=== PATIENT | female | born 1935 | race Caucasian/White ===

== ENCOUNTER → 2017-09-02 09:24 | Outpatient (CLI) | payer MEDICARE, SELFPAY ==
[2017-09-02 10:57] LABS: AST(SGOT) 20 U/L (15-37); Alanine Aminotransfer ALT/SGPT 22 U/L (13-56); Albumin, Serum 3.3 g/dL (3.2-5.0); Alkaline Phosphatase 70 U/L (45-117); Bilirubin, Direct 0.17 mg/dL (0.00-0.30); Cholesterol 138 mg/dL (200); Globulin 4.4 g/dL (2.2-4.2); High Density Lipoprotein 30 mg/dL; Protein, Total 7.7 g/dL (6.4-8.2); Triglycerides 146 mg/dL; Very Low Density Lipoprotein 29 mg/dL (5-40)
== END ==
PROVIDERS: Family Provider Family Medicine; PCP Family Medicine; Visit Provider Physician Assistant Medical
DX: E78.5 Hyperlipidemia, unspecified (principal); Z79.899 Other long term (current) drug therapy
CPT/HCPCS: 36415; 80061; 80076

== ENCOUNTER → 2018-03-13 09:05 | Outpatient (CLI) | payer MEDICARE, SELFPAY ==
[2018-03-13 10:54] LABS: AST(SGOT) 22 U/L (15-37); Alanine Aminotransfer ALT/SGPT 24 U/L (13-56); Albumin, Serum 3.4 g/dL (3.2-5.0); Alkaline Phosphatase 62 U/L (45-117); Bilirubin, Direct 0.11 mg/dL (0.00-0.30); Cholesterol 148 mg/dL (200); Globulin 4.2 g/dL (2.2-4.2); High Density Lipoprotein 33 mg/dL; Protein, Total 7.6 g/dL (6.4-8.2); Triglycerides 192 mg/dL; Very Low Density Lipoprotein 38 mg/dL (5-40)
== END ==
PROVIDERS: Family Provider Family Medicine; PCP Family Medicine; Visit Provider Internal Medicine Cardiovascular Disease
DX: I10 Essential (primary) hypertension (principal); E78.5 Hyperlipidemia, unspecified
CPT/HCPCS: 36415; 80061; 80076

== ENCOUNTER → 2018-05-05 11:44 | Outpatient (CLI) | payer MEDICARE, SELFPAY ==
[2018-05-05 12:36] LABS: Absolute Lymphocyte Count 1.92 X10^3/ul (0.83-4.51); Absolute Neutrophil Count 6.3 X10^3/uL (2.0-7.7); Basophil# 0.05 X10^3/uL; Basophil% 0.5 % (0-1); Eosinophil# 0.18 X10^3/uL; Hematocrit 37.9 % (37-47); Lymphocyte # 1.92 X10^3/ul (4.0); Mean Corp Hgb Conc 31.7 g/gl (32-36); Mean Corpuscular Hgb 29.1 pg (27.0-32.0); Mean Platelet Vol. 9.2 fl (6.2-12.0); Monocyte% 7.7 % (0-10); Neutrophil # 6.26 X10^3/uL (2.7-7.7); Neutrophil % 68.6 % (47-70); Platelet Count 254 K/mm3 (150-450); RBC Distribution Width CV 13.6 % (11.6-14.6); RBC Distribution Width SD 44.9 fl (35.1-43.9); Red Blood Count 4.12 M/mm3 (4.2-5.4); White Blood Count 9.1 K/mm3 (4.4-11.0)
[2018-05-05 12:37] LABS: POSITIVE COUNT NO; POSITIVE DIFFERENTIAL NO; POSITIVE MORPHOLOGY NO
== END ==
PROVIDERS: Family Provider Family Medicine; PCP Family Medicine; Referring Provider Ophthalmology; Visit Provider Ophthalmology
DX: H53.2 Diplopia (principal); D64.9 Anemia, unspecified
CPT/HCPCS: 36415; 85025

== ENCOUNTER → 2018-06-27 09:12 | Outpatient (CLI) | payer MEDICARE, SELFPAY ==
[2018-01-11 10:01] VITALS: BMI 28.8
[2018-06-27 10:49] LABS: Absolute Lymphocyte Count 2.29 X10^3/ul (0.83-4.51); Absolute Neutrophil Count 5.2 X10^3/uL (2.0-7.7); Basophil# 0.04 X10^3/uL; Basophil% 0.5 % (0-1); Eosinophil# 0.24 X10^3/uL; Eosinophils% 2.9 % (0-5); Hematocrit 36.1 % (37-47); Hemoglobin 11.3 g/dl (12.0-15.0); Lymphocyte # 2.29 X10^3/ul (4.0); Lymphocyte % 27.2 % (19-41); Mean Corp Hgb Conc 31.3 g/gl (32-36); Mean Corpuscular Hgb 28.2 pg (27.0-32.0); Mean Platelet Vol. 9.1 fl (6.2-12.0); Monocyte% 7.1 % (0-10); Neutrophil # 5.21 X10^3/uL (2.7-7.7); Neutrophil % 61.9 % (47-70); Platelet Count 230 K/mm3 (150-450); RBC Distribution Width CV 13.6 % (11.6-14.6); RBC Distribution Width SD 44.5 fl (35.1-43.9); Red Blood Count 4.01 M/mm3 (4.2-5.4); White Blood Count 8.4 K/mm3 (4.4-11.0)
[2018-06-27 10:50] LABS: POSITIVE COUNT NO; POSITIVE DIFFERENTIAL NO; POSITIVE MORPHOLOGY NO
[2018-06-27 11:25] LABS: ALB/GLOB Ratio 0.8 RATIO (0.9-2.4); AST(SGOT) 17 U/L (15-37); Alanine Aminotransfer ALT/SGPT 20 U/L (13-56); Albumin, Serum 3.3 g/dL (3.2-5.0); Alkaline Phosphatase 65 U/L (45-117); Anion Gap 5 (5-15); BUN 18 mg/dL (7-18); BUN/Creat Ratio 11.8 RATIO (10-20); Calcium,Total 8.4 mg/dL (8.5-10.1); Chloride 106 mmol/L (98-107); Cholesterol 134 mg/dL (200); Creatinine, Serum 1.53 mg/dL (0.55-1.02); EST Glomerular Filtration Rate 35 mL/min (>60); Est Glom Filt Rate - Afr Amer 42 mL/min (>60); Globulin 4.2 g/dL (2.2-4.2); Glucose 99 mg/dL (74-106); High Density Lipoprotein 28 mg/dL; Potassium 4.4 mmol/L (3.5-5.1); Protein, Total 7.5 g/dL (6.4-8.2); Sodium Level 142 mmol/L (136-145); Triglycerides 186 mg/dL; Very Low Density Lipoprotein 37 mg/dL (5-40)
[2018-06-27 11:30] LABS: Vitamin B12 1230 pg/mL (211-911)
--- OUTSIDE RECORDS SUMMARY | 2018-08-08 22:53 | XMS RPT_ITS ---
:1935 Author Organization OHIP Support Name Relationship Address Phone R Unavailable Unavailable Unavailable RINE, HAWA Unavailable [address] + [place] [address] R Unavailable Unavailable Unavailable RINE, HAWA Unavailable [address] + [place] [address] R Unavailable Unavailable Unavailable RINE, HAWA Unavailable [address] + [place] [address] R Unavailable Unavailable Unavailable RINE, HAWA Unavailable [address] + [place] [address] R Unavailable Unavailable Unavailable RINE, HAWA Unavailable [address] + [place] [address] R Unavailable Unavailable Unavailable RINE, HAWA Unavailable [address] + [place] [address] R Unavailable Unavailable Unavailable RINE, HAWA Unavailable [address] + [place] [address] R Unavailable Unavailable Unavailable RINE, HAWA Unavailable [address] + [place] [address] R Unavailable Unavailable Unavailable RINE, HAWA Unavailable [address] + [place] [address] R Unavailable Unavailable Unavailable RINE, HAWA Unavailable [address] + [place] [address] R Unavailable Unavailable Unavailable RINE, HAWA Unavailable [address] + [place] [address] R Unavailable Unavailable Unavailable RINE, HAWA Unavailable [address] + [place] [address] Care Team Providers Name Role Phone Claudy Vega Attending Unavailable John Rachel Referring Unavailable Martha Stallings Attending Unavailable Wilson, John Primary Care Unavailable Moodispaw, Claudy Attending Unavailable Wilson, John Referring Unavailable Moodispaw, Claudy Referring Unavailable Moodispaw, Claudy Referring Unavailable Moodispaw, Claudy Attending Unavailable Wilson, John Referring Unavailable Wilson, John Primary Care Unavailable Martha Mario Attending Unavailable Moodispaw, Claudy Attending Unavailable Moodispaw, Claudy Referring Unavailable Wilson, John Primary Care Unavailable Nurse, Standard Attending Unavailable Wilson, John Referring Unavailable Miedel, Treutlen Attending Unavailable Miedel, Treutlen Referring Unavailable Wilson, John Primary Care Unavailable Wilson, John Attending Unavailable Wilson, John Referring Unavailable Wilson, John Primary Care Unavailable PROBLEMS PROBLEMS DATE TYPE CONDITION / CODE ATTENDING STATUS SOURCE 06/27/2018 Unknown 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, Community unspecified / Hospital D50.9(ICD-10) Repository 06/27/2018 Unknown Z00.00 - Encounter John Rachel Active [facility] for general adult [facility] Hospital examination Repository without abnormal findings / Z00.00(ICD-10) 06/27/2018 Unknown E78.00 - Pure John Rachel Active [place] hypercholesterolem Community ia, unspecified / Hospital E78.00(ICD-10) Repository 06/27/2018 Unknown E53.8 - Deficiency John Rachel Active [facility] of other specified Community B group vitamins / Hospital E53.8(ICD-10) Repository 06/26/2018 Unknown H53.2 - Diplopia / Miedel, Treutlen Active [place] H53.2(ICD-10) [facility] Repository 03/13/2018 Unknown E78.5 - MoodispaClaudy morris Active [place] Hyperlipidemia, Community unspecified / Hospital E78.5(ICD-10) Repository 03/13/2018 Unknown I10 - Essential Moodispaw, Claudy Active [place] (primary) Community hypertension / Hospital I10(ICD-10) Repository PROCEDURES PROCEDURES No Procedure Records FoundRESULTS RESULTS CARDIOLOGY VISIT Observed: 07/12/2018 Status: F Source: [place] REPORT 12:34 PM [facility] REPOSITORY [facility] [place] [address] OFFICE VISIT Date of Service: 07/12/18 MR#: [id number] Acct: [id number] Name: RAJEEV ECHEVARRIA Rep #: [id number] : 1935 Provider: Claudy Vega MD Age/Sex: 82/F [place] [facility] [place] Status: Signed HPI HPI Details: RAJEEV ECHEVARRIA, is a 82 F who presents to the office today for outpatient cardiovascular follow-up. She denies any ongoing rapid heart rate sensations, near syncope, or syncope. She has had no issues with ongoing concerns of angina pectoris or CHF type symptoms. She does not take her blood pressure at home. She states her home blood pressure recording was never accurate. She notes she has had intermittent episodes of epistaxis. She is going to schedule appointment for ENT for further evaluation. Intake Vital Signs07/12/18 Height 4 ft 11 in 07/12/18 Weight: 148 lb 07/12/18 Body Mass Index (BMI) 29.9 07/12/18 Blood Pressure 162/68 H Intake Visit Reasons: 6 m fu Allergies amiodarone Adverse Reaction (Severe, Verified 07/12/18 11:30) Severs muscle weakness, hair loss flecainide Adverse Reaction (Severe, Verified 07/12/18 11:30) Near Syncope, Severe Nausea Medications aspirin 81 mg tablet,delayed release 81 mg PO QDAY 01/10/18 [History Confirmed 07/12/18] vitamin B complex tablet 1 tab PO QDAY 01/11/18 [History Confirmed 07/12/18] clopidogrel 75 mg tablet 75 mg PO QDAY #90 tab 05/29/18 [Rx Confirmed 07/12/18] digoxin 250 mcg tablet 250 mcg PO QDAY #90 tab 05/29/18 [Rx Confirmed 07/12/18] furosemide 40 mg tablet 40 mg PO QDAY #90 tab 05/29/18 [Rx Confirmed 07/12/18] metoprolol tartrate 100 mg tablet 100 mg PO BID #180 tab 05/29/18 [Rx Confirmed 07/12/18] potassium chloride ER 20 mEq tablet,extended release 20 meq PO .2xweek #30 tab 05/29/18 [Rx Confirmed 07/12/18] pravastatin 20 mg tablet 20 mg PO DAILY #90 tab 05/29/18 [Rx Confirmed 07/12/18] amlodipine 10 mg tablet 10 mg PO QDAY #90 tab 07/12/18 [Rx Confirmed 07/12/18] hydrocodone 5 mg-acetaminophen 325 mg tablet 1 tab PO Q6H PRN 07/12/18 [History Confirmed 07/12/18] PFSH Medical History Essential hypertension (Chronic) Premature ventricular contraction (Acute) Nonrheumatic mitral valve regurgitation (Acute) Chronic atrial fibrillation (Chronic) Hyperlipidemia (Chronic) Nonrheumatic tricuspid (valve) insufficiency (Acute) History of GI bleed (Acute) Other specified transient cerebral ischemias (Acute) TIA (transient ischemic attack) (Acute) Hypertension (Inactive) Surgical History History of cholecystectomy (Resolved) History of total hysterectomy (Resolved) Family History Father COPD (chronic obstructive pulmonary disease) CHF (congestive heart failure) Mother Hypertension CVA (cerebral vascular accident) Brother Hypertension Social History Smoking Status: Never smoker alcohol intake: never ROS Const Const: Negative for fatigue, weakness, weight gain, weight loss, frequent falls or excessive sweating Eyes Eyes: Negative for change in vision, blurry vision or transient loss of vision ENT ENT: Positive for Nosebleed/epistaxis (occasional, last 10 minutes); negative for dizziness or balance problems Cardio Chest Pain: No Palpitations: No Edema: None Muscle aches with walking: None Resp Respiratory: Negative for SOB with activity or SOB at rest GI GI: Negative vomiting or vomiting blood/hematemesis : Negative for hematuria Musc Musc: Positive for joint pain (HX Arthritis); negative for balance problems, muscle aches/ myalgia or muscle weakness Skin Skin: Negative non-healing lesions or rash Neuro Neuro: Negative for weakness, blurry vision, dizziness, lightheadedness, frequent falls or orthostatic symptoms Emeka Hematologic/Lymphatic: Negative for easy bleeding Endo Endo: Negative for fatigue or excessive sweating Psych Psych: Negative for anxiety or depression Allergy Allergy/Immunology: Negative for hives, Negative for rash Cardiology Exam Const Appearance: cooperative, healthy appearing, comfortable, no acute distress, well developed and well groomed Nutritional Appearance: average body habitus Orientation: alert, awake and oriented x3 Head Head: normal to inspection, normocephalic and atraumatic Ears: hearing grossly normal bilaterally Nose: external nose normal Face and Sinus: face symmetric Mouth: oral mucosae normal Eyes Eyelids: eyelids normal Conjunctivae: conjunctivae normal Pupils: PERRL EOM: EOM intact bilaterally Neck Neck: normal visual inspection and full ROM Carotids: normal carotid upstroke Chest Chest inspection: normal inspection of the chest, symmetric chest movement and normal respiratory effort Auscultation: Bilateral: Clear to Auscultation Cardio Palpation: normal PMI Rhythm: irregular rhythm Heart sounds: S1 normal and S2 normal Murmur: Grade 2/6, holosystolic, LLSB, LVOT and apex GI GI: normal to inspection, soft and bowel sounds present Neuro General: alert, awake, oriented x3, gait normal, moves all extremities, no focal sensory deficit and no focal motor deficits Skin Skin: no rashes or lesions noted Extremities Pulses: Normal: Right Radial Pulse, Left Radial Pulse Lower Extremity Edema: None: Bilateral Psych Psychological: normal affect Assessment AND Plan 1. Chronic atrial fibrillation I48.2 Plan She remains in atrial fibrillation. She will continue her current therapy. If going forward her heart rate remains controlled she was told she can try and go without her digitalis therapy as long as the beta-pradip therapy controlled her heart rate. She will be evaluated by ENT for her epistaxis. If need be she may need to interrupt either her aspirin therapy or her antiplatelet therapy with Plavix depending upon her findings, etc. 2. Nonrheumatic mitral valve insufficiency I34.0 Plan She does have a history of MR. She continues with outpatient follow-up by history, exam, and echocardiogram as deemed appropriate. 3. Hyperlipidemia, unspecified hyperlipidemia type E78.5 Plan Her lipids were recently checked in June of this year. Her total cholesterol and LDL cholesterol remain under good control 4. Essential hypertension I10 Plan With respect to her blood pressure she will attempt to increase her amlodipine back to 10 mg a day. Hopefully this will help her blood pressure. Hopefully we will not lead to any concerns of fluid retention of the lower extremities. She will be asked to have a future blood pressure follow-up visit as she does not want to check her blood pressures at home. Plan Detail Other Medications New: Changed: Additional Comments Thank you for allowing me to participate in the care of your patient. Please don't hesitate to call if any issues arise. This note was generated using a voice recognition system and there may be incorrect words, spelling or punctuation that were not noted when reviewing the office note prior to saving. Follow Up 6 Months (with PFM) 6 Weeks (Nurse BP) Coding Level of Care Code Off vis,est,level 3 Diagnoses Chronic atrial fibrillation I48.2 Nonrheumatic mitral valve insufficiency I34.0 Hyperlipidemia, unspecified hyperlipidemia type E78.5 Hyperlipidemia type: unspecified Essential hypertension I10 Coding Level of Care Code Off vis,est,level 3 Diagnoses Chronic atrial fibrillation I48.2 Nonrheumatic mitral valve insufficiency I34.0 Hyperlipidemia, unspecified hyperlipidemia type E78.5 Hyperlipidemia type: unspecified Essential hypertension I10 07/12/18 1234 <Electronically signed by Claudy Vega MD> Date Claudy Vega MD Cosigner Signature: Date (if applicable) CC: John Rachel MD CBC W/DIFF, AUTOMATED Collected: 06/27/2018 Status: F Source: [place] 9:19 AM [facility] REPOSITORY TYPE CODE TESTS RESULT OUT OF RANGE REFERENCE UNITS LAB L100.1000 4.4-11.0 K/mm3 Normal WBC 8.4 LAB L100.1200 4.2-5.4 M/mm3 Low RBC 4.01 LAB L100.1300 12.0-15.0 g/dl Low HGB 11.3 LAB L100.1400 37-47 % Low HCT 36.1 LAB L100.1500 81-99 fL Normal MCV 90.0 LAB L100.1600 27.0-32.0 pg Normal MCH 28.2 LAB L100.1700 32-36 g/gl Low MCHC 31.3 LAB L100.1810 11.6-14.6 % Normal RDW CV 13.6 LAB L100.1820 35.1-43.9 fl High RDW SD 44.5 LAB L100.1900 150-450 K/mm3 Normal PLT 230 LAB L100.2000 6.2-12.0 fl Normal MPV 9.1 LAB L100.2100 47-70 % Normal NEUT% 61.9 LAB L100.2200 19-41 % Normal LY% 27.2 LAB L100.2300 0-10 % Normal MONO% 7.1 LAB L100.2400 0-5 % Normal EO% 2.9 LAB L100.2500 0-1 % Normal BASO% 0.5 LAB L100.2550 0.0-0.9 % Normal IM GRAN % 0.400 Result Comment: IG% - Immature Granulocytes (promyelocytes, myelocytes and metamyelocytes) > 1% indicates that a LEFT SHIFT is Present. LAB L100.2620 2.0-7.7 X10 3/uL Normal Absolute Neut 5.2 LAB L100.2720 0.83-4.51 X10 3/ul Normal Absolute Lymph 2.29 Performed By: #### L100.0100 #### [facility] [address] [place], [address] COMPREHENSIVE METABOLIC Collected: 06/27/2018 Status: F Source: [facility] 9:19 AM [facility] REPOSITORY TYPE CODE TESTS RESULT OUT OF RANGE REFERENCE UNITS LAB L501.0100 74-106 mg/dL Normal GLU 99 Result Comment: Please note revised GLUCOSE reference range effective 2017. LAB L501.1000 7-18 mg/dL Normal BUN 18 LAB L501.1100 0.55-1.02 mg/dL High CREAT,SERUM 1.53 Result Comment: The validity of the calculated GFR AND GFRAA in patients over 70 years has not been determined. Clinical correlation is essential. LAB L501.1110 >60 mL/min Low EST GFR 35 Result Comment: Non- GFR Calc LAB L501.1115 >60 mL/min Low EST GFR - AA 42 Result Comment: GFR Calc LAB L501.1300 10-20 RATIO Normal BUN/CRE 11.8 LAB L501.1500 6.4-8.2 g/dL T Normal PROT 7.5 LAB L501.1800 3.2-5.0 g/dL Normal ALB 3.3 LAB L501.1950 2.2-4.2 g/dL Normal GLOB 4.2 LAB L501.2000 0.9-2.4 RATIO Low A/G 0.8 LAB L501.2200 8.5-10.1 mg/dL Low CA 8.4 LAB L501.4100 15-37 U/L Normal AST 17 LAB L501.4305 45-117 U/L Normal ALK P 65 LAB L501.4405 13-56 U/L Normal ALT 20 LAB L501.4600 0.20-1.00 mg/dL T Normal BILI 0.40 LAB L501.5300 136-145 mmol/L NA Normal 142 LAB L501.5600 3.5-5.1 mmol/L K Normal 4.4 LAB L501.5900 98-107 mmol/L CL Normal 106 LAB L501.6100 21.0-32.0 mmol/L Normal CO2 31.0 LAB L501.6200 5-15 Normal GAP 5 Performed By: #### L500.4050, L500.4100 #### [facility] [address] [place], [place], [id number] LIPID PROFILE Collected: 06/27/2018 Status: F Source: [place] 9:19 AM [facility] REPOSITORY TYPE CODE TESTS RESULT OUT OF RANGE REFERENCE UNITS LAB L501.4900 200 mg/dL Normal CHOL 134 Result Comment: <200 mg/dL Desirable 200-240 mg/dL Borderline >240 mg/dL High Risk LAB L501.5000 mg/dL Normal TRIG 186 Result Comment: The drugs N-Acetylcysteine and Metamizole may falsely depress this assay. Serum Triglycerides Reference Interval Normal <150 mg/dL Borderline high 150 - 199 mg/dL High 200 - 499 mg/dL Very High > or = 500 mg/dL LAB L501.6400 mg/dL Low HDL 28 Result Comment: The drugs N-Acetylcysteine and Metamizole may falsely depress this assay. Reference Range HDL <40 mg/dL Low HDL Cholesterol HDL >or= 60 mg/dL High HDL Cholesterol LAB L501.6500 0-130 mg/dL Normal LDL 69 LAB L501.6600 5-40 mg/dL Normal VLDL 37 Performed By: #### L500.4050, L500.4100 #### [facility] [address] [place], [place], [id number] VITAMIN B12 Collected: 06/27/2018 Status: F Source: [place] 9:19 AM [facility] REPOSITORY TYPE CODE TESTS RESULT OUT OF REFERENCE UNITS RANGE LAB L503.0105 211-911 pg/mL High Vitamin B12 1230 Performed By: #### L503.0105 #### [facility] [address] [place], [address] CBC W/DIFF, AUTOMATED Collected: 05/05/2018 Status: F Source: [place] 11:48 AM [facility] REPOSITORY TYPE CODE TESTS RESULT OUT OF RANGE REFERENCE UNITS LAB L100.1000 4.4-11.0 K/mm3 Normal WBC 9.1 LAB L100.1200 4.2-5.4 M/mm3 Low RBC 4.12 LAB L100.1300 12.0-15.0 g/dl Normal HGB 12.0 LAB L100.1400 37-47 % Normal HCT 37.9 LAB L100.1500 81-99 fL Normal MCV 92.0 LAB L100.1600 27.0-32.0 pg Normal MCH 29.1 LAB L100.1700 32-36 g/gl Low MCHC 31.7 LAB L100.1810 11.6-14.6 % Normal RDW CV 13.6 LAB L100.1820 35.1-43.9 fl High RDW SD 44.9 LAB L100.1900 150-450 K/mm3 Normal PLT 254 LAB L100.2000 6.2-12.0 fl Normal MPV 9.2 LAB L100.2100 47-70 % Normal NEUT% 68.6 LAB L100.2200 19-41 % Normal LY% 21.0 LAB L100.2300 0-10 % Normal MONO% 7.7 LAB L100.2400 0-5 % Normal EO% 2.0 LAB L100.2500 0-1 % Normal BASO% 0.5 LAB L100.2550 0.0-0.9 % Normal IM GRAN % 0.200 Result Comment: IG% - Immature Granulocytes (promyelocytes, myelocytes and metamyelocytes) > 1% indicates that a LEFT SHIFT is Present. LAB L100.2620 2.0-7.7 X10 3/uL Normal Absolute Neut 6.3 LAB L100.2720 0.83-4.51 X10 3/ul Normal Absolute Lymph 1.92 Performed By: #### L100.0100 #### [facility] [address] [place], [address] MISCELLANEOUS LAB Collected: 05/05/2018 Status: F Source: [place] PROCEDURE 11:48 AM [facility] REPOSITORY Order Comment: Test(s) Ordered: [id number] ACETYLCHOLINE AB PROFILE SER RF TYPE CODE TESTS RESULT OUT OF RANGE REFERENCE UNITS LAB L801.1541 Normal [facility] [place] Result Comment: TEST RESULT LIMITS Acetylcholine Receptor Ab, All AChR Binding Abs, Serum <0.03 nmol/L 0.00 - 0.24 Negative: 0.00 - 0.24 Borderline: 0.25 - 0.40 Positive: > 0.40 AChR Blocking Abs, Serum 6 % 0 - 25 Negative: 0 - 25 Borderline: 26 - 30 Positive: >30 Results for this test are for research purposes only by the assay's sales and marketing administrator. The performance characteristics of this product have not been established. Results should not be used as a diagnostic procedure without confirmation of the diagnosis by another medically established diagnostic product or procedure. AChR Modulating Ab <12 % 0 - 20 Negative: <21 Equivocal: 21 - 25 Positive: >25 The assay is linear between values of 12 and 64. Those <12 and >64 are reported as such. No single value for ACR-modulating antibody should be used as a sole basis for diagnosis or response to therapy. TESTING PERFORMED AT [facility]. ORIGINAL REPORT ON FILE IN LAB CONTAINS ADDITIONAL TEST SITE INFORMATION. Performed By: #### L801.1541 #### [facility] [address] [place], [address] OFFICE VISIT REPORT Observed: 04/17/2018 Status: F Source: [place] 11:53 AM [facility] [address] [place] [address] OFFICE VISIT Date of Service: 04/17/18 MR#: [id number] Acct: [id number] Patient: RAJEEV ECHEVARRIA Rep #: [id number] : 1935 Provider: Diana Christopher RN Age/Sex: 82/F [place] [facility] [place] Status: Signed Intake Vital Signs04/17/18 Blood Pressure 172/60 04/17/18 Blood Pressure Location Lt brachial Intake Visit Reasons: 3 m BP check Runway Model Required: No Accompanied by: None Is patient in pain?: No Allergies amiodarone Adverse Reaction (Severe, Verified 04/17/18 10:55) Severs muscle weakness, hair loss flecainide Adverse Reaction (Severe, Verified 04/17/18 10:55) Near Syncope, Severe Nausea Medications digoxin 250 mcg tablet 250 mcg PO QDAY 10/31/17 [History Confirmed 04/17/18] aspirin 81 mg tablet,delayed release 81 mg PO QDAY 01/10/18 [History Confirmed 04/17/18] clopidogrel 75 mg tablet 75 mg PO QDAY 01/10/18 [History Confirmed 04/17/18] furosemide 40 mg tablet 40 mg PO QDAY 01/10/18 [History Confirmed 04/17/18] potassium chloride ER 20 mEq tablet,extended release 20 meq PO .2xweek tab 01/10/18 [History Confirmed 04/17/18] amlodipine 5 mg tablet 5 mg PO QDAY 01/11/18 [History Confirmed 04/17/18] losartan 50 mg tablet 50 mg PO QDAY #90 tab 01/11/18 [Rx Confirmed 04/17/18] metoprolol tartrate 100 mg tablet 100 mg PO BID #180 tab 01/11/18 [Rx Confirmed 04/17/18] pravastatin 40 mg tablet 20 mg PO QDAY tab 01/11/18 [History Confirmed 04/17/18] vitamin B complex tablet 1 tab PO QDAY 01/11/18 [History Confirmed 04/17/18] Nursing Note Patient here for BP. At her last visit Dr. Vega wanted her to start on Losartan 50 mg QD for BP control. Patient misunderstood, thinking she did not need to start on Losartan until her Digoxin supply ran out. Discussed with Buzz Coronado LOAN DOCUMENTATION SPECIALIST. BP today was 172/60. Advised patient to continue taking Digoxin until her supply ran out and to start on Losartan 50 mg daily today. She will come back on May 01, 2018 @ 1pm for 2 week BP check. 04/17/18 1153 <Electronically signed by Buzz CORTES> Date Buzz CORTES Cosigner Signature: Date (if applicable) CC: [place] PROFILE Collected: 03/13/2018 Status: F Source: [place] 9:11 AM [facility] REPOSITORY TYPE CODE TESTS RESULT OUT OF RANGE REFERENCE UNITS LAB L501.1500 6.4-8.2 g/dL Normal T PROT 7.6 LAB L501.1800 3.2-5.0 g/dL Normal ALB 3.4 LAB L501.1950 2.2-4.2 g/dL Normal GLOB 4.2 LAB L501.4100 15-37 U/L Normal AST 22 LAB L501.4305 45-117 U/L Normal ALK P 62 LAB L501.4405 13-56 U/L Normal ALT 24 LAB L501.4600 0.20-1.00 mg/dL Normal T BILI 0.40 LAB L501.4700 0.00-0.30 mg/dL Normal D BILI 0.11 Performed By: #### L500.3400, L500.4100 #### [facility] [address] [place], [address] LIPID PROFILE Collected: 03/13/2018 Status: F Source: [place] 9:11 AM [facility] REPOSITORY TYPE CODE TESTS RESULT OUT OF RANGE REFERENCE UNITS LAB L501.4900 200 mg/dL Normal CHOL 148 Result Comment: <200 mg/dL Desirable 200-240 mg/dL Borderline >240 mg/dL High Risk LAB L501.5000 mg/dL Normal TRIG 192 Result Comment: The drugs N-Acetylcysteine and Metamizole may falsely depress this assay. Serum Triglycerides Reference Interval Normal <150 mg/dL Borderline high 150 - 199 mg/dL High 200 - 499 mg/dL Very High > or = 500 mg/dL LAB L501.6400 mg/dL Low HDL 33 Result Comment: The drugs N-Acetylcysteine and Metamizole may falsely depress this assay. Reference Range HDL <40 mg/dL Low HDL Cholesterol HDL >or= 60 mg/dL High HDL Cholesterol LAB L501.6500 0-130 mg/dL Normal LDL 77 LAB L501.6600 5-40 mg/dL Normal VLDL 38 Performed By: #### L500.3400, L500.4100 #### [facility] [address] [place], [address] CARDIOLOGY VISIT Observed: 01/11/2018 Status: F Source: [place] REPORT 10:47 AM [facility] REPOSITORY [facility] [address] [place] [address] OFFICE VISIT Date of Service: 01/11/18 MR#: [id number] Acct: [id number] Name: RAJEEV ECHEVARRIA Rep #: [id number] : 1935 Provider: Claudy Vega MD Age/Sex: 82/F Location: [facility] [place] Status: Signed HPI HPI Details: RAJEEV ECHEVARRIA, is a 82 F who presents to the office today for presents for outpatient cardiovascular follow-up. Since her last visit on 05/16/2017 she notes overall she has been doing reasonably well. She denies any ongoing sensations of rapid heart rates. There has been no issues of near syncope or syncope. At the same time she has had no obvious evidence of ongoing chest discomfort, shortness of breath/dyspnea at rest or with exertion, orthopnea, or PND. She does have waxing and waning trace bilateral ankle edema. She states that her third green party payer is no longer going to financially cover her digitalis therapy. Thus she may have to be without her digitalis therapy and on beta-pradip alone and/or if need be potentially beta-pradip and calcium channel antagonist. Her lipids were checked in September of this year. Her total cholesterol and LDL cholesterol appear to be under reasonably good control. Intake Vital Signs01/11/18 Height 4 ft 11 in 01/11/18 Weight: 143 lb 01/11/18 Body Mass Index (BMI) 28.8 01/11/18 Blood Pressure 170/68 Intake Visit Reasons: 9 m fu Allergies amiodarone Adverse Reaction (Severe, Verified 01/11/18 10:01) Severs muscle weakness, hair loss flecainide Adverse Reaction (Severe, Verified 01/11/18 10:01) Near Syncope, Severe Nausea Medications digoxin 250 mcg tablet 250 mcg PO QDAY 10/31/17 [History Confirmed 01/11/18] aspirin 81 mg tablet,delayed release 81 mg PO QDAY 01/10/18 [History Confirmed 01/11/18] clopidogrel 75 mg tablet 75 mg PO QDAY 01/10/18 [History Confirmed 01/11/18] furosemide 40 mg tablet 40 mg PO QDAY 01/10/18 [History Confirmed 01/11/18] potassium chloride ER 20 mEq tablet,extended release 20 meq PO .2xweek tab 01/10/18 [History Confirmed 01/11/18] amlodipine 5 mg tablet 5 mg PO QDAY 01/11/18 [History Confirmed 01/11/18] losartan 50 mg tablet 50 mg PO QDAY #90 tab 01/11/18 [Rx Confirmed 01/11/18] metoprolol tartrate 100 mg tablet 100 mg PO BID #180 tab 01/11/18 [Rx Confirmed 01/11/18] pravastatin 40 mg tablet 20 mg PO QDAY tab 01/11/18 [History Confirmed 01/11/18] vitamin B complex tablet 1 tab PO QDAY 01/11/18 [History Confirmed 01/11/18] [facility] Medical History Premature ventricular contraction (Acute) Nonrheumatic mitral valve regurgitation (Acute) Chronic atrial fibrillation (Chronic) Hypertension (Chronic) Hyperlipidemia (Chronic) Nonrheumatic tricuspid (valve) insufficiency (Acute) History of GI bleed (Acute) Other specified transient cerebral ischemias (Acute) TIA (transient ischemic attack) (Acute) Surgical History History of cholecystectomy (Resolved) History of total hysterectomy (Resolved) Family History Father COPD (chronic obstructive pulmonary disease) CHF (congestive heart failure) Mother Hypertension CVA (cerebral vascular accident) Brother Hypertension Social History Smoking Status: Never smoker alcohol intake: never ROS Const Const: Negative for fatigue, weakness, weight gain, weight loss, frequent falls or excessive sweating Eyes Eyes: Negative for change in vision, blurry vision or transient loss of vision ENT ENT: Negative for dizziness or balance problems Cardio Chest Pain: No Palpitations: No Edema: None Muscle aches with walking: None Resp Respiratory: Negative for SOB with activity or SOB at rest GI GI: Negative vomiting or vomiting blood/hematemesis : Negative for hematuria Musc Musc: Negative for balance problems, muscle aches/ myalgia, muscle weakness or joint pain Skin Skin: Negative non-healing lesions or rash Neuro Neuro: Negative for weakness, blurry vision, dizziness, lightheadedness, frequent falls or orthostatic symptoms Emeka Hematologic/Lymphatic: Negative for easy bleeding Endo Endo: Negative for fatigue or excessive sweating Psych Psych: Negative for anxiety or depression Allergy Allergy/Immunology: Negative for hives, Negative for rash Cardiology Exam Const Appearance: cooperative, healthy appearing, comfortable, no acute distress, well developed and well groomed Nutritional Appearance: average body habitus Orientation: alert, awake and oriented x3 Head Head: normal to inspection, normocephalic and atraumatic Ears: hearing grossly normal bilaterally Nose: external nose normal Face and Sinus: face symmetric Mouth: oral mucosae normal Eyes General: appearance normal, both eyes and all related structures Eyelids: eyelids normal Conjunctivae: conjunctivae normal Pupils: PERRL EOM: EOM intact bilaterally Neck Neck: normal visual inspection and full ROM Carotids: normal carotid upstroke Chest Chest inspection: normal inspection of the chest and symmetric chest movement Auscultation: Bilateral: Clear to Auscultation Cardio Palpation: normal PMI Rhythm: irregular rhythm Heart sounds: S1 normal and S2 normal GI GI: normal to inspection, soft, no hepatosplenomegaly and bowel sounds present Neuro General: alert, awake, oriented x3, gait normal, moves all extremities, no focal sensory deficit and no focal motor deficits Skin Skin: no rashes or lesions noted Extremities Pulses: Normal: Right Radial Pulse, Left Radial Pulse Lower Extremity Edema: Trace: Bilateral Psych Psychological: normal affect Assessment AND Plan 1. Chronic atrial fibrillation I48.2 Plan At the present time her rate appears to be recently well controlled. She is going to complete her current digitalis supply. Once her supply is exhausted she will be on beta-pradip alone. She will need a heart rate blood pressure follow-up to reassess her vital signs. If her heart rate increases then she may need an alternative agent such as a calcium channel antagonist change such as diltiazem to assist with heart rate control if she cannot be on digitalis therapy. If this does occur then she will most likely need her amlodipine therapy discontinued. 2. Premature ventricular beat I49.3 Plan She is not complaining of any obvious ectopy at this time. Again she will continue her current medical management and monitor her response. 3. 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 She will continue to be followed by history, exam, and echocardiogram as deemed appropriate. 4. Non-rheumatic tricuspid valve insufficiency I36.1 Plan Again as noted above she will continue follow-up by history, exam, and echocardiogram as deemed appropriate. 5. Hyperlipidemia, unspecified hyperlipidemia type E78.5 Plan Her lipid labs are as noted. She will continue to have them followed. Orders Orders: 6. Hypertension, unspecified type I10 Plan Her blood pressure appears to remain elevated. She states she does not check it at home any longer because it more difficult to do so with her underlying cardiac dysrhythmia. Her hypertension history was reviewed. Her medications will be adjusted. She does not want to increase her amlodipine therapy based on concerns of lower extremity edema. She will initiate medical management with losartan/Cozaar at 50 mg a day as long as it is covered by her third-green party pair. If not she may need an alternative ARB or other antihypertensive therapy. She will be asked to have a future blood pressure follow-up as well. Orders Orders: Plan Detail Other Medications New: Refilled: Additional Comments Otherwise she will be scheduled for future outpatient cardiovascular follow-up appointment. Thank you for allowing me to participate in the care of your patient. Please don't hesitate to call if any issues arise. This note was generated using a voice recognition system and there may be incorrect words, spelling or punctuation that were not noted when reviewing the office note prior to saving. 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 TYPE CODE TESTS RESULT OUT OF RANGE REFERENCE UNITS LAB L501.1500 6.4-8.2 g/dL Normal T PROT 7.7 LAB L501.1800 3.2-5.0 g/dL Normal ALB 3.3 LAB L501.1950 2.2-4.2 g/dL High GLOB 4.4 LAB L501.4100 15-37 U/L Normal AST 20 LAB L501.4305 45-117 U/L Normal ALK P 70 LAB L501.4405 13-56 U/L Normal ALT 22 Result Comment: Please note revised ALT reference range effective 2017. LAB L501.4600 0.20-1.00 mg/dL Normal T BILI 0.60 LAB L501.4700 0.00-0.30 mg/dL Normal D BILI 0.17 Performed By: #### L500.3400 #### [facility] [address] [place], [place], [address] LIPID PROFILE Collected: 09/02/2017 Status: F Source: [place] 9:28 AM [facility] REPOSITORY Order Comment: Order Date: 03/09/17 Order Info: [id number] - *Hepatic Function Panel Order Info: [id number] - *Lipid Profile CC PCP Comments: 12 hours fasting, may have water. TYPE CODE TESTS RESULT OUT OF RANGE REFERENCE UNITS LAB L501.4900 200 mg/dL Normal CHOL 138 Result Comment: <200 mg/dL Desirable 200-240 mg/dL Borderline >240 mg/dL High Risk LAB L501.5000 mg/dL Normal TRIG 146 Result Comment: The drugs N-Acetylcysteine and Metamizole may falsely depress this assay. Serum Triglycerides Reference Interval Normal <150 mg/dL Borderline high 150 - 199 mg/dL High 200 - 499 mg/dL Very High > or = 500 mg/dL LAB L501.6400 mg/dL Low HDL 30 Result Comment: The drugs N-Acetylcysteine and Metamizole may falsely depress this assay. Reference Range HDL <40 mg/dL Low HDL Cholesterol HDL >or= 60 mg/dL High HDL Cholesterol LAB L501.6500 0-130 mg/dL Normal LDL 79 LAB L501.6600 5-40 mg/dL Normal VLDL 29 Performed By: #### L500.4100 #### [facility] [address] [place], [place], [address] ALLERGIES ALLERGIES DATE TYPE / CODE NAME / CODE REACTION SEVERITY SOURCE 07/12/2018 Drug flecainide/F Near Syncope, SV [facility] Allergy/4160 [id number](RX Severe Nausea Hospital 96564(SNOMED NORM) Repository CT) 07/12/2018 Drug amiodarone/F Severs muscle SV [facility] Allergy/4160 [id number](RX weakness, hair Hospital 06713(SNOMED NORM) loss Repository CT) ENCOUNTERS ENCOUNTERS ADMIT/DISCHARGE ACCOUNT ADMITTING ENCOUNTER LOCATION SOURCE NUMBER CLASS 07/12/2018/ [id number] Ambulatory BMSBuilding:B [place] [facility] 1 [facility] Repository 06/27/2018 [id number] Ambulatory [place] 7 [facility] ing:LAB Repository 05/05/2018 [id number] Ambulatory [place] 4 [facility] ing:LAB Repository 04/17/2018/ [id number] Ambulatory BMSBuilding:B [place] 8 5 [facility] Repository 03/13/2018 [id number] Ambulatory [place] 5 [facility] ing:LAB Repository 02/13/2018 [id number] Ambulatory BMSBuilding:B [place] 4 [facility] Repository 01/27/2018 [id number] Ambulatory BMSBuilding:B [place] 1 [facility] Repository 01/11/2018/ [id number] Ambulatory BMSBuilding:B [place] 8 9 [facility] Repository 01/10/2018 [id number] Ambulatory BMSBuilding:B [place] 8 [facility] Repository 01/04/2018 [id number] Ambulatory BMSBuilding:B [place] 9 [facility] Repository 12/30/2017 [id number] Ambulatory BMSBuilding:B [place] 5 [facility] Repository 09/02/2017 [id number] [facility] ing:LAB Repository PAYERS PAYERS ENCOUNTER GUARANTOR PAYER SUBSCRIBER SOURCE 07/12/2018 RAJEEV B [id number] Primary RAJEEV B RINEDOB: [place] Insurance:HUMANA [id number] [place] [facility] [address]Xwh: [phone]) Number: Repository [phone] ) [id number] Date:[id number] [address]HN: 07/12/2018 Secondary NOT GIVENUNK [place] Insurance:SELF PAY [facility] Number: Effective Repository Date:2018-07-12 06/27/2018 RAJEEV B [id number] Primary RAJEEV B RINEDOB: [place] Insurance:HUMANA [id number] [place] [facility] [address]Tel: [phone]) Number: Repository [phone] () [id number] Date:[id number] [address] [address]FO: 06/27/2018 Secondary NOT GIVENUNK [place] Insurance:SELF PAY [facility] Number: Effective Repository Date:2018-06-27 05/05/2018 RAJEEV B [id number] Primary RAJEEV B RINEDOB: [place] Insurance:HUMANA [id number] [place] [facility] [address]Tel: [phone]) Number: Repository [phone] () [id number] Date:[id number] [address] [address]TW: 05/05/2018 Secondary NOT GIVENUNK [place] Insurance:SELF PAY [facility] Number: Effective Repository Date:2018-05-05 04/17/2018 RAJEEV B [id number] Primary RAJEEV B RINEDOB: [place] Insurance:HUMANA [id number] [place] [facility] [address]Tel: [phone]) Number: Repository [phone] () [id number] Date:[id number] [address] [address]XF: 04/17/2018 Secondary NOT GIVENUNK [place] Insurance:SELF PAY [facility] Number: Effective Repository Date:2018-04-17 03/13/2018 RAJEEV B [id number] Primary RAJEEV B RINEDOB: [place] Insurance:HUMANA [id number] [place] [facility] [address]Zwb: [phone]) Number: Repository [phone] () [id number] Date:[id number] [address] [address]IS: 03/13/2018 Secondary NOT GIVENUNK [place] Insurance:SELF PAY [facility] Number: Effective Repository Date:2018-03-13 02/13/2018 RAJEEV B [id number] Primary RAJEEV B RINEDOB: [place] Insurance:HUMANA [id number] [place] [facility] [address]Tel: [phone]) Number: Repository [phone] () [id number] Date:[id number]WP: 02/13/2018 Secondary NOT GIVENUNK [place] Insurance:SELF PAY [facility] Number: Effective Repository Date:2017-07-20 01/27/2018 RAJEEV B [id number] Primary RAJEEV B RINEDOB: [place] Insurance:HUMANA [id number] [place] [facility] [address]Tel: [phone]) Number: Repository [phone] () [id number] Date:[id number]46[address]WP: 01/27/2018 Secondary NOT GIVENUNK [place] Insurance:SELF PAY [facility] Number: Effective Repository Date:2017-11-07 01/11/2018 RAJEEV B [id number] Primary RAJEEV B RINEDOB: [place] Insurance:HUMANA [id number] [place] [facility] [address]Tel: [phone]) Number: Repository [phone] () [id number] Date:6028-35-08ST [address] [address]CR: 01/11/2018 Secondary NOT GIVENUNK [place] Insurance:SELF PAY [facility] Number: Effective Repository Date:2018-01-11 01/10/2018 RAJEEV B [id number] Primary RAJEEV B RINEDOB: [place] Insurance:HUMANA [id number] [place] [facility] [address]Tel: [phone]) Number: Repository [phone] () [id number] Date:[id number] [address] [address]XQ: 01/10/2018 Secondary NOT GIVENUNK [place] Insurance:SELF PAY [facility] Number: Effective Repository Date:2018-01-10 01/04/2018 RAJEEV B [id number] Primary RAJEEV B RINEDOB: [place] Insurance:HUMANA [id number] [place] [facility] [address]Tel: [phone]) Number: Repository [phone] () [id number] Date:[id number] [address]WP: 01/04/2018 Secondary NOT GIVENUNK [place] Insurance:SELF PAY [facility] Number: Effective Repository Date:2017-12-09 12/30/2017 RAJEEV B [id number] Primary RAJEEV B RINEDOB: [place] Insurance:HUMANA [id number] [place] [facility] [address]Tel: [phone]) Number: Repository [phone] () [id number] Date:[id number]46[address]WP: 12/30/2017 Secondary NOT GIVENUNK [place] Insurance:SELF PAY [facility] Number: Effective Repository Date:2017-11-11 09/02/2017 RAJEEV B [id number] Primary RAJEEV B RINEDOB: [place] Insurance:HUMANA [id number] [place] [facility] [address]Tel: [phone]) Number: Repository [phone] () [id number] Date:[id number] [address]GX: 09/02/2017 Secondary NOT GIVENUNK [place] Insurance:SELF PAY [facility] Number: Effective Repository Date:2017-09-02
== END ==
PROVIDERS: Family Provider Family Medicine; PCP Family Medicine; Referring Provider Family Medicine; Visit Provider Family Medicine
DX: Z00.00 Encounter for general adult medical examination without abnormal findings (principal); D50.9 Iron deficiency anemia, unspecified; E78.00 Pure hypercholesterolemia, unspecified; E53.8 Deficiency of other specified B group vitamins
CPT/HCPCS: 36415; 80053; 80061; 82607; 85025

== ENCOUNTER → 2018-09-12 09:07 | Outpatient (CLI) | payer MEDICARE, SELFPAY ==
[2018-08-28 10:42] VITALS: BMI 29.5
[2018-09-12 10:16] LABS: AST(SGOT) 23 U/L (15-37); Alanine Aminotransfer ALT/SGPT 26 U/L (13-56); Albumin, Serum 3.3 g/dL (3.2-5.0); Alkaline Phosphatase 65 U/L (45-117); Bilirubin, Direct 0.13 mg/dL (0.00-0.30); Cholesterol 147 mg/dL (200); Globulin 4.4 g/dL (2.2-4.2); High Density Lipoprotein 31 mg/dL; Protein, Total 7.7 g/dL (6.4-8.2); Triglycerides 155 mg/dL; Very Low Density Lipoprotein 31 mg/dL (5-40)
[2018-09-12 10:17] LABS: Anion Gap 5 (5-15); BUN 27 mg/dL (7-18); BUN/Creat Ratio 15.3 RATIO (10-20); Calcium,Total 8.7 mg/dL (8.5-10.1); Chloride 109 mmol/L (98-107); Creatinine, Serum 1.77 mg/dL (0.55-1.02); EST Glomerular Filtration Rate 29 mL/min (>60); Est Glom Filt Rate - Afr Amer 35 mL/min (>60); Glucose 105 mg/dL (74-106); Sodium Level 143 mmol/L (136-145)
== END ==
PROVIDERS: Nurse Practitioner Family; Family Provider Family Medicine; PCP Family Medicine; Referring Provider Internal Medicine Cardiovascular Disease; Visit Provider Internal Medicine Cardiovascular Disease
DX: E78.5 Hyperlipidemia, unspecified (principal); I10 Essential (primary) hypertension; I48.2 Chronic atrial fibrillation; I34.0 Nonrheumatic mitral (valve) insufficiency
CPT/HCPCS: 36415; 80048; 80061; 80076

== ENCOUNTER → 2018-10-17 09:58 | Outpatient (CLI) | payer MEDICARE, SELFPAY ==
[2018-08-28 10:42] VITALS: BMI 29.5
[2018-10-17 10:53] LABS: Anion Gap 7 (5-15); BUN 23 mg/dL (7-18); BUN/Creat Ratio 12.2 RATIO (10-20); Calcium,Total 8.5 mg/dL (8.5-10.1); Chloride 108 mmol/L (98-107); Creatinine, Serum 1.89 mg/dL (0.55-1.02); EST Glomerular Filtration Rate 27 mL/min (>60); Est Glom Filt Rate - Afr Amer 33 mL/min (>60); Glucose 126 mg/dL (74-106); Potassium 4.6 mmol/L (3.5-5.1); Sodium Level 144 mmol/L (136-145)
== END ==
PROVIDERS: Family Provider Family Medicine; PCP Family Medicine; Referring Provider Nurse Practitioner Family; Visit Provider Nurse Practitioner Family
DX: I11.0 Hypertensive heart disease with heart failure (principal); I50.9 Heart failure, unspecified; I48.2 Chronic atrial fibrillation; I49.3 Ventricular premature depolarization; I34.0 Nonrheumatic mitral (valve) insufficiency; I36.1 Nonrheumatic tricuspid (valve) insufficiency; E78.5 Hyperlipidemia, unspecified
CPT/HCPCS: 36415; 80048

== ENCOUNTER → 2018-12-19 07:49 | Outpatient (CLI) | payer MEDICARE, SELFPAY ==
[2018-08-28 10:42] VITALS: BMI 29.5
[2018-12-19 08:15] LABS: Absolute Lymphocyte Count 1.81 X10^3/ul (0.83-4.51); Absolute Neutrophil Count 5.5 X10^3/uL (2.0-7.7); Basophil# 0.03 X10^3/uL; Basophil% 0.4 % (0-1); Eosinophil# 0.14 X10^3/uL; Eosinophils% 1.7 % (0-5); Hematocrit 25.5 % (37-47); Hemoglobin 7.4 g/dl (12.0-15.0); Lymphocyte # 1.81 X10^3/ul (4.0); Lymphocyte % 21.7 % (19-41); Mean Corpuscular Hgb 22.6 pg (27.0-32.0); Mean Corpuscular Volume 77.7 fL (81-99); Mean Platelet Vol. 8.7 fl (6.2-12.0); Monocyte# 0.81 X10^3/uL; Monocyte% 9.7 % (0-10); Neutrophil # 5.51 X10^3/uL (2.7-7.7); Neutrophil % 66.1 % (47-70); Platelet Count 251 K/mm3 (150-450); RBC Distribution Width CV 15.6 % (11.6-14.6); RBC Distribution Width SD 44.7 fl (35.1-43.9); Red Blood Count 3.28 M/mm3 (4.2-5.4); White Blood Count 8.3 K/mm3 (4.4-11.0)
[2018-12-19 08:17] LABS: POSITIVE COUNT NO; POSITIVE DIFFERENTIAL NO; POSITIVE MORPHOLOGY NO
[2018-12-19 08:45] LABS: AST(SGOT) 12 U/L (15-37); Alanine Aminotransfer ALT/SGPT 15 U/L (13-56); Albumin, Serum 3.2 g/dL (3.2-5.0); Alkaline Phosphatase 67 U/L (45-117); Bilirubin, Direct 0.13 mg/dL (0.00-0.30); Cholesterol 91 mg/dL (200); Ferritin 6 ng/mL (8-252); Globulin 3.9 g/dL (2.2-4.2); High Density Lipoprotein 27 mg/dL; Iron 19 ug/dL (50-170); Protein, Total 7.1 g/dL (6.4-8.2); Triglycerides 85 mg/dL; Very Low Density Lipoprotein 17 mg/dL (5-40)
[2018-12-19 08:46] LABS: Vitamin B12 1273 pg/mL (211-911)
== END ==
PROVIDERS: Family Provider Family Medicine; PCP Family Medicine; Referring Provider Family Medicine
DX: D50.9 Iron deficiency anemia, unspecified (principal); M19.90 Unspecified osteoarthritis, unspecified site; E53.8 Deficiency of other specified B group vitamins; E78.00 Pure hypercholesterolemia, unspecified
CPT/HCPCS: 36415; 80061; 80076; 82607; 82728; 83540; 85025

== ENCOUNTER → 2019-01-22 09:37 | Outpatient (CLI) | payer MEDICARE, SELFPAY ==
[2019-01-15 15:47] VITALS: BMI 30.9
[2019-01-22 11:02] LABS: Anion Gap 8 (5-15); BUN 19 mg/dL (7-18); BUN/Creat Ratio 11.4 RATIO (10-20); Calcium,Total 8.2 mg/dL (8.5-10.1); Chloride 112 mmol/L (98-107); Creatinine, Serum 1.66 mg/dL (0.55-1.02); EST Glomerular Filtration Rate 31 mL/min (>60); Est Glom Filt Rate - Afr Amer 38 mL/min (>60); Glucose 89 mg/dL (74-106); Potassium 4.6 mmol/L (3.5-5.1); Sodium Level 146 mmol/L (136-145)
== END ==
PROVIDERS: Family Provider Family Medicine; PCP Family Medicine; Referring Provider Internal Medicine Cardiovascular Disease; Visit Provider Internal Medicine Cardiovascular Disease
DX: I50.9 Heart failure, unspecified (principal)
CPT/HCPCS: 36415; 80048

== ENCOUNTER → 2019-01-31 12:29 | Outpatient (CLI) | payer MEDICARE, SELFPAY ==
[2019-01-15 15:47] VITALS: BMI 30.9
--- NOTE | 2019-01-31 12:31 | ECHOD_ITS ---
Reason For Study: Afib/Flutter Procedure This was a 2D Doppler, Color Flow transthoracic echocardiogram. Contrast injection was performed. Exam performed in department. Left Ventricle Normal LV size. Left ventricular systolic function is normal. The estimated ejection fraction is 60 %. Unable to assess diastolic dysfunction. No regional wall motion abnormalities noted. Right Ventricle Normal RV size. Normal systolic function. Atria The left atrium is severely enlarged. The right atrium is severely enlarged. No doppler evidence for ASD. Mitral Valve There is mild mitral annular calcification. Mild diffuse mitral valve thickening. Moderate (2+) mitral valve insufficiency. Tricuspid Valve Normal tricuspid valve. Moderate (2+) tricuspid valve insufficiency. Right ventricular systolic pressure estimated to be 67 mmHg. Aortic Valve Trisinus/trileaflet aortic valve. Mild diffuse aortic valve thickening. Trivial eccentric aortic valve insufficiency. Pulmonic Valve The pulmonic valve is not well visualized. Mild (1+) pulmonic valve insufficiency. Great Vessels The aortic root is not well visualized. Pericardium/Pleural No pericardial effusion. MMode/2D Measurements & Calculations LVIDd: 4.5 cm IVSd: 1.1 cm LA dimension: 4.6 cm LVIDs: 2.8 cm LVPWd: 0.87 cm RVDd: 3.4 cm FS: 37.7 % LAV(MOD-bp): 89.2 ml LA A4 area: 27.2 cm2 RA A4 area: 28.4 cm2 LAV(MOD-bp) Indexed: 54.2 ml/m2 LAV(MOD-sp2): 78.7 ml LAV(MOD-sp4): 87.1 ml Doppler Measurements & Calculations MV E max jessica: 124.3 cm/sec Ao V2 max: 178.8 cm/sec LV V1 max: 98.8 cm/sec Ao max P.8 mmHg LV V1 max P.9 mmHg MR max jessica: 700.1 cm/sec PA V2 max: 106.8 cm/sec MR max P.0 mmHg PI dec slope: 160.2 cm/sec2 MR mean jessica: 525.5 cm/sec MR mean P.9 mmHg MR VTI: 237.3 cm TR max jessica: 399.3 cm/sec TR max P.8 mmHg Interpretation Summary Left ventricular systolic function is normal. The estimated ejection fraction is 60 %. The left atrium is severely enlarged. The right atrium is severely enlarged. There is mild mitral annular calcification. Mild diffuse mitral valve thickening. Moderate (2+) mitral valve insufficiency. Moderate (2+) tricuspid valve insufficiency. Mild diffuse aortic valve thickening. Trivial eccentric aortic valve insufficiency. Mild (1+) pulmonic valve insufficiency. Right ventricular systolic pressure estimated to be 67 mmHg. Unable to assess diastolic dysfunction. Ordering Physician: Claudy Vega Referring Physician: John Rachel Performed By: Los Parmar RCS
== END ==
PROVIDERS: Family Provider Family Medicine; PCP Family Medicine; Referring Provider Internal Medicine Cardiovascular Disease; Visit Provider Internal Medicine Cardiovascular Disease
DX: I49.3 Ventricular premature depolarization (principal); I48.2 Chronic atrial fibrillation; I34.0 Nonrheumatic mitral (valve) insufficiency; I36.1 Nonrheumatic tricuspid (valve) insufficiency; I50.9 Heart failure, unspecified
CPT/HCPCS: 93306

== ENCOUNTER → 2019-03-20 08:57 | Outpatient (CLI) | payer MEDICARE, SELFPAY ==
[2019-01-15 15:47] VITALS: BMI 30.9
[2019-03-20 11:00] LABS: AST(SGOT) 20 U/L (15-37); Alanine Aminotransfer ALT/SGPT 19 U/L (13-56); Albumin, Serum 3.3 g/dL (3.2-5.0); Alkaline Phosphatase 72 U/L (45-117); Cholesterol 133 mg/dL (200); Globulin 4.3 g/dL (2.2-4.2); High Density Lipoprotein 33 mg/dL; Protein, Total 7.6 g/dL (6.4-8.2); Triglycerides 194 mg/dL; Very Low Density Lipoprotein 39 mg/dL (5-40)
== END ==
PROVIDERS: Nurse Practitioner Family; Family Provider Family Medicine; PCP Family Medicine; Referring Provider Internal Medicine Cardiovascular Disease; Visit Provider Internal Medicine Cardiovascular Disease
DX: E78.5 Hyperlipidemia, unspecified (principal)
CPT/HCPCS: 36415; 80061; 80076

== ENCOUNTER → 2019-06-27 10:52 | Outpatient (CLI) | payer MEDICARE, SELFPAY ==
[2019-04-25 15:03] VITALS: BMI 27.0
[2019-06-27 12:03] LABS: Absolute Lymphocyte Count 1.79 X10^3/uL (0.83-4.51); Absolute Neutrophil Count 7.1 X10^3/uL (2.0-7.7); Basophil# 0.05 X10^3/uL; Basophil% 0.5 % (0-1); Eosinophil# 0.27 X10^3/uL; Eosinophils% 2.6 % (0-5); Hematocrit 39.9 % (37-47); Hemoglobin 13.1 g/dL (12.0-15.0); Lymphocyte # 1.79 X10^3/ul (4.0); Lymphocyte % 17.3 % (19-41); Mean Corp Hgb Conc 32.8 g/dL (32-36); Mean Corpuscular Hgb 31.3 pg (27.0-32.0); Mean Corpuscular Volume 95.2 fL (81-99); Mean Platelet Vol. 9.4 fl (6.2-12.0); Monocyte# 1.02 X10^3/uL; Monocyte% 9.9 % (0-10); NRBC Flagged by Analyzer 0 % (0-5); Neutrophil # 7.11 X10^3/uL (2.7-7.7); Neutrophil % 68.9 % (47-70); Platelet Count 203 K/mm3 (150-450); RBC Distribution Width CV 13.2 % (11.6-14.6); RBC Distribution Width SD 46.3 fl (35.1-43.9); Red Blood Count 4.19 M/mm3 (4.2-5.4); White Blood Count 10.3 K/mm3 (4.4-11.0)
[2019-06-27 12:35] LABS: ALB/GLOB Ratio 0.9 RATIO (0.9-2.4); AST(SGOT) 17 U/L (15-37); Alanine Aminotransfer ALT/SGPT 16 U/L (13-56); Albumin, Serum 3.9 g/dL (3.2-5.0); Alkaline Phosphatase 84 U/L (45-117); Anion Gap 9 (5-15); BUN 28 mg/dL (7-18); BUN/Creat Ratio 15.6 RATIO (10-20); Calcium,Total 8.9 mg/dL (8.5-10.1); Chloride 104 mmol/L (98-107); Cholesterol 148 mg/dL (200); EST Glomerular Filtration Rate 29 mL/min (>60); Est Glom Filt Rate - Afr Amer 35 mL/min (>60); Globulin 4.4 g/dL (2.2-4.2); Glucose 113 mg/dL (74-106); High Density Lipoprotein 33 mg/dL; Iron 38 ug/dL (50-170); Potassium 3.6 mmol/L (3.5-5.1); Protein, Total 8.3 g/dL (6.4-8.2); Sodium Level 142 mmol/L (136-145); Triglycerides 132 mg/dL; Very Low Density Lipoprotein 26 mg/dL (5-40)
[2019-06-27 12:45] LABS: Vitamin B12 1253 pg/mL (211-911)
[2019-06-27 12:53] LABS: Color, Urine Yellow (Yellow); Glucose, Dipstick Normal (Normal); Ketone-Dipstick Negative (Negative); Leukocyte Esterase-Dipstick 25 /ul (Negative); Nitrite-Dipstick Negative (Negative); Occult Blood-Urine Negative /ul (Negative); Protein-Dipstick 30 mg/dl (Negative); Urine Bilirubin Dipstick Negative (Negative); Urine Clarity Clear (Clear); Urine Urobilinogen Normal (Normal); Urine pH 6.5 (5.0 - 8.0)
== END ==
PROVIDERS: Family Provider Family Medicine; PCP Family Medicine; Referring Provider Family Medicine; Visit Provider Family Medicine
DX: Z00.00 Encounter for general adult medical examination without abnormal findings (principal); D50.9 Iron deficiency anemia, unspecified; E53.8 Deficiency of other specified B group vitamins; I10 Essential (primary) hypertension; E78.00 Pure hypercholesterolemia, unspecified
CPT/HCPCS: 36415; 80053; 80061; 81002; 82607; 83540; 85025

== ENCOUNTER → 2019-09-24 09:16 | Outpatient (CLI) | payer MEDICARE, SELFPAY ==
[2019-04-25 15:03] VITALS: BMI 27.0
[2019-09-24 09:48] LABS: AST(SGOT) 15 U/L (15-37); Alanine Aminotransfer ALT/SGPT 20 U/L (13-56); Albumin, Serum 3.4 g/dL (3.2-5.0); Alkaline Phosphatase 69 U/L (45-117); Bilirubin, Direct 0.16 mg/dL (0.00-0.30); Cholesterol 141 mg/dL (200); Globulin 4.1 g/dL (2.2-4.2); High Density Lipoprotein 35 mg/dL; Protein, Total 7.5 g/dL (6.4-8.2); Triglycerides 135 mg/dL; Very Low Density Lipoprotein 27 mg/dL (5-40)
== END ==
PROVIDERS: PCP Family Medicine; Referring Provider Nurse Practitioner Family; Visit Provider Nurse Practitioner Family
DX: E78.5 Hyperlipidemia, unspecified (principal)
CPT/HCPCS: 36415; 80061; 80076

== ENCOUNTER → 2020-03-20 08:53 | Outpatient (CLI) | payer MEDICARE, SELFPAY ==
[2020-03-12 11:00] VITALS: BMI 28.1
[2020-03-20 10:23] LABS: AST(SGOT) 14 U/L (15-37); Alanine Aminotransfer ALT/SGPT 16 U/L (13-56); Albumin, Serum 3.6 g/dL (3.2-5.0); Alkaline Phosphatase 76 U/L (45-117); Bilirubin, Direct 0.16 mg/dL (0.00-0.30); Cholesterol 136 mg/dL (200); High Density Lipoprotein 32 mg/dL; Protein, Total 7.6 g/dL (6.4-8.2); Triglycerides 184 mg/dL; Very Low Density Lipoprotein 37 mg/dL (5-40)
== END ==
PROVIDERS: PCP Family Medicine; Referring Provider Nurse Practitioner Family; Visit Provider Nurse Practitioner Family
DX: E78.5 Hyperlipidemia, unspecified (principal)
CPT/HCPCS: 36415; 80061; 80076

== ENCOUNTER → 2020-07-01 18:30 | Outpatient (CLI) | payer MEDICARE, SELFPAY ==
[2020-03-12 11:00] VITALS: BMI 28.1
== END ==
PROVIDERS: PCP Family Medicine; Referring Provider Family Medicine; Visit Provider Family Medicine
DX: U07.1 COVID-19 (principal)
CPT/HCPCS: 87635; C9803; U0003

== ENCOUNTER → 2020-09-23 09:20 | Outpatient (CLI) | payer MEDICARE, SELFPAY ==
[2020-03-12 11:00] VITALS: BMI 28.1
[2020-09-23 10:33] LABS: AST(SGOT) 12 U/L (15-37); Alanine Aminotransfer ALT/SGPT 15 U/L (13-56); Albumin, Serum 3.4 g/dL (3.2-5.0); Alkaline Phosphatase 76 U/L (45-117); Bilirubin, Direct 0.08 mg/dL (0.00-0.30); Cholesterol 126 mg/dL (200); High Density Lipoprotein 29 mg/dL; Protein, Total 7.4 g/dL (6.4-8.2); Triglycerides 203 mg/dL; Very Low Density Lipoprotein 41 mg/dL (5-40)
== END ==
PROVIDERS: PCP Family Medicine; Referring Provider Nurse Practitioner Family; Visit Provider Nurse Practitioner Family
DX: E78.5 Hyperlipidemia, unspecified (principal)
CPT/HCPCS: 36415; 80061; 80076

== ENCOUNTER → 2021-01-27 09:01 | Outpatient (CLI) | payer MEDICARE, SELFPAY ==
[2020-09-25 11:01] VITALS: BMI 28.3
[2021-01-27 09:23] LABS: Absolute Lymphocyte Count 1.64 X10^3/uL (0.83-4.51); Absolute Neutrophil Count 4.2 X10^3/uL (2.0-7.7); Basophil# 0.04 X10^3/uL; Basophil% 0.6 % (0-1); Eosinophil# 0.16 X10^3/uL; Eosinophils% 2.4 % (0-5); Hematocrit 33.8 % (37-47); Hemoglobin 10.5 g/dL (12.0-15.0); Lymphocyte # 1.64 X10^3/ul (0.83-4.51); Lymphocyte % 24.3 % (19-41); Mean Corp Hgb Conc 31.1 g/dL (32-36); Mean Corpuscular Hgb 28.5 pg (27.0-32.0); Mean Corpuscular Volume 91.8 fL (81-99); Mean Platelet Vol. 8.8 fl (6.2-12.0); Monocyte# 0.64 X10^3/uL; Monocyte% 9.5 % (0-10); NRBC Flagged by Analyzer 0 % (0-5); Neutrophil # 4.21 X10^3/uL (2.7-7.7); Neutrophil % 62.3 % (47-70); Platelet Count 190 K/mm3 (150-450); RBC Distribution Width CV 15.7 % (11.6-14.6); RBC Distribution Width SD 51.8 fl (35.1-43.9); Red Blood Count 3.68 M/mm3 (4.2-5.4); White Blood Count 6.8 K/mm3 (4.4-11.0)
[2021-01-27 10:00] LABS: Vitamin B12 1176 pg/mL (211-911)
[2021-01-27 10:08] LABS: ALB/GLOB Ratio 0.9 RATIO (0.9-2.4); AST(SGOT) 12 U/L (15-37); Alanine Aminotransfer ALT/SGPT 12 U/L (13-56); Albumin, Serum 3.6 g/dL (3.2-5.0); Alkaline Phosphatase 94 U/L (45-117); Anion Gap 7 (5-15); BUN 29 mg/dL (7-18); Calcium,Total 8.3 mg/dL (8.5-10.1); Chloride 108 mmol/L (98-107); Cholesterol 121 mg/dL (200); Creatinine, Serum 1.71 mg/dL (0.55-1.02); EST Glomerular Filtration Rate 30 mL/min (>60); Est Glom Filt Rate - Afr Amer 37 mL/min (>60); Globulin 3.8 g/dL (2.2-4.2); Glucose 99 mg/dL (74-106); High Density Lipoprotein 29 mg/dL; Iron 43 ug/dL (50-170); Potassium 4.1 mmol/L (3.5-5.1); Protein, Total 7.4 g/dL (6.4-8.2); Sodium Level 142 mmol/L (136-145); Triglycerides 149 mg/dL; Very Low Density Lipoprotein 30 mg/dL (5-40)
== END ==
PROVIDERS: PCP Family Medicine; Visit Provider Family Medicine
DX: Z00.00 Encounter for general adult medical examination without abnormal findings (principal); I10 Essential (primary) hypertension; E78.00 Pure hypercholesterolemia, unspecified; D50.9 Iron deficiency anemia, unspecified; E53.8 Deficiency of other specified B group vitamins
CPT/HCPCS: 36415; 80053; 80061; 82607; 83540; 85025

== ENCOUNTER → 2021-02-24 12:44 | Outpatient (CLI) | payer MEDICARE, SELFPAY ==
[2020-09-25 11:01] VITALS: BMI 28.3
--- NOTE | 2021-02-24 12:48 | ECHOD_ITS ---
Reason For Study: Murmur Procedure This was a 2D Doppler, Color Flow transthoracic echocardiogram. The exam was of adequate technical quality. Exam performed in department. Left Ventricle Normal LV size. Left ventricular systolic function is normal. The estimated ejection fraction is 60 %. Unable to assess diastolic dysfunction. No regional wall motion abnormalities noted. Right Ventricle Normal RV size. Normal systolic function. Atria The left atrium is severely enlarged. The right atrium is severely enlarged. No doppler evidence for ASD. Mitral Valve There is mild mitral annular calcification. Extension of the mitral annular calcification on the base of the posterior mitral valve leaflet. Moderate (2+) mitral valve insufficiency. Tricuspid Valve Normal tricuspid valve. Moderately severe (3+) tricuspid valve insufficiency. Right ventricular systolic pressure estimated to be 49 mmHg. Aortic Valve Trisinus/trileaflet aortic valve. Mild diffuse aortic valve thickening. Moderate focal aortic valve calcification. Pulmonic Valve The pulmonic valve is not well visualized. Great Vessels Normal sized aortic root. Pericardium/Pleural No pericardial effusion. MMode/2D Measurements & Calculations LVIDd: 4.3 cm IVSd: 1.3 cm Ao root diam: 3.2 cm LVIDs: 3.1 cm LVPWd: 1.1 cm LA dimension: 4.6 cm RVDd: 3.1 cm FS: 27.2 % LAV(MOD-bp): 95.4 ml LA A4 area: 27.8 cm2 RA A4 area: 28.4 cm2 LAV(MOD-bp) Indexed: 60.2 ml/m2 LAV(MOD-sp2): 80.5 ml LAV(MOD-sp4): 91.7 ml Doppler Measurements & Calculations MV E max jessica: 110.3 cm/sec Ao V2 max: 159.8 cm/sec LV V1 max: 134.2 cm/sec Ao max P.2 mmHg LV V1 max P.2 mmHg PA V2 max: 85.9 cm/sec TR max jessica: 318.5 cm/sec TR max P.6 mmHg ECHO/Echo Complete Interpretation Summary Left ventricular systolic function is normal. The estimated ejection fraction is 60 %. The left atrium is severely enlarged. The right atrium is severely enlarged. There is mild mitral annular calcification. Extension of the mitral annular calcification on the base of the posterior mitr al valve leaflet. Moderate (2+) mitral valve insufficiency. Moderately severe (3+) tricuspid valve insufficiency. Mild diffuse aortic valve thickening. Moderate focal aortic valve calcification. Right ventricular systolic pressure estimated to be 49 mmHg. Unable to assess diastolic dysfunction. Ordering Physician: Claudy Vega Referring Physician: John Rachel Performed By: Los Parmar RCS
== END ==
PROVIDERS: PCP Family Medicine; Referring Provider Internal Medicine Cardiovascular Disease; Visit Provider Internal Medicine Cardiovascular Disease
DX: I36.1 Nonrheumatic tricuspid (valve) insufficiency (principal); I34.0 Nonrheumatic mitral (valve) insufficiency; I48.11 Longstanding persistent atrial fibrillation; I11.0 Hypertensive heart disease with heart failure; I50.22 Chronic systolic (congestive) heart failure; E78.5 Hyperlipidemia, unspecified; R01.1 Cardiac murmur, unspecified
CPT/HCPCS: 93306

== ENCOUNTER → 2021-03-20 09:00 | Outpatient (CLI) | payer MEDICARE, SELFPAY ==
[2021-03-20 10:48] LABS: AST(SGOT) 14 U/L (15-37); Alanine Aminotransfer ALT/SGPT 17 U/L (13-56); Albumin, Serum 3.4 g/dL (3.2-5.0); Alkaline Phosphatase 80 U/L (45-117); Bilirubin, Direct 0.12 mg/dL (0.00-0.30); Cholesterol 149 mg/dL (200); Globulin 4.1 g/dL (2.2-4.2); High Density Lipoprotein 30 mg/dL; Protein, Total 7.5 g/dL (6.4-8.2); Triglycerides 199 mg/dL; Very Low Density Lipoprotein 40 mg/dL (5-40)
== END ==
PROVIDERS: PCP Family Medicine; Visit Provider Internal Medicine Cardiovascular Disease
DX: E78.00 Pure hypercholesterolemia, unspecified (principal)
CPT/HCPCS: 36415; 80061; 80076

== ENCOUNTER → 2021-07-22 08:56 | Outpatient (CLI) | payer MEDICARE, SELFPAY ==
[2021-07-22 09:14] LABS: Absolute Lymphocyte Count 2.07 X10^3/uL (0.83-4.51); Absolute Neutrophil Count 4.5 X10^3/uL (2.0-7.7); Basophil# 0.05 X10^3/uL; Basophil% 0.7 % (0-1); Eosinophil# 0.17 X10^3/uL; Eosinophils% 2.3 % (0-5); Lymphocyte # 2.07 X10^3/ul (0.83-4.51); Lymphocyte % 27.5 % (19-41); Mean Corp Hgb Conc 32.4 g/dL (32-36); Mean Corpuscular Hgb 31.3 pg (27.0-32.0); Mean Corpuscular Volume 96.6 fL (81-99); Mean Platelet Vol. 8.8 fl (6.2-12.0); Monocyte# 0.73 X10^3/uL; Monocyte% 9.7 % (0-10); NRBC Flagged by Analyzer 0 % (0-5); Neutrophil # 4.47 X10^3/uL (2.7-7.7); Neutrophil % 59.1 % (47-70); Platelet Count 187 K/mm3 (150-450); RBC Distribution Width SD 52.7 fl (35.1-43.9); Red Blood Count 3.83 M/mm3 (4.2-5.4); White Blood Count 7.5 K/mm3 (4.4-11.0)
[2021-07-22 09:46] LABS: ALB/GLOB Ratio 0.7 RATIO (0.9-2.4); AST(SGOT) 10 U/L (15-37); Alanine Aminotransfer ALT/SGPT 14 U/L (13-56); Albumin, Serum 3.3 g/dL (3.2-5.0); Alkaline Phosphatase 98 U/L (45-117); Anion Gap 5 (5-15); BUN 22 mg/dL (7-18); BUN/Creat Ratio 14.7 RATIO (10-20); Calcium,Total 8.9 mg/dL (8.5-10.1); Chloride 114 mmol/L (98-107); Cholesterol 125 mg/dL (200); EST Glomerular Filtration Rate 35 mL/min (>60); Est Glom Filt Rate - Afr Amer 42 mL/min (>60); Ferritin 40 ng/mL (8-252); Globulin 4.5 g/dL (2.2-4.2); Glucose 109 mg/dL (74-106); High Density Lipoprotein 32 mg/dL; Iron 50 ug/dL (50-170); Potassium 5.1 mmol/L (3.5-5.1); Protein, Total 7.8 g/dL (6.4-8.2); Sodium Level 146 mmol/L (136-145); Triglycerides 193 mg/dL; Very Low Density Lipoprotein 39 mg/dL (5-40)
== END ==
PROVIDERS: PCP Family Medicine; Referring Provider Family Medicine; Visit Provider Family Medicine
DX: E53.8 Deficiency of other specified B group vitamins (principal); D50.9 Iron deficiency anemia, unspecified; E78.00 Pure hypercholesterolemia, unspecified; I10 Essential (primary) hypertension
CPT/HCPCS: 36415; 80053; 80061; 82728; 83540; 85025

== ENCOUNTER 2021-09-24 09:14 | Outpatient (CLI) | payer MEDICARE, SELFPAY ==
[2021-09-24 11:21] LABS: AST(SGOT) 13 U/L (15-37); Alanine Aminotransfer ALT/SGPT 12 U/L (13-56); Albumin, Serum 3.3 g/dL (3.2-5.0); Alkaline Phosphatase 95 U/L (45-117); Bilirubin, Direct 0.16 mg/dL (0.00-0.30); Cholesterol 135 mg/dL (200); Globulin 4.1 g/dL (2.2-4.2); High Density Lipoprotein 28 mg/dL; Protein, Total 7.4 g/dL (6.4-8.2); Triglycerides 245 mg/dL; Very Low Density Lipoprotein 49 mg/dL (5-40)
== END 2021-09-24 23:59 | disposition home or self-care (01) ==
LOC: LAB 09:15
PROVIDERS: PCP Family Medicine; Visit Provider Internal Medicine Cardiovascular Disease
DX: E78.00 Pure hypercholesterolemia, unspecified (principal); E78.5 Hyperlipidemia, unspecified
CPT/HCPCS: 36415; 80061; 80076

== ENCOUNTER → 2022-03-26 | Outpatient (CLI) | payer MEDICARE, SELFPAY ==
[2022-03-26 10:20] LABS: AST(SGOT) 8 U/L (15-37); Alanine Aminotransfer ALT/SGPT 12 U/L (13-56); Albumin, Serum 3.4 g/dL (3.2-5.0); Alkaline Phosphatase 93 U/L (45-117); Bilirubin, Direct 0.15 mg/dL (0.00-0.30); Cholesterol 126 mg/dL (200); High Density Lipoprotein 30 mg/dL; Protein, Total 7.4 g/dL (6.4-8.2); Triglycerides 157 mg/dL; Very Low Density Lipoprotein 31 mg/dL (5-40)
== END | disposition home or self-care (01) ==
PROVIDERS: PCP Family Medicine; Referring Provider Internal Medicine Cardiovascular Disease; Visit Provider Internal Medicine Cardiovascular Disease
DX: E78.00 Pure hypercholesterolemia, unspecified (principal)
CPT/HCPCS: 36415; 80061; 80076

== ENCOUNTER → 2022-10-01 | Outpatient (CLI) | payer MEDICARE, SELFPAY ==
[2022-10-01 10:22] LABS: AST(SGOT) 13 U/L (15-37); Alanine Aminotransfer ALT/SGPT 15 U/L (13-56); Albumin, Serum 3.4 g/dL (3.2-5.0); Alkaline Phosphatase 75 U/L (45-117); Bilirubin, Direct 0.15 mg/dL (0.00-0.30); Cholesterol 129 mg/dL (200); Globulin 3.9 g/dL (2.2-4.2); High Density Lipoprotein 31 mg/dL; Protein, Total 7.3 g/dL (6.4-8.2); Triglycerides 162 mg/dL; Very Low Density Lipoprotein 32 mg/dL (5-40)
== END | disposition home or self-care (01) ==
LOC: LAB 09:34
PROVIDERS: PCP Family Medicine; Referring Provider Internal Medicine Cardiovascular Disease; Visit Provider Internal Medicine Cardiovascular Disease
DX: E78.00 Pure hypercholesterolemia, unspecified (principal)
CPT/HCPCS: 36415; 80061; 80076

== ENCOUNTER → 2023-04-11 | Outpatient (CLI) | payer MEDICARE, SELFPAY ==
--- NOTE | 2023-04-11 13:25 | ECHOD_ITS ---
Reason For Study: AFib Procedure This was a 2D Doppler, Color Flow transthoracic echocardiogram. Myocardial strain analysis was performed in this exam to aid in the assessment of cardiac function. Exam performed in department. Left Ventricle Normal LV size. Unable to assess diastolic dysfunction due to arrhythmia. The left ventricular ejection fraction is 45 %. Mild to moderate global left ventricular systolic dysfunction. Right Ventricle Normal RV size. Normal systolic function. Atria There is severe biatrial dilatation. Mitral Valve There is Mild focal posterior mitral annular calcification. Moderately severe (3+) mitral valve insufficiency. Tricuspid Valve Normal tricuspid valve. Severe (4+) tricuspid valve insufficiency. Right ventricular systolic pressure estimated to be 62 mmHg. Aortic Valve Trisinus/trileaflet aortic valve. Moderate focal aortic valve calcification. Aortic sclerosis, no stenosis. Pulmonic Valve Trivial pulmonic valve insufficiency. Great Vessels Normal sized aortic root. Mild atherosclerosis of the ascending aorta. Pericardium/Pleural No pericardial effusion. MMode/2D Measurements & Calculations LVIDd: 4.6 cm IVSd: 1.1 cm LVOT diam: 2.0 cm LVIDs: 3.8 cm LVPWd: 1.0 cm LVOT area: 3.1 cm2 RVDd: 3.1 cm FS: 17.7 % Ao root diam: 3.1 cm LAV(MOD-bp): 87.1 ml LVAd ap4: 20.7 cm2 LA dimension: 5.0 cm LAV(MOD-bp) Indexed: 56.1 ml/m2 LVLd ap4: 6.4 cm LAV(MOD-sp2): 66.5 ml EDV(MOD-sp4): 55.2 ml LAV(MOD-sp4): 91.8 ml EDV(sp4-el): 56.2 ml LVAs ap4: 14.9 cm2 LVLs ap4: 6.2 cm ESV(MOD-sp4): 32.0 ml ESV(sp4-el): 30.3 ml EF(MOD-sp4): 42.0 % EF(sp4-el): 46.0 % SV(MOD-sp4): 23.2 ml SV(sp4-el): 25.9 ml Aortic Valve Planimetry: 1.8 cm2 LA A4 area: 28.5 cm2 RA A4 area: 28.8 cm2 TAPSE: 0.83 cm Doppler Measurements & Calculations MV E max jessica: 110.3 cm/sec MV V2 max: 114.3 cm/sec Ao V2 max: 166.3 cm/sec MV max P.2 mmHg Ao max P.1 mmHg MV V2 mean: 66.7 cm/sec Ao V2 mean: 119.0 cm/sec MV mean P.2 mmHg Ao mean P.4 mmHg MV V2 VTI: 24.6 cm Ao V2 VTI: 31.8 cm AV (velocity ratio): 0.68 MVA(VTI): 2.7 cm2 TRA(I,D): 2.1 cm2 TRA(V,D): 2.2 cm2 LV V1 max: 121.2 cm/sec MR max jessica: 537.4 cm/sec SV(LVOT): 66.4 ml LV V1 max P.9 mmHg MR max P.5 mmHg LV V1 mean P.2 mmHg MR mean jessica: 424.5 cm/sec LV V1 mean: 83.5 cm/sec MR mean P.3 mmHg LV V1 VTI: 21.6 cm MR VTI: 165.1 cm PA V2 max: 71.7 cm/sec TR max jessica: 343.9 cm/sec TR max P.3 mmHg ECHO/Echo Complete Interpretation Summary The left ventricular ejection fraction is 45 % Unable to assess diastolic dysfunction due to arrhythmia. There is severe biatrial dilatation. Severe (4+) tricuspid valve insufficiency. Right ventricular systolic pressure estimated to be 62 mmHg. Moderately severe (3+) mitral valve insufficiency. Ordering Physician: Benjamín El Referring Physician: Benjamín El Performed By: Los Parmar RCS
== END | disposition home or self-care (01) ==
LOC: CVS 13:24
PROVIDERS: PCP Family Medicine; Referring Provider Internal Medicine Cardiovascular Disease; Visit Provider Internal Medicine Cardiovascular Disease
DX: I49.3 Ventricular premature depolarization (principal); I50.22 Chronic systolic (congestive) heart failure; I11.0 Hypertensive heart disease with heart failure; I48.11 Longstanding persistent atrial fibrillation; I34.0 Nonrheumatic mitral (valve) insufficiency; I36.1 Nonrheumatic tricuspid (valve) insufficiency
CPT/HCPCS: 93306

== ENCOUNTER → 2023-04-12 | Outpatient (CLI) | payer MEDICARE, SELFPAY ==
--- NOTE | 2023-04-12 14:06 | VDLE_ITS ---
Reason For Study: swelling RIGHT LEFT CFV is compressible, spontaneous, competent CFV is compressible, spontaneous, competent, and demonstrates pulsatile venous flow. and demonstrates pulsatile venous flow. FV is compressible, spontaneous, competent and demonstrates pulsatile venous flow. POP V is compressible, spontaneous, competent and demonstrates pulsatile venous flow. T/P Trunk is compressible. PTV is compressible. RT PerV is compressible. GSV is normal. Procedure This is a venous duplex using B-mode, color flow and spectral Doppler. Exam performed in department. The exam was diagnostic. A preliminary report was called and/or faxed to Martha Stallings. VL/Venous Duplex US, Unilateral Interpretation Summary Deep veins of the right lower extremity are patent and compressible segmentally . There is no evidence of right lower extremity deep vein thrombosis. The right great sapheno us vein appears patent and compressible segmentally. Ordering Physician: Martha Stallings Performed By: Ramone Díaz RVT
== END | disposition home or self-care (01) ==
LOC: CVS 14:05
PROVIDERS: PCP Family Medicine; Referring Provider Physician Assistant Medical; Visit Provider Physician Assistant Medical
DX: M79.89 Other specified soft tissue disorders (principal)
CPT/HCPCS: 93971

== ENCOUNTER → 2023-04-18 | Outpatient (CLI) | payer MEDICARE, SELFPAY ==
[2023-04-18 10:15] LABS: AST(SGOT) 12 U/L (15-37); Alanine Aminotransfer ALT/SGPT 16 U/L (13-56); Albumin, Serum 3.3 g/dL (3.2-5.0); Alkaline Phosphatase 64 U/L (45-117); Bilirubin, Direct 0.15 mg/dL (0.00-0.30); Cholesterol 72 mg/dL (200); Globulin 3.7 g/dL (2.2-4.2); High Density Lipoprotein 31 mg/dL; Triglycerides 89 mg/dL; Very Low Density Lipoprotein 18 mg/dL (5-40)
== END | disposition home or self-care (01) ==
LOC: LAB 09:07
PROVIDERS: Internal Medicine Cardiovascular Disease; PCP Family Medicine; Referring Provider Internal Medicine Cardiovascular Disease; Visit Provider Internal Medicine Cardiovascular Disease
DX: E78.00 Pure hypercholesterolemia, unspecified (principal)
CPT/HCPCS: 36415; 80061; 80076

== ENCOUNTER 2023-04-23 09:21 | Emergency (ER) | payer MEDICARE, SELFPAY ==
[2023-04-23 09:23] VITALS: BP 148/105; PULSE 106; RESP 16; TEMP 36.2; O2SAT 100
--- NOTE | 2023-04-23 10:22 | EX.ED.DYSGE1 ---
HPI History of Present Illness Chief Complaint: Lower Extremity Injury Narrative Narrative: Patient presents with right pain for about 2 weeks, she had a negative DVT study however her pain is in the IT band region. No recent trauma. She is denying any hip pain. She has no back pain or radicular symptoms. [facility] Medical History Chronic systolic (congestive) heart failure Essential hypertension History of GI bleed Hyperlipidemia Hypertension Longstanding persistent atrial fibrillation Nonrheumatic mitral valve regurgitation Nonrheumatic tricuspid (valve) insufficiency Other specified transient cerebral ischemias Premature ventricular contraction TIA (transient ischemic attack) Home Medications aspirin 81 mg tablet,delayed release 81 mg PO QDAY 01/10/18 [History Last Taken Unknown] vitamins A,C,P-hsng-ytskeo 4,296 mcg-226 mg-90 mg capsule (PreserVision AREDS) 1 cap PO BID 03/12/20 [History Last Taken Unknown] furosemide 40 mg tablet 40 mg PO QDAY #90 tabs 07/19/22 [Rx Last Taken Unknown] clopidogrel 75 mg tablet 75 mg PO DAILY 03/14/23 [History Last Taken Unknown] pravastatin 20 mg tablet 20 mg PO DAILY 03/14/23 [History Last Taken Unknown] mecobalamin (vitamin B12) 1,000 mcg chewable tablet 1,000 mcg PO DAILY 03/15/23 [History Last Taken Unknown] metoprolol tartrate 100 mg tablet 100 mg PO BID #180 tabs 03/15/23 [Rx Last Taken Unknown] lisinopril 20 mg tablet 20 mg PO BID #180 tabs 03/21/23 [Rx Last Taken Unknown] oxycodone-acetaminophen 5 mg-325 mg tablet (Percocet) 1 tab PO Q8H PRN pain 3 days #10 tabs 04/23/23 [Rx Last Taken Unknown] Allergy/AdvReac Type Severity Reaction Status Date / Time amiodarone AdvReac Severe Severs Verified 04/23/23 09:23 muscle weakness, hair loss amlodipine AdvReac Severe Swelling Verified 04/23/23 09:23 flecainide AdvReac Severe Near Verified 04/23/23 09:23 Syncope, Severe Nausea losartan AdvReac myalgia Verified 04/23/23 09:23 Family History Father COPD (chronic obstructive pulmonary disease) CHF (congestive heart failure) Mother Hypertension CVA (cerebral vascular accident) Brother Hypertension Surgical History History of cholecystectomy History of total hysterectomy Social History Smoking Status: Never smoker alcohol intake: never caffeine: Yes Type: coffee Number of servings: 1 ROS ROS ED ROS Narrative Past medical history: Reviewed Medications: Reviewed Social history: Noncontributory Review of systems: All systems negative except as indicated General: No fever Musculoskeletal: Denies myalgias no difficulty with ambulation Skin: No rash Neurological: No slurred paresthesias Hematologic: No easy bleeding or easy bruising EXAM Physical Exam Narrative Exam Narrative: Physical exam General: Well nourished, Well developed, No Acute Distress Head: Normocephalic, Atraumatic Eyes: Conjunctiva not pale ENT: Moist mucous membranes Neck: Supple, Nontender, No lymphadenopathy Cardiovascular: Regular rate, Regular rhythm Respiratory: No distress, CTA bilaterally Abdomen: Soft, Nontender, Nondistended Back: Nontender, Normal Inspection. Negative for: CVA tenderness Extremities: Tenderness over the IT band of her right leg. No obvious bony tenderness in the femur. There are some varicosities but the pain is not specific to the varicosity region. She has no pain with logrolling. She has no lumbar tenderness. She has a negative straight leg test. Skin: Normal color, No rash Neurological: Alert, Normal Strength, Normal Sensation Psychological: Normal affect Const Vital Signs: 04/23/23 09:23 Temperature 97.1 F L Temperature Source Oral Pulse Rate 106 H Respiratory Rate 16 Blood Pressure 148/105 H Blood Pressure Mean 119 Pulse Ox 100 Oxygen Delivery Method Room Air MDM MDM MDM Narrative Medical decision making narrative: X-ray read by me as normal. MDM: I talked to who also gave me history. Patient likely has an IT band strain. I do not believe she has a DVT its not in the right spot, I do not believe this is radicular in etiology or discogenic. She has no back pain and its not posterior its lateral. There is a possibility of a lateral femoral cutaneous nerve issue but I believe this is most likely IT band regardless I will treat the patient with analgesia. She can follow-up with her PCP I told her she may benefit from physical therapy. Discharge Plan Triage Chief Complaint: Lower Extremity Injury ED Provider: Claudy Landry Dx/Rx/DC Orders Clinical Impression: Acute leg pain, Dyslipidemia, Longstanding persistent atrial fibrillation Instructions: ED Muscle Strain, Extremity Prescriptions: New oxycodone-acetaminophen [Percocet] 5-325 mg tablet 1 tab PO Q8H PRN (Reason: pain) 3 Days Qty: 10 0RF No Action aspirin 81 mg tablet,delayed release (DR/EC) 81 mg PO QDAY PreserVision AREDS 14,320-226-200 [id number] capsule 1 cap PO BID pravastatin 20 mg tablet 20 mg PO DAILY clopidogrel 75 mg tablet 75 mg PO DAILY mecobalamin (vitamin B12) 1,000 mcg tablet,chewable 1,000 mcg PO DAILY metoprolol tartrate 100 mg tablet 100 mg PO BID Qty: 180 3RF furosemide 40 mg tablet 40 mg PO QDAY Qty: 90 3RF lisinopril 20 mg tablet 20 mg PO BID Qty: 180 3RF Primary Care Provider: John Rachel Referrals: John Rachel MD [Primary Care Provider] - 3-5 Days
--- NOTE | 2023-04-23 10:25 | RAD_ITS ---
INDICATION: pain EXAMINATION/TECHNIQUE: X-RAY - RIGHT XR Femur Min 2 Views 4 VIEWS COMPARISON: No relevant prior comparison study available FINDINGS: SOFT TISSUES: There are vascular calcifications. No radiopaque foreign body. BONES/JOINTS: No acute fracture or subluxation.. Normal alignment. There are degenerative changes of the hips and knee. No sclerotic or destructive changes observed. RAD/Femur Min 2 Views IMPRESSION: Degenerative changes. Atherosclerosis. Electronically Signed: Natalya Spear MD at 11:14 EDT ,
[2023-04-23 10:36] VITALS: BMI 28.3
== END 2023-04-23 11:25 | disposition home or self-care (01) ==
PROVIDERS: Emergency Provider Emergency Medicine; PCP Family Medicine; Visit Provider Emergency Medicine
DX: M79.604 Pain in right leg (principal); I11.0 Hypertensive heart disease with heart failure; I50.22 Chronic systolic (congestive) heart failure; I48.11 Longstanding persistent atrial fibrillation; E78.5 Hyperlipidemia, unspecified; Z79.82 Long term (current) use of aspirin; Z79.02 Long term (current) use of antithrombotics/antiplatelets; Z79.899 Other long term (current) drug therapy
CPT/HCPCS: 73552; 99282

== ENCOUNTER 2023-04-24 19:16 | Emergency (ER) | payer MEDICARE, SELFPAY ==
[2023-04-24 19:17] VITALS: BP 167/88; PULSE 119; RESP 18; TEMP 36.3; O2SAT 99; BMI 28.3
--- NOTE | 2023-04-24 20:22 | EX.ED.UPPERE ---
HPI <SEBASTIAN Bailey - Last Filed: 04/24/23 21:03> History of Present Illness Chief Complaint: Upper Extremity Injury Narrative Narrative: Patient is a 87-year-old female with history of TIA, atrial fibrillation on Plavix, aspirin who presents to the emergency department with concern for stroke. Patient states that she has been on Percocet since yesterday secondary to a significant muscle pain to her right leg. Patient states that while she was eating dinner, she had a feeling like she might pass out, it then passed, she is then wash the dishes, was playing cards and while playing cards, she felt both of her thumbs stick together to her hand. She states that she could not release them from her hand. Patient became anxious, and then came to the emergency department. Patient states she feels generally well now. She denies any chest pain or shortness of breath. Patient did not drink a lot of water today, she only drank while Pepsi which is a soft drink. PFS <SEBASTIAN Bailey - Last Filed: 04/24/23 21:03> [facility] Medical History Chronic systolic (congestive) heart failure Essential hypertension History of GI bleed Hyperlipidemia Hypertension Longstanding persistent atrial fibrillation Nonrheumatic mitral valve regurgitation Nonrheumatic tricuspid (valve) insufficiency Other specified transient cerebral ischemias Premature ventricular contraction TIA (transient ischemic attack) Home Medications aspirin 81 mg tablet,delayed release 81 mg PO QDAY 01/10/18 [History Last Taken Unknown] vitamins A,C,N-jlzn-bbipgo 4,296 mcg-226 mg-90 mg capsule (PreserVision AREDS) 1 cap PO BID 03/12/20 [History Last Taken Unknown] furosemide 40 mg tablet 40 mg PO QDAY #90 tabs 07/19/22 [Rx Last Taken Unknown] clopidogrel 75 mg tablet 75 mg PO DAILY 03/14/23 [History Last Taken Unknown] pravastatin 20 mg tablet 20 mg PO DAILY 03/14/23 [History Last Taken Unknown] mecobalamin (vitamin B12) 1,000 mcg chewable tablet 1,000 mcg PO DAILY 03/15/23 [History Last Taken Unknown] lisinopril 20 mg tablet 20 mg PO BID #180 tabs 03/21/23 [Rx Last Taken Unknown] oxycodone-acetaminophen 5 mg-325 mg tablet (Percocet) 1 tab PO Q8H PRN pain 3 days #10 tabs 04/23/23 [Rx Last Taken Unknown] metoprolol tartrate 100 mg tablet 50 mg PO BID bp 04/24/23 [History Last Taken Unknown] Allergy/AdvReac Type Severity Reaction Status Date / Time amiodarone AdvReac Severe Severs Verified 04/24/23 19:17 muscle weakness, hair loss amlodipine AdvReac Severe Swelling Verified 04/24/23 19:17 flecainide AdvReac Severe Near Verified 04/24/23 19:17 Syncope, Severe Nausea losartan AdvReac myalgia Verified 04/24/23 19:17 Family History Father COPD (chronic obstructive pulmonary disease) CHF (congestive heart failure) Mother Hypertension CVA (cerebral vascular accident) Brother Hypertension Surgical History History of cholecystectomy History of total hysterectomy Social History Smoking Status: Never smoker alcohol intake: never caffeine: Yes Type: coffee Number of servings: 1 ROS <SEBASTIAN Bailey - Last Filed: 04/24/23 21:03> [facility] ROS Narrative Constitutional: Negative for fever, chills, weight loss, weakness Eyes: Negative for vision loss, vision change, double vision ENT: Negative for any sore throat, ear pain, congestion Cardiovascular: Negative for any chest pain, tightness, palpitations Respiratory: Negative for any cough, sputum production, hemoptysis, dyspnea, dyspnea on exertion, orthopnea Gastrointestinal: Negative for any abdominal pain, nausea, vomiting, diarrhea, constipation, blood in stool, blood in vomit : Negative for any urinary frequency, dysuria, retention, blood in urine Muscle skeletal: Negative for any muscle joint pain, stiffness, myalgias, arthralgias, neck pain, back pain. Positive for bilateral thumbs being stuck to the hand. Neurological: Negative for any headache, syncope, numbness or tingling, dizziness Skin: Negative for any rashes, lumps, itching, abrasions, lacerations Psychiatric: Negative for any depression, anxiety, stress, suicidal ideation, homicidal ideation Hematologic: Negative for any easy bruising, excessive bruising, easy bleeding Allergies: Negative for any eczema, hives, rash EXAM <SEBASTIAN Bailey - Last Filed: 04/24/23 21:03> Physical Exam Narrative Exam Narrative: Vital signs reviewed. HEET: Head normocephalic atraumatic, TMs clear bilaterally. Posterior pharynx is clear, moist mucous membranes. Nares clear bilaterally. Neck: Supple with no lymphadenopathy or tenderness. No signs of meningismus, negative jolt sign. Cardiac: Tachycardic irregular rate no murmurs gallops or rubs, equal peripheral pulses bilaterally. Respiratory: Lungs clear to auscultation bilaterally. No chest tenderness. Abdomen: Soft, nontender, nondistended. No abdominal bruit or pulsatile masses. No hepatosplenomegaly Extremities: No peripheral edema, no signs of gross trauma or deformity. Active full range of motion of all extremities. Full range of motion of bilateral hands. No weakness. Neuro: Cranial nerves II through XII intact, no focal neurological deficits. NIH stroke scale 0. Skin: Clean dry and intact with no rash, purpura, petechiae, vesicles or pustules. Backs/flank: No CVA tenderness, no midline spinal tenderness, no deformity. Psych: Normal mood and affect. No SI, HI or acute psychosis. Const Vital Signs: 04/24/23 19:17 Temperature 97.4 F L Temperature Source Temporal Pulse Rate 119 H Respiratory Rate 18 Blood Pressure 167/88 H Blood Pressure Mean 114 Pulse Ox 99 MDM <SEBASTIAN Bailey - Last Filed: 04/24/23 21:03> [facility] Treatment and Re-Evaluation Narrative: Patient appears generally well, patient appears nontoxic, vital signs are stable. Patient presents to the emergency department for what appears to be muscle cramps to bilateral hands. Patient took 3 Percocets in the last 24 hours. She states she did not drink much water, she did have breakfast however she did not have lunch. Patient did have a feeling that she might pass out. This did pass, I then believe that while she was playing cards she had muscle spasms in her hands and that is why she cannot move her thumbs. There is no evidence to suspect a stroke or TIA secondary to it being bilateral. Patient is in no distress at this time, patient was anxious however feels much better. Reassessment, patient did have tachycardia, she has history of atrial fibrillation. She received an EKG to rule out any A-fib with RVR <Dr. Vinay Slater MD - Last Filed: 04/24/23 21:33> [facility] Narrative Medical decision making narrative: I have personally performed a face to face assessment of the patient and have reviewed the TOMI Note. I performed a substantive portion of the visit including all aspects of the following. My daniel findings include: History is 87-year-old female is having trouble moving her small fingers today on both sides of her hand. She is concerned because her mom had a stroke before in the past. States this was bilateral. Its not completely resolved. She has been seen recently for soft tissue pain in her right leg for which she was placed on Percodan. She had a negative ultrasound of her leg and a negative x-ray. Exam is [very well-appearing 87-year-old female. Vital signs are stable. She does not look septic toxic in any distress. She is calm and relaxed sitting upright in bed. is at bedside. H EENT exam unremarkable. No facial droop. Normal speech. Lungs clear to auscultation bilaterally. Heart irregular irregular rate about 100 consistent with A-fib with a history of A-fib. Abdomen soft nontender. Moving all 4 extremities. Neurovascular intact. 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 She can flex and extend all digits of both hands. Normal dorsi plantarflexion. She is awake and alert. Answering questions following commands. NIH is 0.] Medical Decision Making [exam is normal. I explained to her with this being on both hands at the same time this was not a stroke. Is completely resolved. She is completely normal neurologic exam. I do not think she needs any significant work-up. With her history of A-fib but her heart rate on presentation was 119 we did obtain an EKG which showed A-fib at 102. No signs of IN or ischemia. Patient be discharged to home.] Other additions or changes: [None] Rhythm Strip Rhythm Strip: A-fib Rate: 102 EKG Initial EKG: Attestation: I personally reviewed and interpreted this EKG as follows: Interpretation: Atrial Fibrillation Comments: A-fib at 102 no acute signs of IN or ischemia. Discharge Plan Triage Chief Complaint: Upper Extremity Injury ED Midlevel Provider: Claudy Ceja ED Provider: Vinay Slater Dx/Rx/DC Orders Clinical Impression: Anxiety, Chronic a-fib Instructions: AFib Prescriptions: No Action aspirin 81 mg tablet,delayed release (DR/EC) 81 mg PO QDAY PreserVision AREDS [id number] [id number] capsule 1 cap PO BID pravastatin 20 mg tablet 20 mg PO DAILY clopidogrel 75 mg tablet 75 mg PO DAILY mecobalamin (vitamin B12) 1,000 mcg tablet,chewable 1,000 mcg PO DAILY metoprolol tartrate 100 mg tablet 50 mg PO BID oxycodone-acetaminophen [Percocet] 5-325 mg tablet 1 tab PO Q8H PRN (Reason: pain) 3 Days Qty: 10 0RF furosemide 40 mg tablet 40 mg PO QDAY Qty: 90 3RF lisinopril 20 mg tablet 20 mg PO BID Qty: 180 3RF Primary Care Provider: John Rachel Referrals: John Rachel MD [Primary Care Provider] - 3-5 Days Activity Restrictions/Additional Instructions: Follow-up with your doctor. Your exam tonight is unremarkable other than your chronic A-fib. No signs of a stroke. Drink plenty of fluids. Disposition Disposition: Home, Self Care
[2023-04-24 21:37] VITALS: BP 158/80; PULSE 102; RESP 16; O2SAT 97
== END 2023-04-24 21:38 | disposition home or self-care (01) ==
PROVIDERS: Emergency Provider Emergency Medicine; PCP Family Medicine; Visit Provider Emergency Medicine
DX: F41.9 Anxiety disorder, unspecified (principal); I11.0 Hypertensive heart disease with heart failure; I50.22 Chronic systolic (congestive) heart failure; I48.20 Chronic atrial fibrillation, unspecified; E78.5 Hyperlipidemia, unspecified; Z86.73 Personal history of transient ischemic attack (TIA), and cerebral infarction without residual deficits; Z79.02 Long term (current) use of antithrombotics/antiplatelets; Z79.82 Long term (current) use of aspirin; Z79.899 Other long term (current) drug therapy; Z90.49 Acquired absence of other specified parts of digestive tract; Z90.710 Acquired absence of both cervix and uterus
CPT/HCPCS: 93005; 99282

== ENCOUNTER → 2023-04-26 | Outpatient (CLI) | payer MEDICARE, SELFPAY | END | disposition home or self-care (01) | LOC: PSN 10:14 | PROVIDERS: PCP Family Medicine; Referring Provider Internal Medicine Cardiovascular Disease; Visit Provider Internal Medicine Cardiovascular Disease | DX: I48.11 Longstanding persistent atrial fibrillation (principal) | CPT/HCPCS: 93225; 93226 ==

== ENCOUNTER → 2023-06-21 | Outpatient (CLI) | payer MEDICARE, SELFPAY ==
[2023-06-21 14:56] LABS: Absolute Lymphocyte Count 1.28 X10^3/uL (0.83-4.51); Basophil# 0.05 X10^3/uL; Basophil% 0.7 % (0-1); Eosinophil# 0.14 X10^3/uL; Hematocrit 25.8 % (37-47); Hemoglobin 7.3 g/dL (12.0-15.0); Lymphocyte # 1.28 X10^3/ul (0.83-4.51); Lymphocyte % 18.1 % (19-41); Mean Corp Hgb Conc 28.3 g/dL (32-36); Mean Corpuscular Hgb 24.6 pg (27.0-32.0); Mean Corpuscular Volume 86.9 fL (81-99); Mean Platelet Vol. 9.7 fl (6.2-12.0); Monocyte# 0.55 X10^3/uL; Monocyte% 7.8 % (0-10); NRBC Flagged by Analyzer 0 % (0-5); Neutrophil # 5.03 X10^3/uL (2.7-7.7); Platelet Count 246 K/mm3 (150-450); RBC Distribution Width CV 17.1 % (11.6-14.6); RBC Distribution Width SD 54.7 fl (35.1-43.9); Red Blood Count 2.97 M/mm3 (4.2-5.4); White Blood Count 7.1 K/mm3 (4.4-11.0)
[2023-06-21 15:29] LABS: Anion Gap 6 (5-15); BUN 45 mg/dL (7-18); BUN/Creat Ratio 21.4 RATIO (10-20); Calcium,Total 8.4 mg/dL (8.5-10.1); Chloride 107 mmol/L (98-107); EST Glomerular Filtration Rate 24 mL/min (>60); Est Glom Filt Rate - Afr Amer 29 mL/min (>60); Glucose 113 mg/dL (74-106); Potassium 4.1 mmol/L (3.5-5.1); Sodium Level 141 mmol/L (136-145)
[2023-06-21 15:30] LABS: BNP,B-Type NATRIURETIC PEPTIDE 308.2 pg/mL (0-100)
[2023-06-21 17:32] LABS: AST(SGOT) 9 U/L (15-37); Alanine Aminotransfer ALT/SGPT 11 U/L (13-56); Albumin, Serum 3.4 g/dL (3.2-5.0); Alkaline Phosphatase 70 U/L (45-117); Bilirubin, Direct 0.11 mg/dL (0.00-0.30); Cholesterol 76 mg/dL (200); Globulin 3.7 g/dL (2.2-4.2); High Density Lipoprotein 38 mg/dL; Protein, Total 7.1 g/dL (6.4-8.2); Triglycerides 100 mg/dL; Very Low Density Lipoprotein 20 mg/dL (5-40)
== END | disposition home or self-care (01) ==
PROVIDERS: Nurse Practitioner Gerontology; PCP Family Medicine; Referring Provider Physician Assistant Medical; Visit Provider Physician Assistant Medical
DX: R06.09 Other forms of dyspnea (principal); E78.00 Pure hypercholesterolemia, unspecified
CPT/HCPCS: 36415; 80048; 80061; 80076; 83880; 85025

== ENCOUNTER 2023-06-22 07:39 | Outpatient (CLI) | payer MEDICARE, SELFPAY ==
[2023-06-22] VITALS (8 sets, daily range): BP systolic 117–143; BP diastolic 51–89; PULSE 88–140; RESP 16; TEMP 36.2–36.4; O2SAT 99–100; BMI 28.6
[2023-06-22] MEDS: 0.9% Normal Saline (500mL Bag) 500 ML 15 ML IV (09:59)
[2023-06-22] MEDS: 0.9% NaCl Peripheral Flush Adult/Peds IV (09:59)
[2023-06-22] MEDS: Lisinopril 20 MG Tablet PO (10:29)
[2023-06-22] MEDS: Metoprolol Tartrate 25 MG Tablet 50 MG PO (10:29)
[2023-06-22] MEDS: Furosemide 20 MG/2 ML VIAL IV (11:48)
== END 2023-06-22 07:40 | disposition home or self-care (01) ==
LOC: MEDOUTP 07:40
PROVIDERS: PCP Family Medicine; Referring Provider Physician Assistant Medical; Visit Provider Physician Assistant Medical
DX: D64.9 Anemia, unspecified (principal)
CPT/HCPCS: 36430; 86850; 86900; 86901; 86920; 86922; J7040; P9016; A4216; J1940

== ENCOUNTER → 2023-07-15 | Outpatient (CLI) | payer MEDICARE, SELFPAY ==
[2023-07-15 11:17] LABS: Absolute Neutrophil Count 4.2 X10^3/uL (2.0-7.7); Basophil# 0.04 X10^3/uL; Basophil% 0.6 % (0-1); Eosinophil# 0.14 X10^3/uL; Hematocrit 35.7 % (37-47); Hemoglobin 10.5 g/dL (12.0-15.0); Lymphocyte % 24.8 % (19-41); Mean Corp Hgb Conc 29.4 g/dL (32-36); Mean Corpuscular Hgb 25.7 pg (27.0-32.0); Mean Corpuscular Volume 87.5 fL (81-99); Mean Platelet Vol. 9.4 fl (6.2-12.0); Monocyte# 0.73 X10^3/uL; Monocyte% 10.7 % (0-10); NRBC Flagged by Analyzer 0 % (0-5); Neutrophil # 4.22 X10^3/uL (2.7-7.7); Neutrophil % 61.6 % (47-70); Platelet Count 222 K/mm3 (150-450); RBC Distribution Width CV 19.9 % (11.6-14.6); RBC Distribution Width SD 63.6 fl (35.1-43.9); Red Blood Count 4.08 M/mm3 (4.2-5.4); White Blood Count 6.9 K/mm3 (4.4-11.0)
== END | disposition home or self-care (01) ==
LOC: LAB 10:51
PROVIDERS: PCP Family Medicine; Referring Provider Physician Assistant Medical; Visit Provider Physician Assistant Medical
DX: I11.0 Hypertensive heart disease with heart failure (principal); I50.22 Chronic systolic (congestive) heart failure; I48.11 Longstanding persistent atrial fibrillation; I49.3 Ventricular premature depolarization; R06.09 Other forms of dyspnea; M79.89 Other specified soft tissue disorders; E78.5 Hyperlipidemia, unspecified
CPT/HCPCS: 36415; 85025

== ENCOUNTER → 2023-09-28 | Outpatient (CLI) | payer MEDICARE, SELFPAY ==
[2023-09-28 15:37] LABS: Absolute Lymphocyte Count 1.79 X10^3/uL (0.83-4.51); Absolute Neutrophil Count 5.6 X10^3/uL (2.0-7.7); Basophil# 0.05 X10^3/uL; Basophil% 0.6 % (0-1); Eosinophil# 0.25 X10^3/uL; Hematocrit 34.3 % (37-47); Hemoglobin 10.2 g/dL (12.0-15.0); Lymphocyte # 1.79 X10^3/ul (0.83-4.51); Lymphocyte % 21.1 % (19-41); Mean Corp Hgb Conc 29.7 g/dL (32-36); Mean Corpuscular Hgb 26.6 pg (27.0-32.0); Mean Corpuscular Volume 89.3 fL (81-99); Mean Platelet Vol. 9.2 fl (6.2-12.0); Monocyte# 0.72 X10^3/uL; Monocyte% 8.5 % (0-10); NRBC Flagged by Analyzer 0 % (0-5); Neutrophil # 5.63 X10^3/uL (2.7-7.7); Neutrophil % 66.4 % (47-70); Platelet Count 234 K/mm3 (150-450); RBC Distribution Width SD 61.9 fl (35.1-43.9); Red Blood Count 3.84 M/mm3 (4.2-5.4); White Blood Count 8.5 K/mm3 (4.4-11.0)
[2023-09-28 16:23] LABS: Anion Gap 5 (5-15); BUN 41 mg/dL (7-18); BUN/Creat Ratio 20.7 RATIO (10-20); Calcium,Total 8.9 mg/dL (8.5-10.1); Chloride 106 mmol/L (98-107); Creatinine, Serum 1.98 mg/dL (0.55-1.02); EST Glomerular Filtration Rate 25 mL/min (>60); Est Glom Filt Rate - Afr Amer 31 mL/min (>60); Glucose 115 mg/dL (74-106); Potassium 4.6 mmol/L (3.5-5.1); Sodium Level 138 mmol/L (136-145)
--- OUTSIDE RECORDS SUMMARY | 2023-09-29 00:38 | XMS RPT_ITS | CCD ---
Author Name Unknown Address [address] [place] [address] Organization [facility] Care Team Providers Care Mri Special Procedures Technologist Name Role Phone Lesia RN, Abigail Fields Unavailable Unavailable Lesia HERNANDEZ, Abigail Fields Unavailable Unavailable Clau Arriola Unavailable Unavailable LIA Stallings, Martha Veloz Unavailable Oanh Ascencio Unavailable Unavailable John Valentino MD Primary Care Provider John Valentino MD Primary Care Provider John Valentino MD Primary Care Provider JOHN VALENTINO Attending Unavailab JOHN Dominguez Primary Care Unavailab JOHN Dominguez Attending Unavailab JOHN Dominguez Primary Care Unavailab JOHN Dominguez Attending Unavailab JOHN Dominguez Primary Care Unavailab le Allergies Allergy Classification Reported Allergen(s) Allergy Type Date of Onset Reaction(s) Facility (13 sources) amiodarone; Translations: [AMIODARONE] drug allergy 08-09-2016 Other: See Comments [facility] Work Phone: (13 sources) flecainide; Translations: [FLECAINIDE] drug allergy 10-05-2010 Other: See Comments [facility] Work Phone: (7 sources) amLODIPine; Translations: [AMLODIPINE] Drug Allergy 11-19-2019 Swelling [facility] (7 sources) Losartan; Translations: [LOSARTAN] Drug Allergy 08-28-2018 Myalgia [facility] Medications Completed/Discontinued Medications Medication Drug Class(es) Dates Sig (Normalized) Sig (Original) acetaminophen 325 mg / HYDROcodone bitartrate 5 mg oral tablet (4 sources) Opioid Agonist Start: 06-17-2017 End: 09-01-2022 HYDROcodone-acetami nophen (NORCO) 5-325 mg per tablet Take 1 tablet by mouth. Every 6 to 8 hours as needed 0 06/17/2017 09/01/2022 Discontinued Problems Active Problems Problem Classification Problem Date Documented Da te Episodic/Chronic Administrative/social admission (1 source) Other specified counseling; Translations: [Encounter for counseling regarding advance directives] Onset: 09-07-2023 Episodic Cardiac dysrhythmias (20 sources) Chronic atrial fibrillation; Translations: [Atrial fibrillation] Onset: 10-05-2010 12-10-2015 Chronic Congestive heart failure; nonhypertensive (9 sources) Chronic systolic heart failure; Translations: [Chronic systolic (congestive) heart failure] Onset: 09-01-2022 Chronic Disorders of lipid metabolism (17 sources) Hyperlipidemia; Translations: [Hyperlipoproteinem ia, type I] Onset: 10-05-2010 10-05-2010 Chronic Essential hypertension (16 sources) Hypertensive disorder; Translations: [Essential hypertension] Onset: 10-05-2010 10-05-2010 Chronic Heart valve disorders (20 sources) Mitral valve disorder; Translations: [Nonrheumatic mitral (valve) insufficiency] Onset: 10-05-2010 10-05-2010 Chronic Osteoarthritis (9 sources) Arthritis; Translations: [Unspecified osteoarthritis, unspecified site] Onset: 04-10-2018 12-11-2021 Chronic Other circulatory disease (1 source) History of transient ischemic attack; Translations: [Personal history of transient ischemic attack (TIA), and cerebral infarction without residual deficits] 03-07-2023 Episodic Other gastrointestinal disorders (7 sources) Malabsorption - iron; Translations: [Intestinal malabsorption, unspecified] Onset: 12-27-2018 12-27-2018 Chronic Other nutritional; endocrine; and metabolic disorders (16 sources) Hyperlipoproteinemi a, type I; Translations: [Body mass index (BMI) 30.0-30.9, adult] Onset: 10-05-2010 10-05-2010 Chronic Other nutritional; endocrine; and metabolic disorders (1 source) Body mass index (BMI) 30.0-30.9, adult; Translations: [Body mass index (BMI) 30.0-30.9, adult] Onset: 05-24-2013 06-10-2014 Chronic Other nutritional; endocrine; and metabolic disorders (1 source) Body mass index (BMI) 31.0-31.9, adult; Translations: [Body mass index (BMI) 31.0-31.9, adult] Onset: 05-24-2013 11-29-2013 Chronic Other nutritional; endocrine; and metabolic disorders (8 sources) High density lipoprotein deficiency ; Translations: [Lipoprotein deficiency] Onset: 05-24-2013 05-24-2013 Chronic Other screening for suspected conditions (not mental disorders or infectious disease) (1 source) Patient encounter status; Translations: [Encounter for screening mammogram for malignant neoplasm of breast] Episodic Screening and history of mental health and substance abuse codes (1 source) Encounter for screening for depression; Translations: [Encounter for screening for depression] Onset: 09-07-2023 Episodic Transient cerebral ischemia (12 sources) Transient cerebral ischemia; Translations: [Transient cerebral ischemic attack, unspecified] Onset: 10-05-2010 10-05-2010 Chronic Unclassified (1 source) Long-term drug therapy; Translations: [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] Onset: 10-05-2010 10-05-2010 Past or Other Problems Problem Classification Problem Date Documented Da te Episodic/Chronic Deficiency and other anemia (17 sources) Iron deficiency anemia; Translations: [Iron deficiency anemia, unspecified] Onset: 06-17-2017 Episodic Fluid and electrolyte disorders (11 sources) Hypokalemia; Translations: [Hypokalemia] Onset: 10-05-2010 10-05-2010 Episodic Nutritional deficiencies (9 sources) Cobalamin deficiency; Translations: [Deficiency of other specified B group vitamins] Onset: 06-17-2017 Episodic Other aftercare (4 sources) Other mcfp (current) drug therapy; Translations: [Other mcfp (current) drug therapy] Onset: 10-05-2010 10-05-2010 Episodic Other connective tissue disease (1 source) Pain in right leg; Translations: [Leg pain, anterior, right] Onset: 04-25-2023 Episodic Other ear and sense organ disorders (7 sources) Impacted cerumen of bilateral ears; Translations: [Impacted cerumen, bilateral] Onset: 07-10-2019 12-11-2021 Episodic Other lower respiratory disease (5 sources) Dyspnea; Translations: [Shortness of breath] Onset: 04-25-2012 04-25-2012 Episodic Other nervous system disorders (7 sources) Loss of taste; Translations: [Parageusia] Onset: 06-30-2020 12-11-2021 Episodic Other nutritional; endocrine; and metabolic disorders (10 sources) Body mass index (BMI) 28.0-28.9, adult; Translations: [Body mass index (BMI) 28.0-28.9, adult] Onset: 05-24-2013 05-24-2013 Episodic Pleurisy; pneumothorax; pulmonary collapse (10 sources) Pleural effusion; Translations: [Pleural effusion, not elsewhere classified] Onset: 04-26-2012 Resolved: 12-10-2015 04-26-2012 Episodic Residual codes; unclassified (7 sources) FH: Hypertension; Translations: [Family history of ischemic heart disease and other diseases of the circulatory system] Onset: 09-01-2022 06-10-2014 Episodic Unclassified (9 sources) Family history of stroke; Translations: [FH: Hypertension] 06-10-2014 Episodic Viral infection (7 sources) Disease caused by 2019-nCoV; Translations: [COVID-19] Onset: 07-21-2020 12-11-2021 Episodic Results Test Name Value Interpretation Reference Range Facil ity Vital Signs Date Time Vital Sign Value Performing Clinician Emmy crooks 03-07-2023 14:54-0400 Body height 149.9 cm John Valentino MD Work Phone: [facility] 03-07-2023 14:54-0400 Body temperature 97 [degF] John Valentino MD Work Phone: [facility] 03-07-2023 14:54-0400 Body weight 63.23 kg John Valentino MD Work Phone: [facility] 03-07-2023 14:54-0400 Diastolic blood pressure 72 mm[Hg] John Valentino MD Work Phone: [facility] 03-07-2023 14:54-0400 Heart rate 64 /min John Valentino MD Work Phone: [facility] 03-07-2023 14:54-0400 Respiratory rate 18 /min John Valentino MD Work Phone: [facility] 03-07-2023 14:54-0400 SaO2% (BldA) [Mass fraction] 99 % John Valentino MD Work Phone: [facility] 03-07-2023 14:54-0400 Systolic blood pressure 102 mm[Hg] John Valentino MD Work Phone: [facility] 09-01-2022 14:04-0500 Body height 149.9 cm John Valentino MD Work Phone: [facility] 09-01-2022 14:04-0500 Body temperature 97.3 [degF] John Valentino MD Work Phone: [facility] 09-01-2022 14:04-0500 Body weight 64.59 kg John Valentino MD Work Phone: [facility] 09-01-2022 14:04-0500 Diastolic blood pressure 80 mm[Hg] John Valentino MD Work Phone: [facility] 09-01-2022 14:04-0500 Heart rate 75 /min John Valentino MD Work Phone: [facility] 09-01-2022 14:04-0500 Respiratory rate 14 /min John Valentino MD Work Phone: [facility] 09-01-2022 14:04-0500 SaO2% (BldA) [Mass fraction] 99 % John Valentino MD Work Phone: [facility] 09-01-2022 14:04-0500 Systolic blood pressure 170 mm[Hg] John Valentino MD Work Phone: [facility] 03-01-2022 15:17-0400 Body height 149.9 cm John Valentino MD Work Phone: [facility] 03-01-2022 15:17-0400 Body temperature 97.7 [degF] John Valentino MD Work Phone: [facility] 03-01-2022 15:17-0400 Body weight 64.77 kg John Valentino MD Work Phone: [facility] 03-01-2022 15:17-0400 Diastolic blood pressure 76 mm[Hg] John Valentino MD Work Phone: [facility] 03-01-2022 15:17-0400 Heart rate 83 /min John Valentino MD Work Phone: [facility] 03-01-2022 15:17-0400 Respiratory rate 14 /min oJhn Valentino MD Work Phone: [facility] 03-01-2022 15:17-0400 SaO2% (BldA) [Mass fraction] 98 % John Valentino MD Work Phone: [facility] 03-01-2022 15:17-0400 Systolic blood pressure 150 mm[Hg] John Valentino MD Work Phone: [facility] 05-16-2017 15:08-0400 BMI (Body Mass Index) 27.53 kg/m2 Michellesanty [facility] Work Phone: 05-16-2017 15:08-0400 BP Diastolic 74 mm[Hg] Deandretalle Silva [facility] Work Phone: 05-16-2017 15:08-0400 BP Systolic 164 mm[Hg] Chantalle Silva [facility] Work Phone: 05-16-2017 15:08-0400 Height 152.4 cm Chantalle Silva [facility] Work Phone: 05-16-2017 15:08-0400 Pulse (Heart Rate) 68 /min Chantalle Silva [facility] Work Phone: 05-16-2017 15:08-0400 Respiratory Rate 16 /min Chantalle Silva [facility] Work Phone: 05-16-2017 15:08-0400 Weight 63.96 kg Michellesanty Ascencio [facility] Work Phone: 08-09-2016 15:34-0500 BMI (Body Mass Index) 29.8 kg/m2 Martha Stallings PA-C [facility] Work Phone: 08-09-2016 15:34-0500 BP Diastolic 60 mm[Hg] Martha Stallings PA-C [facility] Work Phone: 08-09-2016 15:34-0500 BP Systolic 160 mm[Hg] Martha Stallings PA-C [facility] Work Phone: 08-09-2016 15:34-0500 BSA (Body Surface Area) 1.67 m2 Martha Stallings PA-C [facility] Work Phone: 08-09-2016 15:34-0500 Pulse (Heart Rate) 56 /min Martha Stallings PA-C [facility] Work Phone: 08-09-2016 15:34-0500 Respiratory Rate 20 /min Martha Stallings PA-C [facility] Work Phone: 08-09-2016 15:34-0500 Weight 69.22 kg Martha Stallings PA-C [facility] Work Phone: 06-16-2015 16:28-0500 BP Diastolic 80 mm[Hg] Martha Stallings PA-C [facility] Work Phone: 06-16-2015 16:28-0500 BP Systolic 160 mm[Hg] Martha Stallings PA-C [facility] Work Phone: 06-10-2014 13:39-0500 Heart rate 65 /min Oanh Ascencio [facility] Work Phone: 07-06-2012 10:35-0500 Heart rate 362 ms Deandresumit Rayz [facility] Work Phone: 07-08-2011 12:39-0500 Height 152.4 cm Martha Stallings PA-C [facility] Work Phone: Encounters Encounter Date Encounter Type Care Provider Facility Start: 09-07-2023 End: 09-07-2023 ambulatory JOHN VALENTINO Facility:[id number] Start: 04-25-2023 End: 04-25-2023 ambulatory JOHN VALENTINO Facility:[id number] Start: 04-24-2023 Patient encounter procedure [facility] Provider [facility] Department Start: 04-23-2023 Patient encounter procedure [facility] Provider [facility] Start: 04-22-2023 Patient encounter procedure [facility] Provider [facility] Start: 03-15-2023 Patient encounter procedure [facility] Provider [facility] Start: 03-07-2023 End: 03-07-2023 ambulatory JOHN VALENTINO Facility:[id number] Start: 03-07-2023 End: 03-07-2023 Office outpatient visit 25 minutes John Valentino MD Work Phone: [facility] [place] Procedures Date Procedure Procedure Detail Performing Clinician Start: 09-01-2017 End: 09-06-2017 *Hepatic Function Panel Martha paiz PA-C Work Phone: Start: 09-01-2017 End: 09-06-2017 Lipid panel [AGGREGATE] Martha paiz PA-C Work Phone: Start: 05-16-2017 End: 05-16-2017 Dietary management education, guidance, and counseling Oanh Ascencio Start: 05-16-2017 End: 05-16-2017 Follow Up Appt 9 months Claduy Vega MD Start: 05-16-2017 End: 05-16-2017 PFM Claudy Vega MD Start: 05-16-2017 End: 05-16-2017 Follow Up Appt 9 months Claudy Vega MD Start: 05-16-2017 End: 05-16-2017 WARNER Vega MD Start: 02-28-2017 End: 02-28-2017 *Hepatic Function Panel Martha paiz PA-C Work Phone: Start: 02-28-2017 End: 02-28-2017 Lipid 1996 panel - Serum or Plasma Martha Stallings PA-C Work Phone: Start: 02-28-2017 End: 02-28-2017 *Hepatic Function Panel Martha Roselia Misa paiz PA-C Work Phone: Start: 02-28-2017 End: 02-28-2017 Lipid panel [AGGREGATE] Martha Roselia Misa paiz PA-C Work Phone: Start: 08-25-2016 End: 08-27-2016 *Hepatic Function Panel Martha paiz PA-C Work Phone: Start: 08-25-2016 End: 08-27-2016 Lipid 1996 panel - Serum or Plasma Martha Stallings PA-C Work Phone: Start: 08-25-2016 End: 08-27-2016 *Hepatic Function Panel Martha paiz PA-C Work Phone: Start: 08-25-2016 End: 08-27-2016 Lipid panel [AGGREGATE] Martha paiz PA-C Work Phone: Start: 08-09-2016 End: 08-09-2016 Follow Up Appt 9 months Claudy Vega MD Start: 08-09-2016 End: 08-09-2016 Follow Up Appt 9 months Claudy Vega MD Start: 02-18-2016 End: 02-20-2016 *Hepatic Function Panel Martha paiz PA-C Work Phone: Start: 02-18-2016 End: 02-20-2016 Lipid 1996 panel - Serum or Plasma Martha Stallings PA-C Work Phone: Start: 02-18-2016 End: 02-20-2016 *Hepatic Function Panel Martha paiz PA-C Work Phone: Start: 02-18-2016 End: 02-20-2016 Lipid panel [AGGREGATE] Martha paiz PA-C Work Phone: Start: 12-15-2015 End: 12-16-2015 *BMP Claudy Vega MD Start: 12-15-2015 End: 12-15-2015 Follow Up Appt 6 months Claudy Vega MD Start: 12-15-2015 End: 12-16-2015 Magnesium [Mass/volume] in Serum or Plasma Claudy Vega MD Start: 12-15-2015 End: 12-15-2015 PFM Claudy Vega MD Start: 12-15-2015 End: 12-16-2015 *BMP Claudy Vega MD Start: 12-15-2015 End: 12-15-2015 Follow Up Appt 6 months Claudy Vega MD Start: 12-15-2015 End: 12-16-2015 Magnesium Claudy Vega MD Start: 12-15-2015 End: 12-15-2015 PFM Claudy Vega MD Start: 08-20-2015 End: 08-20-2015 *Hepatic Function Panel Martha paiz PA-C Work Phone: Start: 08-20-2015 End: 08-20-2015 Lipid 1996 panel - Serum or Plasma Martha Stallings PA-C Work Phone: Start: 08-20-2015 End: 08-20-2015 Urinalysis Oanh Ascencio Start: 08-20-2015 End: 08-20-2015 *Hepatic Function Panel Martha paiz PA-C Work Phone: Start: 08-20-2015 End: 08-20-2015 Lipid panel [AGGREGATE] Martha piaz PA-C Work Phone: Start: 08-04-2015 End: 08-04-2015 Follow Up BP Check Martah Stallings PA-C Work Phone: Start: 08-04-2015 End: 08-04-2015 Follow Up BP Check Martha Stallings PA-C Work Phone: Start: 07-21-2015 End: 07-21-2015 Follow Up BP Check Martha Stallings PA-C Work Phone: Start: 07-21-2015 End: 07-21-2015 Follow Up BP Check Martha Stallings PA-C Work Phone: Start: 06-16-2015 End: 07-07-2015 Follow Up BP Check Claudy Vega MD Start: 06-16-2015 End: 07-07-2015 Follow Up BP Check Claudy Vega MD Start: 02-18-2015 End: 02-19-2015 *Hepatic Function Panel Claudy Vega MD Start: 02-18-2015 End: 02-19-2015 Lipid 1996 panel - Serum or Plasma Claudy Vega MD Start: 02-18-2015 End: 02-19-2015 *Hepatic Function Panel Claudy Vega MD Start: 02-18-2015 End: 02-19-2015 Lipid panel [AGGREGATE] Claudy Vega MD Start: 12-09-2014 End: 12-10-2014 Documentation of current medications Claudy Vega MD Start: 12-09-2014 End: 12-09-2014 Follow Up Appt 6 months Claudy Vega MD Start: 12-09-2014 End: 12-09-2014 PFM Claudy Vega MD Start: 12-09-2014 End: 12-10-2014 Documentation of current medications Claudy Vega MD Start: 12-09-2014 End: 12-09-2014 Follow Up Appt 6 months Claudy Vega MD Start: 12-09-2014 End: 12-09-2014 PFM Claudy Vega MD Start: 08-20-2014 End: 08-21-2014 *Hepatic Function Panel Claudy Vega MD Start: 08-20-2014 End: 08-21-2014 Lipid 1996 panel - Serum or Plasma Claudy Vega MD Start: 08-20-2014 End: 08-21-2014 *Hepatic Function Panel Claudy Vega MD Start: 08-20-2014 End: 08-21-2014 Lipid panel [AGGREGATE] Claudy Vega MD Start: 06-10-2014 End: 06-10-2014 Ecg routine ecg w/least 12 lds w/i&r Claudy Vega MD Start: 06-10-2014 End: 06-10-2014 Follow Up Appt 6 months Claudy Vega MD Start: 06-10-2014 End: 06-10-2014 PFM Claudy Vega MD Start: 06-10-2014 End: 06-10-2014 Electrocardiogram, complete Claudy hickey MD Start: 06-10-2014 End: 06-10-2014 Follow Up Appt 6 months Claudy Vega MD Start: 06-10-2014 End: 06-10-2014 PFM Claudy Vega MD Start: 05-01-2014 End: 05-20-2014 *Hepatic Function Panel Claudy Vega MD Start: 05-01-2014 End: 05-20-2014 Lipid 1996 panel - Serum or Plasma Claudy Vega MD Start: 05-01-2014 End: 05-20-2014 *Hepatic Function Panel Claudy Vega MD Start: 05-01-2014 End: 05-20-2014 Lipid panel [AGGREGATE] Claudy Vega MD Start: 11-29-2013 End: 11-29-2013 Follow Up Appt 6 months Claudy Vega MD Start: 11-29-2013 End: 11-29-2013 MMM Claudy Vega MD Start: 11-29-2013 End: 11-29-2013 Follow Up Appt 6 months Claudy Vega MD Start: 11-29-2013 End: 11-29-2013 MMM Claudy Vega MD Start: 10-22-2013 End: 11-12-2013 CBC W Auto Differential panel - Blood Claudy Vega MD Start: 10-22-2013 End: 11-12-2013 CBC W Auto Differential panel - Blood Claudy Vega MD Start: 05-24-2013 End: 11-12-2013 *Hepatic Function Panel Claudy Vega MD Start: 05-24-2013 End: 05-24-2013 Follow Up Appt 6 months Claudy Vega MD Start: 05-24-2013 End: 11-12-2013 Lipid 1996 panel - Serum or Plasma Claudy Vega MD Start: 05-24-2013 End: 05-20-2014 PFM Claudy Vega MD Start: 05-24-2013 End: 11-12-2013 *Hepatic Function Panel Claudy Vega MD Start: 05-24-2013 End: 05-24-2013 Follow Up Appt 6 months Claudy Vega MD Start: 05-24-2013 End: 11-12-2013 Lipid panel [AGGREGATE] Claudy Vega MD Start: 05-24-2013 End: 05-20-2014 PFM Claudy Vega MD Start: 05-01-2013 End: 05-24-2013 *Hepatic Function Panel Martha paiz PA-C Work Phone: Start: 05-01-2013 End: 05-24-2013 Lipid 1996 panel - Serum or Plasma Martha Stallings PA-C Work Phone: Start: 05-01-2013 End: 05-24-2013 *Hepatic Function Panel Martha paiz PA-C Work Phone: Start: 05-01-2013 End: 05-24-2013 Lipid panel [AGGREGATE] Martha paiz PA-C Work Phone: Start: 11-20-2012 End: 05-20-2014 *BMP Claudy Vega MD Start: 11-20-2012 End: 05-20-2014 Digoxin [Mass/volume] in Serum or Plasma Claudy Vega MD Start: 11-20-2012 End: 11-20-2012 Follow Up Appt 3 months Claudy Vega MD Start: 11-20-2012 End: 11-20-2012 Follow Up Appt 6 months Claudy Vega MD Start: 11-20-2012 End: 11-20-2012 MMM Claudy Vega MD Start: 11-20-2012 End: 11-20-2012 PFM Claudy Vega MD Start: 11-20-2012 End: 05-20-2014 *BMP Claudy Vega MD Start: 11-20-2012 End: 05-20-2014 Digoxin Claudy Vega MD Start: 11-20-2012 End: 11-20-2012 Follow Up Appt 3 months Claudy Vega MD Start: 11-20-2012 End: 11-20-2012 Follow Up Appt 6 months Claudy Vega MD Start: 11-20-2012 End: 11-20-2012 MMM Claudy Vega MD Start: 11-20-2012 End: 11-20-2012 PFM Claudy Vega MD Start: 10-30-2012 End: 11-01-2012 *Hepatic Function Panel Claudy Vega MD Start: 10-30-2012 End: 11-01-2012 Lipid 1996 panel - Serum or Plasma Claudy Vega MD Start: 10-30-2012 End: 11-01-2012 *Hepatic Function Panel Claudy Vega MD Start: 10-30-2012 End: 11-01-2012 Lipid panel [AGGREGATE] Claudy Vega MD Start: 09-04-2012 End: 11-20-2012 Follow Up Appt 3 months Claudy Vega MD Start: 09-04-2012 End: 11-20-2012 Follow Up Appt Other Claudy Vega MD Start: 09-04-2012 End: 11-20-2012 PFM Claudy Vega MD Start: 09-04-2012 End: 11-20-2012 Follow Up Appt 3 months Claudy Vega MD Start: 09-04-2012 End: 11-20-2012 Follow Up Appt Other Claudy Vega MD Start: 09-04-2012 End: 11-20-2012 PFM Claudy Vega MD Start: 07-06-2012 End: 07-06-2012 Ecg routine ecg w/least 12 lds w/i&r Claudy Vega MD Start: 07-06-2012 End: 07-06-2012 Follow Up Appt 2 months Claudy Vega MD Start: 07-06-2012 End: 07-06-2012 Electrocardiogram, complete Claudy hickey MD Start: 07-06-2012 End: 07-06-2012 Follow Up Appt 2 months Claudy Vega MD Start: 05-31-2012 End: 05-31-2012 *BMP Claudy Vega MD Start: 05-31-2012 End: 05-31-2012 Ecg routine ecg w/least 12 lds w/i&r Claudy Vega MD Start: 05-31-2012 End: 05-31-2012 *BMP Claudy Vega MD Start: 05-31-2012 End: 05-31-2012 *CBC with Differential Claudy Vega MD Start: 05-25-2012 End: 05-31-2012 *Hepatic Function Panel Claudy Vega MD Start: 05-25-2012 End: 05-31-2012 Lipid 1996 panel - Serum or Plasma Claudy Vega MD Start: 05-25-2012 End: 05-31-2012 *Hepatic Function Panel lCaudy Vega MD Start: 05-25-2012 End: 05-31-2012 Lipid panel [AGGREGATE] Claudy Vega MD Start: 05-22-2012 End: 11-20-2012 *BMP Claudy Vega MD Start: 05-22-2012 End: 11-20-2012 *CBC with Differential Claudy Vega MD Start: 05-22-2012 End: 11-20-2012 24 hour holter monitor Claudy Vega MD Start: 05-22-2012 End: 11-20-2012 Chest x-ray Claudy Vega MD Start: 05-22-2012 End: 05-22-2012 Ecg routine ecg w/least 12 lds w/i&r Claudy Vega MD Start: 05-22-2012 End: 11-20-2012 Follow Up Appt 6 weeks Claudy Vega MD Start: 05-22-2012 End: 11-20-2012 *BMP Claudy Vega MD Start: 05-22-2012 End: 11-20-2012 *CBC with Differential Claudy Vega MD Start: 05-22-2012 End: 11-20-2012 24 hour holter monitor Claudy Vega MD Start: 05-22-2012 End: 11-20-2012 Chest x-ray Claudy Vega MD Start: 05-22-2012 End: 05-22-2012 Electrocardiogram, complete Claudy hickey MD Start: 05-22-2012 End: 11-20-2012 Follow Up Appt 6 weeks Claudy Vega MD Start: 05-04-2012 End: 11-20-2012 Chest x-ray Claudy Vega MD Start: 05-04-2012 End: 11-20-2012 Ecg routine ecg w/least 12 lds w/i&r Claudy Vega MD Start: 05-04-2012 End: 11-20-2012 *BMP Claudy Vega MD Start: 05-04-2012 End: 11-20-2012 Chest x-ray Claudy Vega MD Start: 05-01-2012 End: 11-20-2012 INR in Platelet poor plasma by Coagulation assay Claudy Vega MD Start: 05-01-2012 End: 11-20-2012 Coagulation factor induced.INR assay in platelet poor plasma Claudy Vega MD Start: 04-25-2012 End: 04-26-2012 *BMP Claudy Vega MD Start: 04-25-2012 End: 04-26-2012 Chest x-ray Claudy Vega MD Start: 04-25-2012 End: 04-26-2012 Natriuretic peptide B [Mass/volume] in Blood Claudy Vega MD Start: 04-25-2012 End: 04-26-2012 *BMP Claudy Vega MD Start: 04-25-2012 End: 04-26-2012 BNP Claudy Vega MD Start: 04-25-2012 End: 04-26-2012 Chest x-ray Claudy Vega MD Start: 04-17-2012 End: 11-20-2012 Ecg routine ecg w/least 12 lds w/i&r Claudy Vega MD Start: 04-17-2012 End: 11-20-2012 Electrocardiogram, complete Claudy hickey MD Start: 04-10-2012 End: 04-10-2012 Ecg routine ecg w/least 12 lds w/i&r Claudy Vega MD Start: 04-10-2012 End: 04-10-2012 Electrocardiogram, complete Claudy hickey MD Start: 04-06-2012 End: 04-06-2012 Ecg routine ecg w/least 12 lds w/i&r Claudy Vega MD Start: 04-06-2012 End: 04-06-2012 Electrocardiogram, complete Claudy hickey MD Start: 03-23-2012 End: 03-23-2012 Ecg routine ecg w/least 12 lds w/i&r Claudy Vega MD Start: 03-23-2012 End: 03-23-2012 Admit Claudy Vega MD Start: 03-23-2012 End: 03-23-2012 Electrocardiogram, complete Claudy hickey MD Start: 11-22-2011 End: 11-24-2011 Ecg routine ecg w/least 12 lds w/i&r Claudy Vega MD Start: 11-22-2011 End: 11-24-2011 Lipid 1996 panel - Serum or Plasma Claudy Vega MD Start: 11-22-2011 End: 11-24-2011 *Hepatic Function Panel Claudy Vega MD Start: 11-22-2011 End: 11-24-2011 Lipid panel [AGGREGATE] Claudy Vega MD Start: 07-08-2011 End: 11-24-2011 *Hepatic Function Panel Claudy Vega MD Start: 07-08-2011 End: 07-08-2011 Ecg routine ecg w/least 12 lds w/i&r Claudy Vega MD Start: 07-08-2011 End: 07-08-2011 Follow Up Appt 6 months Claudy Vega MD Start: 07-08-2011 End: 11-24-2011 Lipid 1996 panel - Serum or Plasma Claudy Vega MD Start: 07-08-2011 End: 11-24-2011 *Hepatic Function Panel Claudy Vega MD Start: 07-08-2011 End: 07-08-2011 Follow Up Appt 6 months Claudy Vega MD Start: 07-08-2011 End: 11-24-2011 Lipid panel [AGGREGATE] Claudy Vega MD Plan of Treatment Date Care Activity Detail Author Start: 03-08-2025 DIABETES SCREEN DIABETES SCREEN [facility] Start: 03-08-2025 Diabetes Screening Diabetes Screening [facility] Start: 04-01-2023 Influenza vaccination [facility] Start: 12-04-2022 COVID-19 VACCINE (5 - Moderna series) COVID-19 VACCINE (5 - Moderna series) [facility] Start: 09-01-2022 End: 11-01-2022 Comprehensive metabolic 2000 panel - Serum or Plasma COMP METABOLIC PANEL Lab Routine Hypertension, essential Pure hypercholesterolemia Expected: 09/01/2022, Expires: 11/01/2022 [facility] Work Phone: Immunizations Immunization Date Immunization Notes Care Provider [facility] 04-23-2022 influenza (HD-IIV4) vaccine, age 65+ yr, high dose, quadrivalent, PF (FLUZONE HIGH-DOSE) John Valentino MD Work Phone: [facility] 04-23-2022 influenza virus vacc ine, unspecified formulation [facility] Provider [facility] 05-18-2021 influenza nasal, unspecified formulation John Valentino MD Work Phone: [facility] 04-30-2021 influenza (HD-IIV4) vaccine, age 65+ yr, high dose, quadrivalent, PF (FLUZONE HIGH-DOSE) John Valentino MD Work Phone: [facility] 05-15-2018 influenza, high dose seasonal, preservative-free John Valentino MD Work Phone: [facility] Payers Date Payer Category Payer Medicare UHC AARP MEDICAR E [facility] AAR MEDICARE O [id number] 2021-Present [phone] [address] [address] [place] [address] O [id number] 2021 Medicare [id number] 2017 Medicare HU[employer] MEDICARE HU[employer]NA MEDICARE PPO [id number] 2017-Present [phone] [address] [address] [place] [address] PPO [id number] Social History Date Type Detail Facility Start: 12-27-2018 Tobacco smoking stat us NHIS Never smoked tobacco [facility] Start: 12-27-2018 Tobacco use and exposure Smoke less tobacco non-user [facility] Start: 03-01-2022 End: 03-07-2023 Alcohol intake Lifetime non-drinker (finding) [facility] Start: 03-01-2022 History SDOH Alcohol Frequency 1 [facility] Start: 03-01-2022 History SDOH Social Connections Phone 2 [facility] Start: 03-01-2022 History SDOH Social Connections Living 3 [facility] Start: 03-01-2022 History SDOH Physica l Activity DPW 0 [facility] Start: 03-01-2022 History SDOH Financial 5 [facility] Start: 1935 Sex Assigned At Not on file [facility] Start: 02-19-2022 End: 03-01-2022 Exposure to SARS-CoV-2 (event) Not sure [facility] Start: 09-01-2022 Education 13 [facility] Start: 03-01-2022 End: 02-21-2023 History of Social function [facility] Start: 03-01-2022 End: 02-21-2023 Social connection and isolation panel [facility] Do you belong to any clubs or organizations such as cheondoism groups, unions, fraternal or athletic groups, or school groups? No [facility] Are you now , , , , never or living with a partner? [facility] How often to you hav e a drink containing alcohol? Never [facility] Average Number of Drinks Not on file [facility] Do you feel stress - tense, restless, nervous, or anxious, or unable to sleep at night because your mind is troubled all the time - these days [OSQ] Not at all [facility] (I/We) worried wheth er (my/our) food would run out before (I/we) got money to buy more. Never true [facility] Start: 09-01-2022 Gender identity Identifies as female gender (finding) [facility] Start: 09-01-2022 Sexual orientation Heterosexual (fin ding) [facility] Clinical Notes 03-01-2022 to 09-07-2023 John Valentino MD - 03/07/2023 3:08 PM EDTReKenny ferris LPN - 03/07/2023 2:40 PM EDTRaymyenifer Valentino MD - 09/01/2022 2:17 PM ESTRjose Valentino MD - 03/01/2022 4:29 PM EDT Note Date & Type Note Facility 09-07-2023 Note HNO ID: [id number] Author: KENNY BRUNER LPN Service: ? Author Type: LICENSED NURSE Type: Progress Notes Filed: 09/11/2023 13:25 Note Text: [employer] Pneumococcal Vaccine: 65+(1 of 2 - PCV) declined DTaP,Tdap,Td Vaccine(1 - Tdap) declined Shingrix Vaccine(1 of 2) declined RSV Vaccine(1 - 1-dose 60+ series) declined Bone Density Screening Influenza Vaccine(1) declined Covid-19 Vaccine( - 2022- season) declined Kenny Bruner LPN September 07, 2023 1:16 PM [facility] 09-07-2023 Note HNO ID: [id number] Author: JOHN VALENTINO MD Service: ? Author Type: Physician Type: Progress Notes Filed: 09/11/2023 13:25 Note Text: Subjective Carole Echevarria is a 87 year old female. Carole presents today for her Medicare wellness visit Review of Systems Constitutional: Negative. HENT: Negative. Eyes: Negative. Respiratory: Negative. Cardiovascular: Negative. Gastrointestinal: Negative. Endocrine: Negative. Genitourinary: Negative. Musculoskeletal: Negative. Skin: Negative. Allergic/Immunologic: Negative. Neurological: Negative. Hematological: Negative. Psychiatric/Behavioral: Negative. PAST SURGICAL HISTORY Procedure Laterality Date CHOLECYSTECTOMY HX COLONOSCOPY FLX DX W/COLLJ SPEC WHEN PFRMD 01/09/2019 Colonoscopy ESOPHAGOGASTRODUODENOSCOPY TRANSORAL DIAGNOSTIC 01/09/2019 EGD HYSTERECTOMY HX SKYLER/BSO PAST MEDICAL HISTORY Diagnosis Date Anemia Atrial fibrillation (HCC) Chronic renal failure, stage 3 (moderate) (HCC) HTN (hypertension) Hyperlipidemia RLS (restless legs syndrome) Stroke (HCC) 2006 FAMILY HISTORY Problem Relation Age of Onset Stroke Mother Hypertension Mother Heart disease Father COPD Father COPD Brother Diabetes Maternal Grandmother Cancer Maternal Grandfather pancreatic Heart disease Paternal Grandmother CT Heart disease Paternal Grandfather CT Social History Tobacco Use Smoking status: Never Smokeless tobacco: Never Vaping Use Vaping Use: Never used Substance Use Topics Alcohol use: Never Drug use: Never ALLERGIES Allergen Reactions Amlodipine Swelling Amiodarone Unknown Weakness Flecainide Unknown weakness Losartan Myalgia MEDICATIONS: TIADYLT ER 120 mg 24 hr capsule Take 1 capsule by mouth once daily. metoprolol succinate ER (TOPROL XL) 100 mg Take 1 tablet by mouth every afternoon. lisinopril (ZESTRIL) 10 mg tablet Take 1 tablet by mouth every afternoon. cyanocobalamin (VITAMIN B-12) 1,000 mcg tab Take 1,000 mcg by mouth once daily. Vit A,C,N-Pkra-Ulhmww (PRESERVISION AREDS) [id number] kzoy-qa-ntvg cap Take 1 capsule by mouth twice daily. furosemide (LASIX) 40 mg tablet Take 40 mg by mouth once daily. clopidogrel (PLAVIX) 75 mg tablet Take 75 mg by mouth once daily. pravastatin (PRAVACHOL) 20 mg tablet Take 20 mg by mouth once daily. Allergies, past surgical history, family history and past medical history were reviewed per this encounter. Medications were reviewed and verified. Objective BP 138/82 (BP Site: Left Arm, BP Position: Sitting, BP Cuff Size: Regular Adult) Pulse 66 Temp 36.4 ?C (97.6 ?F) (Temporal) Resp 18 Ht 149.9 cm (4' 11 ) Wt 63 kg (139 lb) SpO2 98% BMI 28.07 kg/m? Physical Exam Vitals reviewed. Constitutional: Appearance: Normal appearance. HENT: Head: Normocephalic and atraumatic. Nose: Nose normal. Eyes: Extraocular Movements: Extraocular movements intact. Pupils: Pupils are equal, round, and reactive to light. Cardiovascular: Rate and Rhythm: Normal rate and regular rhythm. Pulmonary: Effort: Pulmonary effort is normal. Breath sounds: Normal breath sounds. Abdominal: General: Bowel sounds are normal. Palpations: Abdomen is soft. Musculoskeletal: General: Normal range of motion. Cervical back: Normal range of motion and neck supple. Skin: General: Skin is warm and dry. Capillary Refill: Capillary refill takes less than 2 seconds. Neurological: General: No focal deficit present. Mental Status: She is alert and oriented to person, place, and time. Mental status is at baseline. Psychiatric: Mood and Affect: Mood normal. Behavior: Behavior normal. Assessment and Plan Encounter Diagnosis ICD-10-CM 1. Wellness examination Z00.00 2. Encounter for counseling regarding advance directives Z71.89 ADVANCE CARE PLAN DISCUSSION 3. Encounter for screening for depression Z13.31 DEPRESSION SCREENING/ASSESSMENT 4. Chronic systolic heart failure (HCC) I50.22 5. Paroxysmal atrial fibrillation (HCC) I48.0 6. Pure hypercholesterolemia E78.00 7. Hypertension, essential I10 8. Iron deficiency anemia, unspecified iron deficiency anemia type D50.9 All open preventative health maintenance topics discussed with patient in detail. This includes risks and benefits regarding vaccines, cancer screening, healthy life style, and diet. Medicare Health Risk Assessment General Health Fair Exercise: Minutes/Day 30 min Exercise: Days/Week 3 days Alcohol: Daily Use Never Alcohol: Drinks/Day Patient does not drink Alcohol: 6 or more drinks Never Feel off balance No Concerns: Teeth/Dentures No Concerns: Sexual function Troubled by feelings None of the above Frequency: Eating healthy diet Nearly every day ADLs requiring help Safety precautions in home/vehicle Smoke, vape, chews tobacco No Difficulty hearing No Difficulty seeing No Current Providers Specialists: I have reviewed speci (more content not included)... [facility] 04-26-2023 Note HNO ID: [id number] Author: John Valentino MD Service: ? Author Type: Physician Type: Progress Notes Filed: 04/26/2023 4:48 PM Note Text: This note was created using NoteWriter. Subjective Carole Echevarria is a 87 year old female.Patient is in office for a follow up for 2 recent ED visits, for right leg pain, muscle spasms in bilateral thumb and finger possibly medication induced. Patient was evaluated and treated at [facility] ED on 04-12-2023 and 04-23-2023. Patient was experiencing right leg pain. Negative for DVT. Patient was seen at second visit for bilateral muscle cramps. Patient took 3 Percocet within 24 hours and decreased amounts of water. Patient states that Percocet is relieving pain, but patient states she has not taken medication since yesterday due to hands cramping. Review of Systems Constitutional: Negative. HENT: Negative. Eyes: Negative. Respiratory: Negative. Cardiovascular: Negative. Gastrointestinal: Negative. Endocrine: Negative. Genitourinary: Negative. Musculoskeletal: Negative. Skin: Negative. Allergic/Immunologic: Negative. Neurological: Negative. Hematological: Negative. Psychiatric/Behavioral: Negative. Objective BP 108/72 (BP Site: Left Arm, BP Position: Sitting, BP Cuff Size: Regular Adult) Pulse 68 Temp 36.1 ?C (97 ?F) (Temporal) Resp 18 Ht 149.9 cm (4' 11 ) Wt 63.2 kg (139 lb 6.4 oz) SpO2 98% BMI 28.16 kg/m? Physical Exam Vitals reviewed. Constitutional: Appearance: Normal appearance. HENT: Head: Normocephalic and atraumatic. Nose: Nose normal. Eyes: Extraocular Movements: Extraocular movements intact. Pupils: Pupils are equal, round, and reactive to light. Cardiovascular: Rate and Rhythm: Normal rate and regular rhythm. Pulmonary: Effort: Pulmonary effort is normal. Breath sounds: Normal breath sounds. Abdominal: General: Bowel sounds are normal. Palpations: Abdomen is soft. Musculoskeletal: General: Tenderness present. Normal range of motion. Cervical back: Normal range of motion and neck supple. Skin: General: Skin is warm and dry. Capillary Refill: Capillary refill takes less than 2 seconds. Neurological: General: No focal deficit present. Mental Status: She is alert and oriented to person, place, and time. Mental status is at baseline. Psychiatric: Mood and Affect: Mood normal. Behavior: Behavior normal. Assessment and Plan Encounter Diagnosis ICD-10-CM 1. Leg pain, anterior, right M79.604 HYDROcodone-acetaminophen (NORCO) 5-325 mg per tablet 2. Musculoskeletal pain of right thigh M79.651 Hydrocodone for pain. Moist heat. Stretching exercises. Ice after activity. John Valentino MD [facility] 04-25-2023 Note HNO ID: [id number] Author: Kenny Bruner LPN Service: ? Author Type: LICENSED NURSE Type: Progress Notes Filed: 04/26/2023 4:48 PM Note Text: Patient is in office for a follow up for 2 recent ED visits, for right leg pain, muscle spasms in bilateral thumb and finger possibly medication indused. Patient was evaluated and treated at [facility] ED on 04-12-2023 and 04-23-2023. Patient was experiencing right leg pain. Negative for DVT. Patient was seen at second visit for bilateral muscle cramps. Patient took 3 Percocet within 24 hours and decreased amounts of water. Patient states that Percocet is relieving pain, but patient states she has not taken medication since yesterday due to hands cramping. Kenny Bruner LPN April 25, 2023 5:00 PM [facility] 03-07-2023 Note HNO ID: [id number] Author: John Valentino MD Service: ? Author Type: Physician Type: Progress Notes Filed: 03/13/2023 9:28 PM Note Text: This note was created using [employer]. Subjective Carole Echevarria is a 87 year old female presenting today for 6-month follow-up of chronic conditions. She denies concerns at this time. Carole previously followed with Dr. Vega for management of multiple cardiac conditions. He recently left the practice and she is establishing with a new cardiology provider soon. Carole is compliant with present medications and denies cardiac symptoms including chest pain, shortness of breath, palpitations, racing heart beat, blurred vision, headaches. Blood pressure today in clinic is 102/72. 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 She reports that she had labs drawn approximately 5 months ago, which were within acceptable limits. Carole continues on pravastatin. She also has a history of congestive heart failure for which she takes Lasix daily. Carole denies dyspnea today but does endorse bilateral lower extremity swelling when the weather is very hot. She has compression stockings at home but does not wear them. Carole also has history of transient ischemic attack in 2006. She denies recent strokelike symptoms. Review of Systems Constitutional: Negative. HENT: Negative. Eyes: Negative. Respiratory: Negative. Cardiovascular: Positive for leg swelling. Negative for chest pain and palpitations. Denies racing heartbeat Gastrointestinal: Negative. Endocrine: Negative. Genitourinary: Negative. Musculoskeletal: Positive for arthralgias. Negative for back pain, gait problem, joint swelling, myalgias, neck pain and neck stiffness. History of arthritis with intermittent joint stiffness after immobility. Resolves with increased activity. Skin: Negative. Allergic/Immunologic: Negative. Neurological: Negative. Hematological: Negative. Psychiatric/Behavioral: Negative. Objective BP 102/72 (BP Site: Left Arm, BP Position: Sitting, BP Cuff Size: Regular Adult) Pulse 64 Temp 36.1 ?C (97 ?F) (Temporal) Resp 18 Ht 149.9 cm (4' 11 ) Wt 63.2 kg (139 lb 6.4 oz) SpO2 99% BMI 28.16 kg/m? Physical Exam Constitutional: General: She is not in acute distress. Appearance: Normal appearance. HENT: Head: Normocephalic and atraumatic. Right Ear: External ear normal. Left Ear: External ear normal. Nose: Nose normal. Mouth/Throat: Mouth: Mucous membranes are moist. Pharynx: Oropharynx is clear. Eyes: Extraocular Movements: Extraocular movements intact. Pupils: Pupils are equal, round, and reactive to light. Cardiovascular: Rate and Rhythm: Normal rate. Rhythm irregular. Pulses: Normal pulses. Heart sounds: Murmur heard. Pulmonary: Effort: Pulmonary effort is normal. No respiratory distress. Breath sounds: Normal breath sounds. Abdominal: General: Bowel sounds are normal. Palpations: Abdomen is soft. Musculoskeletal: General: Normal range of motion. Cervical back: Normal range of motion and neck supple. Skin: General: Skin is warm and dry. Capillary Refill: Capillary refill takes less than 2 seconds. Neurological: General: No focal deficit present. Mental Status: She is alert and oriented to person, place, and time. Psychiatric: Mood and Affect: Mood normal. Behavior: Behavior normal. Assessment and Plan Encounter Diagnosis ICD-10-CM 1. Paroxysmal atrial fibrillation (HCC) I48.0 Stable. Continue to follow with cardiology. 2. Chronic systolic heart failure (HCC) I50.22 Stable. Continue to follow with cardiology. 3. Hypertension, essential I10 4. Pure hypercholesterolemia E78.00 5. History of TIA (transient ischemic attack) Z86.73 6. Iron deficiency anemia, unspecified iron deficiency anemia type D50.9 7. Arthritis M19.90 (I48.0) Paroxysmal atrial fibrillation (HCC) (primary encounter diagnosis) Comment: Stable. Rate controlled on present medication. Plan: Continue present medications. Continue to follow with cardiology and establish with new provider. Continue to monitor pulse and notify econometrics professor if consistently greater than 100 bpm. (I50.22) Chronic systolic heart failure (HCC) Comment: Stable. Plan: Continue to follow with cardiology. Continue Lasix. Monitor fluid intake. Compression hose for management of lower extremity edema when necessary. (I10) Hypertension, essential Comment: Stable. Plan: Continue present medications. Continue to follow with cardiology. Monitor blood pressure at home and notify office if consistently greater than 140/90. Contact insurance company to determine benefits for blood pressure cuff coverage. Contact office if order for home blood pressure monitoring kit is needed. (E78.00) Pure hypercholesterolemia Comment: Stable. Plan: Continue present medications. Continue to follow with car (more content not included)... [facility] 03-07-2023 Note HNO ID: [id number] Author: Kenny Bruner LPN Service: ? Author Type: LICENSED NURSE Type: Progress Notes Filed: 03/13/2023 9:28 PM Note Text: Patient is in office today for 6 month exam. No complaints or concerns at this time No refills needed Kenny Bruner LPN March 07, 2023 2:54 PM [facility] 03-07-2023 History of Present illness Narrative This note was created using [employer]. Subjective Carole Echevarria is a 87 year old female presenting today for 6-month follow-up of chronic conditions. She denies concerns at this time. Carole previously followed with Dr. Vega for management of multiple cardiac conditions. He recently left the practice and she is establishing with a new cardiology provider soon. Carole is compliant with present medications and denies cardiac symptoms including chest pain, shortness of breath, palpitations, racing heart beat, blurred vision, headaches. Blood pressure today in clinic is 102/72. 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 She reports that she had labs drawn approximately 5 months ago, which were within acceptable limits. Carole continues on pravastatin. She also has a history of congestive heart failure for which she takes Lasix daily. Carole denies dyspnea today but does endorse bilateral lower extremity swelling when the weather is very hot. She has compression stockings at home but does not wear them. Carole also has history of transient ischemic attack in 2006. She denies recent strokelike symptoms. Review of Systems Constitutional: Negative. HENT: Negative. Eyes: Negative. Respiratory: Negative. Cardiovascular: Positive for leg swelling. Negative for chest pain and palpitations. Denies racing heartbeat Gastrointestinal: Negative. Endocrine: Negative. Genitourinary: Negative. Musculoskeletal: Positive for arthralgias. Negative for back pain, gait problem, joint swelling, myalgias, neck pain and neck stiffness. History of arthritis with intermittent joint stiffness after immobility. Resolves with increased activity. Skin: Negative. Allergic/Immunologic: Negative. Neurological: Negative. Hematological: Negative. Psychiatric/Behavioral: Negative. Objective BP 102/72 (BP Site: Left Arm, BP Position: Sitting, BP Cuff Size: Regular Adult) Pulse 64 Temp 36.1 C (97 F) (Temporal) Resp 18 Ht 149.9 cm (4' 11 ) Wt 63.2 kg (139 lb 6.4 oz) SpO2 99% BMI 28.16 kg/m Physical Exam Constitutional: General: She is not in acute distress. Appearance: Normal appearance. HENT: Head: Normocephalic and atraumatic. Right Ear: External ear normal. Left Ear: External ear normal. Nose: Nose normal. Mouth/Throat: Mouth: Mucous membranes are moist. Pharynx: Oropharynx is clear. Eyes: Extraocular Movements: Extraocular movements intact. Pupils: Pupils are equal, round, and reactive to light. Cardiovascular: Rate and Rhythm: Normal rate. Rhythm irregular. Pulses: Normal pulses. Heart sounds: Murmur heard. Pulmonary: Effort: Pulmonary effort is normal. No respiratory distress. Breath sounds: Normal breath sounds. Abdominal: General: Bowel sounds are normal. Palpations: Abdomen is soft. Musculoskeletal: General: Normal range of motion. Cervical back: Normal range of motion and neck supple. Skin: General: Skin is warm and dry. Capillary Refill: Capillary refill takes less than 2 seconds. Neurological: General: No focal deficit present. Mental Status: She is alert and oriented to person, place, and time. Psychiatric: Mood and Affect: Mood normal. Behavior: Behavior normal. Assessment and Plan Encounter Diagnosis ICD-10-CM 1. Paroxysmal atrial fibrillation (HCC) I48.0 Stable. Continue to follow with cardiology. 2. Chronic systolic heart failure (HCC) I50.22 Stable. Continue to follow with cardiology. 3. Hypertension, essential I10 4. Pure hypercholesterolemia E78.00 5. History of TIA (transient ischemic attack) Z86.73 6. Iron deficiency anemia, unspecified iron deficiency anemia type D50.9 7. Arthritis M19.90 (I48.0) Paroxysmal atrial fibrillation (HCC) (primary encounter diagnosis) Comment: Stable. Rate controlled on present medication. Plan: Continue present medications. Continue to follow with cardiology and establish with new provider. Continue to monitor pulse and notify econometrics professor if consistently greater than 100 bpm. (I50.22) Chronic systolic heart failure (HCC) Comment: Stable. Plan: Continue to follow with cardiology. Continue Lasix. Monitor fluid intake. Compression hose for management of lower extremity edema when necessary. (I10) Hypertension, essential Comment: Stable. Plan: Continue present medications. Continue to follow with cardiology. Monitor blood pressure at home and notify office if consistently greater than 140/90. Contact insurance company to determine benefits for blood pressure cuff coverage. Contact office if order for home blood pressure monitoring kit is needed. (E78.00) Pure hypercholesterolemia Comment: Stable. Plan: Continue present medications. Continue to follow with cardiology for management. Continue low-fat, low-cholesterol diet. (Z86.73) History of TIA (transient ischemic attack) Comment: Stable. No residual symptoms. Plan: Continue to monitor for stroke-like symptoms. Report to the emergency room immediately should stroke-like symptoms occur (facial drooping, unilateral weakness, slurred speech, blurred vision). Follow-up in 6 months or sooner as needed. Joanna Hickey APRN, SENIOR COLDFUSION DEVELOPER The patient was seen and examined in conjunction with Joanna Hickey CNP. I agree with the above evaluation and plan. John Valentino MD Patient is in office today for 6 month exam. No complaints or concerns at this time No refills needed Kenny Bruner LPN March 07, 2023 2:54 PM documented in this encounter [facility] 09-01-2022 History of Present illness Narrative This note was created using [employer]. Subjective Carole Echevarria is a 86 year old female. Carole presents today for follow-up for multiple medical problems. See list. Her chronic medical problems have been stable. However blood pressure is elevated in clinic today. She reports her home blood pressure readings have also been mildly elevated. Review of Systems Constitutional: Negative. HENT: Negative. Eyes: Negative. Respiratory: Negative. Cardiovascular: Negative. Gastrointestinal: Negative. Endocrine: Negative. Genitourinary: Negative. Musculoskeletal: Negative. Skin: Negative. Allergic/Immunologic: Negative. Neurological: Negative. Hematological: Negative. Psychiatric/Behavioral: Negative. Objective BP 170/80 (BP Site: Left Arm, BP Position: Sitting) Pulse 75 Temp 36.3 C (97.3 F) (Temporal) Resp 14 Ht 149.9 cm (4' 11 ) Wt 64.6 kg (142 lb 6.4 oz) SpO2 99% BMI 28.76 kg/m Physical Exam Vitals reviewed. Constitutional: Appearance: Normal appearance. HENT: Head: Normocephalic and atraumatic. Nose: Nose normal. Eyes: Extraocular Movements: Extraocular movements intact. Pupils: Pupils are equal, round, and reactive to light. Cardiovascular: Rate and Rhythm: Normal rate and regular rhythm. Pulmonary: Effort: Pulmonary effort is normal. Breath sounds: Normal breath sounds. Abdominal: General: Bowel sounds are normal. Palpations: Abdomen is soft. Musculoskeletal: General: Normal range of motion. Cervical back: Normal range of motion and neck supple. Skin: General: Skin is warm and dry. Capillary Refill: Capillary refill takes less than 2 seconds. Neurological: General: No focal deficit present. Mental Status: She is alert and oriented to person, place, and time. Mental status is at baseline. Psychiatric: Mood and Affect: Mood normal. Behavior: Behavior normal. Assessment and Plan Diagnoses and all orders for this visit: Hypertension, essential - COMP METABOLIC PANEL; Future Pure hypercholesterolemia - COMP METABOLIC PANEL; Future - LIPID PANEL BASIC; Future Paroxysmal atrial fibrillation (HCC) Chronic systolic heart failure (HCC) Mitral valve disease B12 deficiency Iron deficiency anemia, unspecified iron deficiency anemia type Arthritis High-density lipoprotein deficiency Other orders - DEPRESSION SCREENING/ASSESSMENT Patient is to monitor her blood pressure regularly. Follow-up with blood pressure remains elevated in 2 weeks. Reduce salt. Reduce stress. Increase exercise as tolerated. Check labs as above. documented in this encounter [facility] 03-01-2022 History of Present illness Narrative This note was created using [employer]. Subjective Carole Echevarria is a 86 year old female. HPI Review of Systems Constitutional: Negative. HENT: Negative. Eyes: Negative. Respiratory: Negative. Cardiovascular: Negative. Gastrointestinal: Negative. Endocrine: Negative. Genitourinary: Negative. Musculoskeletal: Negative. Skin: Negative. Allergic/Immunologic: Negative. Neurological: Negative. Hematological: Negative. Psychiatric/Behavioral: Negative. Objective BP 150/76 (BP Site: Left Arm, BP Position: Sitting, BP Cuff Size: Regular Adult) Pulse 83 Temp 36.5 C (97.7 F) (Temporal) Resp 14 Ht 149.9 cm (4' 11 ) Wt 64.8 kg (142 lb 12.8 oz) SpO2 98% BMI 28.84 kg/m Physical Exam Vitals reviewed. Constitutional: Appearance: Normal appearance. HENT: Head: Normocephalic and atraumatic. Nose: Nose normal. Eyes: Extraocular Movements: Extraocular movements intact. Pupils: Pupils are equal, round, and reactive to light. Cardiovascular: Rate and Rhythm: Normal rate and regular rhythm. Pulmonary: Effort: Pulmonary effort is normal. Breath sounds: Normal breath sounds. Abdominal: General: Bowel sounds are normal. Palpations: Abdomen is soft. Musculoskeletal: General: Normal range of motion. Cervical back: Normal range of motion and neck supple. Skin: General: Skin is warm and dry. Capillary Refill: Capillary refill takes less than 2 seconds. Neurological: General: No focal deficit present. Mental Status: She is alert and oriented to person, place, and time. Mental status is at baseline. Psychiatric: Mood and Affect: Mood normal. Behavior: Behavior normal. Assessment and Plan Carole was seen today for medicare wellness exam. Diagnoses and all orders for this visit: Primary hypertension - COMP METABOLIC PANEL; Future Hypercholesterolemia - COMP METABOLIC PANEL; Future - LIPID PANEL BASIC; Future Iron deficiency anemia, unspecified iron deficiency anemia type - CBC + DIFF; Future - IRON + TIBC; Future B12 deficiency - VITAMIN B12 BLOOD; Future Well adult health check Encounter for screening mammogram for malignant neoplasm of breast - TERRY SCREENING; Future Medicare Yearly Visit Medical B eligibilty date Date of last exam PAST MEDICAL HISTORY Diagnosis Date Anemia Atrial fibrillation (HCC) Chronic renal failure, stage 3 (moderate) (HCC) HTN (hypertension) Hyperlipidemia RLS (restless legs syndrome) Stroke (HCC) 2006 PAST SURGICAL HISTORY Procedure Laterality Date CHOLECYSTECTOMY HX COLONOSCOPY FLX DX W/COLLJ SPEC WHEN PFRMD 01/09/2019 Colonoscopy ESOPHAGOGASTRODUODENOSCOPY TRANSORAL DIAGNOSTIC 01/09/2019 EGD HYSTERECTOMY HX SKYLER/BSO ALLERGIES: Amiodarone and Flecainide Medications reviewed: Yes FAMILY HISTORY Problem Relation Age of Onset Stroke Mother Hypertension Mother Heart disease Father COPD Father COPD Brother Diabetes Maternal Grandmother Cancer Maternal Grandfather pancreatic Heart disease Paternal Grandmother CT Heart disease Paternal Grandfather CT SOCIAL HISTORY: Social History Tobacco Use Smoking status: Never Smoker Smokeless tobacco: Never Used Substance Use Topics Alcohol use: Never Drug use: Never Carole denies regular aerobic exercise. She watches her diet for sodium, low fat and low cholesterol most of the time. List of current specialists seen: Dr. Silvia Quarles End of Live Planning discussed including patients advanced directive wishes: No I am willing to follow Carole's advanced directives. PHQ-2 / Depression screen She in the past two weeks denies having felt . Functional Ability/Safety Screen 2. Does the patient need help with the phone, transportation, shopping,preparing meals, housework, laundry, medications or managing money? No 3. Does your home have rugs in the hallway, lack of grab bars in the bathroom, lack of handrails on the stairs or have poor lighting? No Hearing Evaluation: within normal limits and normal PHYSICAL EXAM BP 150/76 (BP Site: Left Arm, BP Position: Sitting, BP Cuff Size: Regular Adult) Pulse 83 Temp 36.5 C (97.7 F) (Temporal) Resp 14 Ht 149.9 cm (4' 11 ) Wt 64.8 kg (142 lb 12.8 oz) SpO2 98% BMI 28.84 kg/m Alert and oriented X 3: YES Body mass index is 28.84 kg/m . ASSESSMENT/PLAN: 86 year old female Christina Campbell LPN documented in this encounter [facility] 03-01-2022 Nurse Note Pt is here today for medicare annual wellness. documented in this encounter [facility] Diagnosis Hypertension, essential- Primary Unspecified essential hypertension Pure hypercholesterolemia Paroxysmal atrial fibrillation (HCC) Atrial fibrillation Chronic systolic heart failure (HCC) Chronic systolic heart failure Mitral valve disease Other and unspecified mitral valve diseases B12 deficiency Other B-complex deficiencies Iron deficiency anemia, unspecified iron deficiency anemia type Arthritis Arthropathy, unspecified, site unspecified High-density lipoprotein deficiency Lipoprotein deficiencies [facility] Diagnosis Paroxysmal atrial fibrillation (HCC)- Primary Atrial fibrillation Chronic systolic heart failure (HCC) Chronic systolic heart failure Hypertension, essential Unspecified essential hypertension Pure hypercholesterolemia History of TIA (transient ischemic attack) Transient ischemic attack (TIA), and cerebral infarction without residual deficits Iron deficiency anemia, unspecified iron deficiency anemia type Arthritis Arthropathy, unspecified, site unspecified [facility] Diagnostic Procedure Only (Routine) - Pending Review Specialty Diagnoses / Procedures Referred By Darlene clemente Referred To Contact [facility] Diagnoses Encounter for screening mammogram for malignant neoplasm of breast Procedures TERRY SCREENING SCREENING MAMMOGRAPHY BI 2-VIEW BREAST INC CAD John Valentino MD [address] [place] [address] [facility] [address] [place] [address] Referral ID Status Reason Start Date Expiration Date Visits Requested Visits Authorized [id number] Pending Review Auto-Generat ed Referral 03/01/2022 03/31/2023 1 1 [facility] Advance Directives No Advanced Directives Records FoundDocuments on File Type Date 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 Advance Directive(s) Advance Directive(s) 01/09/2019 10:05 AM Summary Purpose Family History No Family History Records FoundNo Family History Records Found Additional Source Comments Source Comments (unrecognize d section and content) In the event this informatio n is protected by the Federal Confidentiality of Alcohol and Drug Abuse Patient Records regulations: The Federal rules restrict any use of the information to criminally investigate or prosecute any alcohol or drug abuse patient.[facility] the event this information is protected by the Federal Confidentiality of Alcohol and Drug Abuse Patient Records regulations: The Federal rules restrict any use of the information to criminally investigate or prosecute any alcohol or drug abuse patient.[facility] the event this information is protected by the Federal Confidentiality of Alcohol and Drug Abuse Patient Records regulations: The Federal rules restrict any use of the information to criminally investigate or prosecute any alcohol or drug abuse patient.[facility] the event this information is protected by the Federal Confidentiality of Alcohol and Drug Abuse Patient Records regulations: The Federal rules restrict any use of the information to criminally investigate or prosecute any alcohol or drug abuse patient.[facility] the event this information is protected by the Federal Confidentiality of Alcohol and Drug Abuse Patient Records regulations: The Federal rules restrict any use of the information to criminally investigate or prosecute any alcohol or drug abuse patient.[facility] the event this information is protected by the Federal Confidentiality of Alcohol and Drug Abuse Patient Records regulations: The Federal rules restrict any use of the information to criminally investigate or prosecute any alcohol or drug abuse patient.[facility] the event this information is protected by the Federal Confidentiality of Alcohol and Drug Abuse Patient Records regulations: The Federal rules restrict any use of the information to criminally investigate or prosecute any alcohol or drug abuse patient.[facility] Reason for Visit (unrecogniz ed section and content) Reason Comments 6 Month Exam Care Teams (unrecognized sec tion and content) Mri Special Procedures Technologist Relationship Specialty Start Date End Date John Valentino MD [address] [place] [address] PCP - General Family Medicine 12/20/18 Mri Special Procedures Technologist Relationship Specialty Start Date End Date John Valentino MD [address] [place] [address] PCP - General Family Medicine 12/20/18 Mri Special Procedures Technologist Relationship Specialty Start Date End Date John Valentino MD [address] [place] [address] PCP - General Family Medicine 12/20/18 Mri Special Procedures Technologist Relationship Specialty Start Date End Date John Valentino MD [address] [place] [address] PCP - General Family Medicine 12/20/18 INFORMATION SOURCE (unrecogn ized section and content) DATE CREATED AUTHOR AUTHOR'S ORGANIZ ATION 09/12/2023 [facility] Ce nter FOR RECORDS PERTAINING TO PATIENTS WHO ARE OR HAVE BEEN ENROLLED IN A CHEMICAL DEPENDENCY/SUBSTANCEABUSE PROGRAM, SOME INFORMATION MAY BE OMITTED. This clinical summary was aggregated from multiple sources. Caution should be exercised in using it in the provision of clinical care. This summary normalizes information from multiple sources, and as a consequence, information in this document may materially change the coding, format and clinical context of patient data. In addition, data may be omitted in some cases. CLINICAL DECISIONS SHOULD BE BASED ON THE PRIMARY CLINICAL RECORDS. [employer] [facility]. provides no warranty or guarantee of the accuracy or completeness of information in this document.
== END | disposition home or self-care (01) ==
PROVIDERS: PCP Family Medicine; Referring Provider Internal Medicine Cardiovascular Disease; Visit Provider Internal Medicine Cardiovascular Disease
DX: I49.3 Ventricular premature depolarization (principal); I48.11 Longstanding persistent atrial fibrillation; I12.9 Hypertensive chronic kidney disease with stage 1 through stage 4 chronic kidney disease, or unspecified chronic kidney disease; R06.09 Other forms of dyspnea; N18.9 Chronic kidney disease, unspecified
CPT/HCPCS: 36415; 80048; 85025

== ENCOUNTER → 2023-10-07 | Outpatient (CLI) | payer MEDICARE, SELFPAY ==
[2023-10-07 16:03] LABS: BNP,B-Type NATRIURETIC PEPTIDE 251.3 pg/mL (0-100)
[2023-10-07 16:04] LABS: Anion Gap 7 (5-15); BUN 52 mg/dL (7-18); BUN/Creat Ratio 26.1 RATIO (10-20); Calcium,Total 8.8 mg/dL (8.5-10.1); Chloride 107 mmol/L (98-107); Creatinine, Serum 1.99 mg/dL (0.55-1.02); EST Glomerular Filtration Rate 25 mL/min (>60); Est Glom Filt Rate - Afr Amer 30 mL/min (>60); Glucose 106 mg/dL (74-106); Potassium 4.1 mmol/L (3.5-5.1); Sodium Level 139 mmol/L (136-145)
== END | disposition home or self-care (01) ==
LOC: LAB 14:37
PROVIDERS: PCP Family Medicine; Referring Provider Physician Assistant Medical; Visit Provider Physician Assistant Medical
DX: I48.11 Longstanding persistent atrial fibrillation (principal); R60.0 Localized edema; N18.9 Chronic kidney disease, unspecified; R06.02 Shortness of breath
CPT/HCPCS: 36415; 80048; 83880

== ENCOUNTER → 2023-10-26 | Outpatient (CLI) | payer MEDICARE, SELFPAY ==
[2023-10-26 14:37] LABS: Hematocrit 33.4 % (37-47); Hemoglobin 10.2 g/dL (12.0-15.0); Mean Corp Hgb Conc 30.5 g/dL (32-36); Mean Corpuscular Hgb 27.6 pg (27.0-32.0); Mean Corpuscular Volume 90.5 fL (81-99); Mean Platelet Vol. 9.3 fl (6.2-12.0); Platelet Count 197 K/mm3 (150-450); RBC Distribution Width CV 16.2 % (11.6-14.6); RBC Distribution Width SD 53.1 fl (35.1-43.9); Red Blood Count 3.69 M/mm3 (4.2-5.4); White Blood Count 5.7 K/mm3 (4.4-11.0)
[2023-10-26 15:07] LABS: ALB/GLOB Ratio 0.8 RATIO (0.9-2.4); AST(SGOT) 10 U/L (15-37); Alanine Aminotransfer ALT/SGPT 11 U/L (13-56); Albumin, Serum 3.4 g/dL (3.2-5.0); Alkaline Phosphatase 92 U/L (45-117); Anion Gap 7 (5-15); BUN 40 mg/dL (7-18); BUN/Creat Ratio 19.1 RATIO (10-20); Chloride 107 mmol/L (98-107); Creatinine, Serum 2.09 mg/dL (0.55-1.02); EST Glomerular Filtration Rate 24 mL/min (>60); Est Glom Filt Rate - Afr Amer 29 mL/min (>60); Globulin 4.2 g/dL (2.2-4.2); Glucose 105 mg/dL (74-106); Potassium 4.5 mmol/L (3.5-5.1); Protein, Total 7.6 g/dL (6.4-8.2); Sodium Level 139 mmol/L (136-145)
== END | disposition home or self-care (01) ==
LOC: LAB 13:47
PROVIDERS: PCP Family Medicine; Referring Provider Internal Medicine Cardiovascular Disease; Visit Provider Internal Medicine Cardiovascular Disease
DX: I48.91 Unspecified atrial fibrillation (principal); N18.9 Chronic kidney disease, unspecified; R60.0 Localized edema; R06.02 Shortness of breath
CPT/HCPCS: 36415; 80053; 85027

== ENCOUNTER 2023-11-15 14:35 | Inpatient (IN) | payer MEDICARE, SELFPAY ==
[2023-11-15] VITALS (9 sets, daily range): BP systolic 94–126; BP diastolic 68–84; PULSE 74–142; RESP 18–28; TEMP 35.7–36.6; O2SAT 93–100; BMI 29.5; BMI 30.1
--- NOTE | 2023-11-15 15:02 | EKG12_ITS ---
Test Reason : HIGH HR Blood Pressure : / mmHG Vent. Rate : 124 BPM Atrial Rate : 119 BPM P-R Int : 000 ms QRS Dur : 090 ms QT Int : 324 ms P-R-T Axes : 000 013 245 degrees QTc Int : [address] & T wave abnormality, consider lateral ischemia Abnormal ECG Confirmed by MURTAZA LARA, CHRIS ([id number]), tape editor ANGELICA ROLAND ([id number]) on 11/16/2023 9:17:45 AM Referred By: ALY/NINA Confirmed By:CHRIS HAUSER MD
[2023-11-15] MEDS: Verapamil 5 MG/2 ML VIAL IV (15:25)
[2023-11-15 15:26] LABS: Absolute Lymphocyte Count 1.04 X10^3/uL (0.83-4.51); Absolute Neutrophil Count 4.4 X10^3/uL (2.0-7.7); Basophil# 0.02 X10^3/uL; Basophil% 0.3 % (0-1); Eosinophil# 0.15 X10^3/uL; Eosinophils% 2.5 % (0-5); Hematocrit 32.6 % (37-47); Hemoglobin 9.6 g/dL (12.0-15.0); Lymphocyte # 1.04 X10^3/ul (0.83-4.51); Lymphocyte % 17.2 % (19-41); Mean Corp Hgb Conc 29.4 g/dL (32-36); Mean Corpuscular Hgb 27.1 pg (27.0-32.0); Mean Corpuscular Volume 92.1 fL (81-99); Mean Platelet Vol. 9.8 fl (6.2-12.0); Monocyte# 0.44 X10^3/uL; Monocyte% 7.3 % (0-10); NRBC Flagged by Analyzer 0 % (0-5); Neutrophil # 4.39 X10^3/uL (2.7-7.7); Neutrophil % 72.4 % (47-70); Platelet Count 181 K/mm3 (150-450); RBC Distribution Width CV 16.5 % (11.6-14.6); RBC Distribution Width SD 54.7 fl (35.1-43.9); Red Blood Count 3.54 M/mm3 (4.2-5.4); White Blood Count 6.1 K/mm3 (4.4-11.0)
--- NOTE | 2023-11-15 15:35 | RAD_ITS ---
INDICATION: sob EXAMINATION/TECHNIQUE: X-RAY - portable upright AP chest x-ray COMPARISON: None. FINDINGS: LINES/DEVICES: None. LUNGS: Moderate right pleural effusion with adjacent airspace opacities. Minimal blunting left costophrenic angle. No vascular congestion. MEDIASTINUM AND CARDIOVASCULAR STRUCTURES: Cardiac silhouette enlarged. BONES AND SOFT TISSUES: No acute findings. RAD/Chest 1 View (Portable) IMPRESSION: Moderate right pleural effusion with adjacent consolidation. Recommend follow-up to complete resolution and to exclude underlying mass lesion at the right lung base. Cardiomegaly. Electronically Signed: Bassem Fierro MD at 16:58 EDT ,
--- NOTE | 2023-11-15 15:43 | ED.VIS.DYS ---
HPI History of Present Illness Chief Complaint: Shortness of Breath Informant: patient Narrative Narrative: Sent down from cardiology office A-fib RVR. History of A-fib since [address] Vega. Is currently followed by Dr. El. She states in April she was taken off digoxin. She states was on metoprolol 50 mg twice daily. She states it required more adjustments up to 100 mg for which she became symptomatic with fatigue. She was switched over to succinate and on diltiazemPrior to 3 weeks ago. However she is had continued symptoms and requested to get off of them. She was placed on Coreg 6.25 mg twice daily. She has had continued symptoms of racing heart. Reported lightheaded symptoms. Chronic leg swelling orthopnea for the past year. No fever or cough. Denies chest or abdominal pain. [facility] Medical History Atrial fibrillation Bilateral edema of lower extremity Chronic kidney disease Chronic systolic (congestive) heart failure SMITH (dyspnea on exertion) Dyslipidemia Essential hypertension History of GI bleed Hyperlipidemia Hypertension Hypertension Longstanding persistent atrial fibrillation Non-smoker Nonrheumatic mitral valve regurgitation Nonrheumatic tricuspid (valve) insufficiency Other specified transient cerebral ischemias Premature ventricular contraction Shortness of breath Swelling of right lower extremity TIA (transient ischemic attack) TIA (transient ischemic attack) Home Medications vitamins A,C,C-ykst-mutxto 4,296 mcg-226 mg-90 mg capsule (PreserVision AREDS) 1 cap PO BID 03/12/20 [History Last Taken Unknown] mecobalamin (vitamin B12) 1,000 mcg chewable tablet 1,000 mcg PO DAILY 03/15/23 [History Last Taken Unknown] clopidogrel 75 mg tablet 75 mg PO DAILY #90 tabs 05/06/23 [Rx Last Taken Unknown] pravastatin 20 mg tablet 20 mg PO DAILY #90 tabs 05/06/23 [Rx Last Taken Unknown] furosemide 40 mg tablet 40 mg PO BID 10/26/23 [History Last Taken Unknown] carvedilol 6.25 mg tablet 6.25 mg PO BID #60 tabs 10/27/23 [Rx Last Taken Unknown] lisinopril 10 mg tablet 10 mg PO DAILY #90 tabs 11/11/23 [Rx Last Taken Unknown] Allergy/AdvReac Type Severity Reaction Status Date / Time amiodarone AdvReac Severe Severs Verified 11/15/23 14:38 muscle weakness, hair loss amlodipine AdvReac Severe Swelling Verified 11/15/23 14:38 flecainide AdvReac Severe Near Verified 11/15/23 14:38 Syncope, Severe Nausea losartan AdvReac myalgia Verified 11/15/23 14:38 Family History Father COPD (chronic obstructive pulmonary disease) CHF (congestive heart failure) Mother Hypertension CVA (cerebral vascular accident) Brother Hypertension Surgical History History of cholecystectomy History of total hysterectomy Social History household members: spouse Smoking Status: Never smoker alcohol intake: never substance use type: does not use caffeine: Yes Type: coffee Number of servings: 1 ROS ROS ED Constitutional Constitutional ED: Denies chills, fever(s) or sweats Eyes Eyes: Denies change in vision ENT ENT ED: Denies dysphagia or sore throat Cardiovascular Cardiovascular: Reports orthopnea, palpitations and racing heartbeat; Denies chest pain or leg edema Respiratory/Chest Respiratory/Chest: Reports dyspnea and orthopnea; Denies cough or dyspnea on exertion Gastrointestinal Gastrointestinal: Denies abdominal pain, diarrhea, nausea or vomiting Genitourinary Genitourinary ED: Denies dysuria, hematuria or urinary frequency Musculoskeletal Musculoskeletal: Denies back pain, extremity pain or neck pain Integumentary Denies rash or wounds Neurologic Neurologic: Denies headache(s), paresthesias or weakness EXAM Physical Exam Const Vital Signs: 11/15/23 14:36 11/15/23 14:35 11/15/23 15:31 Temperature 98 F 97.8 F Temperature Source Temporal Temporal Pulse Rate 142 H 120 H 98 Respiratory Rate 18 24 H 24 H Blood Pressure 118/68 126/84 H 100/72 Blood Pressure Mean 84 98 81 Pulse Ox 93 100 99 Oxygen Delivery Method Room Air Room Air Room Air 11/15/23 16:00 Temperature Temperature Source Pulse Rate 93 Respiratory Rate 18 Blood Pressure 94/70 Blood Pressure Mean 78 Pulse Ox 99 Oxygen Delivery Method Room Air Positive well nourished and well developed General Appearance ED: well developed and NAD HEENT Reports moist mucous membranes normocephalic and atraumatic Eyes PERRL, EOMs intact bilaterally and conjunctivae normal General Eye ED: Yes normal appearance of both eyes Neck no lymphadenopathy and supple General: Negative for tenderness Chest Wall Chest: Negative for tenderness Resp normal respiratory effort and normal air movement Effort and Inspection: symmetric chest movement; Negative for respiratory distress Cardio Rate: tachycardic Rhythm: abnormal rhythm Peripheral Pulses: pulses 2+ throughout GI normal to inspection, nondistended, normoactive bowel sounds and non-tender Palpation: Negative for guarding or rebound tenderness present Back/Spine no CVA tenderness and no thoracic nor lumbar tenderness Extremity normal to inspection Extremity Narrative: 2+ lower extremity edema. General Extremety ED: Yes edema; Negative for tenderness General Extremity: edema Neuro oriented x3 and no sensory deficits noted Sensorium / Orientation: awake and alert Skin no rashes or lesions noted and no wounds MDM MDM MDM Narrative Medical decision making narrative: Interventions / MDM: Differential diagnosis: A-fib with RVR, CHF Diagnosis considered but do not suspect: N/A My EKG interpretation: A-fib RVR rate of 124, no ST changes T wave inversions lateral leads V5?V6. V5 inversion. July 2023. Imaging independently reviewed and interpreted by myself: 1 view chest x-ray: Moderate right pleural effusion External documents reviewed: N/A Test considered but not ordered:N/A ED course: Patient A-fib with RVR. Labs were ordered. Reported metoprolol diltiazem had side effects to do not want to be on these. 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 Recheck records she had a systolic dysfunction 45% EF. He recommended verapamil and admission. No digoxin at this time. 5 mg IV verapamil was ordered. 1604: Heart rate 80s to 100 clinically is feeling better. Systolic blood pressure 97. Chest x-ray moderate right pleural effusion. Creatinine 2.93 similar to her most recent, however prior to that 2.0 range. BNP 280 troponin 13. Hemoglobin 9.6 stable from previous. Reviewing records, she is not on anticoagulation due to history of GI bleed. She reported had outpatient 2 units of blood approximately 4 months ago. Denies any bright red blood per rectum. Currently rate is more controlled, new right pleural effusion. Will discuss with hospitalist service for admission. I discussed with Dr. Clayton for admission. Agrees with holding diuretics at this time due to NAHUM. Re-evaluation: stable Disposition discussed with patient/family/significant other: Patient Case discussed with consulting clinician: Cardiology, Dr. El, hospitalist This note was generated with [employer] dictation software. It may contain incorrect words, spelling, and punctuation that were not noted in checking the note before signing. Lab Data Attestation: I reviewed the patient's lab results. Labs: Laboratory Results - last 24 hr 11/15/23 14:50 WBC 6.1 RBC 3.54 L Hgb 9.6 L Hct 32.6 L MCV 92.1 MCH 27.1 MCHC 29.4 L RDW Std Deviation 54.7 H RDW Coeff of Michael 16.5 H Plt Count 181 MPV 9.8 Immature Gran % (Auto) 0.300 Neut % (Auto) 72.4 H Lymph % (Auto) 17.2 L [place] % (Auto) 7.3 Eos % (Auto) 2.5 Baso % (Auto) 0.3 Absolute Neuts (auto) 4.4 Absolute Lymphs (auto) 1.04 Nucleated RBC % 0 Sodium 142 Potassium 3.9 Chloride 109 H Carbon Dioxide 26.0 Anion Gap 7 BUN 70 H Creatinine 2.93 H Estim Creat Clear Calc 11.28 Est GFR (MDRD) Af Amer 20 L Est GFR (MDRD) Non-Af 16 L BUN/Creatinine Ratio 23.9 H Glucose 108 H Calcium 8.8 Magnesium 2.7 H Troponin I High Sens 13 B-Natriuretic Peptide 280.9 H Radiography Diagnostic Testing: Clinical Impression(s) from Imaging Studies Chest X-Ray 11/15/23 15:35 IMPRESSION: Moderate right pleural effusion with adjacent consolidation. Recommend follow-up to complete resolution and to exclude underlying mass lesion at the right lung base. Cardiomegaly. Electronically Signed: Bassem Fierro MD at 16:58 EDT , Discharge Plan Dx/Rx/DC Orders Clinical Impression: Atrial fibrillation with rapid ventricular response, Chronic kidney disease, Shortness of breath, Anemia, Pleural effusion on right, Acute on chronic renal insufficiency Disposition Disposition: Acute Care Hospital [facility] Discharge Date/Time: 11/15/23 17:26
[2023-11-15 15:46] LABS: BNP,B-Type NATRIURETIC PEPTIDE 280.9 pg/mL (0-100)
[2023-11-15 15:49] LABS: Anion Gap 7 (5-15); BUN 70 mg/dL (7-18); BUN/Creat Ratio 23.9 RATIO (10-20); Calcium,Total 8.8 mg/dL (8.5-10.1); Chloride 109 mmol/L (98-107); Creatinine, Serum 2.93 mg/dL (0.55-1.02); EST Glomerular Filtration Rate 16 mL/min (>60); Est Glom Filt Rate - Afr Amer 20 mL/min (>60); Estimated Creatinine Clearance 11.28 ml/min; Glucose 108 mg/dL (74-106); Potassium 3.9 mmol/L (3.5-5.1); Sodium Level 142 mmol/L (136-145); Troponin-I HS (w/2H Reflex) 13 pg/mL (3.0-54.0)
--- NOTE | 2023-11-15 16:35 | HP.PCM.HOS_ITS ---
HPI - General General Date of Admission: 11/15/23 Date of Service: 11/15/23 Chief Complaint: Dyspnea, palpitations. HPI Narrative The patient is an 88 y/o F w/ PMHx: Valvular Heart Disease, CKD stage IV, Chronic anemia, HFrEF, HTN, HLD, GERD w/ Hx GI bleed, Chronic AF, Hx TIA, Chronic BL LE edema who presents to the [facility] ED on 11/15/23 with history of shortness of breath and ongoing persistent racing heart/palpitations with several recent medication changes and adjustments secondary to patient intolerance with previous metoprolol eventually titrated up however patient significant fatigue eventually switched to assess night and also placed on diltiazem 3 weeks prior however continued to have symptoms and stopped this transition to Coreg low-dose however patient continues to have chronic lower extremity swelling, orthopnea and now reports some lightheadedness prompting eventual ED evaluation. Most recent cardiology visit 10/26/2023 where cardiology notes that patient stopped the diltiazem because it was causing her to feel poorly and also had not been taking her metoprolol for at least a week reporting at that visit palpitations, lower extremity swelling and shortness of breath especially with activity but no chest pain. Patient during that visit was advised admission given difficulty with ventricular rate control off of m edications but refused thus low-dose Coreg 6.25 mg twice daily was initiated with plan to follow-up in the office the following day. Patient is not on chronic anticoagulant therapy secondary to history of significant GI bleed. Workup in the ED included T97.8, heart rate initially 120, BP 126/84, re spiratory rate 24, on a percent on room air with most recent repeat vitals heart rate 98, BP 172, respiratory rate 24, 99% on room air, CBC with WBC 6.1, hemoglobin 9.6, MCV 92.1, platelet 181 without marked shift, BMP with chloride 109, BUN/creatinine 70/2.93, GFR 16, creatinine clearance 11.28, glucose 108, troponin 13, BNP 280.9, chest x-ray with right-sided notable pleural effusion with most recent prior to this remote from 2011, EKG with atrial fibrillation with RVR, In the ED patient administered verapamil 5 mg IV x 1 per Cardiology recommendation. ED discussed case with Dr. El. [facility] Medical History Atrial fibrillation Bilateral edema of lower extremity Chronic kidney disease Chronic systolic (congestive) heart failure SMITH (dyspnea on exertion) Dyslipidemia Essential hypertension History of GI bleed Hyperlipidemia Hypertension Hypertension Longstanding persistent atrial fibrillation Non-smoker Nonrheumatic mitral valve regurgitation Nonrheumatic tricuspid (valve) insufficiency Other specified transient cerebral ischemias Premature ventricular contraction Shortness of breath Swelling of right lower extremity TIA (transient ischemic attack) TIA (transient ischemic attack) Home Medications vitamins A,C,W-ricc-ziaueh 4,296 mcg-226 mg-90 mg capsule (PreserVision AREDS) 1 cap PO BID 03/12/20 [History Last Taken Unknown] mecobalamin (vitamin B12) 1,000 mcg chewable tablet 1,000 mcg PO DAILY 03/15/23 [History Last Taken Unknown] clopidogrel 75 mg tablet 75 mg PO DAILY #90 tabs 05/06/23 [Rx Last Taken Unknown] pravastatin 20 mg tablet 20 mg PO DAILY #90 tabs 05/06/23 [Rx Last Taken Unknown] furosemide 40 mg tablet 40 mg PO BID 10/26/23 [History Last Taken Unknown] carvedilol 6.25 mg tablet 6.25 mg PO BID #60 tabs 10/27/23 [Rx Last Taken Unknown] lisinopril 10 mg tablet 10 mg PO DAILY #90 tabs 11/11/23 [Rx Last Taken Unknown] Allergy/AdvReac Type Severity Reaction Status Date / Time amiodarone AdvReac Severe Severs Verified 11/15/23 14:38 muscle weakness, hair loss amlodipine AdvReac Severe Swelling Verified 11/15/23 14:38 flecainide AdvReac Severe Near Verified 11/15/23 14:38 Syncope, Severe Nausea losartan AdvReac myalgia Verified 11/15/23 14:38 Family History Father COPD (chronic obstructive pulmonary disease) CHF (congestive heart failure) Mother Hypertension CVA (cerebral vascular accident) Brother Hypertension Surgical History History of cholecystectomy History of total hysterectomy Social History household members: spouse Smoking Status: Never smoker alcohol intake: never substance use type: does not use caffeine: Yes Type: coffee Number of servings: 1 ROS ROS Narrative Admission Review of Systems: CONSTITUTIONAL: No weight loss, fever, chills, + weakness or fatigue. HEENT: + Lightheadedness, dizziness. Eyes: No visual loss, blurred vision, double vision or yellow sclerae. Ears, Nose, Throat: No hearing loss, sneezing, congestion, runny nose or sore throat. SKIN: No rash or itching, lesions, wounds. CARDIOVASCULAR: + Chronic edema, chronic orthopnea, chronic palpitations. New lightheadedness/dizziness. No chest pain, chest pressure or chest discomfort. No syncopal events. RESPIRATORY: + Chronic dyspnea worse with exertion. No marked cough or sputum, wheezing, hemoptysis. GASTROINTESTINAL: No anorexia, nausea, vomiting or diarrhea, abdominal pain, melena, BRBPR. GENITOURINARY: No dysuria, frequency, urgency or retention. NEUROLOGICAL: + Lightheadedness, dizziness. No paralysis, ataxia, numbness or tingling in the extremities, focal weakness, change in bowel or bladder control, seizure. MUSCULOSKELETAL: + muscle, back pain, joint pain or stiffness. HEMATOLOGIC: + Chronic anemia, easy bleeding/bruising. LYMPHATICS: No enlarged nodes. No history of splenectomy. PSYCHIATRIC: No history of depression or anxiety. ENDOCRINOLOGIC: No reports of sweating, cold or heat intolerance. No polyuria or polydipsia. ALLERGIES: No history of asthma, hives, eczema or rhinitis. Vital Signs Vital Signs Vital Signs: 11/15/23 14:36 11/15/23 14:35 11/15/23 15:31 Temperature 98 F 97.8 F Temperature Source Temporal Temporal Pulse Rate 142 H 120 H 98 Respiratory Rate 18 24 H 24 H Blood Pressure 118/68 126/84 H 100/72 Blood Pressure Mean 84 98 81 Pulse Ox 93 100 99 Oxygen Delivery Method Room Air Room Air Room Air Weight Weight: 146 lb 3.2 oz Body Mass Index (BMI) 29.5 Physical Exam Narrative Physical Examination: General: Awake, alert, oriented x 3 and cooperative, seated upright in ED bed, fatigued but no acute distress. Skin: Normal color, normal turgor, no icterus, no cyanosis except occasional staged ecchymoses, abrasion. HEENT: AT/NC, EOMI, PERRLA, MMM, no carotid bruits or markedly noted JVD noted. Lungs: Diminished, primarily right base and mid with no overtly audible rales, no evidence of any distress, no rhonchi or wheezing. Heart: Irregular irregular; no gallop, rub audible, + SM. Abdomen: Soft, NTTP, ND, normal BS, no HSM. Extremities: No cyanosis, no clubbing, significant pedal to distal haynes edema which she notes is chronic. Neurological: Patient awake, alert, oriented as noted, cognitive function intact; pupils equally reactive to light and accommodation, cranial nerves grossly normal, moving all 4 extremities, no focal deficits, strength moderately to severely global decrease secondary to acute complaints Psychiatric: Affect appears fatigued otherwise normal, no acute evidence of depressive or anxiety feelings. Results Lab / Micro Data 11/15/23 14:50 11/15/23 14:50 Labs: Laboratory Results - last 24 hr 11/15/23 14:50: WBC 6.1, RBC 3.54 L, Hgb 9.6 L, Hct 32.6 L, MCV 92.1, MCH 27.1, MCHC 29.4 L, RDW Std Deviation 54.7 H, RDW Coeff of Michael 16.5 H, Plt Count 181, MPV 9.8, Immature Gran % (Auto) 0.300, Neut % (Auto) 72.4 H, Lymph % (Auto) 17.2 L, [place] % (Auto) 7.3, Eos % (Auto) 2.5, Baso % (Auto) 0.3, Absolute Neuts (auto) 4.4, Absolute Lymphs (auto) 1.04, Nucleated RBC % 0, Sodium 142, Potassium 3.9, Chloride 109 H, Carbon Dioxide 26.0, Anion Gap 7, BUN 70 H, Creatinine 2.93 H, Estim Creat Clear Calc 11.28, Est GFR (MDRD) Af Amer 20 L, Est GFR (MDRD) Non-Af 16 L, BUN/Creatinine Ratio 23.9 H, Glucose 108 H, Calcium 8.8, Troponin I High Sens 13, B-Natriuretic Peptide 280.9 H Assessment & Plan Assessment/Plan (1) Atrial fibrillation with rapid ventricular response: PLAN: Plan The patient is an 88 y/o F w/ PMHx: Valvular Heart Disease, CKD stage IV, Chronic anemia, HFrEF, HTN, HLD, GERD w/ Hx GI bleed, Chronic AF, Hx TIA, Chronic BL LE edema who presents to the [facility] ED on 11/15/23 with history of sh ortness of breath and ongoing persistent racing heart/palpitations with several recent medication changes and adjustments secondary to patient intolerance with previous metoprolol eventually titrated up however patient significant fatigue eventually switched to assess night and also placed on diltiazem 3 weeks prior however continued to have symptoms and stopped this transition to Coreg low-dose however patient continues to have chronic lower extremity swelling, orthopnea and now reports some lightheadedness prompting eventual ED evaluation. #1. Paroxsymal atrial fibrillation w/ RVR: EKG in ED w/ atrial fibrillation w/ RVR. Patient administered verapamil 5 mg IV x 1 in ED. Will admit to PCU, maintain on telemetry, obtain cardiac enzyme serial set, obtain magnesium level, obtain ECHO, obtain TSH level. Patient is unable to be anticoagulated secondary to significant GI bleed history per report. Given improvement with IV verapamil will dose initially with ER 120 mg x 1 now and continue but if necessary may use infusion. Will continue ED initiated cardiology consultation. #2. Right-sided pleural effusion: Patient with decent right-sided pleural effusion of unclear timeline, complicates presentation with dyspnea, will obtain CT of the chest without contrast to further evaluate and if appropriate patient is not anticoagulated could certainly consider thoracentesis. Holding diuretic secondary to NAHUM. #3. Acute Kidney Injury on Chronic Kidney Disease Stage IV: Admission BUN/Cr 70/2.93, GFR 16, baseline renal function however is increased from previous with baseline primarily prior 1.5-2.1, 10/26/2023 creatinine 2.09 however upon current day of presentation creatinine noted to be 2.95. Patient has chronic dyspnea, chronic LE swelling and chronic orthopnea. BP is also lower end thus will very cautious hydrate x 1L only, FeNa requested, repeat BMP in AM. If worsens low thr eshold to involve Nephrology. Given #2 and #1, may eventually require once BP appropriate diuresis. #4. History TIA: We will continue patient Plavix, statin, adjustments to hypertensive regimen as noted. #5. Chronic normocytic anemia: Admission hemoglobin 9.6, MCV 92.1, baseline hemoglobin primarily 9-10, stable, continue to trend. #6. Hypertension: Initiating verapamil oral regimen as noted above, holding Lasix and lisinopril given NAHUM, resume once appropriate PRN hydralazine. #7. Hyperlipidemia: We will continue patient on statin therapy. #8. GERD with GI bleed history: Per current list does not appear to be on any PPI, will have Mylanta as needed. #9. Bilateral lower extremity chronic lymphedema/edema: Will place neck Simone wraps with elevation. Temporally holding diuretic as noted given NAHUM, resume once appropriate. #10. Valvular Heart Disease: 04/14/2023 echocardiogram with LVEF 45%, inability to assess diastolic dysfunction secondary to arrhythmia, severe biatrial dil atation, severe TVI, RVSP 62 mmHg, moderately severe MVI. Repeat echocardiogram requested as noted #1 as certainly could be contributing to patient's dyspnea complaint. #11. DVT prophylaxis: Heparin. #12. CODE status: Patient VENU is her who is present and living will is currently in place. Discussed CODE status at length including difference between FULL code, DNR-CCA and DNR-CC status. Following discussions about the differences in these status, requested DNR-CCA, no intubation status. Advanced Care Planning Face to Face Time: 16 minutes. Charges/Coding Visit Charges Inpatient E&M: 43603 Init Hosp L3 Procedures Hospitalists Procedures: 24239 Advncd Care Plan 30 Min
--- NOTE | 2023-11-15 16:39 | NURSING ---
PCU WHITE AFIB RVR
[2023-11-15 17:09] LABS: Magnesium 2.7 mg/dL (1.6-2.6)
[2023-11-15 17:23] LABS: Reflex Troponin-HS? (from REC) Y
--- NOTE | 2023-11-15 17:43 | CT_ITS ---
INDICATION: R sided effusion EXAMINATION: CT CHEST WITHOUT CONTRAST - CT Chest W/O Contrast Injection TECHNIQUE: Helically acquired images were obtained of the chest. A radiation dose optimization technique was used for this scan. IV Contrast dosage and agent: None. COMPARISON: None. FINDINGS: LUNGS, PLEURA AND LARGE AIRWAYS: Moderate right pleural effusion with adjacent compressive atelectasis in the middle and lower lobes. Small left pleural effusion. Large calcified granuloma right middle lobe. No gross mass lesion. No pneumothorax. THYROID: No thyroid lesions. HEART AND PERICARDIUM: Cardiomegaly. No pericardial effusion. Scattered coronary artery calcifications present. VESSELS: Thoracic aorta is not dilated. MEDIASTINUM AND SHARMILA: No mediastinal or hilar adenopathy. Esophagus is unremarkable. No hiatal hernia. UPPER ABDOMEN: No acute pathology. Ascites. Bilateral renal atrophy. BONES: No acute or aggressive abnormality. CT/Chest without Contrast IMPRESSION: Moderate right pleural effusion with adjacent right middle and lower lobe compressive atelectasis. Small left pleural effusion. Cardiomegaly. Upper abdominal ascites. Electronically Signed: Bassem Fierro MD at 19:37 EDT Reading Location ID and State: [address] [place] [address] Tel , Service support ,
--- NOTE | 2023-11-15 17:43 | ECHOD_ITS ---
Reason For Study: AFIB/FLUTTER Procedure This was a 2D Doppler, Color Flow transthoracic echocardiogram. Exam performed portable in patient room. Left Ventricle Normal size and thickness. Severe global left ventricular systolic dysfunction. The left ventricular ejection fraction is 30 %. Unable to assess diastolic dysfunction due to arrhythmia. Right Ventricle Normal RV size. Mild global right ventricular systolic dysfunction. Atria The left atrium is severely enlarged. Massively dilated right atrium. Mitral Valve Mild mitral annular calcification. Moderately severe (3+) mitral valve insufficiency. Tricuspid Valve Tricuspid valve leaflets fail to coapt. Wide-open tricuspid regurgitation. Aortic Valve Aortic sclerosis, no stenosis. Pulmonic Valve The pulmonic valve is not well visualized. Great Vessels Normal sized aortic root. Pericardium/Pleural No pericardial effusion. MMode/2D Measurements & Calculations LVIDd: 4.4 cm IVSd: 0.98 cm LVOT diam: 1.8 cm LVIDs: 3.4 cm LVPWd: 1.1 cm LVOT area: 2.7 cm2 RVDd: 4.0 cm FS: 22.7 % Ao root diam: 2.3 cm LAV(MOD-bp): 98.6 ml LVAd ap4: 22.2 cm2 LAV(MOD-bp) Indexed: 60.8 ml/m2 LVLd ap4: 6.6 cm LAV(MOD-sp2): 108.4 ml EDV(MOD-sp4): 62.8 ml LAV(MOD-sp4): 75.6 ml EDV(sp4-el): 63.2 ml LVAs ap4: 14.8 cm2 LVLs ap4: 5.3 cm ESV(MOD-sp4): 36.6 ml ESV(sp4-el): 34.9 ml EF(MOD-sp4): 41.8 % EF(sp4-el): 44.8 % LVAd ap2: 26.6 cm2 SV(MOD-sp4): 26.3 ml SV(MOD-sp2): 33.0 ml LVLd ap2: 7.1 cm EDV(MOD-sp2): 84.8 ml EDV(sp2-el): 84.7 ml LVAs ap2: 19.5 cm2 LVLs ap2: 6.3 cm ESV(MOD-sp2): 51.8 ml ESV(sp2-el): 51.0 ml EF(MOD-sp2): 38.9 % SV(sp4-el): 28.3 ml LA dimension(2D): 4.5 cm LA A4 area: 25.3 cm2 RA A4 area: 35.6 cm2 TAPSE: 1.5 cm Time Measurements MV dec time: 0.16 sec Doppler Measurements & Calculations MV E max jr: 97.6 cm/sec Lat Peak E' Jr: 15.6 cm/sec Med Peak E' Jr: 8.9 cm/sec E/E' lat: 6.3 E/E' med: 10.9 Ao V2 max: 134.1 cm/sec LV V1 max: 86.2 cm/sec SV(LVOT): 46.7 ml Ao max P.3 mmHg LV V1 max P.0 mmHg Ao V2 mean: 105.4 cm/sec LV V1 mean P.0 mmHg Ao mean P.8 mmHg LV V1 mean: 68.6 cm/sec Ao V2 VTI: 30.2 cm LV V1 VTI: 17.4 cm AV (velocity ratio): 0.58 TRA(I,D): 1.5 cm2 TRA(V,D): 1.7 cm2 PA V2 max: 62.1 cm/sec TR max jr: 155.0 cm/sec PA max PG (full): 1.1 mmHg TR max P.6 mmHg ECHO/Echo Complete Interpretation Summary Severe global left ventricular systolic dysfunction. The left ventricular eject ion fraction is 30 %. Mild global right ventricular systolic dysfunction. The left atrium is severely enlarged. Massively dilated right atrium. Moderately severe (3+) mitral valve insufficiency. Tricuspid valve leaflets fail to coapt. Wide-open torrential tricuspid regurgit ation. Ordering Physician: Shabnam Clayton Performed By: Savannah Gilbert RDCS
[2023-11-15] MEDS: 0.9% Normal Saline (1000mL) 1,000 ML 75 ML IV (18:29)
[2023-11-15] MEDS: 0.9% Saline Lock 10 ML Syringe IV (18:29)
[2023-11-15 18:30] LABS: Troponin-I HS 11 pg/mL (3.0-54.0)
[2023-11-15] MEDS: Verapamil 120 MG Tablet PO (20:40)
[2023-11-15] MEDS: Heparin Injection (Vial) 5,000 UNIT/ML VIAL 5000 UNIT SC (20:40)
[2023-11-15 20:59] LABS: Troponin-I HS 12 pg/mL (3.0-54.0)
[2023-11-15] MEDS: Ondansetron 4 MG/2 ML Vial IV (23:35)
[2023-11-16] VITALS (8 sets, daily range): BP systolic 76–104; BP diastolic 34–79; PULSE 50–128; RESP 14–22; TEMP 36.1–36.8; O2SAT 94–100; BMI 29.9
[2023-11-16 06:54] LABS: Absolute Lymphocyte Count 1.55 X10^3/uL (0.83-4.51); Absolute Neutrophil Count 4.5 X10^3/uL (2.0-7.7); Basophil# 0.02 X10^3/uL; Basophil% 0.3 % (0-1); Eosinophil# 0.18 X10^3/uL; Eosinophils% 2.6 % (0-5); Hematocrit 31.1 % (37-47); Hemoglobin 9.4 g/dL (12.0-15.0); Lymphocyte # 1.55 X10^3/ul (0.83-4.51); Lymphocyte % 22.6 % (19-41); Mean Corp Hgb Conc 30.2 g/dL (32-36); Mean Corpuscular Hgb 28.1 pg (27.0-32.0); Mean Corpuscular Volume 92.8 fL (81-99); Monocyte# 0.61 X10^3/uL; Monocyte% 8.9 % (0-10); NRBC Flagged by Analyzer 0 % (0-5); Neutrophil # 4.49 X10^3/uL (2.7-7.7); Neutrophil % 65.5 % (47-70); Platelet Count 201 K/mm3 (150-450); RBC Distribution Width CV 16.9 % (11.6-14.6); RBC Distribution Width SD 55.8 fl (35.1-43.9); Red Blood Count 3.35 M/mm3 (4.2-5.4); White Blood Count 6.9 K/mm3 (4.4-11.0)
--- NOTE | 2023-11-16 07:23 | PCM.PN.HOSP ---
Reason for Visit Reason for Visit: Diagnoses Unspecified atrial fibrillation (11/15/23) Subjective Subjective Patient is an 88-year-old lady who presented with palpitations as well as lightheadedness found to be in A-fib with RVR admitted to a monitored bed for further management Objective Data Objective Data Vital Signs: Vital Signs Temp Pulse Resp BP Pulse Ox O2 Del Method 98.0 F 104 H 18 100/78 97 Room Air 11/16/23 04:00 11/16/23 04:00 11/16/23 04:00 11/16/23 04:00 11/16/23 04:00 11/16/23 04:00 Oxygen Delivery Method Room Air Weight: 67.3 kg Body Mass Index (BMI) 29.9 Intake & Output: Intake and Output for Last 24 Hours 11/14/23 11/15/23 11/16/23 23:59 23:59 23:59 Intake Total 1170 / 1170 Balance 1170 / 1170 Lab / Micro Data 11/16/23 05:53 11/16/23 05:53 Labs: Laboratory Results - last 24 hr 11/15/23 14:50: WBC 6.1, RBC 3.54 L, Hgb 9.6 L, Hct 32.6 L, MCV 92.1, MCH 27.1, MCHC 29.4 L, RDW Std Deviation 54.7 H, RDW Coeff of Michael 16.5 H, Plt Count 181, MPV 9.8, Immature Gran % (Auto) 0.300, Neut % (Auto) 72.4 H, Lymph % (Auto) 17.2 L, [place] % (Auto) 7.3, Eos % (Auto) 2.5, Baso % (Auto) 0.3, Absolute Neuts (auto) 4.4, Absolute Lymphs (auto) 1.04, Nucleated RBC % 0, Sodium 142, Potassium 3.9, Chloride 109 H, Carbon Dioxide 26.0, Anion Gap 7, BUN 70 H, Creatinine 2.93 H, Estim Creat Clear Calc 11.28, Est GFR (MDRD) Af Amer 20 L, Est GFR (MDRD) Non-Af 16 L, BUN/Creatinine Ratio 23.9 H, Glucose 108 H, Calcium 8.8, Magnesium 2.7 H, Troponin I High Sens 13, B-Natriuretic Peptide 280.9 H 11/15/23 17:48: Troponin I High Sens 11 11/15/23 20:35: Troponin I High Sens 12 11/16/23 05:53: WBC 6.9, RBC 3.35 L, Hgb 9.4 L, Hct 31.1 L, MCV 92.8, MCH 28.1, MCHC 30.2 L, RDW Std Deviation 55.8 H, RDW Coeff of Michael 16.9 H, Plt Count 201, MPV 10.0, Immature Gran % (Auto) 0.100, Neut % (Auto) 65.5, Lymph % (Auto) 22.6, [place] % (Auto) 8.9, Eos % (Auto) 2.6, Baso % (Auto) 0.3, Absolute Neuts (auto) 4.5, Absolute Lymphs (auto) 1.55, Nucleated RBC % 0 Radiography Diagnostic Testing: Radiology Impression Chest X-Ray 11/15/23 15:35 IMPRESSION: Moderate right pleural effusion with adjacent consolidation. Recommend follow-up to complete resolution and to exclude underlying mass lesion at the right lung base. Cardiomegaly. Electronically Signed: Bassem Fierro MD at 16:58 EDT , Chest CT 11/15/23 17:43 IMPRESSION: Moderate right pleural effusion with adjacent right middle and lower lobe compressive atelectasis. Small left pleural effusion. Cardiomegaly. Upper abdominal ascites. Electronically Signed: Bassem Fierro MD at 19:37 EDT , Physical Exam Narrative GENERAL: cooperative HEENT: Atraumatic; normocephalic EYES; Anicteric, Normal Conjunctiva NECK; supple, normal thyroid, RESPIRATORY: Diminished to auscultation CARDIOVASCULAR: Irregularly irregular, tachycardic GI: soft, normoactive bowel sounds, : No Renal angle tenderness; EXTREMITIES: Bipedal edema, no clubbing, MUSCULOSKELETAL: no muscle wasting NEURO: Awake; no lateralizing signs. SKIN: No Rash PSYCH; Flat affect Assessment & Plan Assessment/Plan (1) Atrial fibrillation with rapid ventricular response: PLAN: Plan Patient is an 88-year-old lady who presented with palpitations as well as lightheadedness found to be in A-fib with RVR admitted to a monitored bed for further management 1. Paroxysmal A-fib with RVR ? Patient admitted to monitored bed. Did receive IV meropenem in the ED subsequently started on p.o. verapamil. TSH 2D echo ordered with consultation placed to cardiology 2. Moderate right-sided pleural effusion ? Etiology not clear ordered ultrasound guided thoracentesis for both diagnostic and therapeutic reason 3. Anemia - Secondary to chronic disorder monitoring H&H and transfuse if patient becomes symptomatic or hemoglobin falls below 7 4. Acute kidney injury ? Patient baseline creatinine 2.0 creatinine on admission was 2.95 has risen to 3.25 patient is on both furosemide as well as lisinopril held 5. Essential hypertension ? Patient blood pressure remained stable 6. Moderate pulmonary hypertension ? Complicating care, 2D echo from 04/14/2023 did reveal severe TVI, RVSP 62 mmHg, 7. Valvular heart disease ? With history of mitral valve and tricuspid valve insufficiency 8. Dyslipidemia -Patient is on statin therapy, continued at home dose 9. Chronic congestive heart failure with reduced ejection fraction ? Patient has known EF of 45% currently remains euvolemic Lasix being held due to worsening kidney function 10. DVT prophylaxis ? SC heparin Time spent in the patient's overall evaluation,decision-making process, review of diagnostic data, adjustment of management, discussion with other providers, nursing nursing and ancillary staff involved in patient's care documentation, 52 Minutes Charges/Coding Visit Charges Inpatient E&M: 82056 [facility] Hosp L3
[2023-11-16 07:35] LABS: ALB/GLOB Ratio 0.8 RATIO (0.9-2.4); AST(SGOT) 28 U/L (15-37); Alanine Aminotransfer ALT/SGPT 21 U/L (13-56); Albumin, Serum 3.1 g/dL (3.2-5.0); Alkaline Phosphatase 91 U/L (45-117); Anion Gap 6 (5-15); BUN 73 mg/dL (7-18); BUN/Creat Ratio 22.5 RATIO (10-20); Calcium,Total 8.3 mg/dL (8.5-10.1); Chloride 110 mmol/L (98-107); Cholesterol 81 mg/dL (200); Creatinine, Serum 3.25 mg/dL (0.55-1.02); EST Glomerular Filtration Rate 14 mL/min (>60); Est Glom Filt Rate - Afr Amer 17 mL/min (>60); Estimated Creatinine Clearance 10.24 ml/min; Globulin 3.9 g/dL (2.2-4.2); Glucose 99 mg/dL (74-106); High Density Lipoprotein 31 mg/dL; Potassium 4.3 mmol/L (3.5-5.1); Sodium Level 141 mmol/L (136-145); Thyroid Stim Hormone (TSH) 2.79 uIU/mL (0.358-3.74); Triglycerides 61 mg/dL; Very Low Density Lipoprotein 12 mg/dL (5-40)
[2023-11-16] MEDS: Verapamil 120 MG Tablet PO (09:09)
[2023-11-16] MEDS: Ondansetron 4 MG/2 ML Vial IV (10:12)
[2023-11-16] MEDS: 0.9% Saline Lock 10 ML Syringe IV (10:12)
--- NOTE | 2023-11-16 10:45 | CASEMGMT ---
RN CM Face to Face with patient for initial transition planning/care coordination assessment. RN CM introduced self and role at [facility]. Patient lying in bed, alert and oriented, at bedside. Patient willing to participate in assessment and is able to answer all questions appropriately. Care providers, pharmacy, and demographics verified. PCP: Wilson Specialists: Nikko, plasterer helper Preferred Pharmacy: [facility] Insurance: [facility] Prescription Benefit: yes Living Will/HPOA: yes Kevin LNOK: Living Arrangements: Patient lives with in a single story home with 1 step to enter. Patient is independent at home. Transportation: self, DME/HHC: Patient has raised toilet, cane, crutches, grab bars, walker at home. Patient denies previous HHC or SNF. Patient wishes to discharge home, denies need for home health at this time. Patient states he has no further needs or concerns at this time. CM to follow for discharge planning needs that may arise. Disposition Plan: Patient to discharge home with family support and follow-up plans in place. Katelyn MATUTE, RN, CM
--- NOTE | 2023-11-16 11:51 | EKG12_ITS ---
Test Reason : Blood Pressure : / mmHG Vent. Rate : 052 BPM Atrial Rate : 000 BPM P-R Int : 000 ms QRS Dur : 084 ms QT Int : 504 ms P-R-T Axes : 000 011 254 degrees QTc Int : 468 ms Atrial fibrillation with slow ventricular response ST & T wave abnormality, consider lateral ischemia Abnormal ECG When compared with ECG of 15-NOV-2023 14:46, Vent. rate has decreased BY 72 BPM Confirmed by CATRACHITO SPANN ([id number]), graphic editor ANGELICA ROLAND ([id number]) on 11/21/2023 9:31:52 AM Referred By: ELOY Confirmed By:CATRACHITO SPANN
--- NOTE | 2023-11-16 12:23 | PCM.CONS.C ---
Assessment & Plan Assessment/Plan (1) Atrial fibrillation with rapid ventricular response: PLAN: Patient's ventricular rate has been rather difficult to control. She describes intolerance to multiple medications including metoprolol, amiodarone and diltiazem. Continue carvedilol. Patient's heart rate dropped this morning into the 40s with administration of 120 mg of p.o. verapamil. Monitor. I think one treatment option would be referring her to electrophysiology for AV marquita ablation and insertion of permanent pacemaker. Patient not a candidate for anticoagulation on account of her history of significant GI bleed. (2) Chronic systolic (congestive) heart failure: PLAN: Furosemide has been on hold in view of her acute on chronic renal insufficiency. (3) Acute on chronic renal insufficiency: PLAN: Recommend nephrology consult. (4) History of GI bleed: PLAN: Tolerating clopidogrel. (5) Dyslipidemia: PLAN: On pravastatin. HPI Consult Data Date of Consult: 11/16/23 HPI Narrative Reason for Consultation: Atrial fibrillation with rapid ventricular response HPI Narrative: 88-year-old patient, known to me. She has history of congestive heart failure, chronic kidney disease and atrial fibrillation. Her ventricular rate with her atrial fibrillation has been rather difficult to control as she describes intolerance to multiple medications including metoprolol, amiodarone and diltiazem. This time admitted with acute on chronic renal failure and atrial fibrillation with rapid ventricular response. She continues to have shortness of breath and chronic lower extremity edema. [facility] Medical History Atrial fibrillation Bilateral edema of lower extremity Chronic kidney disease Chronic systolic (congestive) heart failure SMITH (dyspnea on exertion) Dyslipidemia Essential hypertension History of GI bleed Hyperlipidemia Hypertension Hypertension Longstanding persistent atrial fibrillation Non-smoker Nonrheumatic mitral valve regurgitation Nonrheumatic tricuspid (valve) insufficiency Other specified transient cerebral ischemias Premature ventricular contraction Shortness of breath Swelling of right lower extremity TIA (transient ischemic attack) TIA (transient ischemic attack) Home Medications vitamins A,C,V-xtvg-xbmmrd 4,296 mcg-226 mg-90 mg capsule (PreserVision AREDS) 1 cap PO BID 03/12/20 [History Last Taken Unknown] mecobalamin (vitamin B12) 1,000 mcg chewable tablet 1,000 mcg PO DAILY 03/15/23 [History Last Taken Unknown] clopidogrel 75 mg tablet 75 mg PO DAILY #90 tabs 05/06/23 [Rx Last Taken Unknown] pravastatin 20 mg tablet 20 mg PO DAILY #90 tabs 05/06/23 [Rx Last Taken Unknown] furosemide 40 mg tablet 40 mg PO BID 10/26/23 [History Last Taken Unknown] carvedilol 6.25 mg tablet 6.25 mg PO BID #60 tabs 10/27/23 [Rx Last Taken Unknown] lisinopril 10 mg tablet 10 mg PO DAILY #90 tabs 11/11/23 [Rx Last Taken Unknown] Allergy/AdvReac Type Severity Reaction Status Date / Time amiodarone AdvReac Severe Severs Verified 11/15/23 14:38 muscle weakness, hair loss amlodipine AdvReac Severe Swelling Verified 11/15/23 14:38 flecainide AdvReac Severe Near Verified 11/15/23 14:38 Syncope, Severe Nausea losartan AdvReac myalgia Verified 11/15/23 14:38 Family History Father COPD (chronic obstructive pulmonary disease) CHF (congestive heart failure) Mother Hypertension CVA (cerebral vascular accident) Brother Hypertension Surgical History History of cholecystectomy History of total hysterectomy Social History household members: spouse Smoking Status: Never smoker alcohol intake: never substance use type: does not use caffeine: Yes Type: coffee Number of servings: 1 Physical Exam Narrative Sitting up in bed. No acute distress. Heart sounds 1 and 2 noted. Irregularly irregular. Chest examination shows decreased breath sounds right base. Alert oriented x 3. 3+ bilateral lower extremity edema. Risk Stratification Risk Stratification Applicable: No Objective Data Vital Signs: Vital Signs Temp Pulse Resp BP Pulse Ox O2 Del Method 96.9 F L 54 L 14 76/34 L 99 Room Air 11/16/23 11:56 11/16/23 11:56 11/16/23 11:56 11/16/23 11:56 11/16/23 11:56 11/16/23 11:56 Oxygen Delivery Method Room Air Weight: 148 lb 5.938 oz Body Mass Index (BMI) 29.9 Intake & Output: Intake and Output for Last 24 Hours 11/14/23 11/15/23 11/16/23 23:59 23:59 23:59 Intake Total 1170 / 1170 Balance 1170 / 1170 Lab / Micro Data 11/16/23 05:53 11/16/23 05:53 Labs: Laboratory Results - last 24 hr 11/15/23 14:50: WBC 6.1, RBC 3.54 L, Hgb 9.6 L, Hct 32.6 L, MCV 92.1, MCH 27.1, MCHC 29.4 L, RDW Std Deviation 54.7 H, RDW Coeff of Michael 16.5 H, Plt Count 181, MPV 9.8, Immature Gran % (Auto) 0.300, Neut % (Auto) 72.4 H, Lymph % (Auto) 17.2 L, [place] % (Auto) 7.3, Eos % (Auto) 2.5, Baso % (Auto) 0.3, Absolute Neuts (auto) 4.4, Absolute Lymphs (auto) 1.04, Nucleated RBC % 0, Sodium 142, Potassium 3.9, Chloride 109 H, Carbon Dioxide 26.0, Anion Gap 7, BUN 70 H, Creatinine 2.93 H, Estim Creat Clear Calc 11.28, Est GFR (MDRD) Af Amer 20 L, Est GFR (MDRD) Non-Af 16 L, BUN/Creatinine Ratio 23.9 H, Glucose 108 H, Calcium 8.8, Magnesium 2.7 H, Troponin I High Sens 13, B-Natriuretic Peptide 280.9 H 11/15/23 17:48: Troponin I High Sens 11 11/15/23 20:35: Troponin I High Sens 11/16/23 05:53: WBC 6.9, RBC 3.35 L, Hgb 9.4 L, Hct 31.1 L, MCV 92.8, MCH 28.1, MCHC 30.2 L, RDW Std Deviation 55.8 H, RDW Coeff of Michael 16.9 H, Plt Count 201, MPV 10.0, Immature Gran % (Auto) 0.100, Neut % (Auto) 65.5, Lymph % (Auto) 22.6, [place] % (Auto) 8.9, Eos % (Auto) 2.6, Baso % (Auto) 0.3, Absolute Neuts (auto) 4.5, Absolute Lymphs (auto) 1.55, Nucleated RBC % 0, Sodium 141, Potassium 4.3, Chloride 110 H, Carbon Dioxide 25.0, Anion Gap 6, BUN 73 H, Creatinine 3.25 H, Estim Creat Clear Calc 10.24, Est GFR (MDRD) Af Amer 17 L, Est GFR (MDRD) Non-Af 14 L, BUN/Creatinine Ratio 22.5 H, Glucose 99, Calcium 8.3 L, Total Bilirubin 0.60, AST 28, ALT 21, Alkaline Phosphatase 91, Total Protein 7.0, Albumin 3.1 L, Globulin 3.9, Albumin/Globulin Ratio 0.8 L, Triglycerides 61, Cholesterol 81, LDL Cholesterol 38, VLDL Cholesterol 12, HDL Cholesterol 31 L, TSH 2.79 Cardiology Labs/Tests 11/15/23 14:50: WBC 6.1, RBC 3.54 L, Hgb 9.6 L, Hct 32.6 L, MCV 92.1, MCH 27.1, MCHC 29.4 L, Plt Count 181, MPV 9.8, Immature Gran % (Auto) 0.300, Neut % (Auto) 72.4 H, Lymph % (Auto) 17.2 L, [place] % (Auto) 7.3, Eos % (Auto) 2.5, Baso % (Auto) 0.3, Absolute Neuts (auto) 4.4, Nucleated RBC % 0, Sodium 142, Potassium 3.9, Chloride 109 H, Carbon Dioxide 26.0, Anion Gap 7, BUN 70 H, Creatinine 2.93 H, Est GFR (MDRD) Af Amer 20 L, Est GFR (MDRD) Non-Af 16 L, BUN/Creatinine Ratio 23.9 H, Glucose 108 H, Calcium 8.8, Magnesium 2.7 H, B-Natriuretic Peptide 280.9 H 11/16/23 05:53: WBC 6.9, RBC 3.35 L, Hgb 9.4 L, Hct 31.1 L, MCV 92.8, MCH 28.1, MCHC 30.2 L, Plt Count 201, MPV 10.0, Immature Gran % (Auto) 0.100, Neut % (Auto) 65.5, Lymph % (Auto) 22.6, [place] % (Auto) 8.9, Eos % (Auto) 2.6, Baso % (Auto) 0.3, Absolute Neuts (auto) 4.5, Nucleated RBC % 0, Sodium 141, Potassium 4.3, Chloride 110 H, Carbon Dioxide 25.0, Anion Gap 6, BUN 73 H, Creatinine 3.25 H, Est GFR (MDRD) Af Amer 17 L, Est GFR (MDRD) Non-Af 14 L, BUN/Creatinine Ratio 22.5 H, Glucose 99, Calcium 8.3 L, Total Bilirubin 0.60, Triglycerides 61, Cholesterol 81, LDL Cholesterol 38, VLDL Cholesterol 12, HDL Cholesterol 31 L Rhythm: EKG: ECHO: Stress Test: Cardiac Cath: PCI: CT Surgery: Holter monitor: EPS: PPM: CXR: Chest CT Scan: Radiography Diagnostic Testing: Radiology Impression Chest X-Ray 11/15/23 15:35 IMPRESSION: Moderate right pleural effusion with adjacent consolidation. Recommend follow-up to complete resolution and to exclude underlying mass lesion at the right lung base. Cardiomegaly. Electronically Signed: Bassem Fierro MD at 16:58 EDT , Chest CT 11/15/23 17:43 IMPRESSION: Moderate right pleural effusion with adjacent right middle and lower lobe compressive atelectasis. Small left pleural effusion. Cardiomegaly. Upper abdominal ascites. Electronically Signed: Bassem Fierro MD at 19:37 EDT ,
--- NOTE | 2023-11-16 16:35 | PCM.DC.SUM ---
Providers Date of Admission: 11/15/23 Date of Discharge: 11/17/23 Primary Care Physician: Dr. John Rachel MD Consultations 11/15/23 17:43 Consult: Cardiology Routine Consulting Provider: Benjamín El Reason for Consult: PAF RVR EMERGENT Consult: No MD Notified: Yes Date Notified: 11/15/23 Time Notified: 16:38 Method of Notification: ED Physician Initiated Reason For Visit: PAF RVR, NAHUM, R SIDED EFFUSION Diagnosis Discharge Diagnosis (1) Atrial fibrillation with rapid ventricular response: Status: Acute Code(s): I48.91 - Unspecified atrial fibrillation (2) Chronic systolic (congestive) heart failure: Status: Chronic Code(s): I50.22 - Chronic systolic (congestive) heart failure (3) Acute on chronic renal insufficiency: Status: Chronic Code(s): N28.9 - Disorder of kidney and ureter, unspecified; N18.9 - Chronic kidney disease, unspecified (4) History of GI bleed: Status: Chronic Code(s): Z87.19 - Personal history of other diseases of the digestive system (5) Dyslipidemia: Status: Chronic Code(s): E78.5 - Hyperlipidemia, unspecified Plan Patient is an 88-year-old lady who presented with palpitations as well as lightheadedness found to be in A-fib with RVR admitted to a monitored bed for further management 1. Paroxysmal A-fib with RVR ? Patient admitted to monitored bed. Did receive IV verapamil in the ED subsequently started on p.o. verapamil. TSH 2D echo ordered with consultation placed to cardiology ? 11/17/2023 Case was discussed with Dr. El with cardiology given patient intolerance to most antiarrhythmic medications. Decision was made to transfer patient to [facility] for radiofrequency ablation and subsequent pacemaker placement. Patient also has significant tricuspid valve regurgitation and Dr. El felt patient was of benefit from clipping. 2. Moderate right-sided pleural effusion ? Etiology not clear ordered ultrasound guided thoracentesis for both diagnostic and therapeutic reason ? 11/17/2023 procedure could not be performed after patient went into A-fib with RVR and was also relatively hypotensive 3. Anemia - Secondary to chronic disorder monitoring H&H and transfuse if patient becomes symptomatic or hemoglobin falls below 7 4. Acute kidney injury ? Patient baseline creatinine 2.0 creatinine on admission was 2.95 has risen to 3.25 patient is on both furosemide as well as lisinopril held 5. Essential hypertension ? Patient blood pressure remained stable 6. Moderate pulmonary hypertension ? Complicating care, 2D echo from 04/14/2023 did reveal severe TVI, RVSP 62 mmHg, 7. Valvular heart disease ? With history of mitral valve and tricuspid valve insufficiency 8. Dyslipidemia -Patient is on statin therapy, continued at home dose 9. Chronic congestive heart failure with reduced ejection fraction ? Patient has known EF of 45% currently remains euvolemic Lasix being held due to worsening kidney function 10. DVT prophylaxis ? SC heparin Time spent in the patient's overall evaluation,decision-making process, review of diagnostic data, adjustment of management, discussion with other providers, nursing nursing and ancillary staff involved in patient's care documentation, 52 Minutes Medications at Discharge Home Medications vitamins A,C,H-zwfd-dcecuz 4,296 mcg-226 mg-90 mg capsule (PreserVision AREDS) 1 cap PO BID 03/12/20 mecobalamin (vitamin B12) 1,000 mcg chewable tablet 1,000 mcg PO DAILY 03/15/23 clopidogrel 75 mg tablet 75 mg PO DAILY #90 tabs 05/06/23 pravastatin 20 mg tablet 20 mg PO DAILY #90 tabs 05/06/23 verapamil 120 mg tablet 120 mg PO BID #0 tabs 11/17/23 Physical Exam Narrative GENERAL: cooperative HEENT: Atraumatic; normocephalic EYES; Anicteric, Normal Conjunctiva NECK; supple, normal thyroid, RESPIRATORY: Diminished to auscultation CARDIOVASCULAR: Irregularly irregular, tachycardic GI: soft, normoactive bowel sounds, : No Renal angle tenderness; EXTREMITIES: Bipedal edema, no clubbing, MUSCULOSKELETAL: no muscle wasting NEURO: Awake; no lateralizing signs. SKIN: No Rash PSYCH; Flat affect Weight / BMI Weight Weight: 67.3 kg Body Mass Index (BMI) 29.9 ABG / Lab / Microbiology Data 11/17/23 05:55 11/17/23 05:55 Laboratory: Laboratory Results - last 24 hr 11/15/23 14:50: Magnesium 2.7 H 11/15/23 17:48: Troponin I High Sens 11 11/15/23 20:35: Troponin I High Sens 11/16/23 05:53: WBC 6.9, RBC 3.35 L, Hgb 9.4 L, Hct 31.1 L, MCV 92.8, MCH 28.1, MCHC 30.2 L, RDW Std Deviation 55.8 H, RDW Coeff of Michael 16.9 H, Plt Count 201, MPV 10.0, Immature Gran % (Auto) 0.100, Neut % (Auto) 65.5, Lymph % (Auto) 22.6, [place] % (Auto) 8.9, Eos % (Auto) 2.6, Baso % (Auto) 0.3, Absolute Neuts (auto) 4.5, Absolute Lymphs (auto) 1.55, Nucleated RBC % 0, Sodium 141, Potassium 4.3, Chloride 110 H, Carbon Dioxide 25.0, Anion Gap 6, BUN 73 H, Creatinine 3.25 H, Estim Creat Clear Calc 10.24, Est GFR (MDRD) Af Amer 17 L, Est GFR (MDRD) Non-Af 14 L, BUN/Creatinine Ratio 22.5 H, Glucose 99, Calcium 8.3 L, Total Bilirubin 0.60, AST 28, ALT 21, Alkaline Phosphatase 91, Total Protein 7.0, Albumin 3.1 L, Globulin 3.9, Albumin/Globulin Ratio 0.8 L, Triglycerides 61, Cholesterol 81, LDL Cholesterol 38, VLDL Cholesterol 12, HDL Cholesterol 31 L, TSH 2.79 Radiography Diagnostic Testing: Radiology Impression Chest X-Ray 11/15/23 15:35 IMPRESSION: Moderate right pleural effusion with adjacent consolidation. Recommend follow-up to complete resolution and to exclude underlying mass lesion at the right lung base. Cardiomegaly. Electronically Signed: Bassem Fierro MD at 16:58 EDT , Chest CT 11/15/23 17:43 IMPRESSION: Moderate right pleural effusion with adjacent right middle and lower lobe compressive atelectasis. Small left pleural effusion. Cardiomegaly. Upper abdominal ascites. Electronically Signed: Bassem Fierro MD at 19:37 EDT , Echocardiogram 11/15/23 17:43 Interpretation Summary Severe global left ventricular systolic dysfunction. The left ventricular ejection fraction is 30 %. Mild global right ventricular systolic dysfunction. The left atrium is severely enlarged. Massively dilated right atrium. Moderately severe (3+) mitral valve insufficiency. Tricuspid valve leaflets fail to coapt. Wide-open torrential tricuspid regurgitation. Ordering Physician: Shabnam Clayton Performed By: Savannah Gilbert RDCS D/C Instructions Discharge Diet: No restrictions Discharge Activity: Return to Normal Activity Call your doctor if you observe: Fever of 101 or Higher, Shortness of breath, Fainting spells and Chest pain Meaningful Use Info Meaningful Use Meaningful Use Diagnoses (Choose all that apply): None applicable Ischemic Stroke Statin Dosing Therapy Reference: STATIN DOSE THERAPY REFERENCE: * Patients > 75 years receive moderate or high dose statin therapy. * Patients 75 years or YOUNGER should receive HIGH intensity statin dose unless contraindicated. You will be required to document reason for non-treatment if statin daily dose does not meet guidelines. HIGH DOSE STATIN THERAPY DAILY Atorvastatin > than or = to 40 mg Rosuvastatin > than or = to 20 mg Amlodipine + Atorvastatin > than or = to 2.5/40 mg Ezetimibe + Simvastatin 10/80 mg Simvastatin 80mg Discharge Plan Admission Admit Date/Time: 11/15/23 16:37 Attending Provider: Yuri Pool Primary Care Provider: John Rachel Consulting Providers: Benjamín El; Shabnam Clayton Discharge Orders/Prescriptions Prescriptions: New verapamil 120 mg Tablet 120 mg PO BID Qty: 0 0RF Continued PreserVision AREDS 14,320-226-200 heea-wp-jvgy capsule 1 cap PO BID mecobalamin (vitamin B12) 1,000 mcg tablet,chewable 1,000 mcg PO DAILY clopidogrel 75 mg tablet 75 mg PO DAILY Qty: 90 3RF pravastatin 20 mg tablet 20 mg PO DAILY Qty: 90 3RF Discontinued furosemide 40 mg tablet 40 mg PO BID carvedilol 6.25 mg tablet 6.25 mg PO BID Qty: 60 11RF Rx Instructions: must administer with a meal/food lisinopril 10 mg tablet 10 mg PO DAILY Qty: 90 3RF Referrals / Follow Up: Benjamín El MD [Med Staff - Active Staff] - Within 1 Month John Rachel MD [Primary Care Provider] - Within 2 Weeks Disposition Disposition (needs filled in before D/C Order can be placed): Acute Care Hospital Charges/Coding Visit Charges Inpatient E&M: 71455 Disch Hosp >30min
[2023-11-16] MEDS: Heparin Injection (Vial) 5,000 UNIT/ML VIAL 5000 UNIT SC (21:07)
[2023-11-16] MEDS: Pravastatin 20 MG Tablet PO (21:07)
[2023-11-17] VITALS (21 sets, daily range): BP systolic 85–119; BP diastolic 50–80; PULSE 62–148; RESP 18–23; TEMP 35.9–36.7; O2SAT 97–100; BMI 29.9
--- NOTE | 2023-11-17 | FLU_PTH ---
PATIENT: RAJEEV ECHEVARRIA LOC: [facility] U#:[id number] AGE/SX: 88/F ROOM: [facility] RE11/15/[address]: Dr. Yuri Pool MD : 1935 BED: 1 DIS: 11/19/2023 SPEC #: [id number] RECD: 11/18/23 09:22 STATUS: DAMIR REQ #: [id number] JODI: 11/17/23 00:[address]: Yuri Pool DEPT: CYTOLOGY RECD BY: Haile Pickett ENTERED: 11/18/23 09:23 SP TYPE: Fluid OTHR DR: MD Dr. Shabnam Castellano MD Dr. Natthavat Tanphaichitr, MD Dr. Raymond Mason, MD Tissues: THORACIC FLUID Procedures: Special Stain Group II Surgery Specimen Level IV Cytospin Fluid HEADER OPERATION: Ultrasound guided thoracentesis PRE-OP DIAGNOSIS: Pleural effusion TISSUE SUBMITTED: Thoracentesis for cytology DIAGNOSIS CYTOLOGY Thoracentesis fluid for cytology (cytospin and cellblock): Negative for malignant cells. AM/mr 11/21/2023 CYTOLOGY STUDY Slides are reviewed. CYTOLOGY GROSS Received is 80 ml of yellow-cloudy fluid labeled with the patient's name and and designated per the requisition as Thoracentesis fluid. Submitted for cytology preparation including cell block. mr 11/18/23 TC:5 CPT: 08127
[2023-11-17] MEDS: 0.9% Saline Lock 10 ML Syringe IV ×3 (01:24→23:34)
[2023-11-17] MEDS: Ondansetron 4 MG/2 ML Vial IV ×2 (01:25→23:30)
[2023-11-17] MEDS: Verapamil 5 MG/2 ML VIAL IV ×3 (01:25→23:33)
[2023-11-17 07:02] LABS: Absolute Lymphocyte Count 1.64 X10^3/uL (0.83-4.51); Absolute Neutrophil Count 5.6 X10^3/uL (2.0-7.7); Basophil# 0.04 X10^3/uL; Basophil% 0.5 % (0-1); Eosinophil# 0.22 X10^3/uL; Eosinophils% 2.6 % (0-5); Hematocrit 30.8 % (37-47); Hemoglobin 9.1 g/dL (12.0-15.0); Lymphocyte # 1.64 X10^3/ul (0.83-4.51); Lymphocyte % 19.7 % (19-41); Mean Corp Hgb Conc 29.5 g/dL (32-36); Mean Corpuscular Hgb 27.5 pg (27.0-32.0); Mean Corpuscular Volume 93.1 fL (81-99); Mean Platelet Vol. 10.4 fl (6.2-12.0); Monocyte# 0.79 X10^3/uL; Monocyte% 9.5 % (0-10); NRBC Flagged by Analyzer 0 % (0-5); Neutrophil # 5.63 X10^3/uL (2.7-7.7); Neutrophil % 67.5 % (47-70); POSITIVE COUNT YES; Platelet Count 198 K/mm3 (150-450); RBC Distribution Width CV 16.9 % (11.6-14.6); RBC Distribution Width SD 57.3 fl (35.1-43.9); Red Blood Count 3.31 M/mm3 (4.2-5.4); White Blood Count 8.3 K/mm3 (4.4-11.0)
[2023-11-17 07:11] LABS: Differential Indicated SCAN CRITERIA MET
[2023-11-17 07:29] LABS: Anion Gap 10 (5-15); BUN 77 mg/dL (7-18); BUN/Creat Ratio 18.1 RATIO (10-20); Calcium,Total 8.1 mg/dL (8.5-10.1); Chloride 111 mmol/L (98-107); Creatinine, Serum 4.25 mg/dL (0.55-1.02); EST Glomerular Filtration Rate 11 mL/min (>60); Est Glom Filt Rate - Afr Amer 13 mL/min (>60); Estimated Creatinine Clearance 7.83 ml/min; Glucose 89 mg/dL (74-106); Magnesium 2.8 mg/dL (1.6-2.6); Phosphorus 6.3 mg/dL (2.5-4.9); Potassium 4.4 mmol/L (3.5-5.1); Sodium Level 139 mmol/L (136-145)
[2023-11-17 08:09] LABS: Differential Comment SCANNED
--- NOTE | 2023-11-17 09:37 | CASEMGMT ---
Per physician patient is going to be transferred to [facility]. Patient was tearful as her does not drive. SW met with patient. Introduced self and role at [facility]. Patient expressed frustration that she has had a bad morning and then she found out she has to be transferred to [facility]. SW listened and provided emotional support to patient. Patient is trying to reach out to her neighbors to see if any of them are able to help. SW did tell patient about [facility] in [place]. SW did give her [facility] rates. Patient thanked KRISTIE for the information and for stopping by. SW provided patient with SW's card per patient's request. Alice HAMPTON
--- NOTE | 2023-11-17 09:40 | PN.CARD_ITS ---
Subjective Subjective Feels somewhat better today. Sitting up in chair. Denies any complaints. Scheduled for thoracentesis later today. Accepted at [facility] for evaluation by electrophysiology for possible AV marquita ablation and a permanent pacemaker. Objective Data Vital Signs: Vital Signs Temp Pulse Resp BP Pulse Ox O2 Del Method 97.0 F L 133 H 23 H 107/62 100 Room Air 11/17/23 08:24 11/17/23 08:24 11/17/23 08:24 11/17/23 08:24 11/17/23 08:24 11/17/23 08:24 Oxygen Delivery Method Room Air Weight: 148 lb 2.41 oz Body Mass Index (BMI) 29.9 Intake & Output: Intake and Output for Last 24 Hours 11/15/23 11/16/23 11/17/23 23:59 23:59 23:59 Intake Total 1170 / 1370 450 / 450 Balance 1170 / 1370 450 / 450 Lab / Micro Data 11/17/23 05:55 11/17/23 05:55 Labs: Laboratory Results - last 24 hr 11/17/23 05:55: WBC 8.3, RBC 3.31 L, Hgb 9.1 L, Hct 30.8 L, MCV 93.1, MCH 27.5, MCHC 29.5 L, RDW Std Deviation 57.3 H, RDW Coeff of Michael 16.9 H, Plt Count 198, MPV 10.4, Immature Gran % (Auto) 0.200, Neut % (Auto) 67.5, Lymph % (Auto) 19.7, [place] % (Auto) 9.5, Eos % (Auto) 2.6, Baso % (Auto) 0.5, Absolute Neuts (auto) 5.6, Absolute Lymphs (auto) 1.64, Nucleated RBC % 0, Differential Comment SCANNED, Sodium 139, Potassium 4.4, Chloride 111 H, Carbon Dioxide 18.0 L, Anion Gap 10, BUN 77 H, Creatinine 4.25 H, Estim Creat Clear Calc 7.83, Est GFR (MDRD) Af Amer 13 L, Est GFR (MDRD) Non-Af 11 L, BUN/Creatinine Ratio 18.1, Glucose 89, Calcium 8.1 L, Phosphorus 6.3 H, Magnesium 2.8 H Cardiology Labs/Tests 11/17/23 05:55: WBC 8.3, RBC 3.31 L, Hgb 9.1 L, Hct 30.8 L, MCV 93.1, MCH 27.5, MCHC 29.5 L, Plt Count 198, MPV 10.4, Immature Gran % (Auto) 0.200, Neut % (Auto) 67.5, Lymph % (Auto) 19.7, [place] % (Auto) 9.5, Eos % (Auto) 2.6, Baso % (Auto) 0.5, Absolute Neuts (auto) 5.6, Nucleated RBC % 0, Sodium 139, Potassium 4.4, Chloride 111 H, Carbon Dioxide 18.0 L, Anion Gap 10, BUN 77 H, Creatinine 4.25 H, Est GFR (MDRD) Af Amer 13 L, Est GFR (MDRD) Non-Af 11 L, BUN/Creatinine Ratio 18.1, Glucose 89, Calcium 8.1 L, Phosphorus 6.3 H, Magnesium 2.8 H Rhythm: EKG: ECHO: Stress Test: Cardiac Cath: PCI: CT Surgery: Holter monitor: EPS: PPM: CXR: Chest CT Scan: Radiography Diagnostic Testing: Radiology Impression Echocardiogram 11/15/23 17:43 Interpretation Summary Severe global left ventricular systolic dysfunction. The left ventricular ejection fraction is 30 %. Mild global right ventricular systolic dysfunction. The left atrium is severely enlarged. Massively dilated right atrium. Moderately severe (3+) mitral valve insufficiency. Tricuspid valve leaflets fail to coapt. Wide-open torrential tricuspid regurgitation. Ordering Physician: Shabnam Clayton Performed By: Savannah Gilbert RDCS Physical Exam Narrative Sitting up in chair. No apparent distress. Positive JVD. Heart sounds 1 and 2 noted. Tachycardic. Irregularly irregular. Chest examination shows decreased breath sounds at right base. 3+ bilateral lower extremity edema. Assessment & Plan Assessment/Plan (1) Atrial fibrillation with rapid ventricular response: PLAN: Ventricular rate still uncontrolled. Patient unable to tolerate verapamil. She dropped her blood pressure significantly and also went bradycardic yesterday after dose of p.o. verapamil. Continue carvedilol. Will cautiously introduce digoxin. Monitor closely in view of her renal insufficiency. Patient accepted at [facility] for evaluation by electrophysiology for possible AV marquita ablation and insertion of a permanent pacemaker. Waiting on a bed. (2) Chronic systolic (congestive) heart failure: PLAN: Holding furosemide in view of her worsening renal function. Marked lower extremity edema and jugular venous distention secondary to wide-open tricuspid valve regurgitation. (3) Acute on chronic renal insufficiency: PLAN: Renal function worsening despite holding diuretics and ACEI. Recommend nephrology consult. (4) History of GI bleed: PLAN: Tolerating clopidogrel. Not a candidate for anticoagulation. (5) Dyslipidemia: PLAN: On pravastatin. (6) Tricuspid regurgitation: PLAN: Wide-open tricuspid valve regurgitation with mild coaptation of the tr icuspid valve leaflets. Patient does not want any referral to surgery. She may later on need to be evaluated by structural heart disease clinic for possible tricuspid valve clip. (7) Mitral regurgitation: PLAN: Moderate to severe mitral valve regurgitation. Again patient is not a surgical candidate nor is she interested in surgery. Will refer to structural heart disease clinic for evaluation for MitraClip. PLAN: Plan Overall prognosis is guarded.
--- NOTE | 2023-11-17 10:34 | PCM.CONS.R ---
Assessment & Plan Assessment/Plan (1) NAHUM (acute kidney injury): (2) CKD (chronic kidney disease), stage IV: (3) Atrial fibrillation with rapid ventricular response: PLAN: Plan This is a pleasant 88-year-old female with past medical history significant for chronic A-fib, valvular heart disease, heart failure reduced EF, hypertension, lymphedema, history of TIA who presented to emergency room with complaints of palpitations and dyspnea admitted for A-fib with RVR. Nephrology consulted in view of rising serum creatinine. Patient has not been evaluated by disability benefits specialist in past. In reviewing past serum creatinine trends patient has had elevated serum creatinine since 2011 (in 2011 baseline creatinine was around 1.5 to 1.7 mg/dL). Current baseline serum creatinine is now ranging around 1.9 to 2.1 mg/dL, eGFR ~24-25ml/min since June 2023. Creatinine was 2.9 mg/dL on admission, yesterday creatinine 3.25 and today her creatinine is up to 4.25 mg/dL. Potassium is normal, bicarb slightly low at 18.0. NAHUM likely prerenal in setting of A-fib with RVR and significant hypotension. Since admission patient has not received any diuretics, LYRIC inhibitor or ARB's. Currently volume status appears to be compensated, no significant hypervolemia. Patient does report since hospital admission her appetite has been very poor not taking much food or drink in. There is no acute indication for renal replacement therapy as there are no significant uremic symptoms, potassium and acid-base acceptable and no significant hypervolemia. Patient has chronic lower extremity edema. Chest x-ray showed moderate right pleural effusion, noncontrast CT of chest small left pleural effusion, moderate right pleural effusion. Echo: EF 30%, severe global left ventricular systolic function, massively dilated right atrium, moderately severe mitral valve insufficiency, left atrium severely enlarged. Hopefully with improvement with hemodynamics, blood pressure and heart rate then renal function will improve. Will check UA and renal ultrasound. She has been seen by cardiology who recommended transfer to tertiary center for AV marquita ablation and insertion of permanent pacemaker. Possible transfer today. Further orders will be forthcoming as hospitalization evolves. Thank you for allowing us to participate in the care of Ms. Kinney. HPI Consult Data Date of Consult: 11/17/23 HPI Narrative HPI Narrative: RAJEEV KINNEY, is a 88 F with past medical history significant for chronic A-fib, valvular heart disease, heart failure reduced EF, hypertension, lymphedema, history of TIA who presented to [facility] emergency room on November 14 with complaints of palpitations and dyspnea. In the emergency room patient was noted to be in A-fib with RVR and did receive verapamil IV. Patient was admitted for further evaluation and treatment. Chest x-ray in the emergency room noted right-sided pleural effusion. Creatinine 2.93 mg/dL. Nephrology consulted in view of rising serum creatinine. Patient reports she has not been seen by disability benefits specialist in past. In reviewing past creatinine trends she has had elevated creatinine dating back to at least 2011. Current baseline creatinine is ranging around 2 mg/dL. Today creatinine is up to 4.2 mg/dL. Patient reports since being in hospital she has had poor oral intake has had intermittent nausea with no vomiting. No diarrhea. Patient reports she noted urine output to be less often last 24 hours. FORMERLY [facility] Medical History Atrial fibrillation Bilateral edema of lower extremity Chronic kidney disease Chronic systolic (congestive) heart failure SMITH (dyspnea on exertion) Dyslipidemia Essential hypertension History of GI bleed Hyperlipidemia Hypertension Hypertension Longstanding persistent atrial fibrillation Non-smoker Nonrheumatic mitral valve regurgitation Nonrheumatic tricuspid (valve) insufficiency Other specified transient cerebral ischemias Premature ventricular contraction Shortness of breath Swelling of right lower extremity TIA (transient ischemic attack) TIA (transient ischemic attack) Home Medications vitamins A,C,Q-yrgt-vlqowv 4,296 mcg-226 mg-90 mg capsule (PreserVision AREDS) 1 cap PO BID 03/12/20 [History Last Taken Unknown] mecobalamin (vitamin B12) 1,000 mcg chewable tablet 1,000 mcg PO DAILY 03/15/23 [History Last Taken Unknown] clopidogrel 75 mg tablet 75 mg PO DAILY #90 tabs 05/06/23 [Rx Last Taken Unknown] pravastatin 20 mg tablet 20 mg PO DAILY #90 tabs 05/06/23 [Rx Last Taken Unknown] verapamil 120 mg tablet 120 mg PO BID #0 tabs 11/17/23 [Rx Last Taken Unknown] Allergy/AdvReac Type Severity Reaction Status Date / Time amiodarone AdvReac Severe Severs Verified 11/15/23 14:38 muscle weakness, hair loss amlodipine AdvReac Severe Swelling Verified 11/15/23 14:38 flecainide AdvReac Severe Near Verified 11/15/23 14:38 Syncope, Severe Nausea losartan AdvReac myalgia Verified 11/15/23 14:38 Family History Father COPD (chronic obstructive pulmonary disease) CHF (congestive heart failure) Mother Hypertension CVA (cerebral vascular accident) Brother Hypertension Surgical History History of cholecystectomy History of total hysterectomy Social History household members: spouse Smoking Status: Never smoker alcohol intake: never substance use type: does not use caffeine: Yes Type: coffee Number of servings: 1 ROS ROS Narrative As in HPI and past medical history Physical Exam Narrative Alert and orient x 3, no apparent distress S1, S2, rhythm irregular rate controlled Lung sounds clear anteriorly and posteriorly. No wheezes, rhonchi or rales Abdomen soft, nontender, rounded Trace edema bilateral lower legs, this is chronic for patient Lab / Micro Data 11/17/23 05:55 11/17/23 05:55 Labs: Laboratory Results - last 24 hr 11/17/23 05:55: WBC 8.3, RBC 3.31 L, Hgb 9.1 L, Hct 30.8 L, MCV 93.1, MCH 27.5, MCHC 29.5 L, RDW Std Deviation 57.3 H, RDW Coeff of Michael 16.9 H, Plt Count 198, MPV 10.4, Immature Gran % (Auto) 0.200, Neut % (Auto) 67.5, Lymph % (Auto) 19.7, [place] % (Auto) 9.5, Eos % (Auto) 2.6, Baso % (Auto) 0.5, Absolute Neuts (auto) 5.6, Absolute Lymphs (auto) 1.64, Nucleated RBC % 0, Differential Comment SCANNED, Sodium 139, Potassium 4.4, Chloride 111 H, Carbon Dioxide 18.0 L, Anion Gap 10, BUN 77 H, Creatinine 4.25 H, Estim Creat Clear Calc 7.83, Est GFR (MDRD) Af Amer 13 L, Est GFR (MDRD) Non-Af 11 L, BUN/Creatinine Ratio 18.1, Glucose 89, Calcium 8.1 L, Phosphorus 6.3 H, Magnesium 2.8 H Imaging Radiology Impression Echocardiogram 11/15/23 17:43 Interpretation Summary Severe global left ventricular systolic dysfunction. The left ventricular ejection fraction is 30 %. Mild global right ventricular systolic dysfunction. The left atrium is severely enlarged. Massively dilated right atrium. Moderately severe (3+) mitral valve insufficiency. Tricuspid valve leaflets fail to coapt. Wide-open torrential tricuspid regurgitation. Ordering Physician: Shabnam Clayton Performed By: Savannah Gilbert LEANDRO
[2023-11-17] MEDS: Digoxin 250 MCG/ML Ampul IV (10:37)
--- NOTE | 2023-11-17 10:49 | US_ITS ---
HISTORY: NAHUM. TECHNIQUE: Monge scale and color doppler images were obtained of the kidneys. 52 images. COMPARISON: None. FINDINGS: RIGHT KIDNEY: 9.4 cm in length with a cortical thickness of 1.3 cm. Echogenicity unremarkable. No hydronephrosis. No gross renal mass demonstrated. 1.3 x 1.6 x 1.7 cm cyst with single thin septation. 1.5 x 1.5 x 1.6 cm cyst. LEFT KIDNEY: 7.2 cm in length with a cortical thickness of 8 mm. No hydronephrosis. No gross renal mass demonstrated. URINARY BLADDER: Not well visualized. Adjacent free fluid noted. US/Kidney and Bladder IMPRESSION: Left renal atrophy. Small right renal cysts. No hydronephrosis. Free fluid in the pelvis. Electronically Signed: Dorothea Bender MD at 15:54 EDT ,
--- NOTE | 2023-11-17 10:50 | PHA.DC_ITS ---
Pharmacy [facility] has performed discharge medication reconciliation and counseling for this patient. The patient's discharge medication list was reviewed for discrepancies and discrepancies were resolved. The patient was counseled on the following discharge medications and changes in medications for homegoing were reviewed. 1. VERAPAMIL 2. DC COREG, LISINOPRIL, LASIX The Reason for Use, instructions for use, and potential side effects were reviewed for all new medications. The patient's questions regarding all of their medications were answered. The patient was able to verbally demonstrate an understanding of their discharge medications. Medications at Discharge Home Medications vitamins A,C,D-srsq-mezjxe 4,296 mcg-226 mg-90 mg capsule (PreserVision AREDS) 1 cap PO BID 03/12/20 mecobalamin (vitamin B12) 1,000 mcg chewable tablet 1,000 mcg PO DAILY 03/15/23 clopidogrel 75 mg tablet 75 mg PO DAILY #90 tabs 05/06/23 pravastatin 20 mg tablet 20 mg PO DAILY #90 tabs 05/06/23 verapamil 120 mg tablet 120 mg PO BID #0 tabs 11/17/23
[2023-11-17] MEDS: Lidocaine 2% (20 ml mdv) 20 ML Vial INFILT ×2 (14:15)
--- NOTE | 2023-11-17 14:25 | RAD_ITS ---
STUDY: X-RAY CHEST REASON FOR EXAM: Female, 88 years old. Post thora TECHNIQUE: AP inspiration and expiration views were obtained. COMPARISON: Comparison is made with prior study dated November 15, 2023. FINDINGS: The patient is status post right thoracentesis. I suspect a tiny right apical pneumothorax. RAD/Chest Insp/Exp 2 View IMPRESSION: I suspect a tiny right apical pneumothorax. Electronically Signed: Vishal Andre MD at 15:44 EDT ,
--- NOTE | 2023-11-17 14:37 | PRO.PCM_ITS ---
Procedure Report Date of Procedure: 11/17/23 Assessment & Plan Assessment/Plan (1) Pleural effusion on right: PLAN: PROCEDURE: Ultrasound Guided Thoracentesis ORDERING PROVIDER: Dr. Pool INDICATION: Female, 88 years old. Right pleural effusion. PROVIDER: LORE Qiu PROCEDURE: The risks, benefits, and alternatives to the procedure were explained to the patient. The specific risks of bleeding, infection, and pneumothorax requiring chest tube insertion were discussed and accepted. Written informed consent was obtained. The patient was placed in the sitting, upright position. Ultrasonographic evaluation of the bilateral lower pleural spaces was carried out. An adequate pocket was identified in the right lower pleural space.The overlying skin was prepped and draped in sterile fashion. 2% lidocaine was administered subcutaneously for local anesthesia. Under ultrasound guidance, a 5-Mohawk thoracentesis needle/catheter system was advanced into the right posterior lower pleural fluid collection. 1050 ml of yamileth ar yellow colored fluid was drained. 100 and mL of this fluid was collected and sent to the laboratory 100 and mL of this fluid was collected and sent to the laboratory. The catheter was removed, and a sterile dressing was applied. The patient tolerated the procedure well. A chest x-ray was ordered. IMPRESSION: Successful ultrasound-guided thoracentesis of right pleural effusion Procedures Radiology Radiology US Procedures: [id number] Thoracentesis
[2023-11-17 15:40] LABS: Body Fluid Mononuclear WBC # 0.162 10^3/uL; Body Fluid Mononuclear WBC % 89.5 %; Body Fluid Polynuclear WBC # 0.019 10^3/uL; Body Fluid Polynuclear WBC % 10.5 %; Body Fluid Total Cells Counted 0.233 10^3/ul; White Blood Count/Body Fluid 0.181 10^3/uL
--- NOTE | 2023-11-17 16:15 | CHAPLAIN ---
Type of Pastoral Visit _x__ Initial Visit ___ Follow-up Visit ___ On-call Visit ___ General Patient Visit ___ Spiritual Assessment ___ Family Conference ___ Bereavement ___ Rapid Response ___ Code Blue ___ Other (describe below) Pastoral Care Referral From _x__ Patient ___ Family ___ Nurse ___ Physician ___ Corporate V[employer] Advertising & Online ___ Sales Team Recruiter ___ Other (describe below) Sacrament/Intervention _x__ Active listening ___ Anointing ___ Samaritan ___ Bereavement ___ Communion ___ Awilda exploration ___ _x__ Life review _x__ Prayer ___ Reconciliation ___ Sacrament of Sick _x__ Supportive presence ___ Wedding ___ Other (describe below) Pastoral Comments sat at bedside with patient as she described her situation and the surprise of it all; patient only has a spouse at home and no other family or close contacts for support; pt is to be transferred to another facility and admits to some anxieties about the same; time given to listen to concerns and to ask questions on how to support and give personal care; pt would like a prayer for support and a return visit tomorrow if possible
[2023-11-17 16:34] LABS: Glucose, Body Fluid 118 mg/dL (40-70); Protein, Body Fluid 3.7 g/dL (Not Establ.)
[2023-11-17 16:57] LABS: Appearance/Body Fluid SL CLDY; Auto B Fluid Analyzer BKGD Ct COUNTS W/IN LIMITS (W/IN LIMITS); Color/Body Fluid YELLOW; Lymphocytes 37 %; Macrophages 36 %; Mesothelial Cells 25 %; Neutrophil (Segs) 2 %; Source- Body Fluid THORACENTESIS
[2023-11-17 16:58] LABS: Body Fluid QC Type(s) BF2Q; Red Cell Count/Body Fluid 588 /mm3
[2023-11-17 18:04] LABS: Bacteria 0 SEEN /hpf (None Seen); Mucous, Urine 0 SEEN /hpf (<or=2+); Red Blood Cells-Urine 0 SEEN /hpf (0-5)
[2023-11-17 18:15] LABS: Color, Urine Yellow (Yellow); Glucose, Dipstick Normal (Normal); Ketone-Dipstick 5 mg/dl (Negative); Leukocyte Esterase-Dipstick 100 /ul (Negative); Nitrite-Dipstick Negative (Negative); Occult Blood-Urine 10 /ul (Negative); Protein-Dipstick 30 mg/dl (Negative); Specific Gravity, Urine 1.025 (1.002-1.030); Urine Clarity Clear (Clear); Urine Urobilinogen 1 mg/dl (Normal)
[2023-11-17 18:16] LABS: Urine Bilirubin Dipstick 1 mg/dL (Negative)
[2023-11-17 18:27] LABS: Urine Sodium 16 mmol/L (Not Establ.)
[2023-11-17 18:28] LABS: Squamous Epithelial Cells - UA 0-5 SEEN /hpf (5-10); White Blood Cells 5-10 SEEN /hpf (0-5)
[2023-11-17 18:29] LABS: Hyaline Cast 5-10 SEEN /lpf (0-5)
[2023-11-17] MEDS: Heparin Injection (Vial) 5,000 UNIT/ML VIAL 5000 UNIT SC (20:59)
[2023-11-17] MEDS: Pravastatin 20 MG Tablet PO (20:59)
[2023-11-18] VITALS (9 sets, daily range): BP systolic 100–113; BP diastolic 58–88; PULSE 116–143; RESP 17–20; TEMP 36.4–36.9; O2SAT 96–99; BMI 30.1
[2023-11-18] MEDS: 0.9% Saline Lock 10 ML Syringe IV (05:53)
[2023-11-18] MEDS: Verapamil 5 MG/2 ML VIAL IV ×2 (05:54→13:14)
--- NOTE | 2023-11-18 06:00 | RAD_ITS ---
INDICATION: pneumothorax EXAMINATION/TECHNIQUE: X-RAY - frontal and lateral views of chest COMPARISON: Chest x-ray from 14 hours prior FINDINGS: LINES/DEVICES: None. LUNGS: Increasing right basilar opacities. Small bilateral pleural effusions again noted. Trace residual right apical pneumothorax. MEDIASTINUM AND CARDIOVASCULAR STRUCTURES: Stable slightly enlarged heart. Atherosclerotic calcifications along aorta. BONES AND SOFT TISSUES: Skeletal degenerative changes. Cholecystectomy clips noted. Splenic artery is calcified. RAD/Chest PA and Lateral IMPRESSION: 1. Trace residual right apical pneumothorax with small bilateral pleural effusions. 2. Increasing right basilar opacities. Electronically Signed: Juma Landis MD at 5:22 EDT ,
[2023-11-18 06:40] LABS: Absolute Lymphocyte Count 1.11 X10^3/uL (0.83-4.51); Absolute Neutrophil Count 4.4 X10^3/uL (2.0-7.7); Basophil# 0.01 X10^3/uL; Basophil% 0.2 % (0-1); Eosinophil# 0.14 X10^3/uL; Eosinophils% 2.2 % (0-5); Hematocrit 28.4 % (37-47); Hemoglobin 8.5 g/dL (12.0-15.0); Lymphocyte # 1.11 X10^3/ul (0.83-4.51); Lymphocyte % 17.5 % (19-41); Mean Corp Hgb Conc 29.9 g/dL (32-36); Mean Corpuscular Hgb 27.3 pg (27.0-32.0); Mean Corpuscular Volume 91.3 fL (81-99); Monocyte# 0.61 X10^3/uL; Monocyte% 9.6 % (0-10); NRBC Flagged by Analyzer 0 % (0-5); Neutrophil # 4.44 X10^3/uL (2.7-7.7); Neutrophil % 70.2 % (47-70); Platelet Count 163 K/mm3 (150-450); RBC Distribution Width CV 16.9 % (11.6-14.6); RBC Distribution Width SD 55.8 fl (35.1-43.9); Red Blood Count 3.11 M/mm3 (4.2-5.4); White Blood Count 6.3 K/mm3 (4.4-11.0)
[2023-11-18 07:08] LABS: Anion Gap 11 (5-15); BUN 79 mg/dL (7-18); BUN/Creat Ratio 16.1 RATIO (10-20); Calcium,Total 7.9 mg/dL (8.5-10.1); Chloride 108 mmol/L (98-107); Creatinine, Serum 4.92 mg/dL (0.55-1.02); EST Glomerular Filtration Rate 9 mL/min (>60); Est Glom Filt Rate - Afr Amer 11 mL/min (>60); Estimated Creatinine Clearance 6.79 ml/min; Glucose 85 mg/dL (74-106); Potassium 4.1 mmol/L (3.5-5.1); Sodium Level 141 mmol/L (136-145)
--- NOTE | 2023-11-18 08:21 | PN.HOSP_ITS ---
Reason for Visit Reason for Visit: Diagnoses Hyperlipidemia, unspecified (11/15/23) Rheumatic tricuspid insufficiency (11/15/23) Nonrheumatic mitral (valve) insufficiency (11/15/23) Unspecified atrial fibrillation (11/15/23) Chronic systolic (congestive) heart failure (11/15/23) Pleural effusion, not elsewhere classified (11/15/23) Chronic kidney disease, unspecified (11/15/23) Disorder of kidney and ureter, unspecified (11/15/23) Personal history of other diseases of the digestive system (11/15/23) Subjective Subjective Late entry note; self to patient admitted to patient awaiting transfer to [facility]. Patient is scheduled to undergo ultrasound-guided thoracocentesis. Consult was placed on the floor Objective Data Objective Data Vital Signs: Vital Signs Temp Pulse Resp BP Pulse Ox O2 Del Method 97.8 F 124 H 18 100/68 97 Room Air 11/18/23 03:30 11/18/23 03:30 11/18/23 03:30 11/18/23 03:30 11/18/23 03:30 11/18/23 04:06 Oxygen Delivery Method Room Air Weight: 67.7 kg Body Mass Index (BMI) 30.1 Intake & Output: Intake and Output for Last 24 Hours 11/16/23 11/17/23 11/18/23 23:59 23:59 23:59 Intake Total 1170 / 1370 930 / 1150 340 / 340 Output Total 1050 / 1050 Balance 1170 / 1370 -120 / 100 340 / 340 Lab / Micro Data 11/18/23 04:55 11/18/23 04:55 Labs: Laboratory Results - last 24 hr 11/17/23 14:30: Fluid Glucose 118 H, Fluid Total Protein 3.7 11/17/23 14:33: Fluid Source THORACENTESIS, Fluid Color YELLOW, Fluid Appearance SL CLDY, Fluid WBC 0.181, Fluid RBC 588, Fluid Tot Cell Count 0.233 H, Fld Polynuclear WBCs # 0.019, Fld Polynuclear WBCs % 10.5, Fluid Mononuclear WBCs 0.162, Fld Mononuclear WBCs % 89.5, Fluid Neutrophils 2, Fluid Lymphocytes 37, Fluid Macrophages 36, Fld Mesothelial Cells 25, Fl Pathologist Comment May follow, Fluid Comment 2 SEE COMMENT 11/17/23 17:40: Urine Color Yellow, Urine Clarity Clear, Urine pH 5.0, Ur Speci fic Lincoln 1.025, Urine Protein 30 H, Urine Glucose (UA) Normal, Urine Ketones 5 H, Urine Occult Blood 10 H, Urine Nitrite Negative, Urine Bilirubin 1 H, Urine Urobilinogen 1 H, Ur Leukocyte Esterase 100 H, Urine RBC 0 SEEN, Urine WBC 5-10 SEEN, Ur Squamous Epith Cells 0-5 SEEN, Urine Bacteria 0 SEEN, Hyaline Casts 5- 10 SEEN, Urine Mucus 0 SEEN, Ur Random Sodium 16, Urine Creatinine 186.00 11/18/23 04:55: WBC 6.3, RBC 3.11 L, Hgb 8.5 L, Hct 28.4 L, MCV 91.3, MCH 27.3, MCHC 29.9 L, RDW Std Deviation 55.8 H, RDW Coeff of Michael 16.9 H, Plt Count 163, MPV 10.0, Immature Gran % (Auto) 0.300, Neut % (Auto) 70.2 H, Lymph % (Auto) 17.5 L, [place] % (Auto) 9.6, Eos % (Auto) 2.2, Baso % (Auto) 0.2, Absolute Neuts (auto) 4.4, Absolute Lymphs (auto) 1.11, Nucleated RBC % 0, Sodium 141, Potassium 4.1, Chloride 108 H, Carbon Dioxide 22.0, Anion Gap 11, BUN 79 H, Creatinine 4.92 H, Estim Creat Clear Calc 6.79, Est GFR (MDRD) Af Amer 11 L, Est GFR (MDRD) Non-Af 9 L, BUN/Creatinine Ratio 16.1, Glucose 85, Calcium 7.9 L Radiography Diagnostic Testing: Radiology Impression Renal Ultrasound 11/17/23 10:49 IMPRESSION: Left renal atrophy. Small right renal cysts. No hydronephrosis. Free fluid in the pelvis. Electronically Signed: Dorothea Bender MD at 15:54 EDT , Chest X-Ray 11/17/23 14:25 IMPRESSION: I suspect a tiny right apical pneumothorax. Electronically Signed: Vishal Andre MD at 15:44 EDT , Chest X-Ray 11/18/23 06:00 IMPRESSION: 1. Trace residual right apical pneumothorax with small bilateral pleural effusions. 2. Increasing right basilar opacities. Electronically Signed: Juma Landis MD at 5:22 EDT , Physical Exam Narrative GENERAL: cooperative HEENT: Atraumatic; normocephalic EYES; Anicteric, Normal Conjunctiva NECK; supple, normal thyroid, RESPIRATORY: Diminished to auscultation CARDIOVASCULAR: Irregularly irregular, tachycardic GI: soft, normoactive bowel sounds, : No Renal angle tenderness; EXTREMITIES: Bipedal edema, no clubbing, MUSCULOSKELETAL: no muscle wasting NEURO: Awake; no lateralizing signs. SKIN: No Rash PSYCH; Flat affect Assessment & Plan Assessment/Plan (1) Atrial fibrillation with rapid ventricular response: (2) Chronic systolic (congestive) heart failure: (3) Acute on chronic renal insufficiency: (4) History of GI bleed: (5) Dyslipidemia: PLAN: Plan Patient is an 88-year-old lady who presented with palpitations as well as lightheadedness found to be in A-fib with RVR admitted to a monitored bed for further management 1. Paroxysmal A-fib with RVR ? Patient admitted to monitored bed. Did receive IV verapamil in the ED subsequently started on p.o. verapamil. TSH 2D echo ordered with consultation placed to cardiology ? 11/17/2023 Case was discussed with Dr. El with cardiology given patient intolerance to most antiarrhythmic medications. Decision was made to transfer patient to [facility] for radiofrequency ablation and subsequent pacemaker placement. Patient also has significant tricuspid valve regurgitation and Dr. El felt patient was of benefit from clipping. ?Awaiting transfer to tertiary care center for subsequent evaluation 2. Moderate right-sided pleural effusion ? Etiology not clear ordered ultrasound guided thoracentesis for both diagnostic and therapeutic reason ? 11/17/2023 procedure could not be performed after patient went into A-fib with RVR and was also relatively hypotensive ? Patient scheduled to undergo ultrasound-guided thoracocentesis 3. Anemia - Secondary to chronic disorder monitoring H&H and transfuse if patient becomes symptomatic or hemoglobin falls below 7 4. Acute kidney injury ? Patient baseline creatinine 2.0 creatinine on admission was 2.95 has risen to 3.25 patient is on both furosemide as well as lisinopril held ? Consult placed to nephrology given worsening kidney function 5. Essential hypertension ? Patient blood pressure remained stable 6. Moderate pulmonary hypertension ? Complicating care, 2D echo from 04/14/2023 did reveal severe TVI, RVSP 62 mmHg, 7. Valvular heart disease ? With history of mitral valve and tricuspid valve insufficiency 8. Dyslipidemia -Patient is on statin therapy, continued at home dose 9. Chronic congestive heart failure with reduced ejection fraction ? Patient has known EF of 45% currently remains euvolemic Lasix being held due to worsening kidney function 10. DVT prophylaxis ? SC heparin Time spent in the patient's overall evaluation,decision-making process, review of diagnostic data, adjustment of management, discussion with other providers, nursing nursing and ancillary staff involved in patient's care documentation, 52 Minutes Charges/Coding Visit Charges Inpatient E&M: 99889 Subs Hosp L3
--- NOTE | 2023-11-18 08:23 | PN.HOSP_ITS ---
Reason for Visit Reason for Visit: Diagnoses Hyperlipidemia, unspecified (11/15/23) Rheumatic tricuspid insufficiency (11/15/23) Nonrheumatic mitral (valve) insufficiency (11/15/23) Unspecified atrial fibrillation (11/15/23) Chronic systolic (congestive) heart failure (11/15/23) Pleural effusion, not elsewhere classified (11/15/23) Chronic kidney disease, unspecified (11/15/23) Disorder of kidney and ureter, unspecified (11/15/23) Personal history of other diseases of the digestive system (11/15/23) Subjective Subjective Patient underwent ultrasound-guided thoracocentesis on 11/17/2023 did develop trace pneumothorax. Transferred to [facility] still pending. Objective Data Objective Data Vital Signs: Vital Signs Temp Pulse Resp BP Pulse Ox O2 Del Method 97.8 F 124 H 18 100/68 97 Room Air 11/18/23 03:30 11/18/23 03:30 11/18/23 03:30 11/18/23 03:30 11/18/23 03:30 11/18/23 04:06 Oxygen Delivery Method Room Air Weight: 67.7 kg Body Mass Index (BMI) 30.1 Intake & Output: Intake and Output for Last 24 Hours 11/16/23 11/17/23 11/18/23 23:59 23:59 23:59 Intake Total 1170 / 1370 930 / 1150 340 / 340 Output Total 1050 / 1050 Balance 1170 / 1370 -120 / 100 340 / 340 Lab / Micro Data 11/18/23 04:55 11/18/23 04:55 Labs: Laboratory Results - last 24 hr 11/17/23 14:30: Fluid Glucose 118 H, Fluid Total Protein 3.7 11/17/23 14:33: Fluid Source THORACENTESIS, Fluid Color YELLOW, Fluid Appearance SL CLDY, Fluid WBC 0.181, Fluid RBC 588, Fluid Tot Cell Count 0.233 H, Fld Polynuclear WBCs # 0.019, Fld Polynuclear WBCs % 10.5, Fluid Mononuclear WBCs 0.162, Fld Mononuclear WBCs % 89.5, Fluid Neutrophils 2, Fluid Lymphocytes 37, Fluid Macrophages 36, Fld Mesothelial Cells 25, Fl Pathologist Comment May follow, Fluid Comment 2 SEE COMMENT 11/17/23 17:40: Urine Color Yellow, Urine Clarity Clear, Urine pH 5.0, Ur Specific [place] 1.025, Urine Protein 30 H, Urine Glucose (UA) Normal, Urine Ketones 5 H, Urine Occult Blood 10 H, Urine Nitrite Negative, Urine Bilirubin 1 H, Urine Urobilinogen 1 H, Ur Leukocyte Esterase 100 H, Urine RBC 0 SEEN, Urine WBC 5-10 SEEN, Ur Squamous Epith Cells 0-5 SEEN, Urine Bacteria 0 SEEN, Hyaline Casts 5-10 SEEN, Urine Mucus 0 SEEN, Ur Random Sodium 16, Urine Creatinine 186.00 11/18/23 04:55: WBC 6.3, RBC 3.11 L, Hgb 8.5 L, Hct 28.4 L, MCV 91.3, MCH 27.3, MCHC 29.9 L, RDW Std Deviation 55.8 H, RDW Coeff of Michael 16.9 H, Plt Count 163, MPV 10.0, Immature Gran % (Auto) 0.300, Neut % (Auto) 70.2 H, Lymph % (Auto) 17.5 L, [place] % (Auto) 9.6, Eos % (Auto) 2.2, Baso % (Auto) 0.2, Absolute Neuts (auto) 4.4, Absolute Lymphs (auto) 1.11, Nucleated RBC % 0, Sodium 141, Potassium 4.1, Chloride 108 H, Carbon Dioxide 22.0, Anion Gap 11, BUN 79 H, Creatinine 4.92 H, Estim Creat Clear Calc 6.79, Est GFR (MDRD) Af Amer 11 L, Est GFR (MDRD) Non-Af 9 L, BUN/Creatinine Ratio 16.1, Glucose 85, Calcium 7.9 L Radiography Diagnostic Testing: Radiology Impression Renal Ultrasound 11/17/23 10:49 IMPRESSION: Left renal atrophy. Small right renal cysts. No hydronephrosis. Free fluid in the pelvis. Electronically Signed: Dorothea Bender MD at 15:54 EDT , Chest X-Ray 11/17/23 14:25 IMPRESSION: I suspect a tiny right apical pneumothorax. Electronically Signed: Vishal Andre MD at 15:44 EDT , Chest X-Ray 11/18/23 06:00 IMPRESSION: 1. Trace residual right apical pneumothorax with small bilateral pleural effusions. 2. Increasing right basilar opacities. Electronically Signed: Juma Landis MD at 5:22 EDT , Physical Exam Narrative GENERAL: cooperative HEENT: Atraumatic; normocephalic EYES; Anicteric, Normal Conjunctiva NECK; supple, normal thyroid, RESPIRATORY: Diminished to auscultation CARDIOVASCULAR: Irregularly irregular, tachycardic GI: soft, normoactive bowel sounds, : No Renal angle tenderness; EXTREMITIES: Bipedal edema, no clubbing, MUSCULOSKELETAL: no muscle wasting NEURO: Awake; no lateralizing signs. SKIN: No Rash PSYCH; Flat affect Assessment & Plan Assessment/Plan (1) Atrial fibrillation with rapid ventricular response: (2) Chronic systolic (congestive) heart failure: (3) Acute on chronic renal insufficiency: (4) History of GI bleed: (5) Dyslipidemia: PLAN: Plan Patient is an 88-year-old lady who presented with palpitations as well as lightheadedness found to be in A-fib with RVR admitted to a monitored bed for further management 1. Paroxysmal A-fib with RVR ? Patient admitted to monitored bed. Did receive IV verapamil in the ED subsequently started on p.o. verapamil. TSH 2D echo ordered with consultation placed to cardiology ? 11/17/2023 Case was discussed with Dr. El with cardiology given patient intolerance to most antiarrhythmic medications. Decision was made to transfer patient to [facility] for radiofrequency ablation and subsequent pacemaker placement. Patient also has significant tricuspid valve regurgitation and Dr. El felt patient was of benefit from clipping. ?Awaiting transfer to tertiary care center for subsequent evaluation ? 11/18/2023; awaiting transfer to [facility]. 2. Moderate right-sided pleural effusion ? Etiology not clear ordered ultrasound guided thoracentesis for both diagnostic and therapeutic reason ? 11/17/2023 procedure could not be performed after patient went into A-fib with RVR and was also relatively hypotensive ? Patient scheduled to undergo ultrasound-guided thoracocentesis ? 11/18/2023 1050 mL of clear yellow-colored fluid was drained. Patient did develop small apical thoracocentesis following the procedure. Chest x-ray this morning did show1. Trace residual right apical pneumothorax with small bilateral pleural effusions. Increasing right basilar opacities 3. Anemia - Secondary to chronic disorder monitoring H&H and transfuse if patient becomes symptomatic or hemoglobin falls below 7 4. Acute kidney injury ? Patient baseline creatinine 2.0 creatinine on admission was 2.95 has risen to 3.25 patient is on both furosemide as well as lisinopril held ? Consult placed to nephrology given worsening kidney function ? 11/18/2023; kidney function continues to worsen up to 4.92. Consult has been placed to nephrology today prior 5. Essential hypertension ? Patient blood pressure remained stable 6. Moderate pulmonary hypertension ? Complicating care, 2D echo from 04/14/2023 did reveal severe TVI, RVSP 62 mmHg, 7. Valvular heart disease ? With history of mitral valve and tricuspid valve insufficiency 8. Dyslipidemia -Patient is on statin therapy, continued at home dose 9. Chronic congestive heart failure with reduced ejection fraction ? Patient has known EF of 45% currently remains euvolemic Lasix being held due to worsening kidney function 10. DVT prophylaxis ? SC heparin Time spent in the patient's overall evaluation,decision-making process, review of diagnostic data, adjustment of management, discussion with other providers, nursing nursing and ancillary staff involved in patient's care documentation, 35 Minutes Charges/Coding Visit Charges Inpatient E&M: 60302 Subs Hosp L2
[2023-11-18] MEDS: Clopidogrel Bisulfate 75 MG Tablet PO (09:34)
[2023-11-18] MEDS: Digoxin 125 MCG Tablet 62.5 MCG PO (09:34)
--- NOTE | 2023-11-18 09:36 | PCM.PN.CARD ---
Subjective Subjective Feels somewhat better today after her thoracentesis. Sitting up in chair. Denies any complaints. Scheduled for thoracentesis later today. Accepted at [facility] for evaluation by electrophysiology for possible AV marquita ablation and a permanent pacemaker. Objective Data Vital Signs: Vital Signs Temp Pulse Resp BP Pulse Ox O2 Del Method 97.8 F 124 H 18 100/68 97 Room Air 11/18/23 03:30 11/18/23 03:30 11/18/23 03:30 11/18/23 03:30 11/18/23 03:30 11/18/23 04:06 Oxygen Delivery Method Room Air Weight: 149 lb 4.047 oz Body Mass Index (BMI) 30.1 Intake & Output: Intake and Output for Last 24 Hours 11/16/23 11/17/23 11/18/23 23:59 23:59 23:59 Intake Total 1170 / 1370 930 / 1150 340 / 340 Output Total 1050 / 1050 Balance 1170 / 1370 -120 / 100 340 / 340 Lab / Micro Data 11/18/23 04:55 11/18/23 04:55 Labs: Laboratory Results - last 24 hr 11/17/23 14:30: Fluid Glucose 118 H, Fluid Total Protein 3.7 11/17/23 14:33: Fluid Source THORACENTESIS, Fluid Color YELLOW, Fluid Appearance SL CLDY, Fluid WBC 0.181, Fluid RBC 588, Fluid Tot Cell Count 0.233 H, Fld Polynuclear WBCs # 0.019, Fld Polynuclear WBCs % 10.5, Fluid Mononuclear WBCs 0.162, Fld Mononuclear WBCs % 89.5, Fluid Neutrophils 2, Fluid Lymphocytes 37, Fluid Macrophages 36, Fld Mesothelial Cells 25, Fl Pathologist Comment May follow, Fluid Comment 2 SEE COMMENT 11/17/23 17:40: Urine Color Yellow, Urine Clarity Clear, Urine pH 5.0, Ur Specific [place] 1.025, Urine Protein 30 H, Urine Glucose (UA) Normal, Urine Ketones 5 H, Urine Occult Blood 10 H, Urine Nitrite Negative, Urine Bilirubin 1 H, Urine Urobilinogen 1 H, Ur Leukocyte Esterase 100 H, Urine RBC 0 SEEN, Urine WBC 5-10 SEEN, Ur Squamous Epith Cells 0-5 SEEN, Urine Bacteria 0 SEEN, Hyaline Casts 5-10 SEEN, Urine Mucus 0 SEEN, Ur Random Sodium 16, Urine Creatinine 186.00 11/18/23 04:55: WBC 6.3, RBC 3.11 L, Hgb 8.5 L, Hct 28.4 L, MCV 91.3, MCH 27.3, MCHC 29.9 L, RDW Std Deviation 55.8 H, RDW Coeff of Michael 16.9 H, Plt Count 163, MPV 10.0, Immature Gran % (Auto) 0.300, Neut % (Auto) 70.2 H, Lymph % (Auto) 17.5 L, [place] % (Auto) 9.6, Eos % (Auto) 2.2, Baso % (Auto) 0.2, Absolute Neuts (auto) 4.4, Absolute Lymphs (auto) 1.11, Nucleated RBC % 0, Sodium 141, Potassium 4.1, Chloride 108 H, Carbon Dioxide 22.0, Anion Gap 11, BUN 79 H, Creatinine 4.92 H, Estim Creat Clear Calc 6.79, Est GFR (MDRD) Af Amer 11 L, Est GFR (MDRD) Non-Af 9 L, BUN/Creatinine Ratio 16.1, Glucose 85, Calcium 7.9 L Cardiology Labs/Tests 11/17/23 17:40: Urine Color Yellow, Urine Clarity Clear, Urine pH 5.0, Ur Specific [place] 1.025, Urine Protein 30 H, Urine Glucose (UA) Normal, Urine Ketones 5 H, Urine Occult Blood 10 H, Urine Nitrite Negative, Urine Bilirubin 1 H, Urine Urobilinogen 1 H, Ur Leukocyte Esterase 100 H, Urine RBC 0 SEEN, Urine WBC 5-10 SEEN 11/18/23 04:55: WBC 6.3, RBC 3.11 L, Hgb 8.5 L, Hct 28.4 L, MCV 91.3, MCH 27.3, MCHC 29.9 L, Plt Count 163, MPV 10.0, Immature Gran % (Auto) 0.300, Neut % (Auto) 70.2 H, Lymph % (Auto) 17.5 L, [place] % (Auto) 9.6, Eos % (Auto) 2.2, Baso % (Auto) 0.2, Absolute Neuts (auto) 4.4, Nucleated RBC % 0, Sodium 141, Potassium 4.1, Chloride 108 H, Carbon Dioxide 22.0, Anion Gap 11, BUN 79 H, Creatinine 4.92 H, Est GFR (MDRD) Af Amer 11 L, Est GFR (MDRD) Non-Af 9 L, BUN/Creatinine Ratio 16.1, Glucose 85, Calcium 7.9 L Rhythm: EKG: ECHO: Stress Test: Cardiac Cath: PCI: CT Surgery: Holter monitor: EPS: PPM: CXR: Chest CT Scan: Radiography Diagnostic Testing: Radiology Impression Renal Ultrasound 11/17/23 10:49 IMPRESSION: Left renal atrophy. Small right renal cysts. No hydronephrosis. Free fluid in the pelvis. Electronically Signed: Dorothea Bender MD at 15:54 EDT , Chest X-Ray 11/17/23 14:25 IMPRESSION: I suspect a tiny right apical pneumothorax. Electronically Signed: Vishal Andre MD at 15:44 EDT , Chest X-Ray 11/18/23 06:00 IMPRESSION: 1. Trace residual right apical pneumothorax with small bilateral pleural effusions. 2. Increasing right basilar opacities. Electronically Signed: Juma Landis MD at 5:22 EDT , Physical Exam Narrative GENERAL: cooperative HEENT: Atraumatic; normocephalic EYES; Anicteric, Normal Conjunctiva NECK; supple, normal thyroid, RESPIRATORY: Diminished to auscultation with crackles in bases CARDIOVASCULAR: Irregularly irregular, tachycardic GI: soft, normoactive bowel sounds, : No Renal angle tenderness; EXTREMITIES: +3 edema, lower legs MUSCULOSKELETAL: no muscle wasting NEURO: Awake; no lateralizing signs. SKIN: No Rash PSYCH; Flat affect Assessment & Plan Assessment/Plan (1) Atrial fibrillation with rapid ventricular response: (2) Chronic systolic (congestive) heart failure: (3) Tricuspid regurgitation: (4) Mitral regurgitation: (5) History of GI bleed: (6) Dyslipidemia: PLAN: Plan Atrial fib with RVR: pt is still tachycardic. She does feels better than yesterday. She will continue with coreg. Tolerated low dose digoxin. Since she has not tolerated multiple rate limiting medications she is awaiting a bed at [facility] to be evaluated for an AV marquita ablation with PPM. She is not anticoagulated d/t her hx of GI bleeds. She is tolerating Plavix. CHF: hold lasix with worsening renal function. Pt is also being seen by nephrology. It is felt her edema is likely related to her severe TR. Tricuspid Regurgitation: Patient does not want any referral to surgery. She may later on need to be evaluated by structural heart disease clinic for possible tricuspid valve clip. Mitral Regurgitation: Again patient is not a surgical candidate nor is she interested in surgery. Will refer to structural heart disease clinic for evaluation for MitraClip. Will have pt follow up in office after AV marquita ablation. Will sign off for now. If needed please call. Charges/Coding Visit Charges Inpatient E&M: 31755 Subs Hosp L2
[2023-11-18] MEDS: Heparin Injection (Vial) 5,000 UNIT/ML VIAL 5000 UNIT SC ×2 (09:38→20:29)
--- NOTE | 2023-11-18 13:48 | PCM.PN.REN ---
Subjective Subjective no new complaints saturating well on nasal cannula says she is starting to make more urine now LE edema about the same Objective Data Objective Data Vital Signs: Vital Signs Temp Pulse Resp BP Pulse Ox O2 Del Method 98.4 F 123 H 17 106/58 L 97 Room Air 11/18/23 11:30 11/18/23 11:30 11/18/23 11:30 11/18/23 11:30 11/18/23 11:30 11/18/23 11:30 Oxygen Delivery Method Room Air Weight: 67.7 kg Body Mass Index (BMI) 30.1 Intake & Output: Intake and Output for Last 24 Hours 11/16/23 11/17/23 11/18/23 23:59 23:59 23:59 Intake Total 1170 / 1370 930 / 1150 340 / 340 Output Total 1050 / 1050 Balance 1170 / 1370 -120 / 100 340 / 340 Lab / Micro Data 11/18/23 04:55 11/18/23 04:55 Labs: Laboratory Results - last 24 hr 11/17/23 14:30: Fluid Glucose 118 H, Fluid Total Protein 3.7 11/17/23 14:33: Fluid Source THORACENTESIS, Fluid Color YELLOW, Fluid Appearance SL CLDY, Fluid WBC 0.181, Fluid RBC 588, Fluid Tot Cell Count 0.233 H, Fld Polynuclear WBCs # 0.019, Fld Polynuclear WBCs % 10.5, Fluid Mononuclear WBCs 0.162, Fld Mononuclear WBCs % 89.5, Fluid Neutrophils 2, Fluid Lymphocytes 37, Fluid Macrophages 36, Fld Mesothelial Cells 25, Fl Pathologist Comment May follow, Fluid Comment 2 SEE COMMENT 11/17/23 17:40: Urine Color Yellow, Urine Clarity Clear, Urine pH 5.0, Ur Specific [place] 1.025, Urine Protein 30 H, Urine Glucose (UA) Normal, Urine Ketones 5 H, Urine Occult Blood 10 H, Urine Nitrite Negative, Urine Bilirubin 1 H, Urine Urobilinogen 1 H, Ur Leukocyte Esterase 100 H, Urine RBC 0 SEEN, Urine WBC 5-10 SEEN, Ur Squamous Epith Cells 0-5 SEEN, Urine Bacteria 0 SEEN, Hyaline Casts 5-10 SEEN, Urine Mucus 0 SEEN, Ur Random Sodium 16, Urine Creatinine 186.00 11/18/23 04:55: WBC 6.3, RBC 3.11 L, Hgb 8.5 L, Hct 28.4 L, MCV 91.3, MCH 27.3, MCHC 29.9 L, RDW Std Deviation 55.8 H, RDW Coeff of Michael 16.9 H, Plt Count 163, MPV 10.0, Immature Gran % (Auto) 0.300, Neut % (Auto) 70.2 H, Lymph % (Auto) 17.5 L, [place] % (Auto) 9.6, Eos % (Auto) 2.2, Baso % (Auto) 0.2, Absolute Neuts (auto) 4.4, Absolute Lymphs (auto) 1.11, Nucleated RBC % 0, Sodium 141, Potassium 4.1, Chloride 108 H, Carbon Dioxide 22.0, Anion Gap 11, BUN 79 H, Creatinine 4.92 H, Estim Creat Clear Calc 6.79, Est GFR (MDRD) Af Amer 11 L, Est GFR (MDRD) Non-Af 9 L, BUN/Creatinine Ratio 16.1, Glucose 85, Calcium 7.9 L Radiography Diagnostic Testing: Radiology Impression Renal Ultrasound 11/17/23 10:49 IMPRESSION: Left renal atrophy. Small right renal cysts. No hydronephrosis. Free fluid in the pelvis. Electronically Signed: Dorothea Bender MD at 15:54 EDT , Chest X-Ray 11/17/23 14:25 IMPRESSION: I suspect a tiny right apical pneumothorax. Electronically Signed: Vishal Andre MD at 15:44 EDT , Chest X-Ray 11/18/23 06:00 IMPRESSION: 1. Trace residual right apical pneumothorax with small bilateral pleural effusions. 2. Increasing right basilar opacities. Electronically Signed: Juma Landis MD at 5:22 EDT , Physical Exam Narrative Alert and orient x 3, no apparent distress S1, S2, rhythm irregular rate controlled Lung sounds clear anteriorly and posteriorly. No wheezes, rhonchi or rales Abdomen soft, nontender, rounded Trace edema bilateral lower legs, this is chronic for patient Assessment & Plan Assessment/Plan (1) NAHUM (acute kidney injury): (2) CKD (chronic kidney disease), stage IV: (3) Atrial fibrillation with rapid ventricular response: PLAN: Plan NAHUM CKD 3B baseline cr around 2.0 or so. came in with dyspnea. s/p pleural tap says multiple medication adjustments recently including diuretics UA is relatively benign Urine sodium is low Echo with EF 30-35, TR likely cardiorenal diuretics on hold cr worsening today she says she is voiding more. hold off HD for now. hopefully recovery pending transfer to [facility]
[2023-11-18 15:58] LABS: Pathologist Comment/Body Fluid Reviewed
[2023-11-18] MEDS: Pravastatin 20 MG Tablet PO (20:29)
[2023-11-19] MEDS: Verapamil 5 MG/2 ML VIAL IV (00:53)
[2023-11-19] MEDS: 0.9% Saline Lock 10 ML Syringe IV (00:55)
[2023-11-19 03:00] VITALS: BP 118/74; PULSE 130; RESP 17; TEMP 36.2; O2SAT 98
[2023-11-19 05:43] VITALS: BMI 30.7
--- NOTE | 2023-11-19 07:21 | PN.HOSP_ITS ---
Reason for Visit Reason for Visit: Diagnoses Hyperlipidemia, unspecified (11/15/23) Rheumatic tricuspid insufficiency (11/15/23) Nonrheumatic mitral (valve) insufficiency (11/15/23) Unspecified atrial fibrillation (11/15/23) Chronic systolic (congestive) heart failure (11/15/23) Pleural effusion, not elsewhere classified (11/15/23) Acute kidney failure, unspecified (11/15/23) Chronic kidney disease, stage 4 (severe) (11/15/23) Chronic kidney disease, unspecified (11/15/23) Disorder of kidney and ureter, unspecified (11/15/23) Personal history of other diseases of the digestive system (11/15/23) Subjective Subjective Bed has been obtained at [facility] patient be transferred Objective Data Objective Data Vital Signs: Vital Signs Temp Pulse Resp BP Pulse Ox O2 Del Method 97.2 F L 130 H 17 118/74 98 Room Air 11/19/23 03:00 11/19/23 03:00 11/19/23 03:00 11/19/23 03:00 11/19/23 03:00 11/19/23 04:05 Oxygen Delivery Method Room Air Weight: 69 kg Body Mass Index (BMI) 30.7 Intake & Output: Intake and Output for Last 24 Hours 11/17/23 11/18/23 11/19/23 23:59 23:59 23:59 Intake Total 930 / 1150 1060 / 1060 Output Total 1050 / 1050 300 / 300 Balance -120 / 100 1060 / 760 -300 / -300 Lab / Micro Data 11/19/23 06:35 11/19/23 06:35 Labs: Laboratory Results - last 24 hr 11/17/23 14:33: Fl Pathologist Comment Reviewed Physical Exam Narrative GENERAL: cooperative HEENT: Atraumatic; normocephalic EYES; Anicteric, Normal Conjunctiva NECK; supple, normal thyroid, RESPIRATORY: Diminished to auscultation CARDIOVASCULAR: Irregularly irregular, tachycardic GI: soft, normoactive bowel sounds, : No Renal angle tenderness; EXTREMITIES: Bipedal edema, no clubbing, MUSCULOSKELETAL: no muscle wasting NEURO: Awake; no lateralizing signs. SKIN: No Rash PSYCH; Flat affect Assessment & Plan Assessment/Plan (1) Atrial fibrillation with rapid ventricular response: (2) Chronic systolic (congestive) heart failure: (3) Acute on chronic renal insufficiency: (4) History of GI bleed: (5) Dyslipidemia: PLAN: Plan Patient is an 88-year-old lady who presented with palpitations as well as lightheadedness found to be in A-fib with RVR admitted to a monitored bed for further management 1. Paroxysmal A-fib with RVR ? Patient admitted to monitored bed. Did receive IV verapamil in the ED subsequently started on p.o. verapamil. TSH 2D echo ordered with consultation placed to cardiology ? 11/17/2023 Case was discussed with Dr. El with cardiology given patient i ntolerance to most antiarrhythmic medications. Decision was made to transfer patient to [facility] for radiofrequency ablation and subsequent pacemaker placement. Patient also has significant tricuspid valve regurgitation and Dr. El felt patient was of benefit from clipping. ?Awaiting transfer to tertiary care center for subsequent evaluation ? 11/18/2023; awaiting transfer to [facility]. 2. Moderate right-sided pleural effusion ? Etiology not clear ordered ultrasound guided thoracentesis for both diagnostic and therapeutic reason ? 11/17/2023 procedure could not be performed after patient went into A-fib with RVR and was also relatively hypotensive ? Patient scheduled to undergo ultrasound-guided thoracocentesis ? 11/18/2023 1050 mL of clear yellow-colored fluid was drained. Patient did develop small apical thoracocentesis following the procedure. Chest x-ray this morning did show1. Trace residual right apical pneumothorax with small bilateral pleural effusions. Increasing right basilar opacities 3. Anemia - Secondary to chronic disorder monitoring H&H and transfuse if patient becomes symptomatic or hemoglobin falls below 7 4. Acute kidney injury ? Patient baseline creatinine 2.0 creatinine on admission was 2.95 has risen to 3.25 patient is on both furosemide as well as lisinopril held ? Consult placed to nephrology given worsening kidney function ? 11/18/2023; kidney function continues to worsen up to 4.92. Consult has been placed to nephrology today prior 5. Essential hypertension ? Patient blood pressure remained stable 6. Moderate pulmonary hypertension ? Complicating care, 2D echo from 04/14/2023 did reveal severe TVI, RVSP 62 mmHg, 7. Valvular heart disease ? With history of mitral valve and tricuspid valve insufficiency 8. Dyslipidemia -Patient is on statin therapy, continued at home dose 9. Chronic congestive heart failure with reduced ejection fraction ? Patient has known EF of 45% currently remains euvolemic Lasix being held due to worsening kidney function 10. DVT prophylaxis ? SC heparin Time spent in the patient's overall evaluation,decision-making process, review of diagnostic data, adjustment of management, discussion with other providers, nursing nursing and ancillary staff involved in patient's care documentation, 35 Minutes
[2023-11-19 07:55] LABS: Absolute Lymphocyte Count 0.94 X10^3/uL (0.83-4.51); Basophil# 0.01 X10^3/uL; Basophil% 0.2 % (0-1); Eosinophil# 0.15 X10^3/uL; Eosinophils% 3.3 % (0-5); Hematocrit 28.9 % (37-47); Hemoglobin 8.8 g/dL (12.0-15.0); Lymphocyte # 0.94 X10^3/ul (0.83-4.51); Lymphocyte % 20.8 % (19-41); Mean Corp Hgb Conc 30.4 g/dL (32-36); Mean Corpuscular Hgb 27.8 pg (27.0-32.0); Mean Corpuscular Volume 91.5 fL (81-99); Mean Platelet Vol. 9.7 fl (6.2-12.0); Monocyte# 0.45 X10^3/uL; NRBC Flagged by Analyzer 0 % (0-5); Neutrophil # 2.95 X10^3/uL (2.7-7.7); Neutrophil % 65.5 % (47-70); Platelet Count 155 K/mm3 (150-450); RBC Distribution Width CV 16.6 % (11.6-14.6); RBC Distribution Width SD 54.8 fl (35.1-43.9); Red Blood Count 3.16 M/mm3 (4.2-5.4); White Blood Count 4.5 K/mm3 (4.4-11.0)
[2023-11-19 08:04] VITALS: BP 123/78; PULSE 121; RESP 16; TEMP 36.6; O2SAT 100
[2023-11-19 08:18] LABS: Anion Gap 9 (5-15); BUN 83 mg/dL (7-18); BUN/Creat Ratio 15.3 RATIO (10-20); Calcium,Total 7.8 mg/dL (8.5-10.1); Chloride 111 mmol/L (98-107); Creatinine, Serum 5.43 mg/dL (0.55-1.02); EST Glomerular Filtration Rate 8 mL/min (>60); Est Glom Filt Rate - Afr Amer 10 mL/min (>60); Estimated Creatinine Clearance 6.21 ml/min; Glucose 87 mg/dL (74-106); Sodium Level 143 mmol/L (136-145)
--- NOTE | 2023-11-19 08:29 | PCM.DC.SUM ---
Providers Date of Admission: 11/15/23 Date of Discharge: 11/19/23 Primary Care Physician: Dr. John Rachel MD Consultations 11/15/23 17:43 Consult: Cardiology Routine Consulting Provider: Benjamín El Reason for Consult: PAF RVR EMERGENT Consult: No Notified: Yes Date Notified: 11/15/23 Time Notified: 16:38 Method of Notification: ED Physician Initiated 11/17/23 09:26 Consult: Nephrology Routine Consulting Provider: Giovani Navarrete Reason for Consult: NAHUM EMERGENT Consult: No Notified: Yes Date Notified: 11/17/23 Time Notified: 09:26 Method of Notification: Verbal Reason For Visit: PAF RVR, NAHUM, R SIDED EFFUSION Diagnosis Discharge Diagnosis (1) Atrial fibrillation with rapid ventricular response: Status: Acute Code(s): I48.91 - Unspecified atrial fibrillation (2) Chronic systolic (congestive) heart failure: Status: Chronic Code(s): I50.22 - Chronic systolic (congestive) heart failure (3) Acute on chronic renal insufficiency: Status: Chronic Code(s): N28.9 - Disorder of kidney and ureter, unspecified; N18.9 - Chronic kidney disease, unspecified (4) History of GI bleed: Status: Chronic Code(s): Z87.19 - Personal history of other diseases of the digestive system (5) Dyslipidemia: Status: Chronic Code(s): E78.5 - Hyperlipidemia, unspecified Plan Patient is an 88-year-old lady who presented with palpitations as well as lightheadedness found to be in A-fib with RVR admitted to a monitored bed for further management 1. Paroxysmal A-fib with RVR ? Patient admitted to monitored bed. Did receive IV verapamil in the ED subsequently started on p.o. verapamil. TSH 2D echo ordered with consultation placed to cardiology ? 11/17/2023 Case was discussed with Dr. El with cardiology given patient intolerance to most antiarrhythmic medications. Decision was made to transfer patient to [facility] for radiofrequency ablation and subsequent pacemaker placement. Patient also has significant tricuspid valve regurgitation and Dr. El felt patient was of benefit from clipping. ?Awaiting transfer to tertiary care center for subsequent evaluation ? 11/18/2023; awaiting transfer to [facility]. 2. Moderate right-sided pleural effusion ? Etiology not clear ordered ultrasound guided thoracentesis for both diagnostic and therapeutic reason ? 11/17/2023 procedure could not be performed after patient went into A-fib with RVR and was also relatively hypotensive ? Patient scheduled to undergo ultrasound-guided thoracocentesis ? 11/18/2023 1050 mL of clear yellow-colored fluid was drained. Patient did develop small apical thoracocentesis following the procedure. Chest x-ray this morning did show1. Trace residual right apical pneumothorax with small bilateral pleural effusions. Increasing right basilar opacities 3. Anemia - Secondary to chronic disorder monitoring H&H and transfuse if patient becomes symptomatic or hemoglobin falls below 7 4. Acute kidney injury ? Patient baseline creatinine 2.0 creatinine on admission was 2.95 has risen to 3.25 patient is on both furosemide as well as lisinopril held ? Consult placed to nephrology given worsening kidney function ? 11/18/2023; kidney function continues to worsen up to 4.92. Consult has been placed to nephrology today prior 5. Essential hypertension ? Patient blood pressure remained stable 6. Moderate pulmonary hypertension ? Complicating care, 2D echo from 04/14/2023 did reveal severe TVI, RVSP 62 mmHg, 7. Valvular heart disease ? With history of mitral valve and tricuspid valve insufficiency 8. Dyslipidemia -Patient is on statin therapy, continued at home dose 9. Chronic congestive heart failure with reduced ejection fraction ? Patient has known EF of 45% currently remains euvolemic Lasix being held due to worsening kidney function 10. DVT prophylaxis ? SC heparin Time spent in the patient's overall evaluation,decision-making process, review of diagnostic data, adjustment of management, discussion with other providers, nursing nursing and ancillary staff involved in patient's care documentation, 35 Minutes Medications at Discharge Home Medications vitamins A,C,H-uonv-vfrihn 4,296 mcg-226 mg-90 mg capsule (PreserVision AREDS) 1 cap PO BID 03/12/20 mecobalamin (vitamin B12) 1,000 mcg chewable tablet 1,000 mcg PO DAILY 03/15/23 clopidogrel 75 mg tablet 75 mg PO DAILY #90 tabs 05/06/23 pravastatin 20 mg tablet 20 mg PO DAILY #90 tabs 05/06/23 verapamil 120 mg tablet 120 mg PO BID #0 tabs 11/17/23 Physical Exam Narrative GENERAL: cooperative HEENT: Atraumatic; normocephalic EYES; Anicteric, Normal Conjunctiva NECK; supple, normal thyroid, RESPIRATORY: Diminished to auscultation CARDIOVASCULAR: Irregularly irregular, tachycardic GI: soft, normoactive bowel sounds, : No Renal angle tenderness; EXTREMITIES: Bipedal edema, no clubbing, MUSCULOSKELETAL: no muscle wasting NEURO: Awake; no lateralizing signs. SKIN: No Rash PSYCH; Flat affect Weight / BMI Weight Weight: 69 kg Body Mass Index (BMI) 30.7 ABG / Lab / Microbiology Data 11/19/23 06:35 11/19/23 06:35 Laboratory: Laboratory Results - last 24 hr 11/17/23 14:33: Fl Pathologist Comment Reviewed 11/19/23 06:35: WBC 4.5, RBC 3.16 L, Hgb 8.8 L, Hct 28.9 L, MCV 91.5, MCH 27.8, MCHC 30.4 L, RDW Std Deviation 54.8 H, RDW Coeff of Michael 16.6 H, Plt Count 155, MPV 9.7, Immature Gran % (Auto) 0.200, Neut % (Auto) 65.5, Lymph % (Auto) 20.8, [place] % (Auto) 10.0, Eos % (Auto) 3.3, Baso % (Auto) 0.2, Absolute Neuts (auto) 3.0, Absolute Lymphs (auto) 0.94, Nucleated RBC % 0, Sodium 143, Potassium 5.0, Chloride 111 H, Carbon Dioxide 23.0, Anion Gap 9, BUN 83 H, Creatinine 5.43 H, Estim Creat Clear Calc 6.21, Est GFR (MDRD) Af Amer 10 L, Est GFR (MDRD) Non-Af 8 L, BUN/Creatinine Ratio 15.3, Glucose 87, Calcium 7.8 L D/C Instructions Discharge Diet: No restrictions Call your doctor if you observe: Fever of 101 or Higher, Shortness of breath, Fainting spells and Chest pain Meaningful Use Info Meaningful Use Meaningful Use Diagnoses (Choose all that apply): None applicable Ischemic Stroke Statin Dosing Therapy Reference: STATIN DOSE THERAPY REFERENCE: * Patients > 75 years receive moderate or high dose statin therapy. * Patients 75 years or YOUNGER should receive HIGH intensity statin dose unless contraindicated. You will be required to document reason for non-treatment if statin daily dose does not meet guidelines. HIGH DOSE STATIN THERAPY DAILY Atorvastatin > than or = to 40 mg Rosuvastatin > than or = to 20 mg Amlodipine + Atorvastatin > than or = to 2.5/40 mg Ezetimibe + Simvastatin 10/80 mg Simvastatin 80mg Discharge Plan Admission Admit Date/Time: 11/15/23 16:37 Attending Provider: Yuri Pool Primary Care Provider: John Rachel Consulting Providers: Benjamín El; Shabnam Clayton; Giovani Navarrete Instructions Patient Instructions: RAD RN Thoracentesis Dc Discharge Orders/Prescriptions Prescriptions: New verapamil 120 mg Tablet 120 mg PO BID Qty: 0 0RF Continued PreserVision AREDS 14,320-226-200 jdzo-wm-cyia capsule 1 cap PO BID mecobalamin (vitamin B12) 1,000 mcg tablet,chewable 1,000 mcg PO DAILY clopidogrel 75 mg tablet 75 mg PO DAILY Qty: 90 3RF pravastatin 20 mg tablet 20 mg PO DAILY Qty: 90 3RF Discontinued furosemide 40 mg tablet 40 mg PO BID carvedilol 6.25 mg tablet 6.25 mg PO BID Qty: 60 11RF Rx Instructions: must administer with a meal/food lisinopril 10 mg tablet 10 mg PO DAILY Qty: 90 3RF Referrals / Follow Up: Benjamín El MD [Med Staff - Active Staff] - Within 1 Month John Rachel MD [Primary Care Provider] - Within 2 Weeks Disposition Disposition (needs filled in before D/C Order can be placed): Acute Care Hospital Charges/Coding Visit Charges Inpatient E&M: 05377 Disch Hosp >30min
== END 2023-11-19 08:17 | disposition short-term general hospital (02) | DRG 309 ==
LOC: ED 16:07 → PCU 17:29
PROVIDERS: Nurse Practitioner Adult Health; Admitting Provider Family Medicine; Emergency Provider Emergency Medicine; PCP Family Medicine; Visit Provider Internal Medicine
DX: I48.0 Paroxysmal atrial fibrillation (principal); N17.9 Acute kidney failure, unspecified; J91.8 Pleural effusion in other conditions classified elsewhere; I13.0 Hypertensive heart and chronic kidney disease with heart failure and stage 1 through stage 4 chronic kidney disease, or unspecified chronic kidney disease; I50.22 Chronic systolic (congestive) heart failure; N18.4 Chronic kidney disease, stage 4 (severe); J95.811 Postprocedural pneumothorax; I27.20 Pulmonary hypertension, unspecified; D63.8 Anemia in other chronic diseases classified elsewhere; I08.1 Rheumatic disorders of both mitral and tricuspid valves; I95.2 Hypotension due to drugs; E78.5 Hyperlipidemia, unspecified; T46.1X5A Adverse effect of calcium-channel blockers, initial encounter; Y84.8 Other medical procedures as the cause of abnormal reaction of the patient, or of later complication, without mention of misadventure at the time of the procedure; Z66 Do not resuscitate; Z79.02 Long term (current) use of antithrombotics/antiplatelets; Z79.899 Other long term (current) drug therapy; Z87.19 Personal history of other diseases of the digestive system; Z86.73 Personal history of transient ischemic attack (TIA), and cerebral infarction without residual deficits
CPT/HCPCS: 32555; 36415; 71045; 71046; 71250; 76770; 80048; 80053; 80061; 81001; 82570; 82945; 83735; 83880; 84100; 84157; 84300; 84443; 84484; 85025; 88108; 88305; 88313; 89050; 93005; 93306; 94668; 97802; 99252; 99285; J7030; A4216; G0463; J2405

== ENCOUNTER → 2023-11-15 | Outpatient (CLI) | payer MEDICARE, SELFPAY ==
[2023-11-15 10:53] LABS: Absolute Lymphocyte Count 1.02 X10^3/uL (0.83-4.51); Absolute Neutrophil Count 3.1 X10^3/uL (2.0-7.7); Basophil# 0.03 X10^3/uL; Basophil% 0.6 % (0-1); Eosinophil# 0.17 X10^3/uL; Eosinophils% 3.5 % (0-5); Hematocrit 30.9 % (37-47); Hemoglobin 9.1 g/dL (12.0-15.0); Lymphocyte # 1.02 X10^3/ul (0.83-4.51); Lymphocyte % 21.1 % (19-41); Mean Corp Hgb Conc 29.4 g/dL (32-36); Mean Corpuscular Volume 91.7 fL (81-99); Mean Platelet Vol. 9.6 fl (6.2-12.0); Monocyte# 0.49 X10^3/uL; Monocyte% 10.1 % (0-10); NRBC Flagged by Analyzer 0 % (0-5); Neutrophil % 64.3 % (47-70); Platelet Count 158 K/mm3 (150-450); RBC Distribution Width CV 16.5 % (11.6-14.6); Red Blood Count 3.37 M/mm3 (4.2-5.4); White Blood Count 4.8 K/mm3 (4.4-11.0)
[2023-11-15 11:17] LABS: BNP,B-Type NATRIURETIC PEPTIDE 275.6 pg/mL (0-100)
[2023-11-15 11:21] LABS: ALB/GLOB Ratio 0.8 RATIO (0.9-2.4); AST(SGOT) 9 U/L (15-37); Alanine Aminotransfer ALT/SGPT 12 U/L (13-56); Albumin, Serum 3.2 g/dL (3.2-5.0); Alkaline Phosphatase 86 U/L (45-117); Anion Gap 6 (5-15); BUN 71 mg/dL (7-18); BUN/Creat Ratio 24.1 RATIO (10-20); Calcium,Total 8.6 mg/dL (8.5-10.1); Chloride 110 mmol/L (98-107); Creatinine, Serum 2.95 mg/dL (0.55-1.02); EST Glomerular Filtration Rate 16 mL/min (>60); Est Glom Filt Rate - Afr Amer 19 mL/min (>60); Globulin 3.9 g/dL (2.2-4.2); Glucose 102 mg/dL (74-106); Magnesium 2.7 mg/dL (1.6-2.6); Potassium 3.7 mmol/L (3.5-5.1); Protein, Total 7.1 g/dL (6.4-8.2); Sodium Level 142 mmol/L (136-145)
== END | disposition home or self-care (01) ==
LOC: LAB 10:25
PROVIDERS: PCP Family Medicine; Referring Provider Internal Medicine Cardiovascular Disease; Visit Provider Internal Medicine Cardiovascular Disease
DX: R60.0 Localized edema (principal); I50.22 Chronic systolic (congestive) heart failure; I48.91 Unspecified atrial fibrillation; R06.02 Shortness of breath; N18.9 Chronic kidney disease, unspecified; I49.3 Ventricular premature depolarization
CPT/HCPCS: 36415; 80053; 83735; 83880; 85025

== ENCOUNTER → 2023-11-30 | Outpatient (CLI) | payer MEDICARE, SELFPAY ==
[2023-11-30 10:17] LABS: Anion Gap 12 (5-15); BUN 73 mg/dL (7-18); Calcium,Total 8.4 mg/dL (8.5-10.1); Chloride 94 mmol/L (98-107); Creatinine, Serum 3.84 mg/dL (0.55-1.02); EST Glomerular Filtration Rate 12 mL/min (>60); Est Glom Filt Rate - Afr Amer 14 mL/min (>60); Glucose 118 mg/dL (74-106); Potassium 3.1 mmol/L (3.5-5.1); Sodium Level 138 mmol/L (136-145)
== END | disposition home or self-care (01) ==
LOC: LAB 09:08
PROVIDERS: PCP Family Medicine; Visit Provider Internal Medicine Nephrology
DX: N17.9 Acute kidney failure, unspecified (principal)
CPT/HCPCS: 36415; 80048

== ENCOUNTER 2023-12-11 13:34 | Emergency (ER) | payer MEDICARE, SELFPAY ==
[2023-12-11] VITALS (20 sets, daily range): BP systolic 92–158; BP diastolic 35–68; PULSE 68–86; RESP 12–33; TEMP 35.8–36.4; O2SAT 64–100; BMI 24.3
--- NOTE | 2023-12-11 14:12 | EDS_ITS ---
HPI History of Present Illness Chief Complaint: Weakness [facility] Medical History Atrial fibrillation Bilateral edema of lower extremity Chronic kidney disease Chronic systolic (congestive) heart failure SMITH (dyspnea on exertion) Dyslipidemia Essential hypertension History of GI bleed Hyperlipidemia Hypertension Hypertension Longstanding persistent atrial fibrillation Non-smoker Nonrheumatic mitral valve regurgitation Nonrheumatic tricuspid (valve) insufficiency Other specified transient cerebral ischemias Premature ventricular contraction Presence of cardiac pacemaker 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 Shortness of breath Swelling of right lower extremity TIA (transient ischemic attack) TIA (transient ischemic attack) Home Medications vitamins A,C,Q-fuuq-yybwxa 4,296 mcg-226 mg-90 mg capsule (PreserVision AREDS) 1 cap PO BID 03/12/20 [History Last Taken Unknown] mecobalamin (vitamin B12) 1,000 mcg chewable tablet 1,000 mcg PO DAILY 03/15/23 [History Last Taken Unknown] clopidogrel 75 mg tablet 75 mg PO DAILY #90 tabs 05/06/23 [Rx Last Taken Unknown] pravastatin 20 mg tablet 20 mg PO DAILY #90 tabs 05/06/23 [Rx Last Taken Unknown] metoprolol succinate 50 mg tablet,extended release 24 hr 50 mg PO .COMPLEX #90 tabs 12/07/23 [Rx Last Taken Unknown] torsemide 20 mg tablet 40 mg (2 x 20 mg) PO DAILY #180 tabs 12/07/23 [Rx Last Taken Unknown] potassium chloride 20 mEq tablet,extended release 20 meq PO DAILY Started by Transmission Design Engineer 12/08/23 [History Last Taken Unknown] Allergy/AdvReac Type Severity Reaction Status Date / Time amiodarone AdvReac Severe Severs Verified 12/11/23 13:41 muscle weakness, hair loss amlodipine AdvReac Severe Swelling Verified 12/11/23 13:41 flecainide AdvReac Severe Near Verified 12/11/23 13:41 Syncope, Severe Nausea losartan AdvReac myalgia Verified 12/11/23 13:41 Family History Father COPD (chronic obstructive pulmonary disease) CHF (congestive heart failure) Mother Hypertension CVA (cerebral vascular accident) Brother Hypertension Surgical History History of cholecystectomy History of total hysterectomy Hx of atrioventricular node ablation Social History household members: spouse Smoking Status: Never smoker alcohol intake: never substance use type: does not use caffeine: Yes Type: coffee Number of servings: 1 EXAM Physical Exam Const Vital Signs: 12/11/23 13:42 12/11/23 13:45 12/11/23 14:45 Temperature 97 F L 97 F L Temperature Source Temporal Temporal Pulse Rate 84 84 Respiratory Rate 20 H 18 Blood Pressure 143/57 H 143/57 H Blood Pressure Mean 85 85 Blood Pressure Source Blood Pressure Location Pulse Ox 99 99 96 Oxygen Delivery Method Room Air Room Air Oxygen Flow Rate (L/min) 12/11/23 15:37 12/11/23 14:02 12/11/23 17:00 Temperature 97 F L 97 F L Temperature Source Temporal Temporal Pulse Rate 82 81 Respiratory Rate 18 20 H Blood Pressure 114/53 L 92/44 L Blood Pressure Mean 73 60 Blood Pressure Source Blood Pressure Location Pulse Ox 98 93 Oxygen Delivery Method Room Air Room Air Nasal Cannula Oxygen Flow Rate (L/min) 2 12/11/23 17:53 12/11/23 18:15 12/11/23 18:20 Temperature 97.3 F L 97 F L Temperature Source Temporal Temporal Pulse Rate 68 81 83 Respiratory Rate 20 H 33 H 28 H Blood Pressure 113/35 L 102/64 118/41 L Blood Pressure Mean 61 76 66 Blood Pressure Source Monitor Blood Pressure Location Left Arm Pulse Ox 92 94 67 Oxygen Delivery Method Nasal Cannula High Flow Nasal Cannula Oxygen Flow Rate (L/min) 3 15 MDM MDM MDM Narrative Medical decision making narrative: HISTORY OF PRESENT ILLNESS: 88 female presents with diffuse weakness. She states she is been more weak, noted 2 falls with no head trauma. States he is on Plavix no other blood thinners. States her stools have been dark. Denies urinary complaints. Denies chest pain but endorses dyspnea on exertion. Notes the symptoms started after she had a pacemaker placed proximally 3 weeks ago. The patient denies recent surgery in the last 4 weeks or immobilization in the last 3 days, denies previous diagnosis of DVT or PE, hemoptysis, unilateral leg swelling or malignancy with treatment the last 6 months or palliative. No estrogen use noted. REVIEW OF SYSTEMS: Pertinent positives: Diffuse weakness, dark stools, dyspnea exertion Pertinent negatives: Focal weakness, chest pain, leg swelling PHYSICAL EXAM: Nursing triage notes reviewed, Vital signs reviewed Constitutional: please see [facility] HENT: MMM Eyes: Pupils equal round and reactive to light, Extraocular muscles intact Neck: No stridor, no JVD, full neck ROM Lungs: Clear to auscultation, No wheezing or rales. No increased work of breathing, no conversational dyspnea, no accessory muscle use, no nasal flaring. No respiratory distress noted Heart: Regular rate and rhythm, No murmurs, No rubs and No gallops, 2+ distal pulses (radial, femoral, posterior tibial) in all extremities, pacemaker site clean dry intact Abdomen: Soft, there is no tenderness, rigidity, rebound or guarding, no obvious peritoneal signs, no palpable pulsatile abdominal masses, no auscultated abdominal bruit : No CVAT Rectal: Performed bunghole borer Lisa RN present. No obvious hemorrhoids noted dark stool Extremities: No edema Neuro: No focal neurological deficits, cranial nerves II through XII intact, 5/5 strength in all extremities. Intact sensation to light touch in all extremities, 2+ reflexes bilateral patella tendons. Skin: Sallow appearance, pallor MEDICAL DECISION MAKING: Chief Complaint: Diffuse weakness External records reviewed: Reviewed pacemaker check from 12/07/2023 Factors affecting care: history of pacemaker secondary to complete heart block, A-fib, CKD, GI bleed, hyperlipidemia, hypertension, CHF, Social determinants of health: Elderly History obtained from others: Family Consults: Internal medicine (Dr. Johnson), gastroenterology [place]. Espinoza), critical care (Dr. Worthy), Goals of care discussion: Patient wanted to be full code including intubation and chest compressions [facility] Narrative: Patient was initially hemodynamically stable, afebrile and nontoxic-appearing. Lungs were clear. Pacemaker site was clean dry intact without evidence of infection. Patient no lower extremity edema. She did appear sallow, slight yellow discoloration of the skin but no obvious scleral icterus or jaundice. She appeared pale. I considered the following differential diagnosis: Arrhythmia, anemia, electrolyte disturbance, UTI, I obtained a broad lab and imaging workup to further elucidate etiology of his complaints ALL IMAGES (IF OBTAINED) HAVE BEEN PERSONALLY REVIEWED AND INTERPRETED BY MYSELF. Initial EKG showed paced rhythm, normal axis, no obvious STEMI Repeat x-ray remained stable Chest x-ray reviewed x 3 initial chest x-ray showed no acute process, postintubation x-ray showed right mainstem intubation with left lung atelectasis, third x-ray showed resolution of left lung atelectasis after change in placement of tube Initial VBG showed metabolic acidosis, hypoxia CBC without leukocytosis, noted severe anemia with a hemoglobin of 4.1 down from a baseline of 8, no thrombocytopenia noted No obvious coagulopathy noted with INR 1.2 BMP without significant electrolyte disturbances, noted CKD that is baseline, High-sensitivity troponin is negative, no evidence of myocardial ischemia Urinalysis shows no evidence of urinary inflammation suggestive of UTI Occult blood sample positive The synthesis of the patient's history, physical exam, labs images suggest likely severe blood loss anemia from likely upper GI source given dark melanotic stools and positive Hemoccult. During patient's ED course she developed significant vital sign normalities including hypotension, hypoxia. A blood transfusion was started and she was placed on nasal cannula oxygen which improved blood pressure although she continued to have transient hypoxia. She was then started on high flow nasal cannula. She continued to be hypoxic in the 70s and 80s despite high flow nasal cannula. Goals of care discussion was undertaken with the patient. She is of sound mind. He is alert and orient x 3 and was able to make own medical decisions and chose to be intubated if necessary. Patient was observed she continued to decompensate at this time decision was made to intubate. Please see below procedure note. Patient was intubated with the use of etomidate and rocuronium.. Sedation pressure support was accomplished by approximate 20 mcg of epinephrine (this is made by placing 1 cc of code dose epi and with 9 cc of normal saline and a 10 cc syringe). Patient was intubated without issue. After intubation patient's vital signs stabilized. I initially attempted admit the patient here a to [facility] but we do not have GI on-call in addition to this patient recent underwent special service by electrophysiology at [facility]. We do not have electrophysiology here. Given since the patient's primary etiology is a GI bleed decision was made between myself and internal medicine physician to transfer the patient. Spoke with the critical care physician at [facility] as well as the GI doctor who both accepted her case. The procedure was performed by myself. Indications: Hypoxia Procedure Description: Use etomidate (20 mg) and rocuronium (100 mg). Placed in a 8.0 ET tube with the use of video laryngoscopy, had a grade 1 view of the cords passed on first attempt. Post-Procedure Assessment: Tracheal intubation was confirmed with breath sounds auscultated equally bilaterally; appropriate color change with end tidal CO2 detector and waveform capnography. The patient tolerated the procedure well with no immediate complications. The patient and/or family, caregivers express understanding. The patient and/or family, caregivers agrees with the plan. Shared decision making: I will have a discussion with the patient and or visitors regarding risk/benefits of further testing or admission. They will be made aware of of the risk/benefits inherent in this decision they will be given the opportunity to voice understanding. Total critical care time today provided was at least 60 minutes. This excludes separately billable procedures. Critical care time (if documented) is secondary to the patient having high probability of clinically significant/life threatening deterioration in the patient's condition which required my urgent intervention. Impression: 1. Upper GI bleed 2. Severe anemia 3. Hemorrhagic shock 4. Respiratory failure Dispo: Transfer to [facility] to undergo definitive GI and critical care evaluation This note was generated with [employer] dictation software. It may contain incorrect words, spelling, and punctuation that were not noted in review of the chart prior to signing. Lab Data Labs: Laboratory Results - last 24 hr 12/11/23 12/11/23 12/11/23 15:20 16:59 17:00 WBC 10.9 RBC 1.36 L Hgb 4.1 L* Hct 14.3 L MCV 105.1 H MCH 30.1 MCHC 28.7 L RDW Std Deviation 89.6 H RDW Coeff of Michael 23.9 H Plt Count 359 MPV 9.5 Immature Gran % (Auto) 1.100 H Neut % (Auto) 75.9 H Lymph % (Auto) 14.3 L [place] % (Auto) 8.1 Eos % (Auto) 0.2 Baso % (Auto) 0.4 Absolute Neuts (auto) 8.3 H Absolute Lymphs (auto) 1.56 Nucleated RBC % 0.5 Diff Path Review May foll Platelet Estimate ADEQUATE RBC Morphology N CHROM Hypochromasia 1+ Anisocytosis 1+ Macrocytosis 1+ Ovalocytes RARE Sodium 142 Potassium 5.0 Chloride 105 Carbon Dioxide 23.0 Anion Gap 14 BUN 110 H* Creatinine 3.54 H Estim Creat Clear Calc 7.89 Est GFR (MDRD) Af Amer 16 L Est GFR (MDRD) Non-Af 13 L BUN/Creatinine Ratio 31.1 H Glucose 142 H Calcium 8.9 Troponin I High Sens 23 Blood Type A POSITIVE Antibody Screen NEGATIVE Crossmatch See Detail Radiography Diagnostic Testing: Clinical Impression(s) from Imaging Studies Chest X-Ray 12/11/23 15:30 IMPRESSION: There are no acute findings. Electronically Signed: Danny Mario MD at 16:05 EDT , Discharge Plan Triage Chief Complaint: Weakness ED Provider: David Shepard Dx/Rx/DC Orders Prescriptions: No Action PreserVision AREDS 14,320-872-200 usnz-hq-dvju capsule 1 cap PO BID mecobalamin (vitamin B12) 1,000 mcg tablet,chewable 1,000 mcg PO DAILY torsemide 20 mg tablet 40 mg PO DAILY Qty: 180 3RF metoprolol succinate 50 mg tablet extended release 24 hr 50 mg PO .COMPLEX Qty: 90 3RF Rx Instructions: 50 mg orally at bedtime; clopidogrel 75 mg tablet 75 mg PO DAILY Qty: 90 3RF pravastatin 20 mg tablet 20 mg PO DAILY Qty: 90 3RF potassium chloride 20 mEq tablet extended release 20 meq PO DAILY Primary Care Provider: John Rachel Referrals: John Rachel MD [Primary Care Provider] -
--- NOTE | 2023-12-11 15:30 | RAD_ITS ---
STUDY: XR Chest 1 View 12/11/2023 3:32 PM REASON FOR EXAM: Female, 88 years old. weakness COMPARISON: 11-17-22 TECHNIQUE: XR Chest 1 View FINDINGS: There is no demonstrated pleural abnormality. There is a left sided pacemaker batterypack. Enlarged heart size. Normal mediastinum. Normal jerod. Prominent appearing increased interstitial lung markings. Normal visualized pulmonary arteries. There is atherosclerotic calcification of the aortic arch with tortuosity. There are diffuse degenerative changes of the visualized thoracic spine. There is degenerative osteoarthritis of the bilateral shoulders. There are no acute findings of the upper abdomen. RAD/Chest 1 View (Portable) IMPRESSION: There are no acute findings. Electronically Signed: Danny Mario MD at 16:05 EDT ,
[2023-12-11 16:04] LABS: Absolute Lymphocyte Count 1.56 X10^3/uL (0.83-4.51); Absolute Neutrophil Count 8.3 X10^3/uL (2.0-7.7); Basophil# 0.04 X10^3/uL; Basophil% 0.4 % (0-1); Eosinophil# 0.02 X10^3/uL; Eosinophils% 0.2 % (0-5); Hematocrit 14.3 % (37-47); Lymphocyte # 1.56 X10^3/ul (0.83-4.51); Lymphocyte % 14.3 % (19-41); Mean Corp Hgb Conc 28.7 g/dL (32-36); Mean Corpuscular Hgb 30.1 pg (27.0-32.0); Mean Corpuscular Volume 105.1 fL (81-99); Mean Platelet Vol. 9.5 fl (6.2-12.0); Monocyte# 0.88 X10^3/uL; Monocyte% 8.1 % (0-10); NRBC Flagged by Analyzer 0.5 % (0-5); Neutrophil # 8.31 X10^3/uL (2.7-7.7); Neutrophil % 75.9 % (47-70); POSITIVE COUNT YES; POSITIVE MORPHOLOGY YES; Platelet Count 359 K/mm3 (150-450); RBC Distribution Width CV 23.9 % (11.6-14.6); RBC Distribution Width SD 89.6 fl (35.1-43.9); Red Blood Count 1.36 M/mm3 (4.2-5.4); White Blood Count 10.9 K/mm3 (4.4-11.0)
[2023-12-11] MEDS: Ondansetron 4 MG/2 ML Vial IV (16:09)
[2023-12-11 16:17] LABS: Anion Gap 14 (5-15); BUN 110 mg/dL (7-18); BUN/Creat Ratio 31.1 RATIO (10-20); Calcium,Total 8.9 mg/dL (8.5-10.1); Chloride 105 mmol/L (98-107); Creatinine, Serum 3.54 mg/dL (0.55-1.02); EST Glomerular Filtration Rate 13 mL/min (>60); Est Glom Filt Rate - Afr Amer 16 mL/min (>60); Estimated Creatinine Clearance 7.89 ml/min; Glucose 142 mg/dL (74-106); Sodium Level 142 mmol/L (136-145); Troponin-I HS 23 pg/mL (3.0-54.0)
[2023-12-11 16:34] LABS: Differential Indicated SCAN CRITERIA MET; Hemoglobin 4.1 g/dL (12.0-15.0)
[2023-12-11 16:36] LABS: Anisocytosis 1+; Platelet Estimate ADEQUATE (ADEQ); Red Cell Morphology N CHROM NORMAL (NORM C&C)
[2023-12-11 16:37] LABS: Hypochromasia 1+; Macrocytosis 1+; Ovalocyte RARE
[2023-12-11] MEDS: 0.9% Normal Saline (500mL Bag) 500 ML 999 ML IV (17:52)
[2023-12-11 18:48] LABS: Bacteria 0 SEEN /hpf (None Seen); Mucous, Urine 0 SEEN /hpf (<or=2+); Red Blood Cells-Urine 0 SEEN /hpf (0-5); White Blood Cells 0 SEEN /hpf (0-5)
[2023-12-11 18:53] LABS: Color, Urine Yellow (Yellow); Glucose, Dipstick Normal (Normal); Ketone-Dipstick Negative (Negative); Leukocyte Esterase-Dipstick Negative /ul (Negative); Nitrite-Dipstick Negative (Negative); Occult Blood-Urine Negative /ul (Negative); Protein-Dipstick Negative (Negative); Urine Bilirubin Dipstick Negative (Negative); Urine Clarity Clear (Clear); Urine Urobilinogen Normal (Normal)
[2023-12-11] MEDS: fentaNYL 100 MCG/2 ML Ampul IV (18:56)
[2023-12-11] MEDS: fentaNYL drip 100 ML 2.5 MCG CONT INF (18:57)
[2023-12-11 19:01] LABS: Allen Test Positive; Base Excess -8 mmol/L (-2 to +2); Bicarbonate 18.8 mmol/L (22-26); Blood Gas Specimen Type ART; Mode AC; O2 Delivery Device Adult Vent; PEEP 5; PO2 39 mmHG (75-100); RR 12; SITE L Radial; SO2 66 % (95-99); Time Given 18:57:46; Total Carbon Dioxide 20 mmol/L; pCO2 40.7 mmHg (35-45); pH 7.27 (7.35-7.45)
[2023-12-11 19:02] LABS: Squamous Epithelial Cells - UA 0-5 SEEN /hpf (5-10)
--- NOTE | 2023-12-11 19:09 | CPS ---
[1855] Dr. Shepard given VBG on pt. I attempted ABG, got good fill in syringe and ran sample. Pt.'s PaO2 read 39%, while their SpO2 is reading 99-100% at this time. Venous blood was ran rather than arterial.
--- NOTE | 2023-12-11 19:25 | RAD_ITS ---
We are attempting to reach an attending provider to discuss findings. An addendum with communication details will be sent when the communication is complete. STUDY: XR Chest 1 View 12/11/2023 7:15 PM REASON FOR EXAM: Female, 88 years old. post intubation COMPARISON: Study done earlier today. TECHNIQUE: XR Chest 1 View FINDINGS: Bilateral pleural effusions. Large left pleural effusion. There is a left sided pacemaker batterypack. There is a feeding tube/ nasogastric tube noted. The tip is not seen because it extends off the film. There is an endotracheal tube in place. The tip is 31 mm below the lucia and within the right bronchus. This should be pulled back by 57 mm. Normal heart size. Normal mediastinum. Normal jerod. Prominent appearing increased interstitial lung markings. Normal visualized pulmonary arteries. There is atherosclerotic calcification of the aortic arch with tortuosity. There are diffuse degenerative changes of the visualized thoracic spine. There is degenerative osteoarthritis of the bilateral shoulders. There are no acute findings of the upper abdomen. RAD/Chest 1 View (Portable) IMPRESSION: Malpositioned ET tube. Please see above for details Electronically Signed: Danny Mario MD at 19:54 EDT ,
--- NOTE | 2023-12-11 19:31 | ED.RN ---
at 1926 Dr Shepard instructed RT Shannan to pull back on ET tube 3cm, due to ET tube was in the Right main stem, currently ET tube is 21cm at lip line.
[2023-12-11 19:33] LABS: International Normalized Ratio 1.2; Prothrombin Time (Protime)PT. 15.6 SECONDS (11.7-14.9)
[2023-12-11] MEDS: Pantoprazole Sodium 80 MG in 0.9% Normal Saline (50mL Bag) 15 ML 420 MG IV BOLUS (19:50)
--- NOTE | 2023-12-11 20:30 | RAD_ITS ---
STUDY: XR Chest 1 View 12/11/2023 8:28 PM REASON FOR EXAM: Female, 88 years old. tube position COMPARISON: Study done earlier today. TECHNIQUE: XR Chest 1 View FINDINGS: Bilateral pleural effusions. Improved aeration of the left chest. Left infiltrate. There is a left sided pacemaker batterypack. There is a feeding tube/ nasogastric tube noted. The tip is not seen because it extends off the film. There is an endotracheal tube in place. The tip is 23 mm above the lucia. This is in good position. Enlarged heart size. Normal mediastinum. Normal jerod. Prominent appearing increased interstitial lung markings. Normal visualized pulmonary arteries. There is atherosclerotic calcification of the aortic arch with tortuosity. There are diffuse degenerative changes of the visualized thoracic spine. There is degenerative osteoarthritis of the bilateral shoulders. There are no acute findings of the upper abdomen. RAD/Chest 1 View (Portable) IMPRESSION: ET tube now in good position. Increased aeration of the left chest. Electronically Signed: Danny Mario MD at 20:51 EDT ,
--- NOTE | 2023-12-11 21:18 | NURSING ---
called [facility] and report given to
--- NOTE | 2023-12-11 21:23 | NURSING ---
Pt transported by [facility]. Pt transported with Fentanyl and PRBC infusing .
[2023-12-13 10:25] LABS: Pathologist Review Reviewed
== END 2023-12-11 21:25 | disposition short-term general hospital (02) ==
LOC: ED 14:35
PROVIDERS: Emergency Provider Emergency Medicine; PCP Family Medicine; Visit Provider Emergency Medicine
DX: R57.8 Other shock (principal); J96.91 Respiratory failure, unspecified with hypoxia; I13.0 Hypertensive heart and chronic kidney disease with heart failure and stage 1 through stage 4 chronic kidney disease, or unspecified chronic kidney disease; D50.0 Iron deficiency anemia secondary to blood loss (chronic); N18.9 Chronic kidney disease, unspecified; E87.20 Acidosis, unspecified; Z95.0 Presence of cardiac pacemaker; K92.2 Gastrointestinal hemorrhage, unspecified; E78.5 Hyperlipidemia, unspecified; Z79.02 Long term (current) use of antithrombotics/antiplatelets
CPT/HCPCS: 94760; 31500; 31720; 36430; 51702; 71045; 80048; 81001; 82271; 82274; 82803; 84484; 85025; 85610; 85730; 86850; 86900; 86901; 86920; 87070; 87205; 93005; 94002; 96374; 99252; 99285; J7030; J7040; P9016; A4216; G0463; J2405; J3490

== ENCOUNTER 2023-12-17 16:50 | Inpatient (IN) | payer MEDICARE, SELFPAY ==
[2023-12-17 17:04] VITALS: BP 136/53; PULSE 96; RESP 16; TEMP 36.1; O2SAT 100; BMI 26.0
--- NOTE | 2023-12-17 18:53 | HP.PCM_ITS ---
[facility] - General General Date of Admission: 12/17/23 Date of Service: 12/19/23 Chief Complaint: Here for rehabilitation. HPI Narrative 12/11/2023 RAJEEV ECHEVARRIA, is a 88 Female who presents to [facility] ED with weakness. Hemoglobin 4.1, Blood transfusion started. Hypoxic despite high flow oxygen, intubated. Transfer to [facility]. 12/11/2023 Admit to [facility]. Transfused 3 units PRBC, Hemoglobin 10.6. Atrial fibrillation s/p AVN ablation, PPM placement 11/23/2023. Transfuse if hemoglobin < 7.0. PPI BID, GI consulted for GI bleed. Sputum culture, blood cuture, Ceftriaxone, Doxycycline for pneumonia. Hold DVT prophylaxis 2/2 bleeding. 12/12/2023 EGD no evidence of UGI bleed, ? lower GI Bleed, hold Plavix. 12/12/2023 Extubated. 12/13/2023 Shock, need for pressors, wean pressors. Ceftriaxone IV for UTI/aspiration pneumonia. CT abdomen/pelvis negative for retroperitoneal bleed. Consider stopping Plavix with high risk of rebleed, change to aspirin. 12/15/2023 Creatinine improving, Torsemide held. Metoprolol 12.5mg bid, hold Plavix for atrial fibrillation. Hemoglobin 7.3. 12/16/2023 Colonoscopy showed internal/external hemorrhoids, diverticulosis, tortuous colon, no evidence of old or acute bleeding. 12/17/2023 Admit to TCU with debility, here for rehabilitation, strengthening, prior to discharge home with . [facility] Medical History (Updated 12/17/23 @ 19:[address] 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 Presence of cardiac pacemaker Non-smoker Hypertension Atrial fibrillation TIA (transient ischemic attack) Shortness of breath Bilateral edema of lower extremity Chronic kidney disease SMITH (dyspnea on exertion) Swelling of right lower extremity Dyslipidemia Longstanding persistent atrial fibrillation Chronic systolic (congestive) heart failure Essential hypertension Premature ventricular contraction History of GI bleed TIA (transient ischemic attack) Nonrheumatic mitral valve regurgitation Hypertension Hyperlipidemia Other specified transient cerebral ischemias Nonrheumatic tricuspid (valve) insufficiency Home Medications ?Medication ?Instructions ?Recorded ?Last Taken ?Type vitamins A,C,O-dtol-qlphym 4,296 1 cap PO BID eye health 03/12/20 Unknown History mcg-226 mg-90 mg capsule (PreserVision AREDS) mecobalamin (vitamin B12) 1,000 1,000 mcg PO DAILY supplement 03/15/23 12/17/23 History mcg chewable tablet clopidogrel 75 mg tablet 75 mg PO DAILY blood thinner #90 05/06/23 Unknown Rx tabs pravastatin 20 mg tablet 20 mg PO DAILY cholesterol #90 tabs 05/06/23 12/17/23 Rx metoprolol succinate 50 mg 50 mg PO .COMPLEX heart #90 tabs 12/07/23 Unknown Rx tablet,extended release 24 hr torsemide 20 mg tablet 40 mg (2 x 20 mg) PO DAILY heart 12/07/23 Unknown Rx #180 tabs potassium chloride 20 mEq 20 meq PO DAILY Started by 12/08/23 Unknown History tablet,extended release 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 aspirin 81 mg chewable tablet 1 tab PO DAILY heart 12/17/23 12/17/23 History pantoprazole 40 mg tablet,delayed 40 mg PO DAILY stomach 12/17/23 Unknown History release Allergy/AdvReac Type Severity Reaction Status Date / Time amiodarone AdvReac Severe Severs Verified 12/11/23 13:41 muscle weakness, hair loss amlodipine AdvReac Severe Swelling Verified 12/11/23 13:41 flecainide AdvReac Severe Near Verified 12/11/23 13:41 Syncope, Severe Nausea losartan AdvReac myalgia Verified 12/11/23 13:41 Family History Father COPD (chronic obstructive pulmonary disease) CHF (congestive heart failure) Mother Hypertension CVA (cerebral vascular accident) Brother Hypertension Surgical History Hx of atrioventricular node ablation History of total hysterectomy History of cholecystectomy Social History household members: spouse Smoking Status: Never smoker alcohol intake: never substance use type: does not use caffeine: Yes Type: coffee Number of servings: 1 ROS Constitutional Constitutional: Reports fatigue and weakness; Denies chills, fever(s) or weight gain ENT HEENT: Denies headache(s), nasal congestion or nasal discharge Cardiovascular Cardiovascular: Denies chest pain or palpitations Respiratory/Chest Respiratory/Chest: Denies cough, excessive phlegm production or shortness of breath with exertion Gastrointestinal Gastrointestinal: Denies abdominal pain, nausea or vomiting Genitourinary Genitourinary: Denies dysuria Musculoskeletal Musculoskeletal: Denies joint pain or joint swelling Integumentary Integumentary: Denies rash or wounds Neurologic Neurologic: Denies focal weakness, numbness or tingling Psychiatric Psychiatric: Denies anxiety, auditory hallucinations, depression, homicidal ideation or suicidal ideation Vital Signs Vital Signs Vital Signs: 12/17/23 17:04 12/17/23 18:27 Temperature 96.9 F L Temperature Source Temporal Pulse Rate 96 Pulse Rhythm Regular Pulse Strength Normal (2+) Respiratory Rate 16 Respiratory Effort Normal Non-Labored Respiratory Depth Normal Respiratory Pattern Normal Blood Pressure 136/53 H Blood Pressure Mean 80 Blood Pressure Source Monitor Blood Pressure Position Sitting Blood Pressure Location Left Arm Pulse Ox 100 Oxygen Delivery Method Room Air Room Air Weight Weight: 58.513 kg Body Mass Index (BMI) 26.0 Physical Exam Const alert General Appearance: cooperative HEENT normocephalic Eyes PERRL and EOMs intact bilaterally Neck supple, no JVD and no carotid bruits Resp normal respiratory effort, normal air movement and clear to auscultation bilaterally Cardio regular rate and regular rhythm GI normal to inspection, nondistended, normoactive bowel sounds, non-tender and non-distended Extremity normal capillary refill General Extremity: Negative for edema Skin no rashes or lesions noted General Skin Exam: no breakdown Psych affect normal Appearance: appropriate Results Lab / Micro Data 12/18/23 06:33 12/18/23 06:33 Assessment & Plan Assessment/Plan (1) Debility: (2) Acute GI bleeding: (3) Acute respiratory failure with hypoxia: (4) Septic shock: (5) Pneumonia: (6) Urinary tract infection: (7) TIA (transient ischemic attack): (8) Hyperlipidemia: QUALIFIERS: Hyperlipidemia type: unspecified Qualified Code(s): E 78.5 - Hyperlipidemia, unspecified (9) Hypokalemia: (10) HFrEF (heart failure with reduced ejection fraction): PLAN: Plan 88 year old female with below past medical history hospitalized for acute gi bleed, complicated by septic shock 2/2 uti/aspiration pneumonia, admitted to TCU with debility, here for rehabilitation, strengthening, prior to discharge home with . * Debility - PT/OT. * Pain - Tylenol 1000mg q6 prn pain (1-10), * Bowel - senna/colace 1 tablet bid prn, Dulcolax 10mg pr daily prn. * Adult immunization - Administer pneumonia vaccine, covid vaccine, flu vaccine as appropriate. * DVT prophylaxis - Hold, gi bleed. * TIA - Stop Aspirin 81mg, risk outweigh benefits. * Vitamin B12 deficiency - B12 1000mcg daily. * Chronic HFrEF - Metoprolol succinate 50mg qhs, Furosemide 80mg daily. * Macular degeneration - Healthy Eyes 1 capsule bid. * GERD - Pantoprazole 40mg daily. * Hyperlipidemia - Pravastatin 20mg qhs. * Iron deficiency anemia - Hemoglobin 7.2 yesterday, transfused 2 units PRBC, hemoccult negative, Ferrex 150mg daily, Vitamin C 500mg daily.
[2023-12-17 22:31] VITALS: BP 153/63; PULSE 82
[2023-12-17] MEDS: Metoprolol(XL)Succ 50 MG Tablet PO (22:31)
[2023-12-17] MEDS: Multivitamin (Healthy Eyes) Capsule 1 CAP PO (22:31)
[2023-12-18] MEDS: Acetaminophen 500 MG Tablet 1000 MG PO (02:38)
--- NOTE | 2023-12-18 03:11 | NURSING ---
Resident reports difficulty sleeping and is unable to get comfortable. Verbalizes concerns about her spouse who has dementia home alone. Some neighbors have been checking on him for the past week. Resident questions how long she will be here as her desire is to return home soon. Informed her therapy will complete her evaluation today. Given Tylenol, jello, and transferred resident from bed to recliner to help promote sleep. Emotional support and active listening provided. Call light w/ in reach. Will continue to monitor.
--- NOTE | 2023-12-18 03:16 | NURSING ---
Pravastatin not given at hs last night as resident reports a dose was given prior to dc from previous facility.
[2023-12-18] MEDS: Pantoprazole Sodium 40 MG Tablet PO (06:35)
[2023-12-18 07:19] LABS: Absolute Lymphocyte Count 0.68 X10^3/uL (0.83-4.51); Absolute Neutrophil Count 3.4 X10^3/uL (2.0-7.7); Basophil# 0.03 X10^3/uL; Basophil% 0.6 % (0-1); Eosinophil# 0.13 X10^3/uL; Eosinophils% 2.7 % (0-5); Hematocrit 23.9 % (37-47); Hemoglobin 7.2 g/dL (12.0-15.0); Lymphocyte # 0.68 X10^3/ul (0.83-4.51); Lymphocyte % 14.3 % (19-41); Mean Corp Hgb Conc 30.1 g/dL (32-36); Mean Platelet Vol. 9.1 fl (6.2-12.0); Monocyte# 0.52 X10^3/uL; NRBC Flagged by Analyzer 0 % (0-5); Neutrophil # 3.36 X10^3/uL (2.7-7.7); Platelet Count 168 K/mm3 (150-450); RBC Distribution Width CV 16.7 % (11.6-14.6); RBC Distribution Width SD 56.9 fl (35.1-43.9); Red Blood Count 2.57 M/mm3 (4.2-5.4); White Blood Count 4.7 K/mm3 (4.4-11.0)
[2023-12-18 07:56] LABS: Anion Gap 5 (5-15); BUN 39 mg/dL (7-18); BUN/Creat Ratio 19.4 RATIO (10-20); Calcium,Total 7.9 mg/dL (8.5-10.1); Chloride 109 mmol/L (98-107); Creatinine, Serum 2.01 mg/dL (0.55-1.02); EST Glomerular Filtration Rate 25 mL/min (>60); Est Glom Filt Rate - Afr Amer 30 mL/min (>60); Estimated Creatinine Clearance 15.49 ml/min; Glucose 76 mg/dL (74-106); Potassium 3.8 mmol/L (3.5-5.1); Sodium Level 138 mmol/L (136-145)
[2023-12-18] MEDS: Aspirin 81 MG TAB.CHEW PO (08:58)
[2023-12-18] MEDS: Multivitamin (Healthy Eyes) Capsule 1 CAP PO ×2 (08:58→18:36)
[2023-12-18] MEDS: Furosemide 80 MG Tablet PO (08:58)
[2023-12-18] MEDS: Cyanocobalamin 500 MCG Tablet 1000 MCG PO (08:58)
[2023-12-18] MEDS: Tuberculin,Purif.prot.deriv. 50 TU/ML Vial 0.1 ML ID (09:00)
[2023-12-18 09:51] LABS: Iron 17 ug/dL (50-170); Iron Binding Capacity,Total 338 ug/dL (250-450)
[2023-12-18 10:00] VITALS: PULSE 75; RESP 16; O2SAT 100
--- NOTE | 2023-12-18 10:32 | NURSING ---
Patient's INR 7.2. New orders received to have patient get TxC, then 2U PRC, with Lasix 20mg IV in between units. Patient aware, consent signed.
--- NOTE | 2023-12-18 12:26 | NURSING ---
Patient off unit for blood transfusion. Transported by [facility] to PCU 113.
[2023-12-18] MEDS: Furosemide 20 MG/2 ML VIAL IV (15:38)
--- NOTE | 2023-12-18 18:29 | NURSING ---
Patient returned to unit from PCU following transfusion of 2U of PRC's. Spouse here to visit.
[2023-12-18 22:13] VITALS: BP 157/67; PULSE 90
[2023-12-18] MEDS: Metoprolol(XL)Succ 50 MG Tablet PO (22:13)
[2023-12-18] MEDS: Pravastatin 20 MG Tablet PO (22:13)
[2023-12-19] MEDS: Pantoprazole Sodium 40 MG Tablet PO (05:51)
[2023-12-19] MEDS: Multivitamin (Healthy Eyes) Capsule 1 CAP PO ×2 (07:50→17:08)
--- NOTE | 2023-12-19 08:23 | PHA.CONS_ITS ---
Documented by User: Natasha Noel 12/19/23 08:35 TCU RX Drug Regimen Review Subjective/Objective Subjective/Objective: Subjective: TCU Admission. 88 YOF presented to the ER with weakness. Hospitalized for acute gi bleed, complicated by septic shock 2/2 uti/aspiration pneumonia. Admitted to TCU with debility for strengthening and rehabilitation. Objective: Allergies amiodarone Adverse Reaction (Severe, Verified 12/11/23 13:41) Severs muscle weakness, hair loss amlodipine Adverse Reaction (Severe, Verified 12/11/23 13:41) Swelling flecainide Adverse Reaction (Severe, Verified 12/11/23 13:41) Near Syncope, Severe Nausea losartan Adverse Reaction (Verified 12/11/23 13:41) myalgia Current Medications Generic Name Dose Route Start Last Admin Trade Name Freq PRN Reason Stop Dose Admin Acetaminophen 1,000 mg 12/17/23 19:07 12/18/23 02:38 Acetaminophen 500 Mg Tablet PO 1,000 mg Q6H PRN PRN Administration Pain Score 1-10 Ascorbic Acid 500 mg 12/19/23 10:00 Ascorbic Acid 500 Mg Tablet PO 1000 [facility] Bisacodyl 10 mg 12/17/23 19:07 Bisacodyl 10 Mg Suppository RC DAILY PRN Constipation Cyanocobalamin 1,000 mcg 12/18/23 10:00 12/18/23 08:58 Cyanocobalamin 500 Mcg Tablet PO 1,000 mcg DAILY RAZ Administration Furosemide 80 mg 12/18/23 10:00 12/18/23 08:58 Furosemide 80 Mg Tablet PO 80 mg DAILY RAZ Administration Metoprolol Succinate 50 mg 12/17/23 22:00 12/18/23 22:13 Metoprolol(Xl)Succ 50 Mg Tablet PO 50 mg QHS [facility] Administration Protocol Multivitamins/Minerals 1 cap 12/17/23 22:00 12/19/23 07:50 Multivitamin (Healthy Eyes) Capsule PO 1 cap BIDCM RAZ Administration Pantoprazole Sodium 40 mg 12/18/23 06:00 12/19/23 05:51 Pantoprazole Sodium 40 Mg Tablet PO 40 mg DAILY@0600 RAZ Administration Polysaccharide Iron Complex 150 mg 12/19/23 10:00 Iron Polysaccharide Complex 150 Mg Capsule PO DAILY [facility] Pravastatin Sodium 20 mg 12/18/23 22:00 12/18/23 22:13 Pravastatin 20 Mg Tablet PO 20 mg QHS RAZ Administration Senna/Docusate Sodium 1 tablet 12/17/23 19:07 Senna/Docusate Sodium 1 Tablet PO BID PRN PRN Constipation Tuberculin PPD 0.1 ml 12/25/23 10:00 Tuberculin,Purif.Prot.Deriv. 50 Tu/Ml Vial ID 12/25/23 10:01 X1 ONE Problem List HFrEF (heart failure with reduced ejection fraction) (Acute) Hypokalemia (Acute) TIA (transient ischemic attack) (Acute) Urinary tract infection (Acute) Pneumonia (Acute) Septic shock (Acute) Acute respiratory failure with hypoxia (Acute) Acute GI bleeding (Acute) Debility (Acute) Hyperlipidemia (Chronic) Vital Signs Temp Pulse Resp BP Pulse Ox O2 Del Method 96.9 F L 90 16 157/67 H 100 Room Air 12/17/23 17:04 12/18/23 22:13 12/18/23 10:00 12/18/23 22:13 12/18/23 10:00 12/18/23 10:00 Oxygen Delivery Method Room Air Weight: 58.513 kg Body Mass Index (BMI) 26.0 Sodium 138 mmol/L (136-145) 12/18/23 06:33 Potassium 3.8 mmol/L (3.5-5.1) 12/18/23 06:33 Chloride 109 mmol/L (98-107) H 12/18/23 06:33 Carbon Dioxide 24.0 mmol/L (21.0-32.0) 12/18/23 06:33 Anion Gap 5 (5-15) 12/18/23 06:33 BUN 39 mg/dL (7-18) H 12/18/23 06:33 Creatinine 2.01 mg/dL (0.55-1.02) H 12/18/23 06:33 Est GFR (MDRD) Af Amer 30 mL/min (>60) L 12/18/23 06:33 Est GFR (MDRD) Non-Af 25 mL/min (>60) L 12/18/23 06:33 BUN/Creatinine Ratio 19.4 RATIO (10-20) 12/18/23 06:33 Glucose 76 mg/dL (74-106) 12/18/23 06:33 Assessment/Plan: 1. Pain: acetaminophen 1000mg PO Q6H PRN pain 1-10. Resident has had 1 dose for generalized pain score of 1. Please continue to monitor for increased pain and PRN usage. 2. Bowel: senna/docusate 1T PO BID PRN constipation and bisacodyl 10mg RC daily PRN constipation. Resident has not had any doses. Please continue to monitor for constipation and PRN usage. Resident has not had a documented bowel movement so far. 3. Chronic HFrEF: metoprolol succinate 50mg PO QHS and furosemide 80mg PO daily. Please continue to monitor BP (last 157/67), HR (last 90), SCr (last 2.01mg/dL), edema, I/O and potassium (last 3.8mmol/L). 4. GERD: pantoprazole 40mg PO daily. Please continue to monitor for S/S of GERD and diarrhea (BEERs medication). 5. Hyperlipidemia: pravastatin 20mg PO QHS. Please continue to monitor LFT (last 11/16/23), lipid panel (last 11/16/23) and muscle pain. 6. Iron deficiency anemia: Ferrex 1580mg PO daily and ascorbic acid 500mg PO daily. Please continue to monitor for constipation, hemoglobin (last 7.2g/dL), d ark stools and iron studies (last 12/18/23). 7. Macular degeneration: healthy eyes 1C PO BID. Please continue to monitor. 8. Vitamin B12 deficiency: cyanocobalamin 100mcg PO daily. Please consider or dering a vitamin B12 level as the last level is from 12/2020. Thanks. Assessment/Plan for indications treated with psychotropic medications: None Medical chart and medication regimen reviewed. The following medication irregularities or issues were identified: 1. Cyanocobalamin 100mcg PO daily. Please consider ordering a vitamin B12 level as the last level is from 12/2020. Thanks. Date Date of Note:: 12/19/23 Documented by User: Dr. Yordan Barksdale MD 12/19/23 08:56 TCU RX Drug Regimen Review Provider Comments Provider responsibility Provider Comments to Recommendations by Pharmacy: Agree
[2023-12-19] MEDS: Furosemide 80 MG Tablet PO (09:53)
[2023-12-19] MEDS: Cyanocobalamin 500 MCG Tablet 1000 MCG PO (09:53)
[2023-12-19] MEDS: Iron Polysaccharide Complex 150 MG CAPSULE PO (09:54)
[2023-12-19] MEDS: Ascorbic Acid 500 MG Tablet PO (09:54)
--- NOTE | 2023-12-19 10:42 | NURSING ---
Offered covid vaccine, VIS provided. Patient refuses at this time.
[2023-12-19 13:54] VITALS: BP 106/49; PULSE 70; RESP 16; TEMP 36.1; O2SAT 96
[2023-12-19 19:20] LABS: Hematocrit 33.1 % (37-47); Hemoglobin 10.3 g/dL (12.0-15.0)
[2023-12-19 19:35] VITALS: PULSE 80; RESP 18; O2SAT 100
[2023-12-19 22:28] VITALS: BP 140/62; PULSE 80
[2023-12-19] MEDS: Pravastatin 20 MG Tablet PO (22:28)
[2023-12-19] MEDS: Metoprolol(XL)Succ 50 MG Tablet PO (22:28)
[2023-12-20] MEDS: Pantoprazole Sodium 40 MG Tablet PO (05:12)
[2023-12-20 07:37] VITALS: BP 136/70; PULSE 83; RESP 16; TEMP 36.8; O2SAT 100
[2023-12-20] MEDS: Iron Polysaccharide Complex 150 MG CAPSULE PO (07:40)
[2023-12-20] MEDS: Ascorbic Acid 500 MG Tablet PO (07:40)
[2023-12-20] MEDS: Multivitamin (Healthy Eyes) Capsule 1 CAP PO ×2 (07:40→17:22)
[2023-12-20] MEDS: Cyanocobalamin 500 MCG Tablet 1000 MCG PO (07:40)
[2023-12-20] MEDS: Furosemide 80 MG Tablet PO (07:40)
[2023-12-20 09:57] VITALS: BMI 26.2
--- NOTE | 2023-12-20 10:00 | CASEMGMT ---
Social Work KRISTIE received a call from patient's nephew, Pop [phone] requesting to speak with SW. Pop informed SW that he will not be in attendance for Care Plan meeting due to prior engagement. Pop expressed concerns for patient's Hemoglobin (HGB); patient required transfusion on 12/17. KRISTIE reviewed hemoglobin with bedside RN who confirmed HGB is 10; stable currently. In addition, Pop requested for home health care services and transportation services to be arranged for patient when patient is medically appropriate for discharge. SW will provided patient with printed home health care provider list with preferred geographic area, medical needs, and within insurance network for choice. Patient will be provide transportation resources at bedside. Pop informed SW that the patient is in good physical condition, but her has some altered mental status and requires more assistance. Patient provides caregiver support for . Pop is primary support for both the patient and her . MEMO Gray
[2023-12-20 10:46] LABS: Vitamin B12 958 pg/mL (211-911)
--- NOTE | 2023-12-20 14:29 | CHAPLAIN ---
Type of Pastoral Visit _x__ Initial Visit ___ Follow-up Visit ___ On-call Visit ___ General Patient Visit ___ Spiritual Assessment ___ Family Conference ___ Bereavement ___ Rapid Response ___ Code Blue ___ Other (describe below) Pastoral Care Referral From _x__ Patient ___ Family ___ Nurse ___ Physician ___ Carbonation Equipment Tender ___ Family Consumer Science Fcs Teacher ___ Other (describe below) Sacrament/Intervention _x__ Active listening ___ Anointing ___ Anabaptism ___ Bereavement ___ Communion _x__ Awilda exploration ___ _x__ Life review _x__ Prayer ___ Reconciliation ___ Sacrament of Sick ___ Supportive presence ___ Wedding ___ Other (describe below) Pastoral Comments patient is pleasant and welcoming; pt talks about watching the construction of the new addition; pt admits to 'new things happening since I'm in here for the first time' and 'relates her concern about being home alone as they depend on each other for support; pt does not have children or family living in the area; pt does not have a taoism connection for support either; pt does present with optimistic hope for going home and being fine; pt asks for a prayer
--- NOTE | 2023-12-20 18:13 | CASEMGMT ---
Social Work SW met with patient at bedside to complete initial intake assessment. SW introduced self and role. Patient confirmed demographics and contact information for emergency contacts. Patient confirmed code status [id number]. Patient informed SW that she has an Advanced Directive on file; , Kevin is primary decision maker and nephew, Pop Kinney is secondary. Patient informed SW that prior to admission, she was residing in home with her , Kevin. Patient's goal is to return home when physically cleared by care team to discharge. SW educated patient on [facility] insurance coverage and benefits; next review date 12/20. Patient informed SW that she would like to discharge within the next couple of days. SW discussed nephew concerns and request for home health care with patient and provided a printed home health care list with medical needs, geographic area, and within insurance network. Patient informed SW that she believes, she could transition home without home health care, but would like to discuss with therapy during care plan meeting. Patient has care plan meeting on 12/21/2023 at 1020. SW will continue to follow to assist with discharge planning. MEMO Gray
[2023-12-20 22:42] VITALS: BP 144/61; PULSE 59
[2023-12-20] MEDS: Pravastatin 20 MG Tablet PO (22:42)
[2023-12-20] MEDS: Metoprolol(XL)Succ 50 MG Tablet PO (22:42)
[2023-12-21] MEDS: Pantoprazole Sodium 40 MG Tablet PO (05:54)
[2023-12-21] MEDS: Iron Polysaccharide Complex 150 MG CAPSULE PO (07:51)
[2023-12-21] MEDS: Multivitamin (Healthy Eyes) Capsule 1 CAP PO ×2 (07:51→17:12)
[2023-12-21] MEDS: Furosemide 80 MG Tablet PO (07:51)
[2023-12-21] MEDS: Ascorbic Acid 500 MG Tablet PO (07:51)
[2023-12-21] MEDS: Cyanocobalamin 500 MCG Tablet 1000 MCG PO (07:51)
--- NOTE | 2023-12-21 10:25 | CASEMGMT ---
Social Work Care Plan IDT met with patient to discuss care plans. Discussed patient progress with therapy (PT/OT), dietary, and nursing. Patient is currently contact guard/SBA with ambulation and stand/pivot. Patient is progressing with therapy ambulating 180ft with walker. Patient has a walker at home. Patient has no dietary concerns. KRISTIE educated patient on [facility] insurance coverage and benefits; NRD 12/20. Patient informed care team that she would like to discharge sooner than later to return home. SW and therapy discussed home health care v. outpatient therapy. Patient informed SW that she would like to have in home care to start for PT/OT/SN. Patient informed SW that she will review home health care provider list at bedside. SW will continue to follow to support patient discharge plans. MEMO Gray
[2023-12-21 10:45] VITALS: BP 135/66; PULSE 81; RESP 18; TEMP 36.7; O2SAT 98
[2023-12-21 22:00] VITALS: BP 134/56; PULSE 83
[2023-12-21] MEDS: Pravastatin 20 MG Tablet PO (22:00)
[2023-12-21] MEDS: Metoprolol(XL)Succ 50 MG Tablet PO (22:00)
[2023-12-22] MEDS: Pantoprazole Sodium 40 MG Tablet PO (06:01)
[2023-12-22 06:03] LABS: Hematocrit 32.2 % (37-47); Hemoglobin 9.7 g/dL (12.0-15.0)
--- NOTE | 2023-12-22 09:20 | CASEMGMT ---
Addendum entered by Jen Lange 12/22/23 17:26: SW received notification from therapy that the patient will require FWW. Script completed by Physician. SW submitted referral to [facility]. Addendum entered by Jen Lange 12/22/23 17:06: SW received confirmation from [facility] Intake Admissions, Melvi that the patient has been accepted for home health care services; SOC 12/26. Patient has been notified. Discharge: Home with [facility] health care PT/OT/SN 12/25/2023 Addendum entered by Jen Lange 12/22/23 09:36: SW notified covering Physician, Dr. Gaming of Notice of Medicare Non-Coverage effective 12/25/2023 and patient request to discharge same day with home health care services. Original Note: Social Work SW received [employer] insurance Notice of Medicare Non-Coverage for current [facility] effective for 12/25/2023. SW met with patient at bedside to notify of Medicare Non-Coverage for current services effective 12/25/2023. Patient informed SW that she would like to discharge same day. SW reviewed NOMNC with patient and provided [facility] appeal information. Patient denied appeal at this time. Patient provided verbal understanding of NOMNC and provided signature. A copy of NOMNC was provided to patient and placed in medical charts. Patient provided SW with choice for home health care services. Patient informed SW that she would like referrals submitted to 1. [facility] 2. [facility] 3. [facility]. SW informed patient that due to holiday weekend home health care services start of care may be delayed until Tuesday. Patient provided verbal understanding of delay in start of care. Patient informed SW that she will have provide transportation for home 11am 12/25/2023 SW submitted referral via Careport Guide. Discharge: Home with home health care PT/OT/SN 12/25/2023
[2023-12-22] MEDS: Multivitamin (Healthy Eyes) Capsule 1 CAP PO ×2 (09:33→16:28)
[2023-12-22] MEDS: Furosemide 80 MG Tablet PO (09:33)
[2023-12-22] MEDS: Ascorbic Acid 500 MG Tablet PO (09:33)
[2023-12-22] MEDS: Iron Polysaccharide Complex 150 MG CAPSULE PO (09:33)
[2023-12-22] MEDS: Cyanocobalamin 500 MCG Tablet 1000 MCG PO (09:33)
[2023-12-22 09:37] VITALS: BP 137/52; PULSE 83
[2023-12-22 11:20] VITALS: PULSE 86; RESP 18; O2SAT 91
[2023-12-22 16:00] VITALS: BP 136/57; PULSE 84; RESP 16; TEMP 36.7; O2SAT 97
[2023-12-22 22:47] VITALS: BP 149/69; PULSE 89
[2023-12-22] MEDS: Metoprolol(XL)Succ 50 MG Tablet PO (22:47)
[2023-12-22] MEDS: Pravastatin 20 MG Tablet PO (22:47)
[2023-12-22 22:51] VITALS: BP 149/69; PULSE 89
[2023-12-23] MEDS: Pantoprazole Sodium 40 MG Tablet PO (05:50)
--- NOTE | 2023-12-23 07:19 | MDS.RN ---
MDS pain interview complete.
[2023-12-23 07:39] LABS: Absolute Lymphocyte Count 0.87 X10^3/uL (0.83-4.51); Absolute Neutrophil Count 3.4 X10^3/uL (2.0-7.7); Basophil# 0.03 X10^3/uL; Basophil% 0.6 % (0-1); Eosinophil# 0.16 X10^3/uL; Eosinophils% 3.2 % (0-5); Hematocrit 31.6 % (37-47); Hemoglobin 9.6 g/dL (12.0-15.0); Lymphocyte # 0.87 X10^3/ul (0.83-4.51); Lymphocyte % 17.3 % (19-41); Mean Corp Hgb Conc 30.4 g/dL (32-36); Mean Corpuscular Hgb 28.2 pg (27.0-32.0); Mean Corpuscular Volume 92.9 fL (81-99); Mean Platelet Vol. 9.3 fl (6.2-12.0); Monocyte# 0.53 X10^3/uL; Monocyte% 10.5 % (0-10); NRBC Flagged by Analyzer 0 % (0-5); Neutrophil # 3.43 X10^3/uL (2.7-7.7); Platelet Count 143 K/mm3 (150-450); RBC Distribution Width CV 16.5 % (11.6-14.6); RBC Distribution Width SD 56.3 fl (35.1-43.9)
[2023-12-23 08:21] LABS: Anion Gap 7 (5-15); BUN 31 mg/dL (7-18); BUN/Creat Ratio 15.3 RATIO (10-20); Chloride 108 mmol/L (98-107); Creatinine, Serum 2.02 mg/dL (0.55-1.02); EST Glomerular Filtration Rate 25 mL/min (>60); Est Glom Filt Rate - Afr Amer 30 mL/min (>60); Estimated Creatinine Clearance 15.46 ml/min; Glucose 91 mg/dL (74-106); Potassium 3.4 mmol/L (3.5-5.1); Sodium Level 140 mmol/L (136-145)
[2023-12-23] MEDS: Cyanocobalamin 500 MCG Tablet 1000 MCG PO (09:18)
[2023-12-23] MEDS: Iron Polysaccharide Complex 150 MG CAPSULE PO (09:18)
[2023-12-23] MEDS: Multivitamin (Healthy Eyes) Capsule 1 CAP PO ×2 (09:18→17:46)
[2023-12-23] MEDS: Furosemide 80 MG Tablet PO (09:18)
[2023-12-23] MEDS: Ascorbic Acid 500 MG Tablet PO (09:19)
--- NOTE | 2023-12-23 10:30 | CASEMGMT ---
Social Work SW received confirmation from [facility] K[facility] that the patient is approved for a front wheeled walker. DME to be delivered to patient at bedside prior to discharge. KRISTIE confirmed home health care services with [facility] PT/OT/SN. SW notified patient of acceptance for services. Discharge on 12/25/2023: [facility] PT/OT/SN and [facility]. MEMO Gray
--- NOTE | 2023-12-23 13:51 | CASEMGMT ---
Social Work SW met with patient at bedside to complete MDS. Patient BIM () and PhQ-2 () Patient informed SW that she would like information regarding transportation for her doctors appointment in [place]. SW provided patient with transportation resources for [facility]. Patient informed SW that she will follow up with [facility] to arrange appointment. SW delivered walker at bedside to patient. SW completed proof of delivery form for [facility] with patient. A copy of form was provided to patient. Patient is thankful for support. Discharge on 12/25/2023: [facility] PT/OT/SN and [facility]. MEMO Gray
[2023-12-23 16:00] VITALS: BP 150/75; PULSE 86; RESP 16; TEMP 36.6; O2SAT 99
[2023-12-23] MEDS: Potassium Chloride Oral Tablet 20 MEQ 40 MEQ PO (17:46)
[2023-12-23 21:53] VITALS: BP 140/64; PULSE 88
[2023-12-23] MEDS: Pravastatin 20 MG Tablet PO (21:53)
[2023-12-23] MEDS: Metoprolol(XL)Succ 50 MG Tablet PO (21:53)
[2023-12-24] MEDS: Pantoprazole Sodium 40 MG Tablet PO (05:22)
[2023-12-24] MEDS: Potassium Chloride Oral Tablet 10 MEQ PO (07:58)
[2023-12-24] MEDS: Multivitamin (Healthy Eyes) Capsule 1 CAP PO ×2 (07:58→16:54)
[2023-12-24] MEDS: Furosemide 80 MG Tablet PO (07:58)
[2023-12-24] MEDS: Ascorbic Acid 500 MG Tablet PO (07:58)
[2023-12-24] MEDS: Cyanocobalamin 500 MCG Tablet 1000 MCG PO (07:58)
[2023-12-24] MEDS: Iron Polysaccharide Complex 150 MG CAPSULE PO (07:58)
[2023-12-24 10:00] VITALS: O2SAT 97
--- NOTE | 2023-12-24 14:23 | PCM.DC ---
Discharge Instructions Diet Discharge Diet: - (Low salt) Activity Discharge Activity: Use Walker Weight Bearing Status: Full weight bearing Keep extremity elevated above heart level: Legs Dressing / Incision Call your doctor if you observe: Fever of 101 or Higher, Shortness of breath, Dizziness, Fainting spells, Chest pain, Increased palpitations (irregular heartbeat) and Calf discomfort Follow Up Care Please Follow Up With: John Rachel MD When: within 7-10 days of DC from the hospital. You also need to follow up with the kidney doctor, Dr. Rivera. Test Results: Test results from this visit will be discussed in further detail at your follow-up appointment, if applicable. Pending Tests Upon Discharge: none Discharge Plan Admission Admit Date/Time: 12/17/23 16:50 Primary Reason for Your Visit: Debility due to severe anemia and acute respiratory failure/intubation Attending Provider: Yordan Barksdale Chi Primary Care Provider: John Rachel Instructions Patient Instructions: Anemia, Iron Supplements, ED Anemia, Iron-Deficiency (Adult), ED Low-Salt Diet Additional Instructions / Restrictions: Discharge home with [facility] PT/OT/SN Discharge Orders/Prescriptions Prescriptions: New polysaccharide iron complex [Ferrex 150] 150 mg iron Capsule See Rx Instructions .ROUTE .COMPLEX Qty: 30 0RF Rx Instructions: 150 mg orally every other day with a meal and a Vitamin C furosemide 80 mg Tablet 80 mg PO DAILY Qty: 30 0RF potassium chloride 10 mEq Tablet,Er Particles/Crystals 10 meq PO DAILY Qty: 30 0RF Continued PreserVision AREDS 14,320-226-200 drkj-mn-czuw capsule 1 cap PO BID mecobalamin (vitamin B12) 1,000 mcg tablet,chewable 1,000 mcg PO DAILY metoprolol succinate 50 mg tablet extended release 24 hr 50 mg PO .COMPLEX Qty: 90 3RF Rx Instructions: 50 mg orally at bedtime; clopidogrel 75 mg tablet 75 mg PO DAILY Qty: 90 3RF pravastatin 20 mg tablet 20 mg PO DAILY Qty: 90 3RF Discontinued torsemide 20 mg tablet 40 mg PO DAILY Qty: 180 3RF aspirin 81 mg tablet,chewable 1 tab PO DAILY pantoprazole 40 mg tablet,delayed release (DR/EC) 40 mg PO DAILY Rx Instructions: take daily at 6am potassium chloride 20 mEq tablet extended release 20 meq PO DAILY Other Ambulatory Orders: Basic Metabolic Profile (BMP) (Routine) Timeframe: 1 Week Facility: [facility] - Location: Laboratory Ordered By: Dr. Socorro Gaming CBC-Complete Blood Cnt No Diff (Routine) Timeframe: 1 Week Facility: [facility] - Location: Laboratory Ordered By: Dr. Socorro Gaming Phosphorus (Routine) Timeframe: 1 Week Facility: [facility] - Location: Laboratory Ordered By: Dr. Socorro Gaming Referrals / Follow Up: John Rachel MD [Primary Care Provider] - 01/02/24 2:45 pm Disposition Disposition (needs filled in before D/C Order can be placed): Home Health Service
[2023-12-24] MEDS: Sodium Ferric Gluconat/Sucrose 125 MG in 0.9% Normal Saline (100mL Bag) 100 ML 110 MG IV ×2 (15:39→18:07)
[2023-12-24] MEDS: 0.9% Saline Lock 10 ML Syringe IV ×2 (15:48→18:07)
[2023-12-24 15:59] VITALS: BP 139/59; PULSE 83; RESP 16; TEMP 36.9; O2SAT 99
--- NOTE | 2023-12-24 16:49 | DS.PCM_ITS ---
Providers Date of Admission: 12/17/23 Date of Discharge: 12/25/23 Primary Care Physician: Dr. John Rachel MD Reason For Visit: GI BLEED Diagnosis Discharge Diagnosis (1) Debility: Status: Acute Code(s): R53.81 - Other malaise (2) Acute GI bleeding: Status: Resolved Code(s): K92.2 - Gastrointestinal hemorrhage, unspecified Plan: EGD with no source of bleeding. Colonoscopy with hemorrhoids and diverticulosis with no active bleeding. Hemoccult stool on 12/18/2023 was negative. No need for Protonix since the EGD showed no source of bleeding. Discontinued prior to DC. (3) Acute respiratory failure with hypoxia: Status: Resolved Code(s): J96.01 - Acute respiratory failure with hypoxia (4) Septic shock: Status: Resolved Code(s): A41.9 - Sepsis, unspecified organism; R65.21 - Severe sepsis with septic shock (5) Pneumonia: Status: Resolved Code(s): J18.9 - Pneumonia, unspecified organism Qualifiers: Laterality: unspecified laterality Lung location: unspecified part of lung Pneumonia type: due to unspecified organism Qualified Code(s): J18.9 - Pneumonia, unspecified organism (6) Urinary tract infection: Status: Resolved Code(s): N39.0 - Urinary tract infection, site not specified Qualifiers: Hematuria presence: without hematuria Urinary tract infection type: s ite unspecified Qualified Code(s): N39.0 - Urinary tract infection, site not specified (7) TIA (transient ischemic attack): Status: Resolved Code(s): G45.9 - Transient cerebral ischemic attack, unspecified (8) Hyperlipidemia: Status: Chronic Code(s): E78.5 - Hyperlipidemia, unspecified Qualifiers: Hyperlipidemia type: unspecified Qualified Code(s): E78.5 - Hyperlipidemia, unspecified (9) Hypokalemia: Status: Acute Code(s): E87.6 - Hypokalemia Plan: Started on potassium 10 MEQ daily. [facility] to draw lab in 1 week for BMP and a phos (10) HFrEF (heart failure with reduced ejection fraction): Status: Acute Code(s): I50.20 - Unspecified systolic (congestive) heart failure (11) Hyperphosphatemia: Status: Acute Code(s): E83.39 - Other disorders of phosphorus metabolism Plan: Recheck in 1 week since renal function is back to baseline. (12) Iron deficiency anemia: Status: Chronic Code(s): D50.9 - Iron deficiency anemia, unspecified Qualifiers: Iron deficiency anemia type: chronic blood loss Qualified Code(s): D 50.0 - Iron deficiency anemia secondary to blood loss (chronic) Plan: % iron saturation only 5% which is severely depleted. Received 400 mg of IV iron sucrose prior to DC from TCU. Being discharged on an iron supplement QOD with Vitamin C. (13) CKD (chronic kidney disease), stage IV: Status: Chronic Code(s): N18.4 - Chronic kidney disease, stage 4 (severe) Plan: Will follow up with Dr. Rivera. (14) Cardiomyopathy: Status: Chronic Code(s): I42.9 - Cardiomyopathy, unspecified Qualifiers: Cardiomyopathy type: unspecified Qualified Code(s): I42.9 - Cardiomyopathy, unspecified Plan: Echocardiogram done at [facility] on 11/21/2023 showed a small left ventricle with no left ventricular hypertrophy. The left ventricular ejection fraction was estimated at 52%. Right ventricle was normal. The left atrium was severely dilated and the right atrium was moderately/severely dilated. She has 2+ to 3+ mitral valve regurgitation and severe, 3+ to 4+, tricuspid valve regurgitation. Right ventricular systolic pressure is elevated at 48 which is consistent with mild to moderate pulmonary hypertension. (15) NAHUM (acute kidney injury): Status: Resolved Code(s): N17.9 - Acute kidney failure, unspecified (16) Pulmonary hypertension: Status: Chronic Code(s): I27.20 - Pulmonary hypertension, unspecified Plan: PA systolic is estimated at 48 which is consistent with mild to moderate pulmonary hypertension. She has 3+ TR to 4+ TR. (17) Anemia of chronic renal failure, stage 4 (severe): Status: Chronic Code(s): N18.4 - Chronic kidney disease, stage 4 (severe); D63.1 - Anemia in chronic kidney disease Plan 1. Discharge home on 12/25/2023 with [facility] home health care. 2. Have home health care draw labs in 1 week for CBC, BMP and phosphorus levels 3. Will follow-up with Dr. Rachel and Dr. Rivera post discharge Medications at Discharge Home Medications vitamins A,C,M-tkfy-xttyed 4,296 mcg-226 mg-90 mg capsule (PreserVision AREDS) 1 cap PO BID eye health 03/12/20 mecobalamin (vitamin B12) 1,000 mcg chewable tablet 1,000 mcg PO DAILY supplement 03/15/23 clopidogrel 75 mg tablet 75 mg PO DAILY blood thinner #90 tabs 05/06/23 pravastatin 20 mg tablet 20 mg PO DAILY cholesterol #90 tabs 05/06/23 metoprolol succinate 50 mg tablet,extended release 24 hr 50 mg PO .COMPLEX heart #90 tabs 12/07/23 furosemide 80 mg tablet 80 mg PO DAILY #30 tabs 12/24/23 polysaccharide iron complex 150 mg iron capsule (Ferrex) See Rx Instructions .Route .COMPLEX #30 caps 12/24/23 potassium chloride 10 mEq tablet,extended release(part/cryst) 10 meq PO DAILY #30 tabs 12/24/23 Hospital Course Operations None Procedures None Summary of Care Provided Minutes Spent on Discharge: 35 Hospital Course: Carole Lao is an 88-year-old female with a past medical history of chronic renal failure stage IV, cardiomyopathy, permanent pacemaker insertion (11/23/2023), hypertension, atrial fibrillation, TIA, dyslipidemia, severe tricuspid valve insufficiency and pulmonary hypertension who presented to the emergency department at [facility] on 12/11/2023 complaining of weakness. Hemoglobin was 4.1. Transfusion was ordered and she was transferred to [facility]. At [facility] she received 3 units of packed red blood cells and her hemoglobin came up to 10.6. She was diagnosed with pneumonia and treated with doxycycline and ceftriaxone. She was briefly intubated(intubated on 12/11/2023 and extubated on 12/12/2023). GI was consulted and EGD revealed no evidence of upper GI bleed. CT scan of the abdomen and pelvis showed no evidence of a retroperitoneal bleed. Colonoscopy showed internal/external hemorrhoids, diverticulosis, tortuous colon and no evidence of old or acute bleeding. She was transferred to the transitional care unit at [facility] on 12/17/2023 for strengthening prior to returning home. A Hemoccult stool on 12/18/2023 was negative. On 12/18/2023 her hemoglobin was 7.2 and she received 2 units of packed red blood cells. Hemoglobin is stable at 9.6 at the time of discharge. Iron studies were obtained on 12/18/2023 and the serum iron was very low at 17 with a percent saturation of 5%. She was started on an oral iron supplement. She has chronic stage IV renal failure and has seen Dr. Rivera in the past. She cliff Lam had been on Protonix 40 mg BID but, there was no evidence of UGI bleed on EGD at [facility] and I discontinued the PPI as it impairs iron absorption from the GIT. She c.o constipation with the PO iron daily. Prior to DC she was given 400 mg of IV iron sucrose. She was discharged on an iron supplement Q 48 hours and she will take the iron with a vitamin C. She was given a handout listing foods high in iron at the time of DC. She will be getting [facility] DC from [facility]. An order for HHC to draw a BMP and a CBC in 1 week was given. She will follow up with Dr. Rachel and also with Dr. Rivera. She was instructed to limit her salt intake and I advised she elevate her legs whenever she is sitting down. She refused compression stockings. Physical Exam Const alert and no apparent distress General Appearance: cooperative Orientation / Consciousness: Negative for confused HEENT Mouth: dry mucous membranes Neck supple and No nodes Resp normal respiratory effort Resp Narrative: Breath sounds in the right base are very diminished. She has some coarse crackles in the left base. No wheezing and no conversational dyspnea. Effort and Inspection: Negative for tachypneic, respiratory distress or uses accessory muscles Cardio regular rate, regular rhythm and no rub Cardio Narrative: She has a 3/6 systolic murmur at the lower left sternal border and the left axilla. No diastolic murmurs. GI normal to inspection, nondistended, normoactive bowel sounds, soft to palpation and non-tender GI Narrative: No guarding with palpation Extremity no calf tenderness Extremity Narrative: She has pitting edema of the ankles and distal lower extremities. No compression stockings. Legs are dependent. General Extremity: edema Skin General Skin Exam: no breakdown Rashes: no rashes Wounds: Negative for wounds noted Neuro CN's II-XII intact bilaterally and no focal motor deficits Psych affect normal Appearance: appropriate Attitude: No agitated Activity / Motor Behavior: Negative for restless Weight / BMI Weight Weight: 130 lb Body Mass Index (BMI) 26.2 ABG / Lab / Microbiology Data 12/23/23 07:28 12/25/23 04:17 Microbiology: Microbiology 12/18/23 11:06 Stool Stool Occult Blood (MIRZA) - Final D/C Instructions Discharge Diet: - (Low salt) Weight Bearing Status: Full weight bearing Keep extremity elevated above heart level: Legs Call your doctor if you observe: Fever of 101 or Higher, Shortness of breath, Dizziness, Fainting spells, Chest pain, Increased palpitations (irregular heartbeat) and Calf discomfort Pending Tests Upon Discharge: none Please Follow Up With: John Rachel MD When: within 7-10 days of DC from the hospital. You also need to follow up with the kidney doctor, Dr. Rivera. Meaningful Use Info Meaningful Use Meaningful Use Diagnoses (Choose all that apply): CHF CHF LYRIC/ARB ordered at discharge?: No Reason LYRIC/ARB not ordered?: Worsening renal disease Documented LVEF (%): 52 Ischemic Stroke Statin Dosing Therapy Reference: STATIN DOSE THERAPY REFERENCE: * Patients > 75 years receive moderate or high dose statin therapy. * Patients 75 years or YOUNGER should receive HIGH intensity statin dose unless contraindicated. You will be required to document reason for non-treatment if statin daily dose does not meet guidelines. HIGH DOSE STATIN THERAPY DAILY Atorvastatin > than or = to 40 mg Rosuvastatin > than or = to 20 mg Amlodipine + Atorvastatin > than or = to 2.5/40 mg Ezetimibe + Simvastatin 10/80 mg Simvastatin 80mg Discharge Plan Admission Admit Date/Time: 12/17/23 16:50 Primary Reason for Your Visit: Debility due to severe anemia and acute respiratory failure/intubation Attending Provider: Yordan Barksdale Chi Primary Care Provider: John Rachel Instructions Patient Instructions: Anemia, Iron Supplements, ED Anemia, Iron-Deficiency (Adult), ED Low-Salt Diet Additional Instructions / Restrictions: Discharge home with [facility] PT/OT/SN Discharge Orders/Prescriptions Prescriptions: New polysaccharide iron complex [Ferrex 150] 150 mg iron Capsule See Rx Instructions .ROUTE .COMPLEX Qty: 30 0RF Rx Instructions: 150 mg orally every other day with a meal and a Vitamin C furosemide 80 mg Tablet 80 mg PO DAILY Qty: 30 0RF potassium chloride 10 mEq Tablet,Er Particles/Crystals 10 meq PO DAILY Qty: 30 0RF Continued PreserVision AREDS 14,320-226-200 plzw-al-purx capsule 1 cap PO BID mecobalamin (vitamin B12) 1,000 mcg tablet,chewable 1,000 mcg PO DAILY metoprolol succinate 50 mg tablet extended release 24 hr 50 mg PO .COMPLEX Qty: 90 3RF Rx Instructions: 50 mg orally at bedtime; clopidogrel 75 mg tablet 75 mg PO DAILY Qty: 90 3RF pravastatin 20 mg tablet 20 mg PO DAILY Qty: 90 3RF Discontinued torsemide 20 mg tablet 40 mg PO DAILY Qty: 180 3RF aspirin 81 mg tablet,chewable 1 tab PO DAILY pantoprazole 40 mg tablet,delayed release (DR/EC) 40 mg PO DAILY Rx Instructions: take daily at 6am potassium chloride 20 mEq tablet extended release 20 meq PO DAILY Other Ambulatory Orders: Basic Metabolic Profile (BMP) (Routine) Timeframe: 1 Week Facility: [facility] - Location: Laboratory Ordered By: Dr. Socorro Gaming CBC-Complete Blood Cnt No Diff (Routine) Timeframe: 1 Week Facility: [facility] - Location: Laboratory Ordered By: Dr. Socorro Gaming Phosphorus (Routine) Timeframe: 1 Week Facility: [facility] - Location: Laboratory Ordered By: Dr. Socorro Gaming Referrals / Follow Up: John Rachel MD [Primary Care Provider] - 01/02/24 2:45 pm Disposition Disposition (needs filled in before D/C Order can be placed): Home Health Service Charges/Coding Visit Charges Inpatient E&M: 99175 SNF Disch >30 Min
[2023-12-24] MEDS: 0.9% Normal Saline (250mL Bag) 250 ML 15 ML IV (16:51)
[2023-12-24 21:02] VITALS: BP 147/59; PULSE 80
[2023-12-24] MEDS: Metoprolol(XL)Succ 50 MG Tablet PO (21:02)
[2023-12-24] MEDS: Pravastatin 20 MG Tablet PO (21:02)
[2023-12-25 05:19] LABS: Anion Gap 9 (5-15); BUN 31 mg/dL (7-18); BUN/Creat Ratio 14.7 RATIO (10-20); Calcium,Total 8.1 mg/dL (8.5-10.1); Chloride 106 mmol/L (98-107); Creatinine, Serum 2.11 mg/dL (0.55-1.02); EST Glomerular Filtration Rate 24 mL/min (>60); Est Glom Filt Rate - Afr Amer 28 mL/min (>60); Estimated Creatinine Clearance 14.81 ml/min; Glucose 92 mg/dL (74-106); Potassium 3.7 mmol/L (3.5-5.1); Sodium Level 139 mmol/L (136-145)
[2023-12-25] MEDS: Pantoprazole Sodium 40 MG Tablet PO (06:11)
[2023-12-25] MEDS: 0.9% Normal Saline (250mL Bag) 250 ML 15 ML IV (07:06)
[2023-12-25] MEDS: 0.9% Saline Lock 10 ML Syringe IV (07:06)
[2023-12-25] MEDS: Sodium Ferric Gluconat/Sucrose 250 MG in 0.9% Normal Saline (250mL Bag) 250 ML 135 MG IV (07:06)
[2023-12-25] MEDS: Cyanocobalamin 500 MCG Tablet 1000 MCG PO (08:35)
[2023-12-25] MEDS: Furosemide 80 MG Tablet PO (08:35)
[2023-12-25] MEDS: Iron Polysaccharide Complex 150 MG CAPSULE PO (08:36)
[2023-12-25] MEDS: Potassium Chloride Oral Tablet 10 MEQ PO (08:36)
[2023-12-25] MEDS: Multivitamin (Healthy Eyes) Capsule 1 CAP PO (08:36)
[2023-12-25] MEDS: Ascorbic Acid 500 MG Tablet PO (08:36)
[2023-12-25 10:52] VITALS: BP 146/67; PULSE 82; RESP 16; TEMP 36.7; O2SAT 99
--- NOTE | 2023-12-29 14:20 | MDS.RN ---
Information for the MDS was obtained from review of the clinical record, interview of resident, staff, and direct observation of resident?s care.
== END 2023-12-25 11:23 | disposition home health service (06) | DRG 178 ==
PROVIDERS: Internal Medicine; Admitting Provider Family Medicine Geriatric Medicine; PCP Family Medicine; Visit Provider Family Medicine Geriatric Medicine
DX: J69.0 Pneumonitis due to inhalation of food and vomit (principal); I42.9 Cardiomyopathy, unspecified; I13.0 Hypertensive heart and chronic kidney disease with heart failure and stage 1 through stage 4 chronic kidney disease, or unspecified chronic kidney disease; I50.22 Chronic systolic (congestive) heart failure; N18.4 Chronic kidney disease, stage 4 (severe); I48.11 Longstanding persistent atrial fibrillation; K92.2 Gastrointestinal hemorrhage, unspecified; N39.0 Urinary tract infection, site not specified; I27.20 Pulmonary hypertension, unspecified; D63.1 Anemia in chronic kidney disease; D50.0 Iron deficiency anemia secondary to blood loss (chronic); E87.6 Hypokalemia; E78.5 Hyperlipidemia, unspecified; H35.30 Unspecified macular degeneration; K21.9 Gastro-esophageal reflux disease without esophagitis; E53.8 Deficiency of other specified B group vitamins; K64.4 Residual hemorrhoidal skin tags; K64.8 Other hemorrhoids; K57.90 Diverticulosis of intestine, part unspecified, without perforation or abscess without bleeding; Z79.02 Long term (current) use of antithrombotics/antiplatelets; Z79.82 Long term (current) use of aspirin; Z95.0 Presence of cardiac pacemaker; Z79.899 Other long term (current) drug therapy
CPT/HCPCS: 36415; 36430; 80048; 82274; 82607; 82668; 83540; 83550; 85014; 85018; 85025; 86850; 86900; 86901; 86920; 86922; 97110; 97116; 97162; 97165; 97530; 97535; 97802; J7050; A4216; J1940; J2916

== ENCOUNTER 2023-12-18 12:22 | Outpatient (CLI) | payer MEDICARE, SELFPAY ==
[2023-12-18] VITALS (7 sets, daily range): BP systolic 119–136; BP diastolic 46–70; PULSE 69–80; RESP 18; TEMP 36.6–36.8; O2SAT 93–99
== END 2023-12-18 18:20 | disposition home or self-care (01) ==
LOC: PCUOUT 12:23 → PCU 12:23
PROVIDERS: PCP Family Medicine; Visit Provider Family Medicine Geriatric Medicine
DX: D50.9 Iron deficiency anemia, unspecified (principal)
CPT/HCPCS: 86850; 86900; 86901; 86920; 86922; J7040; P9016

== ENCOUNTER → 2024-01-03 | Outpatient (CLI) | payer MEDICARE, SELFPAY ==
[2024-01-03 13:45] LABS: Hematocrit 35.7 % (37-47); Hemoglobin 10.8 g/dL (12.0-15.0); Mean Corp Hgb Conc 30.3 g/dL (32-36); Mean Corpuscular Hgb 28.5 pg (27.0-32.0); Mean Corpuscular Volume 94.2 fL (81-99); Mean Platelet Vol. 9.2 fl (6.2-12.0); Platelet Count 315 K/mm3 (150-450); RBC Distribution Width SD 55.5 fl (35.1-43.9); Red Blood Count 3.79 M/mm3 (4.2-5.4); White Blood Count 6.7 K/mm3 (4.4-11.0)
[2024-01-03 14:16] LABS: Anion Gap 8 (5-15); BUN 34 mg/dL (7-18); BUN/Creat Ratio 13.9 RATIO (10-20); Calcium,Total 8.6 mg/dL (8.5-10.1); Chloride 101 mmol/L (98-107); Creatinine, Serum 2.45 mg/dL (0.55-1.02); EST Glomerular Filtration Rate 20 mL/min (>60); Est Glom Filt Rate - Afr Amer 24 mL/min (>60); Glucose 86 mg/dL (74-106); Phosphorus 3.4 mg/dL (2.5-4.9); Potassium 3.5 mmol/L (3.5-5.1); Sodium Level 138 mmol/L (136-145)
== END | disposition home or self-care (01) ==
LOC: LAB 12:55 → LABSPEC 12:56
PROVIDERS: PCP Family Medicine; Referring Provider Internal Medicine; Visit Provider Internal Medicine
DX: N18.4 Chronic kidney disease, stage 4 (severe) (principal); E87.6 Hypokalemia; D50.9 Iron deficiency anemia, unspecified; Z87.19 Personal history of other diseases of the digestive system
CPT/HCPCS: 80048; 84100; 85027

== ENCOUNTER 2024-01-23 11:07 | Inpatient (IN) | payer MEDICARE, SELFPAY ==
[2024-01-23] VITALS (12 sets, daily range): BP systolic 132–167; BP diastolic 54–116; PULSE 64–88; RESP 14–24; TEMP 36.2–37; O2SAT 94–100; BMI 24.5; BMI 25.1
--- NOTE | 2024-01-23 11:27 | EKG12_ITS ---
Test Reason : FLL Blood Pressure : / mmHG Vent. Rate : 081 BPM Atrial Rate : 081 BPM P-R Int : 252 ms QRS Dur : 128 ms QT Int : 444 ms P-R-T Axes : 000 044 129 degrees QTc Int : 515 ms Abnormal ECG SR WITH 1ST DEGREE AVBLOCK Confirmed by Nitin Gomez ([id number]), visual effects editor ANGELICA ROLAND ([id number]) on 01/24/2024 8:06:36 AM Referred By: Confirmed By:Nitin Gomez
--- NOTE | 2024-01-23 11:28 | EDS_ITS ---
HPI History of Present Illness Chief Complaint: Abn Labs Informant: patient Narrative Narrative: 88-year-old female states she had anemia and because of concern for upper GI bleed with anemia and positive hemoccult and GI not being available here the last time she was here, she was transferred to [facility], she states she had scopes that were negative, transfused with blood, she followed up for routine labs including cholesterol check today and incidentally her hemoglobin is very low again, 5.4 she was referred here to the ER. She states other than feeling weak and tired she has no other acute symptoms. She does note that she was put on iron when she was discharged from [facility], and her stool is currently black. 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 Presence of cardiac pacemaker Non-smoker Hypertension Atrial fibrillation TIA (transient ischemic attack) Shortness of breath Bilateral edema of lower extremity Chronic kidney disease SMITH (dyspnea on exertion) Swelling of right lower extremity Dyslipidemia Longstanding persistent atrial fibrillation Chronic systolic (congestive) heart failure Essential hypertension Premature ventricular contraction History of GI bleed TIA (transient ischemic attack) Nonrheumatic mitral valve regurgitation Hypertension Hyperlipidemia Other specified transient cerebral ischemias Nonrheumatic tricuspid (valve) insufficiency Home Medications ?Medication ?Instructions ?Recorded ?Last Taken ?Type vitamins A,C,U-dgax-bhrebr 4,296 1 cap PO BID eye health 03/12/20 01/22/24 History mcg-226 mg-90 mg capsule (PreserVision AREDS) mecobalamin (vitamin B12) 1,000 1,000 mcg PO DAILY supplement 03/15/23 01/22/24 History mcg chewable tablet clopidogrel 75 mg tablet 75 mg PO DAILY blood thinner #90 05/06/23 01/22/24 Rx tabs pravastatin 20 mg tablet 20 mg PO DAILY cholesterol #90 tabs 05/06/23 01/22/24 Rx metoprolol succinate 50 mg 50 mg PO .COMPLEX heart #90 tabs 12/07/23 01/22/24 Rx tablet,extended release 24 hr furosemide 80 mg tablet 80 mg PO DAILY #30 tabs 12/24/23 01/22/24 Rx polysaccharide iron complex 150 mg See Rx Instructions .Route 12/24/23 01/22/24 Rx iron capsule (Ferrex) .COMPLEX #30 caps potassium chloride 10 mEq 10 meq PO DAILY #30 tabs 12/24/23 01/22/24 Rx tablet,extended release(part/cryst) ascorbic acid (vitamin C) 500 mg 500 mg PO QODAY 01/23/24 01/22/24 History chewable tablet (Acerola C) Allergy/AdvReac Type Severity Reaction Status Date / Time amiodarone AdvReac Severe Severs Verified 01/23/24 11:28 muscle weakness, hair loss amlodipine AdvReac Severe Swelling Verified 01/23/24 11:28 flecainide AdvReac Severe Near Verified 01/23/24 11:28 Syncope, Severe Nausea losartan AdvReac myalgia Verified 01/23/24 11:28 Family History Father COPD (chronic obstructive pulmonary disease) CHF (congestive heart failure) Mother Hypertension CVA (cerebral vascular accident) Brother Hypertension Surgical History Hx of atrioventricular node ablation History of total hysterectomy History of cholecystectomy Social History household members: spouse Smoking Status: Never smoker alcohol intake: never substance use type: does not use caffeine: Yes Type: coffee Number of servings: 1 ROS ROS ED Constitutional Constitutional ED: Reports fatigue and weakness; Denies chills or fever(s) Eyes Eyes: Denies change in vision or diplopia ENT ENT ED: Denies rhinorrhea or sore throat Cardiovascular Cardiovascular: Denies chest pain, palpitations or syncope Respiratory/Chest Respiratory/Chest: Denies cough or dyspnea Gastrointestinal Gastrointestinal: Reports as per HPI and melena; Denies abdominal pain, diarrhea, nausea or vomiting Genitourinary Genitourinary ED: Denies dysuria or hematuria Musculoskeletal Musculoskeletal: Denies back pain or neck pain Integumentary Denies abscess or rash Neurologic Neurologic: Denies headache(s), paresthesias or weakness Psychiatric Psychiatric: Denies suicidal thoughts EXAM Physical Exam Const Vital Signs: 01/23/24 11:07 01/23/24 11:07 01/23/24 11:30 Temperature 97.4 F L Temperature Source Temporal Pulse Rate 87 79 Respiratory Rate 14 14 Respiratory Effort Short of Breath Respiratory Pattern Normal Blood Pressure 152/116 H 161/110 H Blood Pressure Mean 128 127 Blood Pressure Source Blood Pressure Position Blood Pressure Location Pulse Ox 97 98 Oxygen Delivery Method Room Air Room Air 01/23/24 13:07 01/23/24 13:22 01/23/24 13:37 Temperature 97.8 F 98.6 F Temperature Source Temporal Temporal Pulse Rate 71 80 80 Respiratory Rate 18 22 H 22 H Respiratory Effort Respiratory Pattern Blood Pressure 132/78 H 139/54 H 136/57 H Blood Pressure Mean 96 82 83 Blood Pressure Source Monitor Monitor Blood Pressure Position Semi-Fowlers Semi-Fowlers Blood Pressure Location Right Arm Right Arm Pulse Ox 94 97 98 Oxygen Delivery Method Room Air Room Air Room Air 01/23/24 14:37 Temperature 98.2 F Temperature Source Oral Pulse Rate 80 Respiratory Rate 23 H Respiratory Effort Respiratory Pattern Blood Pressure 148/55 H Blood Pressure Mean 86 Blood Pressure Source Monitor Blood Pressure Position Semi-Fowlers Blood Pressure Location Right Arm Pulse Ox 100 Oxygen Delivery Method Room Air Positive well nourished and well developed General Appearance ED: well developed and NAD HEENT Reports moist mucous membranes normocephalic and atraumatic Eyes PERRL and EOMs intact bilaterally Neck full ROM and supple Resp normal respiratory effort and clear to auscultation bilaterally Cardio regular rate, regular rhythm and no murmurs GI non-tender and non-distended Auscultation: normoactive bowel sounds Palpation: soft Back/Spine no CVA tenderness General Back: other FROM Extremity normal to inspection General Extremety ED: Negative for edema, pulses abnormal or tenderness General Extremity: Negative for edema or pulses abnormal Neuro oriented x3, CN's II-XII intact bilaterally and no sensory deficits noted Sensorium / Orientation: awake and alert Motor Exam: strength 5/5 throughout Skin no rashes or lesions noted and no wounds MDM MDM MDM Narrative Medical decision making narrative: Hemoccult performed and is positive. Her hemoglobin is 5.6. Hemodynamics are stable and clinically the patient looks well and is conversive while sitting up. Creatinine chronically elevated, similar to baseline but with a further elevated BUN, consistent with an acute upper GI bleed. Patient is on clopidogrel no anticoagulants. She is not actively bleeding. Pantoprazole started discussed with Dr. Espinoza with GI who agrees with admission we will try to get some records from [facility] about her recent scopes. Patient was amenable to starting blood, we did begin a blood transfusion, she consented given pros and cons. She does not want a go back to [facility] prefers to stay here. Discussed with hospitalist. History & Record Review Additional record(s) reviewed:: Prior ED visit Lab Data Attestation: I reviewed the patient's lab results. Labs: Laboratory Results - last 24 hr 01/23/24 01/23/24 11:34 11:53 WBC 5.5 RBC 1.81 L Hgb 5.6 L* Hct 19.0 L MCV 105.0 H MCH 30.9 MCHC 29.5 L RDW Std Deviation 87.3 H RDW Coeff of Michael 23.5 H Plt Count 212 MPV 9.5 Immature Gran % (Auto) 0.600 Neut % (Auto) 73.5 H Lymph % (Auto) 15.2 L [place] % (Auto) 7.2 Eos % (Auto) 3.1 Baso % (Auto) 0.4 Absolute Neuts (auto) 4.0 Absolute Lymphs (auto) 0.83 Nucleated RBC % 0 Differential Comment COMMENT Diff Path Review May foll Anisocytosis 1+ Sodium 139 Potassium 3.6 Chloride 105 Carbon Dioxide 26.0 Anion Gap 8 BUN 55 H Creatinine 2.36 H Estim Creat Clear Calc 12.82 Est GFR (MDRD) Af Amer 25 L Est GFR (MDRD) Non-Af 21 L BUN/Creatinine Ratio 23.3 H Glucose 101 Calcium 8.3 L Troponin I High Sens 16 Blood Type A POSITIVE Antibody Screen NEGATIVE Crossmatch See Detail Rhythm Strip Rhythm Strip: Paced with underlying A-fib likely Rate: 80 Ectopy: None EKG Initial EKG: Attestation: I personally reviewed and interpreted this EKG as follows: Interpretation: No Acute Injury Pattern and Paced Management Discussion w/another healthcare provider: Hospitalist and [employer] (PRAMOD Espinoza) Critical Care Time Critical Care Time: Yes Critical care time (excluding procedures): 30-74 minutes (33 min), Including ariadna e spent:, Discussing w/Patient &/or Family/Sample Dye Mixer, Discussing w/Consultants, Arranging Admission or Transfer and Performing Direct Patient Care at Bedside Discharge Plan Triage Chief Complaint: Abn Labs ED Provider: Harjit Mixon Dx/Rx/DC Orders Clinical Impression: ABLA (acute blood loss anemia), UGIB (upper gastrointestinal bleed), Chronic renal failure Prescriptions: No Action PreserVision AREDS [id number] capsule 1 cap PO BID mecobalamin (vitamin B12) 1,000 mcg tablet,chewable 1,000 mcg PO DAILY metoprolol succinate 50 mg tablet extended release 24 hr 50 mg PO .COMPLEX Qty: 90 3RF Rx Instructions: 50 mg orally at bedtime; polysaccharide iron complex [Ferrex 150] 150 mg iron Capsule See Rx Instructions .ROUTE .COMPLEX Qty: 30 0RF Rx Instructions: 150 mg orally every other day with a meal and a Vitamin C furosemide 80 mg Tablet 80 mg PO DAILY Qty: 30 0RF potassium chloride 10 mEq Tablet,Er Particles/Crystals 10 meq PO DAILY Qty: 30 0RF ascorbic acid (vitamin C) [Acerola C] 500 mg tablet,chewable 500 mg PO QODAY clopidogrel 75 mg tablet 75 mg PO DAILY Qty: 90 3RF pravastatin 20 mg tablet 20 mg PO DAILY Qty: 90 3RF Primary Care Provider: John Rachel Referrals: John Rachel MD [Primary Care Provider] - Print Language: Slovenian Disposition Disposition: Acute Care Hospital [facility]
[2024-01-23 12:07] LABS: Absolute Lymphocyte Count 0.83 X10^3/uL (0.83-4.51); Basophil# 0.02 X10^3/uL; Basophil% 0.4 % (0-1); Eosinophil# 0.17 X10^3/uL; Eosinophils% 3.1 % (0-5); Hemoglobin 5.6 g/dL (12.0-15.0); Lymphocyte # 0.83 X10^3/ul (0.83-4.51); Lymphocyte % 15.2 % (19-41); Mean Corp Hgb Conc 29.5 g/dL (32-36); Mean Corpuscular Hgb 30.9 pg (27.0-32.0); Mean Platelet Vol. 9.5 fl (6.2-12.0); Monocyte# 0.39 X10^3/uL; Monocyte% 7.2 % (0-10); NRBC Flagged by Analyzer 0 % (0-5); Neutrophil # 4.01 X10^3/uL (2.7-7.7); Neutrophil % 73.5 % (47-70); POSITIVE COUNT YES; POSITIVE MORPHOLOGY YES; Platelet Count 212 K/mm3 (150-450); RBC Distribution Width CV 23.5 % (11.6-14.6); RBC Distribution Width SD 87.3 fl (35.1-43.9); Red Blood Count 1.81 M/mm3 (4.2-5.4); White Blood Count 5.5 K/mm3 (4.4-11.0)
[2024-01-23 12:21] LABS: Anion Gap 8 (5-15); BUN 55 mg/dL (7-18); BUN/Creat Ratio 23.3 RATIO (10-20); Calcium,Total 8.3 mg/dL (8.5-10.1); Chloride 105 mmol/L (98-107); Creatinine, Serum 2.36 mg/dL (0.55-1.02); EST Glomerular Filtration Rate 21 mL/min (>60); Est Glom Filt Rate - Afr Amer 25 mL/min (>60); Estimated Creatinine Clearance 12.82 ml/min; Glucose 101 mg/dL (74-106); Potassium 3.6 mmol/L (3.5-5.1); Sodium Level 139 mmol/L (136-145); Troponin-I HS 16 pg/mL (3.0-54.0)
[2024-01-23 13:08] LABS: Anisocytosis 1+
[2024-01-23] MEDS: Pantoprazole Sodium 40 MG in 0.9% Normal Saline (50mL Bag) 15 ML 420 MG IV BOLUS (16:19)
[2024-01-23 18:40] LABS: Platelet Count 221 K/mm3 (150-450); RET-HE 31.1 pg (30-35); Reticulocyte Count 14.35 % (0.5-1.5)
[2024-01-23 19:12] LABS: Ferritin 168 ng/mL (8-252); Iron 59 ug/dL (50-170); Iron Binding Capacity,Total 429 ug/dL (250-450); LDH 237 U/L (84-246); PERCENT IRON SATURATION 13.8 % (15.0-55.0)
--- NOTE | 2024-01-23 19:12 | CON.PCM.GI_ITS ---
HPI Consult Data Date of Consult: 01/23/24 HPI Narrative Reason for Consultation: Severe anemia HPI Narrative: RAJEEV ECHEVARRIA, is a 88 F who presents because of concern for upper GI bleed. She was discovered to have anemia with positive hemoccult and at the time she was here previously I was not available for consultation. Therefore she was she was transferred to [facility]. , She states she had upper and lower endoscopies and they were negative. She was transfused with blood and iron. She followed up for routine labs including cholesterol check today and incidentally her hemoglobin is very low again, 5.4 she was referred here to the ER . She states other than feeling weak and tired she has no other acute symptoms. She does note that she was put on iron when she was discharged from [facility], and her stool is currently black. she has a history of persistent atrial fibrillation, hypertension, congestive heart failure, mitral valve regurgitation, tricuspid valve regurgitation. Patient has not been anticoagulated due to a previous history of GI bleed and epi taxis. We have been trying to control her HR but she has been intolerant to multiple rate limiting medications. She was admitted to [facility] on 11/15/2023 with moderate sized right pleural effusion, she did undergo a thoracentesis of this. She also was noted to have atrial fibrillation with RVR. Echocardiogram demonstrated a decrease in her ejection fraction to 30%. Because it was difficult to control her heart rate and she has been intolerant to multiple medications, she was transferred to [facility] for an AV marquita ablation and pacemaker placement. They were also going to evaluate her severe tricuspid insufficiency. She did undergo an AV marquita ablation with pacemaker placement. She was evaluated for tricuspid insufficiency. CT surgery recommended management of her heart failure first. After further discussing with patient she does not wish any additional testing or procedures to be done. Patient was in for a follow-up visit approximately a month ago. From her hospital stay in October. She felt significantly fatigued. We did adjust her medications. 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 Presence of cardiac pacemaker Non-smoker Hypertension Atrial fibrillation TIA (transient ischemic attack) Shortness of breath Bilateral edema of lower extremity Chronic kidney disease SMITH (dyspnea on exertion) Swelling of right lower extremity Dyslipidemia Longstanding persistent atrial fibrillation Chronic systolic (congestive) heart failure Essential hypertension Premature ventricular contraction History of GI bleed TIA (transient ischemic attack) Nonrheumatic mitral valve regurgitation Hypertension Hyperlipidemia Other specified transient cerebral ischemias Nonrheumatic tricuspid (valve) insufficiency Home Medications ?Medication ?Instructions ?Recorded ?Last Taken ?Type vitamins A,C,R-huyf-mjnajm 4,296 1 cap PO BID eye health 03/12/20 01/22/24 History mcg-226 mg-90 mg capsule (PreserVision AREDS) mecobalamin (vitamin B12) 1,000 1,000 mcg PO DAILY supplement 03/15/23 01/22/24 History mcg chewable tablet clopidogrel 75 mg tablet 75 mg PO DAILY blood thinner #90 05/06/23 01/22/24 Rx tabs pravastatin 20 mg tablet 20 mg PO DAILY cholesterol #90 tabs 05/06/23 01/22/24 Rx metoprolol succinate 50 mg 50 mg PO .COMPLEX heart #90 tabs 12/07/23 01/22/24 Rx tablet,extended release 24 hr furosemide 80 mg tablet 80 mg PO DAILY #30 tabs 12/24/23 01/22/24 Rx polysaccharide iron complex 150 mg See Rx Instructions .Route 12/24/23 01/22/24 Rx iron capsule (Ferrex) .COMPLEX #30 caps potassium chloride 10 mEq 10 meq PO DAILY #30 tabs 12/24/23 01/22/24 Rx tablet,extended release(part/cryst) ascorbic acid (vitamin C) 500 mg 500 mg PO QODAY 01/23/24 01/22/24 History chewable tablet (Acerola C) Allergy/AdvReac Type Severity Reaction Status Date / Time amiodarone AdvReac Severe Severs Verified 01/23/24 11:28 muscle weakness, hair loss amlodipine AdvReac Severe Swelling Verified 01/23/24 11:28 flecainide AdvReac Severe Near Verified 01/23/24 11:28 Syncope, Severe Nausea losartan AdvReac myalgia Verified 01/23/24 11:28 Family History Father COPD (chronic obstructive pulmonary disease) CHF (congestive heart failure) Mother Hypertension CVA (cerebral vascular accident) Brother Hypertension Surgical History Hx of atrioventricular node ablation History of total hysterectomy History of cholecystectomy Social History (Updated 01/23/24 @ 18:19 by Khadijah Barnard) household members: spouse current gender identity: female Smoking Status: Never smoker alcohol intake: never substance use type: does not use caffeine: Yes Type: coffee Number of servings: 1 ROS Constitutional Constitutional: Reports fatigue and weakness; Denies chills, fever(s) or weight gain ENT HEENT: Denies headache(s), nasal congestion or nasal discharge Cardiovascular Cardiovascular: Denies chest pain or palpitations Respiratory/Chest Respiratory/Chest: Denies cough, excessive phlegm production or shortness of breath with exertion Gastrointestinal Gastrointestinal: Denies abdominal pain, nausea or vomiting Genitourinary Genitourinary: Denies dysuria Musculoskeletal Musculoskeletal: Denies joint pain or joint swelling Integumentary Integumentary: Denies rash or wounds Neurologic Neurologic: Denies focal weakness, numbness or tingling Psychiatric Psychiatric: Denies anxiety, auditory hallucinations, depression, homicidal ideation or suicidal ideation Physical Exam Const alert and no apparent distress General Appearance: cooperative Orientation / Consciousness: Negative for confused HEENT Mouth: dry mucous membranes Neck supple and No nodes Resp normal respiratory effort Resp Narrative: Breath sounds in the right base are very diminished. She has some coarse crackles in the left base. No wheezing and no conversational dyspnea. Effort and Inspection: Negative for tachypneic, respiratory distress or uses accessory muscles Cardio regular rate, regular rhythm and no rub Cardio Narrative: She has a 3/6 systolic murmur at the lower left sternal border and the left axilla. No diastolic murmurs. GI normal to inspection, nondistended, normoactive bowel sounds, soft to palpation and non-tender GI Narrative: No guarding with palpation Extremity no calf tenderness Extremity Narrative: She has pitting edema of the ankles and distal lower extremities. No compression stockings. Legs are dependent. General Extremity: edema Skin General Skin Exam: no breakdown Rashes: no rashes Wounds: Negative for wounds noted Neuro CN's II-XII intact bilaterally and no focal motor deficits Psych affect normal Appearance: appropriate Attitude: No agitated Activity / Motor Behavior: Negative for restless Lab / Micro Data 01/23/24 11:53 01/23/24 11:53 Labs: Laboratory Results - last 24 hr 01/23/24 11:34: Blood Type A POSITIVE, Antibody Screen NEGATIVE, Crossmatch See Detail 01/23/24 11:34: Crossmatch See Detail 01/23/24 11:53: WBC 5.5, RBC 1.81 L, Hgb 5.6 L*, Hct 19.0 L, MCV 105.0 H, MCH 30.9, MCHC 29.5 L, RDW Std Deviation 87.3 H, RDW Coeff of Michael 23.5 H, Plt Count 212, MPV 9.5, Immature Gran % (Auto) 0.600, Neut % (Auto) 73.5 H, Lymph % (Auto) 15.2 L, Weber % (Auto) 7.2, Eos % (Auto) 3.1, Baso % (Auto) 0.4, Absolute Neuts (auto) 4.0, Absolute Lymphs (auto) 0.83, Nucleated RBC % 0, Differential Comment COMMENT, Diff Path Review November foll, Anisocytosis 1+, Retic Count 14.35 H, I mmature Retic Fraction 31.60 H, Retic Hgb Equivalent 31.1, Sodium 139, Potassium 3.6, Chloride 105, Carbon Dioxide 26.0, Anion Gap 8, BUN 55 H, Creatinine 2.36 H , Estim Creat Clear Calc 12.82, Est GFR (MDRD) Af Amer 25 L, Est GFR (MDRD) Non- Af 21 L, BUN/Creatinine Ratio 23.3 H, Glucose 101, Calcium 8.3 L, Iron 59, TIBC 429, Iron Saturation 13.8 L, Ferritin 168, Lactate Dehydrogenase 237, Troponin I High Sens 16, Folate 4.90 Micro: Microbiology 01/23/24 12:57 Stool Stool Occult Blood (MIRZA) - Final Occult Blood Positive Rhythm Strip Rhythm Strip: Paced with underlying A-fib likely Rate: 80 Ectopy: None Assessment & Plan Assessment/Plan (1) ABLA (acute blood loss anemia): (2) Iron deficiency anemia: QUALIFIERS: Iron deficiency anemia type: chronic blood loss Q ualified Code(s): D50.0 - Iron deficiency anemia secondary to blood loss (chronic) PLAN: Plan 88-year-old with multiple comorbidities including chronic renal failure (GFR currently 20), congestive heart failure, cardiomyopathy, tricuspid insufficiency, tachybradycardia status post permanent cardiac pacemaker, persistent right-sided pleural effusion, chronic atrial fibrillation not on anticoagulation due to GI bleed. She was discovered to have hemoglobin down to 5.4. I do not have access to the endoscopy reports and I do not have access to her iron studies prior to her being transfused iron and blood. If she has a iron deficiency anemia then she should be worked up for mild sort of disease, acute on chronic GI bleed and possibly bone marrow failure. I think she should undergo repeat upper endoscopy with possible biopsies of small bowel and capsule endoscopy. I will send off iron studies, celiac profile, protein electrophoresis and erythropoietin level. She is okay with this plan for now. Charges/Coding Visit Charges Inpatient E&M: 05515 Init Hosp L3
[2024-01-23 20:11] LABS: Vitamin B12 1299 pg/mL (211-911)
[2024-01-23 20:29] LABS: Hematocrit 26.3 % (37-47); Hemoglobin 8.1 g/dL (12.0-15.0)
--- NOTE | 2024-01-23 20:56 | HP.PCM.HOS_ITS ---
[facility] - [facility] Date of Admission: 01/23/24 Date of Service: 01/23/24 Chief Complaint: Abnormal hemoglobin on outpatient labs HPI Narrative RAJEEV ECHEVARRIA, is a 88 F who presents to the emergency room at [facility] for evaluation after she had a hemoglobin drawn today which was abnormally low. Patient had an episode of severe anemia approximately 6 to 8 weeks ago, gastroenterology was not available during that time and she was transferred to [facility] for further evaluation. According to the patient, [facility] did not find any etiology of her anemia, EGD was normal, colonoscopy showed diverticulosis and hemorrhoids according to documentation in her medical record during her stay at the rehab unit here in November 2023. Patient's last hemoglobin was drawn on 03 January 2024, this was 10.8. Chemistry panel was remarkable for a creatinine of 2.36 and a BUN of 55-patient has a history of stage IV chronic kidney disease. Patient has macular degeneration and cannot see whether she has blood in her stool and she is also taking outpatient iron. Hemoccult of the stool specimen was sent by the emergency room physician to the lab today. Patient will be admitted to PCU, she will be given a total of 3 units of packed red blood cells, she will be placed on IV Protonix and be seen by gastroenterology. It is possible she may need to undergo capsule endoscopy as an outpatient. I discussed this with the patient. 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 Presence of cardiac pacemaker Non-smoker Hypertension Atrial fibrillation TIA (transient ischemic attack) Shortness of breath Bilateral edema of lower extremity Chronic kidney disease SMITH (dyspnea on exertion) Swelling of right lower extremity Dyslipidemia Longstanding persistent atrial fibrillation Chronic systolic (congestive) heart failure Essential hypertension Premature ventricular contraction History of GI bleed TIA (transient ischemic attack) Nonrheumatic mitral valve regurgitation Hypertension Hyperlipidemia Other specified transient cerebral ischemias Nonrheumatic tricuspid (valve) insufficiency Home Medications ?Medication ?Instructions ?Recorded ?Last Taken ?Type vitamins A,C,B-gxle-ddnnjq 4,296 1 cap PO BID eye [facility] 03/12/20 01/22/24 History mcg-226 mg-90 mg capsule (PreserVision AREDS) mecobalamin (vitamin B12) 1,000 1,000 mcg PO DAILY supplement 03/15/23 01/22/24 History mcg chewable tablet clopidogrel 75 mg tablet 75 mg PO DAILY blood thinner #90 05/06/23 01/22/24 Rx tabs pravastatin 20 mg tablet 20 mg PO DAILY cholesterol #90 tabs 05/06/23 01/22/24 Rx metoprolol succinate 50 mg 50 mg PO .COMPLEX heart #90 tabs 12/07/23 01/22/24 Rx tablet,extended release 24 hr furosemide 80 mg tablet 80 mg PO DAILY #30 tabs 12/24/23 01/22/24 Rx polysaccharide iron complex 150 mg See Rx Instructions .Route 12/24/23 01/22/24 Rx iron capsule (Ferrex) .COMPLEX #30 caps potassium chloride 10 mEq 10 meq PO DAILY #30 tabs 12/24/23 01/22/24 Rx tablet,extended release(part/cryst) ascorbic acid (vitamin C) 500 mg 500 mg PO QODAY 01/23/24 01/22/24 History chewable tablet (Acerola C) Allergy/AdvReac Type Severity Reaction Status Date / Time amiodarone AdvReac Severe Severs Verified 01/23/24 11:28 muscle weakness, hair loss amlodipine AdvReac Severe Swelling Verified 01/23/24 11:28 flecainide AdvReac Severe Near Verified 01/23/24 11:28 Syncope, Severe Nausea losartan AdvReac myalgia Verified 01/23/24 11:28 Family History Father COPD (chronic obstructive pulmonary disease) CHF (congestive heart failure) Mother Hypertension CVA (cerebral vascular accident) Brother Hypertension Surgical History Hx of atrioventricular node ablation History of total hysterectomy History of cholecystectomy Social History (Updated 01/23/24 @ 18:19 by Khadijah Barnard) household members: spouse current gender identity: female Smoking Status: Never smoker alcohol intake: never substance use type: does not use caffeine: Yes Type: coffee Number of servings: 1 ROS Constitutional Constitutional: Reports fatigue; Denies anorexia, change in weight, fever(s), night sweats or weakness Eyes Eyes: Denies blurry vision, change in vision, discharge from eye(s) or eye pain Cardiovascular Cardiovascular: Denies chest pain, claudication, dyspnea on exertion, edema or palpitations Respiratory/Chest Respiratory/Chest: Denies cough, hemoptysis, shortness of breath at rest or shortness of breath with exertion Gastrointestinal Gastrointestinal: Denies abdominal pain, constipation, diarrhea, hematemesis, hematochezia, melena, nausea or vomiting Genitourinary Genitourinary: Denies dysuria, hematuria, urinary frequency, urinary hesitancy, urinary incontinence or urinary urgency Musculoskeletal Musculoskeletal: Denies back pain, joint pain, joint stiffness, joint swelling, myalgias or neck pain Neurologic Neurologic: Denies abnormal gait, abnormal speech, confusion, dizziness, focal weakness, headache(s), loss of vision, numbness, other visual disturbances, paresthesias, syncope or tingling Psychiatric Psychiatric: Denies anxiety, cognitive impairment, depression, irritability, mood swings or suicidal ideation Endocrine Endocrinology: Denies change in body appearance, cold intolerance, excessive sweating, heat intolerance, polydipsia or polyuria Hematologic/Lymphatic Hematologic/Lymphatic: Denies none, anemia, easy bleeding, easy bruising or lymphadenopathy Allergic/Immunologic Allergic/Immunologic: Denies rhinitis, urticaria, eczemia or asthma Vital Signs Vital Signs Vital Signs: 01/23/24 11:07 01/23/24 11:07 01/23/24 11:30 Temperature 97.4 F L Temperature Source Temporal Pulse Rate 87 79 Respiratory Rate 14 14 Respiratory Effort Short of Breath Respiratory Pattern Normal Blood Pressure 152/116 H 161/110 H Blood Pressure Mean 128 127 Blood Pressure Source Blood Pressure Position Blood Pressure Location Pulse Ox 97 98 Oxygen Delivery Method Room Air Room Air 01/23/24 13:07 01/23/24 13:22 01/23/24 13:37 Temperature 97.8 F 98.6 F Temperature Source Temporal Temporal Pulse Rate 71 80 80 Respiratory Rate 18 22 H 22 H Respiratory Effort Respiratory Pattern Blood Pressure 132/78 H 139/54 H 136/57 H Blood Pressure Mean 96 82 83 Blood Pressure Source Monitor Monitor Blood Pressure Position Semi-Fowlers Semi-Fowlers Blood Pressure Location Right Arm Right Arm Pulse Ox 94 97 98 Oxygen Delivery Method Room Air Room Air Room Air 01/23/24 14:37 01/23/24 15:37 06/24/24 15:40 Temperature 98.2 F 97.8 F 97.6 F L Temperature Source Oral Temporal Temporal Pulse Rate 80 88 85 Respiratory Rate 23 H 16 24 H Respiratory Effort Respiratory Pattern Blood Pressure 148/55 H 144/63 H 167/69 H Blood Pressure Mean 86 90 101 Blood Pressure Source Monitor Monitor Monitor Blood Pressure Position Semi-Fowlers Blood Pressure Location Right Arm Right Arm Right Arm Pulse Ox 100 98 99 Oxygen Delivery Method Room Air Room Air Room Air 01/23/24 15:42 01/23/24 17:00 01/23/24 17:00 Temperature 97.8 F 97.8 F 97.6 F L Temperature Source Oral Temporal Pulse Rate 81 64 78 Respiratory Rate 16 18 16 Respiratory Effort Respiratory Pattern Blood Pressure 162/66 H 162/78 H 167/64 H Blood Pressure Mean 98 106 98 Blood Pressure Source Monitor Blood Pressure Position Semi-Fowlers Blood Pressure Location Right Arm Pulse Ox 99 97 99 Oxygen Delivery Method Room Air Room Air 01/23/24 17:44 Temperature 98.1 F Temperature Source Oral Pulse Rate 80 Respiratory Rate 16 Respiratory Effort Respiratory Pattern Blood Pressure 140/55 H Blood Pressure Mean 83 Blood Pressure Source Monitor Blood Pressure Position Semi-Fowlers Blood Pressure Location Right Arm Pulse Ox 98 Oxygen Delivery Method Room Air Weight Weight: 56.4 kg Body Mass Index (BMI) 25.1 Physical Exam Const alert, oriented x3, no apparent distress and healthy appearing Constitutional Narrative: Patient appears much younger than her stated age General Appearance: cooperative, well kempt and well developed Orientation / Consciousness: awake, oriented to person, oriented to place and oriented to time HEENT normocephalic, head/scalp atraumatic, hearing grossly normal bilaterally and moist oral mucous membranes Eyes PERRL, EOMs intact bilaterally and conjunctivae normal Neck supple, no JVD, thyroid normal and no carotid bruits General: trachea midline Resp normal respiratory effort, no retractions, no use of accessory muscles and clear to auscultation bilaterally Auscultation: Negative for rales, rhonchi or wheezes Cardio regular rate, regular rhythm, S1 normal heart sound, S2 normal heart sound, no murmurs, no rub and no gallops GI normal to inspection, nondistended, normoactive bowel sounds, soft to palpation, non-tender and non-distended Extremity no clubbing, cyanosis or edema Skin no rashes or lesions noted General Skin Exam: no breakdown Neuro oriented x3, CN's II-XII intact bilaterally, moves all extremities, no focal motor deficits and no sensory deficits noted Sensorium / Orientation: awake and alert Speech: speech normal Psych affect normal Results Lab / Micro Data 01/23/24 19:40 01/23/24 11:53 Labs: Laboratory Results - last 24 hr 01/23/24 11:34: Blood Type A POSITIVE, Antibody Screen NEGATIVE, Crossmatch See Detail 01/23/24 11:34: Crossmatch See Detail 01/23/24 11:53: WBC 5.5, RBC 1.81 L, Hgb 5.6 L*, Hct 19.0 L, MCV 105.0 H, MCH 30.9, MCHC 29.5 L, RDW Std Deviation 87.3 H, RDW Coeff of Michael 23.5 H, Plt Count 212, MPV 9.5, Immature Gran % (Auto) 0.600, Neut % (Auto) 73.5 H, Lymph % (Auto) 15.2 L, Baldwin % (Auto) 7.2, Eos % (Auto) 3.1, Baso % (Auto) 0.4, Absolute Neuts (auto) 4.0, Absolute Lymphs (auto) 0.83, Nucleated RBC % 0, Differential Comment COMMENT, Diff Path Review May foll, Anisocytosis 1+, Retic Count 14.35 H, I mmature Retic Fraction 31.60 H, Retic Hgb Equivalent 31.1, Sodium 139, Potassium 3.6, Chloride 105, Carbon Dioxide 26.0, Anion Gap 8, BUN 55 H, Creatinine 2.36 H , Estim Creat Clear Calc 12.82, Est GFR (MDRD) Af Amer 25 L, Est GFR (MDRD) Non- Af 21 L, BUN/Creatinine Ratio 23.3 H, Glucose 101, Calcium 8.3 L, Iron 59, TIBC 429, Iron Saturation 13.8 L, Ferritin 168, Lactate Dehydrogenase 237, Troponin I High Sens 16, Folate 4.90 01/23/24 19:40: Hgb 8.1 L, Hct 26.3 L, Vitamin B12 1299 H Micro: Microbiology 01/23/24 12:57 Stool Stool Occult Blood (MIRZA) - Final Occult Blood Positive Rhythm Strip Rhythm Strip: Paced with underlying A-fib likely Rate: 80 Ectopy: None Assessment & Plan Assessment/Plan (1) Iron deficiency anemia: QUALIFIERS: Iron deficiency anemia type: chronic blood loss Q ualified Code(s): D50.0 - Iron deficiency anemia secondary to blood loss (chronic) PLAN: Plan 1. Acute anemia-etiology unclear, possibly due to GI blood loss, patient will be admitted to PCU, she will be given packed red blood cells and labs will be monitored, she will be seen by gastroenterology, she may need to undergo an EGD during her hospitalization. Patient will be placed on IV Protonix #2 stage IV chronic kidney failure-complicates care, management, recovery, and prognosis #3 history of iron deficiency anemia-etiology unclear, patient underwent a GI workup at [facility] in November of this year and according to the patient they did not find the etiology of her anemia. #4 persistent atrial fibrillation-patient has a paced rhythm, patient underwent an AV marquita ablation and pacemaker placement in October 2023 at [facility]. Patient is currently on Plavix, I have elected to hold this medication due to her possible GI bleed. #5 chronic cardiomyopathy-type unknown, complicates care, management, recovery, and prognosis #6 essential hypertension-patient is on metoprolol and Lasix, this will be adjusted if necessary Total clinical time spent by myself addressing the patient's medical issues, reviewing all of her data, and collaborating with patient's care team: 55 minutes Charges/Coding Visit Charges Inpatient E&M: 45854 Init Hosp L2
[2024-01-23] MEDS: Metoprolol(XL)Succ 50 MG Tablet PO (21:12)
[2024-01-23] MEDS: Pravastatin 20 MG Tablet PO (21:12)
[2024-01-23] MEDS: 0.9% Saline Lock 10 ML Syringe IV ×2 (21:12→21:20)
[2024-01-23] MEDS: Pantoprazole Sodium 40 MG in 0.9% Normal Saline (100mL MB+) 100 ML 330 MG IV (21:20)
[2024-01-24] VITALS (9 sets, daily range): BP systolic 114–162; BP diastolic 48–66; PULSE 78–89; RESP 10–20; TEMP 36.4–36.7; O2SAT 75–100
--- NOTE | 2024-01-24 05:55 | EKG12_ITS ---
Test Reason : PRE OP Blood Pressure : / mmHG Vent. Rate : 080 BPM Atrial Rate : 080 BPM P-R Int : 222 ms QRS Dur : 142 ms QT Int : 460 ms P-R-T Axes : 025 018 023 degrees QTc Int : 530 ms Atrial-sensed ventricular-paced rhythm with prolonged AV conduction Abnormal ECG When compared with ECG of 23-JAN-2024 11:34, MANUAL COMPARISON REQUIRED, DATA IS UNCONFIRMED Confirmed by Nitin Gomez ([id number]), managing editor JAYE MONTALVO ([id number]) on 01/26/2024 11:28:39 AM Referred By: Confirmed By:Nitin Gomez
[2024-01-24 07:08] LABS: Anion Gap 8 (5-15); BUN 53 mg/dL (7-18); BUN/Creat Ratio 22.8 RATIO (10-20); Calcium,Total 8.4 mg/dL (8.5-10.1); Chloride 107 mmol/L (98-107); Creatinine, Serum 2.32 mg/dL (0.55-1.02); EST Glomerular Filtration Rate 21 mL/min (>60); Est Glom Filt Rate - Afr Amer 25 mL/min (>60); Estimated Creatinine Clearance 13.19 ml/min; Glucose 96 mg/dL (74-106); Potassium 3.5 mmol/L (3.5-5.1); Sodium Level 141 mmol/L (136-145)
[2024-01-24 08:11] LABS: Prothrombin Time (Protime)PT. 14.2 SECONDS (11.7-14.9)
[2024-01-24 08:12] LABS: International Normalized Ratio 1.1
[2024-01-24 08:42] LABS: Differential Indicated SCAN CRITERIA MET; Hematocrit 29.1 % (37-47); Hemoglobin 9.1 g/dL (12.0-15.0); Mean Corp Hgb Conc 31.3 g/dL (32-36); Mean Corpuscular Hgb 30.5 pg (27.0-32.0); Mean Corpuscular Volume 97.7 fL (81-99); Mean Platelet Vol. 9.2 fl (6.2-12.0); Platelet Count 205 K/mm3 (150-450); RBC Distribution Width CV 22.9 % (11.6-14.6); Red Blood Count 2.98 M/mm3 (4.2-5.4); White Blood Count 6.5 K/mm3 (4.4-11.0)
[2024-01-24 08:43] LABS: Anisocytosis 2+; Differential Comment SCANNED
[2024-01-24] MEDS: Pantoprazole Sodium 40 MG in 0.9% Normal Saline (100mL MB+) 100 ML 330 MG IV ×2 (09:40→21:01)
[2024-01-24 09:48] LABS: Partial Thromboplast Time 28.4 Seconds (24.1-36.2)
--- NOTE | 2024-01-24 10:21 | CASEMGMT ---
Patient's Healthcare Power of Restaurant Line Server is on file at [facility]. Patient's Kevin is patient's Healthcare Power of Restaurant Line Server. Patient's Healthcare Living Will is not on file at [facility]. Alice HAMPTON
--- NOTE | 2024-01-24 13:30 | CASEMGMT ---
DAVID ATKINSON Face to Face with patient for initial transition planning/care coordination assessment. DAVID ATKINSON introduced self and role at [facility]. Patient sitting in chair, alert and oriented. Patient willing to participate in assessment and is able to answer all questions appropriately. Care providers, pharmacy, and demographics verified. PCP: [facility] Specialists: Nikko, percolator operator; Miguel, supervisor operations Preferred Pharmacy: [facility] [place] Insurance: [facility] Prescription Benefit: yes Living Will/HPOA: yes, Kevin Kinney LNOK: , nephew Living Arrangements: Patient lives with in a single story home with 1 step to enter. Patient states she is independent at home. Transportation: self, DME/HHC: Patient has shower chair, raised toilet, grab bars, and walker at home. Patient had been to TCU in the past. Patient is active with [facility]. Patient wishes to discharge home with resumption of [facility]. Patient states he has no further needs or concerns at this time. DAVID ATKINSON called [facility] and confirmed plan for resumption of care at discharge. CM to follow for discharge planning needs that may arise. Disposition Plan: Patient to discharge home with [facility], family support, and follow-up plans in place. Katelyn MATUTE, RN, CM
[2024-01-24 13:41] LABS: Pathologist Review Reviewed
--- NOTE | 2024-01-24 14:31 | NURSING ---
pt off floor to EGD
[2024-01-24] MEDS: Lactated Ringers 1,000 ML 15 ML IV (14:37)
--- NOTE | 2024-01-24 14:49 | PCM.PRE.AN2 ---
ASA Classification* ASA Classification ASA Classification: 3 Assessment & Plan Anesthesia* Anesthesia Assessment Anesthesia Assessment: Discussed sedation and/or anesthesia options, risks, benefits, and alternatives with patient/parents/legal guardian/POA. Questions invited. The patient/parents/legal guardian/POA seems to understand and agrees to proceed with anesthesia plan. Reviewed the physical assessment, medical history, allergy history and patient home medications list prior to surgery/procedure/anesthetic and documented any changes. Performed airway and anesthesia risk assessments. Procedural Plan Procedural Plan:: Proceed w/ Anesthesia plan Anesthesia Type Anesthesia Type: MAC History Source History Obtained from:: Patient and Chart Anesthesia Focused Assessment* Temperature: 97.5 F Pulse Rate: 89 Blood Pressure: 137/60 Respiratory Rate: 14 Pulse Ox: 98 Oxygen Delivery Method: Room Air Airway Assessment Mouth opens: >3 cm Mallampati Score: III Teeth Condition: Dentures (Dentures are out) and Full Neck Range of motion (ROM): Full ROM Pertinent Findings EKG Pertinent Findings:: January 24, 2024 atrial sensed ventricular paced rhythm with prolonged AV conduction. ECHO Pertinent Findings:: November 16, 2023. Ejection fraction is 30%. There is 3+ mitral regurgitation Focused Labs Anesthesia Preop lab: CBC WBC 6.5 K/mm3 (4.4-11.0) 01/24/24 05:12 RBC 2.98 M/mm3 (4.2-5.4) L 01/24/24 05:12 Hgb 9.1 g/dL (12.0-15.0) L 01/24/24 05:12 Hct 29.1 % (37-47) L 01/24/24 05:12 Plt Count 205 K/mm3 (150-450) 01/24/24 05:12 CHEMISTRY Potassium 3.5 mmol/L (3.5-5.1) 01/24/24 05:12 Sodium 141 mmol/L (136-145) 01/24/24 05:12 Magnesium 2.8 mg/dL (1.6-2.6) H 11/17/23 05:55 Phosphorus 3.4 mg/dL (2.5-4.9) 01/03/24 13:30 BUN 53 mg/dL (7-18) H 01/24/24 05:12 Creatinine 2.32 mg/dL (0.55-1.02) H 01/24/24 05:12 Glucose 96 mg/dL (74-106) 01/24/24 05:12 TSH 2.79 uIU/mL (0.358-3.74) 11/16/23 05:53 COAG PT 14.2 SECONDS (11.7-14.9) 01/24/24 05:12 Pre-Assessment Diagnosis/Proposed Procedure Planned Operative Procedure(s): EGD Anesthesia History Anesthesia History - 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 When Was Last Pacemaker Check QUESTION #4 FULL TEXT: You/Your Family Experience fever (hyperthermia) with Anesthesia Last Oral Intake Last Oral intake: Last Oral Intake NPO since Meds taken in AM with sips of water? Meds patient instructed to take am of surgery Any additional information?: Yes NPO since: 00:00 PONV PONV - sales center associate: PONV - sales center associate Female HX of Motion Sickness HX of N/V After Surgery Non-Smoker Duration of Surgery greater than 60 minutes Number of Risk Factors PONV Score Height & Weight Height & Weight: Anesthesia: Height & Weight Height 4 ft 11 in 01/23/24 18:16 Weight: 56.4 kg 01/23/24 18:16 Body Mass Index (BMI) 25.1 01/23/24 18:16 Respiratory Assessment Respiratory Assessment - sales center associate: Respiratory Tract Infection Hx - sales center associate Hx Respiratory Tract Infection Any additional information?: No STOP Sleep Apnea STOP Sleep Apnea - sales center associate: STOP Sleep Apnea - sales center associate Hx Hypertension Yes 01/23/24 18:39 Hx Sleep Apnea No 01/23/24 18:39 CPAP BIPAP Do you snore loudly (louder No 01/23/24 18:39 than talking or can be heard Do you often feel tired/ Yes 01/23/24 18:39 fatigued/ sleepy during daytime? Has anyone observed you stop No 01/23/24 18:39 breathing during sleep? STOP Results Positive 01/23/24 18:39 QUESTION #5 FULL TEXT : Do you snore loudly (louder than talking or can be heard through closed doors)? Tobacco Use History Tobacco Use History - sales center associate: Tobacco Use History - sales center associate Tobacco Use Smoking Status Never smoker 01/23/24 18:39 Hx Tobacco Use No 01/23/24 18:39 Years Smoking Packs Smoked per Day Smoking Cessation Date was within the last 15 years Hx Smoking Cessation Date Hx Smoking Cessation Counseling Hematologic Medial History Hematologic Hx - sales center associate: Hematologic Medical Hx - thread cutter Hx of Blood Transfusion Yes 01/23/24 18:39 Hx of Transfusion in last 3 Yes 01/23/24 18:39 Months Date of Last Transfusion (if dec 13 2023 01/23/24 18:39 within last 3 months) Ever experience any problems No 01/23/24 18:39 with transfusion(s)? Specify any problems Hx of Preganancy in last 3 N/A 01/23/24 18:39 Months Nurse Filling Out Transfusion DSLOAN 01/23/24 18:39 & Questions: Date: 01/23/24 01/23/24 18:39 Time: 18:40 01/23/24 18:39 Patient unable to answer at this time (ie. confused, unrespo Any additional information?: Yes Hx of Blood Transfusion: Yes Hx of Transfusion in last 3 Months: Yes Date of Last Transfusion (if within last 3 months): This admission patient had 2 units of packed red b /Reproduction History /Reproductive History - sales center associate: /Reproductive Hx- sales center associate Hx Now Gestational Age (in weeks): EDC: Hx Hx Para Hx Section SAB Active Medications Active Medications: Current Medications Generic Name Dose Route Start Last Admin Trade Name Freq PRN Reason Stop Dose Admin Acetaminophen 650 mg 01/23/24 17:34 Acetaminophen 325 Mg Tablet PO Q6H PRN PRN Pain 1-10 Or Fever >100.7 Furosemide 80 mg 01/24/24 10:00 01/24/24 09:54 Furosemide 80 Mg Tablet PO Not Given DAILY RAZ Protocol Pantoprazole Sodium 40 mg/ 110 mls @ 330 mls/hr 01/23/24 22:00 01/24/24 10:06 Sodium Chloride IV Infused Q12 RAZ Infusion Sodium Chloride 250 mls @ 15 mls/hr 01/23/24 17:35 IV .[id number] PRN Additional IVPB Infusion Sodium Chloride 250 mls @ 15 mls/hr 01/23/24 17:35 IV .[id number] PRN Saline Flush Lactated Ringer's 1,000 mls @ 15 mls/hr 01/24/24 14:45 01/24/24 14:37 IV 15 mls/hr .Q48H RAZ Administration Metoprolol Succinate 50 mg 01/23/24 22:00 01/23/24 21:12 Metoprolol(Xl)Succ 50 Mg Tablet PO 50 mg QHS RAZ Administration Protocol Ondansetron HCl 4 mg 01/23/24 17:34 Ondansetron 4 Mg/2 Ml Vial IV Q8H PRN PRN NAUSEA/VOMITING Pravastatin Sodium 20 mg 01/23/24 22:00 01/23/24 21:12 Pravastatin 20 Mg Tablet PO 20 mg QHS RAZ Administration Sodium Chloride 10 - 40 ml 01/23/24 17:35 01/23/24 21:20 0.9% Saline Lock 10 Ml Syringe IV 10 ml UD PRN Administration SALINE FLUSH PFSH Medical History HFrEF (heart failure with reduced ejection fraction) CKD (chronic kidney disease), stage IV Anemia of chronic renal failure, stage 4 (severe) Pulmonary hypertension Cardiomyopathy 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 Presence of cardiac pacemaker Non-smoker Hypertension Atrial fibrillation TIA (transient ischemic attack) Shortness of breath Bilateral edema of lower extremity Chronic kidney disease SMITH (dyspnea on exertion) Swelling of right lower extremity Dyslipidemia Longstanding persistent atrial fibrillation Chronic systolic (congestive) heart failure Essential hypertension Premature ventricular contraction History of GI bleed TIA (transient ischemic attack) Nonrheumatic mitral valve regurgitation Hypertension Hyperlipidemia Other specified transient cerebral ischemias Nonrheumatic tricuspid (valve) insufficiency Home Medications ?Medication ?Instructions ?Recorded ?Last Taken ?Type vitamins A,C,N-tvtv-yxusvn 4,296 1 cap PO BID eye health 03/12/20 01/22/24 History mcg-226 mg-90 mg capsule (PreserVision AREDS) mecobalamin (vitamin B12) 1,000 1,000 mcg PO DAILY supplement 03/15/23 01/22/24 History mcg chewable tablet clopidogrel 75 mg tablet 75 mg PO DAILY blood thinner #90 05/06/23 01/22/24 Rx tabs pravastatin 20 mg tablet 20 mg PO DAILY cholesterol #90 tabs 05/06/23 01/22/24 Rx metoprolol succinate 50 mg 50 mg PO .COMPLEX heart #90 tabs 12/07/23 01/22/24 Rx tablet,extended release 24 hr furosemide 80 mg tablet 80 mg PO DAILY #30 tabs 12/24/23 01/22/24 Rx polysaccharide iron complex 150 mg See Rx Instructions .Route 12/24/23 01/22/24 Rx iron capsule (Ferrex) .COMPLEX #30 caps potassium chloride 10 mEq 10 meq PO DAILY #30 tabs 12/24/23 01/22/24 Rx tablet,extended release(part/cryst) ascorbic acid (vitamin C) 500 mg 500 mg PO QODAY 01/23/24 01/22/24 History chewable tablet (Acerola C) Allergy/AdvReac Type Severity Reaction Status Date / Time amiodarone AdvReac Severe Severs Verified 01/23/24 11:28 muscle weakness, hair loss amlodipine AdvReac Severe Swelling Verified 01/23/24 11:28 flecainide AdvReac Severe Near Verified 01/23/24 11:28 Syncope, Severe Nausea losartan AdvReac myalgia Verified 01/23/24 11:28 Family History Father COPD (chronic obstructive pulmonary disease) CHF (congestive heart failure) Mother Hypertension CVA (cerebral vascular accident) Brother Hypertension Surgical History Hx of atrioventricular node ablation History of total hysterectomy History of cholecystectomy Social History household members: spouse current gender identity: female Smoking Status: Never smoker alcohol intake: never substance use type: does not use caffeine: Yes Type: coffee Number of servings: 1 Review of Systems (Anesthesia) ROS Narrative System reviewed and no additional complaints, except as documented.
--- NOTE | 2024-01-24 14:56 | CHAPLAIN ---
Type of Pastoral Visit _x__ Initial Visit ___ Follow-up Visit ___ On-call Visit ___ General Patient Visit ___ Spiritual Assessment ___ Family Conference ___ Bereavement ___ Rapid Response ___ Code Blue ___ Other (describe below) Pastoral Care Referral From _x__ Patient ___ Family ___ Nurse ___ Physician ___ Radio Survey Worker ___ Counter Helper ___ Other (describe below) Sacrament/Intervention _x__ Active listening ___ Anointing ___ Congregation ___ Bereavement ___ Communion ___ Awilda exploration ___ _x__ Life review _x__ Prayer ___ Reconciliation ___ Sacrament of Sick _x__ Supportive presence ___ Wedding ___ Other (describe below) Pastoral Comments patient gives updates on her life since last seen by this distribution center associate in the hospital; pt has just a for familial support; pt is determined to live at home with her ; welcomes prayer support and time to talk about life;
--- NOTE | 2024-01-24 15:30 | IMM_PTH ---
PATIENT: RAJEEV ECHEVARRIA LOC: [facility] U#:[id number] AGE/SX: 88/F ROOM: [facility] RE01/23/[address]: Dr. Robert Escobar DO : 1935 BED: 1 DIS: 01/25/2024 SPEC #: [id number] RECD: 01/25/24 08:31 STATUS: DAMIR REAlexandru #: [id number] JODI: 01/24/24 15:[address]: Robert Escobar DEPT: IMMUNOHISTOCHEMISTRY RECD BY: Allan Lao ENTERED: 01/25/24 08:31 SP TYPE: IMMUNO OTHR DR: DO Dr. Juma Adhikari DO Dr. Raymond Mason, MD Tissues: B - Gastric mucous membrane Procedures: H Pylori (initial) PHYSICIAN & INSTITUTION [place] [id number] SPECIMEN INFORMATION: Tissue Source: B- Gastric ulcer Clinical Info: Iron deficiency anemia Specimen Number: [id number] CPT code: 16636 METHODOLOGY: Deparaffinized sections of prefer/formalin-fixed tissue or PAP/DQ stained slides are incubated with monoclonal/polyclonal antibodies/oligonucleotide probes. Localization is made via biotin free immunoperoxidase method. Appropriate controls are performed and reacted as expected. Results on target cell population are indicated in the following table: RESULTS: ANTIBODY / CLONE RESULT Block B H Pylori (polyclonal) negative These tests were developed and their performance characteristics determined by [facility]. They may not have been cleared or approved by the U.S. Food and Drug Administration. The FDA has determined that such clearance or approval is not necessary. The above immunohistochemical/dualISH markers are ordered and reviewed by the Pathologist. INTERPRETATION: B. Gastric ulcer, biopsy: Negative for Helicobacter pylori organisms. MEDARDO/ 01/26/2024
--- NOTE | 2024-01-24 15:30 | EGD_PTH ---
PATIENT: RAJEEV ECHEVARRIA LOC: [facility]#:[id number] AGE/SX: 88/F ROOM: [facility] RE01/23/[address]: Dr. Robert Escobar DO : 1935 BED: 1 DIS: 01/25/2024 SPEC #: [id number] RECD: 01/24/24 18:00 STATUS: DAMIR REAlexandru #: [id number] JODI: 01/24/24 15:[address]: Alejandro Espinoza DEPT: SURGICAL PATHOLOGY RECD BY: Tyra Sy ENTERED: 01/25/24 10:28 SP TYPE: EGD BIOPSY OTHR DR: Dr. Robert Escobar, DO Dr. Adrianna Blanchard, DO Dr. Juma Hastings, DO Dr. John Rachel MD Tissues: A - Duodenum, NOS B - Gastric mucous membrane Procedures: Surgery Specimen Level IV Comments: @ Ordering doctor for SUIV edited from to @ chyna RAMIREZ at 01/25/24 1202 @ Submitting doctor edited from to @ by JAMES at 01/25/24 1202 HEADER OPERATION: EGD with biopsy and hemostasis PRE-OP DIAGNOSIS: Iron deficiency anemia TISSUE SUBMITTED: A- Duodenal ulcer, B- Gastric ulcer MICROSCOPIC DIAGNOSIS A. Duodenal ulcer, biopsy: A fragment of duodenal mucosa, no pathologic diagnosis. B. Gastric ulcer, biopsy: Chronic active gastritis. See comment. MEDARDO/ 01/26/2024 COMMENT B. The results of immunohistochemistry for Helicobacter pylori will be reported separately ([id number]). MICROSCOPIC DESCRIPTION Slides are reviewed. GROSS DESCRIPTION A. Received in fixative is one container labeled with the patient's name and designated Duodenal ulcer biopsy. The specimen consists of one irregular fragment of light mcclain soft tissue that measures 0.3 x 0.2 x 0.1 cm. The specimen is totally submitted in one cassette. B. Received in fixative is one container labeled with the patient's name and designated Gastric ulcer biopsy. The specimen consists of one irregular fragment of light mcclain soft tissue that measures 0.3 x 0.3 x 0.1 cm. The specimen is totally submitted in one cassette. Mary 01/25/2024 TC:2 CPT:27296n0
--- NOTE | 2024-01-24 16:24 | PCM.POST.ANE ---
Anesthesia: Postop Eval I Current Vital Signs Temperature: 98 F Pulse Rate: 80 Blood Pressure: 134/59 Respiratory Rate: 20 Pulse Ox: 100 Oxygen Delivery Method: Nasal Cannula Oxygen Flow Rate (L/min): 4 Assessment Airway patent: Yes Spontaneous unlabored respirations: Yes Mental status: Asleep nausea: No Vomiting: No Anesthesia Complication: No Fluid Hydration Crystalloid volume administer (ml): 400 Total IV fluid infused: 400 Progress Note Anesthesia document: Postop Eval 1 completed: Yes
--- NOTE | 2024-01-24 16:51 | OP.CCLET_ITS ---
01/24/2024 John Rachel Re : Upper GI endoscopy procedure for Carole Kinney Dear [place] This procedure was performed on Wednesday, January 24, 2024. My impressions and recommendations are as follows: Impressions : - Normal esophagus. - Oozing gastric ulcer with pigmented material. Treated with a heater probe. - Non-bleeding duodenal ulcer with no stigmata of bleeding. Treated with a heater probe. - No specimens collected. Recommendations : - Return patient to [facility]. - Resume regular diet. - Continue present medications. My findings are described in the full procedure note, which is enclosed. If I can be of further assistance, please feel free to contact me at . Sincerely, Alejandro Espinoza, 01/24/2024 4:50:25 PM This report has been signed electronically.
--- NOTE | 2024-01-24 16:51 | OP.EGD_ITS ---
Patient Name: Carole Kinney Procedure Date: 01/24/2024 3:57 PM Date of : 1935 Age: 88 Procedure: Upper GI endoscopy Indications: Melena Providers: Alejandro Espinoza DO Medicines: Monitored Anesthesia Care Patient Profile: This is an 88 year old female. Refer to note in patient chart for documentation of history and physical. Patient has symptoms. Complications: No immediate complications. Procedure: Pre-Anesthesia Assessment: - Prior to the procedure, a History and Physical was performed, and patient medications and allergies were reviewed. The patient is competent. The risks and benefits of the procedure and the sedation options and risks were discussed with the patient. All questions were answered and informed consent was obtained. Patient identification and proposed procedure were verified by the physician in the pre-procedure area. Mental Status Examination: alert and oriented. Airway Examination: normal oropharyngeal airway and neck mobility. Respiratory Examination: clear to auscultation. CV Examination: normal. Prophylactic Antibiotics: The patient does not require prophylactic antibiotics. Prior Anticoagulants: The patient has taken no anticoagulant or antiplatelet agents. ASA Grade Assessment: III - A patient with severe systemic disease. After reviewing the risks and benefits, the patient was deemed in satisfactory condition to undergo the procedure. The anesthesia plan was to use monitored anesthesia care (MAC). Immediately prior to administration of medications, the patient was re-assessed for adequacy to receive sedatives. The heart rate, respiratory rate, oxygen saturations, blood pressure, adequacy of pulmonary ventilation, and response to care were monitored throughout the procedure. The physical status of the patient was re-assessed after the procedure. After obtaining informed consent, the endoscope was passed under direct vision. Throughout the procedure, the patient's blood pressure, pulse, and oxygen saturations were monitored continuously. The Endoscope was introduced through the mouth, and advanced to the second part of duodenum. The upper GI endoscopy was accomplished without difficulty. The patient tolerated the procedure well. Scope In: 4:07:05 PM Scope Out: 4:14:01 PM Total Procedure Duration Time 0 hours 6 minutes 56 seconds Findings: The examined esophagus was normal. One oozing cratered gastric ulcer with pigmented material was found in the gastric antrum. The lesion was 8 mm in largest dimension. Coagulation for hemostasis using heater probe was successful. One non-bleeding linear duodenal ulcer with no stigmata of bleeding was found in the fourth portion of the duodenum. The lesion was 6 mm in largest dimension. Coagulation for hemostasis using heater probe was successful. Estimated blood loss was minimal. Impression: - Normal esophagus. - Oozing gastric ulcer with pigmented material. Treated with a heater probe. - Non-bleeding duodenal ulcer with no stigmata of bleeding. Treated with a heater probe. - No specimens collected. Recommendation: - Return patient to hospital [facility]. - Resume regular diet. - Continue present medications. Procedure Code(s): --- Professional --- 07129, Esophagogastroduodenoscopy, flexible, transoral; with control of bleeding, any method CPT copyright 2021 [employer]. All rights reserved. The codes documented in this report are preliminary and upon regulatory agency director review may be revised to meet current compliance requirements. Alejandro Espinoza DO 01/24/2024 4:50:25 PM This report has been signed electronically. Number of Addenda: 0 Note Initiated On: 01/24/2024 3:57 PM
--- NOTE | 2024-01-24 16:58 | PCM.PN.HOSP ---
Reason for Visit Reason for Visit: Abnormal outpatient hemoglobin Subjective Subjective Patient states she is feeling well since her blood transfusion. No complaints at this time other than she is hungry and would like to eat but currently awaiting EGD. Denies any current issues. States that she was previously told that she would need a capsule endoscopy but has not yet been performed. Objective Data Objective Data Vital Signs: Vital Signs Temp Pulse Resp BP Pulse Ox O2 Del Method O2 Flow Rate 97.5 F L 80 18 117/55 L 94 Room Air 4 01/24/24 16:35 01/24/24 16:35 01/24/24 16:35 01/24/24 16:35 01/24/24 16:35 01/24/24 16:35 01/24/24 16:25 Oxygen Flow Rate (L/min) 4 Oxygen Delivery Method Room Air Weight: 56.4 kg Body Mass Index (BMI) 25.1 Intake & Output: Intake and Output for Last 24 Hours 01/22/24 01/23/24 01/24/24 23:59 23:59 23:59 Intake Total 357 / 357 110 / 110 Balance 357 / 357 110 / 110 Lab / Micro Data 01/24/24 05:12 01/24/24 05:12 Labs: Laboratory Results - last 24 hr 01/23/24 11:34: Crossmatch See Detail 01/23/24 11:53: Diff Path Review Reviewed, Retic Count 14.35 H, Immature Retic Fraction 31.60 H, Retic Hgb Equivalent 31.1, Iron 59, TIBC 429, Iron Saturation 13.8 L, Ferritin 168, Lactate Dehydrogenase 237, Folate 4.90 01/23/24 19:40: Hgb 8.1 L, Hct 26.3 L, Vitamin B12 1299 H 01/24/24 05:12: WBC 6.5, RBC 2.98 L, Hgb 9.1 L, Hct 29.1 L, MCV 97.7 D, MCH 30.5, MCHC 31.3 L D, RDW Std Deviation 77.0 H, RDW Coeff of Michael 22.9 H, Plt Count 205, MPV 9.2, Neut % (Auto) Not Reportable, Absolute Neuts (auto) Not Reportable, Differential Comment SCANNED, Anisocytosis 2+, PT 14.2, INR 1.1, APTT 28.4, Sodium 141, Potassium 3.5, Chloride 107, Carbon Dioxide 26.0, Anion Gap 8, BUN 53 H, Creatinine 2.32 H, Estim Creat Clear Calc 13.19, Est GFR (MDRD) Af Amer 25 L, Est GFR (MDRD) Non-Af 21 L, BUN/Creatinine Ratio 22.8 H, Glucose 96, Calcium 8.4 L Micro: Microbiology 01/23/24 12:57 Stool Stool Occult Blood (MIRZA) - Final Occult Blood Positive Rhythm Strip Rhythm Strip: Paced with underlying A-fib likely Rate: 80 Ectopy: None Physical Exam Const alert, oriented x3, no apparent distress, average body habitus and well nourished Constitutional Narrative: Cooperative, very pleasant, elderly, white female, sitting up in a chair at the bedside, watching television, appears comfortable, nontoxic HEENT head/scalp atraumatic and moist oral mucous membranes Head and Scalp: normocephalic Resp normal respiratory effort, no retractions, no use of accessory muscles and clear to auscultation bilaterally Auscultation: Negative for rales, rhonchi or wheezes Cardio regular rate, regular rhythm, S1 normal heart sound, S2 normal heart sound, no rub, no gallops and no clicks Cardio Narrative: 2 out of 6 systolic murmur GI normal to inspection, nondistended, normoactive bowel sounds, soft to palpation and non-tender Extremity Extremity Narrative: Decreased lean muscle mass, trace to 1+ bilateral lower extremity edema, no cyanosis or clubbing Neuro oriented x3, moves all extremities and no focal motor deficits Speech: speech normal Psych affect normal Psych Narrative: Eye contact is good, patient is very pleasant, interacts appropriately Assessment & Plan Assessment/Plan (1) ABLA (acute blood loss anemia): (2) GI bleed: PLAN: Plan Acute blood loss anemia secondary to GI bleed from gastric ulcers -EGD was done this afternoon and showed a normal esophagus, 1 oozing cratered gastric ulcer with pigmented material in the gastric antrum that was treated with coagulation for hemostasis and 1 nonbleeding linear duodenal ulcer with no stigmata of bleeding in the fourth portion of the duodenum and coagulation was used for hemostasis -Start Protonix 40 mg p.o. twice daily -Start Carafate -Okay to restart diet -Status posttransfusion of 3 packed red blood cells -Will monitor CBC for hemoglobin stability -Will likely need a small capsule endoscopy as well -Hold Plavix -Will need discussed with GI when okay to restart -GI following-appreciate input Essential hypertension/hyperlipidemia -Continue home statin -Hold home metoprolol for now and may be able to restart tomorrow if blood pressures are stable -Continue home Lasix History of complete heart block/atrial fibrillation -Currently in sinus rhythm -Not on full anticoagulation due to history of GI bleed -Has cardiac pacemaker and heart block is secondary to AV marquita ablation -Metoprolol on hold will restart once blood pressure allows Nonrheumatic tricuspid valve insufficiency/moderate to severe mitral valve regurgitation -Patient has declined surgical referral -Continue medical management -Outpatient follow-up with cardiology Nonischemic cardiomyopathy/chronic HFrEF -No current signs of decompensation despite transfusion -Last echocardiogram showed an EF of 30% with moderate to severe mitral valve regurgitation -continue diuretics -Continue outpatient follow-up with cardiology CKD stage IV -Serum creatinine is at baseline -continue Lasix -Repeat BMP in a.m. Chronic lower extremity edema -Swelling is at baseline History of TIA -Restart Plavix once able DVT prophylaxis -Chemoprophylaxis contraindicated due to the above -SCDs CODE STATUS -DNR CCA with no intubation Charges/Coding Visit Charges Inpatient E&M: 17653 Subs Hosp L2
--- NOTE | 2024-01-24 17:06 | POSTOPAN2_ITS ---
Anesthesia Postop Eval I Sum Postop Eval Completion status Anesthesia document: Postop Eval 1 completed: Yes Anesthesia Postop Eval I Summary Anesthesia Postop Eval I Summary: Anesthesia Postop Eval I: Assessment Summary Airway patent Yes 01/24/24 16:24 [email or web address] [email or web address] Spontaneous unlabored Yes 01/24/24 16:24 [email or web address] ANDROID [email or web address] respirations Mental status Asleep 01/24/24 16:24 [email or web address] ANDROID [email or web address] nausea No 01/24/24 16:24 [email or web address] ANDROID [email or web address].CSIR Vomiting No 01/24/24 16:24 [email or web address] ANDROID [email or web address].CSIR Anesthesia Postop Eval I: Fluid Summary Crystalloid volume administer 400 01/24/24 16:24 [email or web address] ANDROID [email or web address].CSIR (ml) Colloids volume administered ( ml) Blood Product volume administered (ml) Total IV fluid infused 400 01/24/24 16:24 [email or web address] ANDROID [email or web address].CSIR Anesthesia Postop Eval I: Summary Notes Anesthesia Complication No 01/24/24 16:24 [email or web address] ANDROID [email or web address].CSIR Anesthesia Complication Comment: Post-operative progress note Anesthesia: Postop Eval II Evaluation Mental status: Awake and Calm Pain Level: 0 nausea: No Vomiting: No Complications Anesthesia Complication: No
--- NOTE | 2024-01-24 17:06 | PCM.POSTANE2 ---
Anesthesia Postop Eval I Sum Postop Eval Completion status Anesthesia document: Postop Eval 1 completed: Yes Anesthesia Postop Eval I Summary Anesthesia Postop Eval I Summary: Anesthesia Postop Eval I: Assessment Summary Airway patent Yes 01/24/24 16:24 BLOCK [email or web address] Spontaneous unlabored Yes 01/24/24 16:24 BLOCK [email or web address].CSIR respirations Mental status Asleep 01/24/24 16:24 BLOCK [email or web address].CSIR nausea No 01/24/24 16:24 BLOCK [email or web address].CSIR Vomiting No 01/24/24 16:24 BLOCK [email or web address].CSIR Anesthesia Postop Eval I: Fluid Summary Crystalloid volume administer 400 01/24/24 16:24 BLOCK [email or web address].CSIR (ml) Colloids volume administered ( ml) Blood Product volume administered (ml) Total IV fluid infused 400 01/24/24 16:24 BLOCK [email or web address].CSIR Anesthesia Postop Eval I: Summary Notes Anesthesia Complication No 01/24/24 16:24 BLOCK [email or web address].CSIR Anesthesia Complication Comment: Post-operative progress note Anesthesia: Postop Eval II Evaluation Mental status: Awake and Calm Pain Level: 0 nausea: No Vomiting: No Complications Anesthesia Complication: No
[2024-01-24] MEDS: Metoprolol(XL)Succ 50 MG Tablet PO (21:01)
[2024-01-24] MEDS: Pravastatin 20 MG Tablet PO (21:01)
[2024-01-24] MEDS: Sucralfate 1 GM Tablet PO (21:04)
[2024-01-24] MEDS: Pantoprazole Sodium 40 MG Tablet PO (21:05)
[2024-01-25 02:12] VITALS: BP 131/64; PULSE 80; RESP 16; TEMP 36.4; O2SAT 97
[2024-01-25 06:00] VITALS: BP 117/49; PULSE 80; RESP 16; TEMP 36.3; O2SAT 94
[2024-01-25] MEDS: Sucralfate 1 GM Tablet PO ×2 (06:09→10:37)
[2024-01-25 06:41] LABS: Absolute Lymphocyte Count 0.89 X10^3/uL (0.83-4.51); Absolute Neutrophil Count 3.4 X10^3/uL (2.0-7.7); Basophil# 0.02 X10^3/uL; Basophil% 0.4 % (0-1); Eosinophil# 0.32 X10^3/uL; Eosinophils% 6.2 % (0-5); Hematocrit 25.6 % (37-47); Hemoglobin 7.8 g/dL (12.0-15.0); Lymphocyte # 0.89 X10^3/ul (0.83-4.51); Lymphocyte % 17.3 % (19-41); Mean Corp Hgb Conc 30.5 g/dL (32-36); Mean Corpuscular Hgb 30.6 pg (27.0-32.0); Mean Corpuscular Volume 100.4 fL (81-99); Mean Platelet Vol. 10.2 fl (6.2-12.0); Monocyte# 0.47 X10^3/uL; Monocyte% 9.1 % (0-10); NRBC Flagged by Analyzer 0 % (0-5); Neutrophil # 3.42 X10^3/uL (2.7-7.7); Neutrophil % 66.6 % (47-70); POSITIVE COUNT YES; POSITIVE MORPHOLOGY YES; RBC Distribution Width CV 21.6 % (11.6-14.6); RBC Distribution Width SD 76.9 fl (35.1-43.9); Red Blood Count 2.55 M/mm3 (4.2-5.4); White Blood Count 5.1 K/mm3 (4.4-11.0)
[2024-01-25 07:04] LABS: Anion Gap 6 (5-15); BUN 47 mg/dL (7-18); BUN/Creat Ratio 20.2 RATIO (10-20); Calcium,Total 7.8 mg/dL (8.5-10.1); Chloride 108 mmol/L (98-107); Creatinine, Serum 2.33 mg/dL (0.55-1.02); EST Glomerular Filtration Rate 21 mL/min (>60); Est Glom Filt Rate - Afr Amer 25 mL/min (>60); Estimated Creatinine Clearance 13.14 ml/min; Glucose 89 mg/dL (74-106); Potassium 3.9 mmol/L (3.5-5.1); Sodium Level 142 mmol/L (136-145)
[2024-01-25 07:53] VITALS: BP 134/54; PULSE 82; RESP 14; TEMP 36.5; O2SAT 96
[2024-01-25 07:54] LABS: Differential Indicated SCAN CRITERIA MET
[2024-01-25] MEDS: Furosemide 80 MG Tablet PO (07:55)
[2024-01-25] MEDS: Pantoprazole Sodium 40 MG Tablet PO (07:55)
[2024-01-25 07:56] LABS: Platelet Estimate ADEQUATE (ADEQ)
[2024-01-25 07:57] LABS: Anisocytosis 2+; Polychromasia RARE
--- NOTE | 2024-01-25 09:37 | PN.HOSP_ITS ---
Reason for Visit Reason for Visit: Diagnoses Iron deficiency anemia secondary to blood loss (chronic) (01/23/24) Acute posthemorrhagic anemia (01/23/24) Gastrointestinal hemorrhage, unspecified (01/23/24) Subjective Subjective Feels well. No further melena nor hematochezia. Objective Data Objective Data Vital Signs: Vital Signs Temp Pulse Resp BP Pulse Ox O2 Del Method O2 Flow Rate 36.5 C L 82 14 134/54 H 96 Room Air 4 01/25/24 07:53 01/25/24 07:53 01/25/24 07:53 01/25/24 07:53 01/25/24 07:53 01/25/24 07:53 01/24/24 16:25 Oxygen Flow Rate (L/min) 4 Oxygen Delivery Method Room Air Weight: 56.4 kg Body Mass Index (BMI) 25.1 Intake & Output: Intake and Output for Last 24 Hours 01/23/24 01/24/24 01/25/24 23:59 23:59 23:59 Intake Total 357 / 357 340 / 490 300 / 300 Balance 357 / 357 340 / 490 300 / 300 Lab / Micro Data 01/25/24 13:08 01/25/24 06:00 Labs: Laboratory Results - last 24 hr 01/23/24 11:53: Diff Path Review Reviewed 01/24/24 05:12: APTT 28.4 01/25/24 06:00: WBC 5.1, RBC 2.55 L, Hgb 7.8 L, Hct 25.6 L, MCV 100.4 H, MCH 30.6, MCHC 30.5 L, RDW Std Deviation 76.9 H, RDW Coeff of Michael 21.6 H, Plt Count , MPV 10.2, Immature Gran % (Auto) 0.400, Neut % (Auto) 66.6, Lymph % (Auto) 17.3 L, [place] % (Auto) 9.1, Eos % (Auto) 6.2 H, Baso % (Auto) 0.4, Absolute Neuts (auto) 3.4, Absolute Lymphs (auto) 0.89, Nucleated RBC % 0, Platelet Estimate ADEQUATE, Polychromasia RARE, Anisocytosis 2+, Sodium 142, Potassium 3.9, C hloride 108 H, Carbon Dioxide 28.0, Anion Gap 6, BUN 47 H, Creatinine 2.33 H, Estim Creat Clear Calc 13.14, Est GFR (MDRD) Af Amer 25 L, Est GFR (MDRD) Non-Af 21 L, BUN/Creatinine Ratio 20.2 H, Glucose 89, Calcium 7.8 L Micro: Microbiology 01/23/24 12:57 Stool Stool Occult Blood (MIRZA) - Final Occult Blood Positive Rhythm Strip Rhythm Strip: Paced with underlying A-fib likely Rate: 80 Ectopy: None Physical Exam Const alert and no apparent distress HEENT head/scalp atraumatic and moist oral mucous membranes Resp normal respiratory effort, no retractions, no use of accessory muscles and clear to auscultation bilaterally Cardio regular rate, regular rhythm, S1 normal heart sound and S2 normal heart sound GI normal to inspection, nondistended, normoactive bowel sounds, soft to palpation, non-tender and non-distended Neuro Sensorium / Orientation: awake and alert Assessment & Plan Assessment/Plan (1) ABLA (acute blood loss anemia): (2) GI bleed: PLAN: Plan GI bleed * EGD on January 23 showed a normal esophagus, 1 oozing cratered gastric ulcer with pigmented material in the gastric antrum that was treated with coagulation for hemostasis and 1 nonbleeding linear duodenal ulcer with no stigmata of bleeding in the fourth portion of the duodenum and coagulation was used for hemostasis * Patient to continue with pantoprazole 40 mg twice daily and super fate. * Patient will hold clopidogrel in the meantime. Clopidogrel was not the cause of her GI bleed but did likely a propagating factor. Acute blood loss anemia secondary to GI bleed from gastric ulcers * Improved status posttransfusion of 2 units of packed red blood cells. * Hemoglobin has remained stable. Chronic conditions: * Essential hypertension/hyperlipidemia-Continue home meds * History of complete heart block/atrial fibrillation-Currently in sinus rhythm- Not on full anticoagulation due to history of GI bleed and was on clopidogrel instead. Resume clopidogrel in 96 hours. * Nonrheumatic tricuspid valve insufficiency/moderate to severe mitral valve regurgitation-Patient has declined surgical referral-Continue medical management-Outpatient follow-up with cardiology * Nonischemic cardiomyopathy/chronic HFrEF-No current signs of decompensation despite transfusion-Last echocardiogram showed an EF of 30% with moderate to severe mitral valve regurgitation-continue diuretics-Continue outpatient follow-up with cardiology * CKD stage IV-Serum creatinine is at baseline-continue Lasix-Repeat BMP in a.m. * Chronic lower extremity edema-Swelling is at baseline * History of TIA-Restart Plavix once able DVT prophylaxis -Chemoprophylaxis contraindicated due to the above -SCDs CODE STATUS -DNR CCA with no intubation
[2024-01-25 13:11] LABS: Hematocrit 27.7 % (37-47); Hemoglobin 8.4 g/dL (12.0-15.0)
[2024-01-25 14:00] VITALS: BP 132/51; PULSE 85; RESP 12; TEMP 36.6; O2SAT 96
--- NOTE | 2024-01-25 14:31 | DS.PCM_ITS ---
Providers Date of Admission: 01/23/24 Primary Care Physician: Dr. John Rachel MD Consultations 01/23/24 17:34 Consult: Gastroenterology Routine Consulting Provider: [facility] Reason for Consult: anemia EMERGENT Consult: No MD Notified: Yes Date Notified: 01/23/24 Time Notified: 16:19 Method of Notification: Verbal Reason For Visit: ANEMIA Diagnosis Discharge Diagnosis (1) ABLA (acute blood loss anemia): Status: Acute Code(s): D62 - Acute posthemorrhagic anemia (2) GI bleed: Status: Acute Code(s): K92.2 - Gastrointestinal hemorrhage, unspecified Plan GI bleed * EGD on January 23 showed a normal esophagus, 1 oozing cratered gastric ulcer with pigmented material in the gastric antrum that was treated with coagulation for hemostasis and 1 nonbleeding linear duodenal ulcer with no stigmata of bleeding in the fourth portion of the duodenum and coagulation was used for hemostasis * Patient to continue with pantoprazole 40 mg twice daily and super fate. * Patient will hold clopidogrel in the meantime. Clopidogrel was not the cause of her GI bleed but did likely a propagating factor. Acute blood loss anemia secondary to GI bleed from gastric ulcers * Improved status posttransfusion of 2 units of packed red blood cells. * Hemoglobin has remained stable. Chronic conditions: * Essential hypertension/hyperlipidemia-Continue home meds * History of complete heart block/atrial fibrillation-Currently in sinus rhythm- Not on full anticoagulation due to history of GI bleed and was on clopidogrel instead. Resume clopidogrel in 96 hours. * Nonrheumatic tricuspid valve insufficiency/moderate to severe mitral valve regurgitation-Patient has declined surgical referral-Continue medical management-Outpatient follow-up with cardiology * Nonischemic cardiomyopathy/chronic HFrEF-No current signs of decompensation despite transfusion-Last echocardiogram showed an EF of 30% with moderate to severe mitral valve regurgitation-continue diuretics-Continue outpatient follow-up with cardiology * CKD stage IV-Serum creatinine is at baseline-continue Lasix-Repeat BMP in a.m. * Chronic lower extremity edema-Swelling is at baseline * History of TIA-Restart Plavix once able DVT prophylaxis -Chemoprophylaxis contraindicated due to the above -SCDs CODE STATUS -DNR CCA with no intubation Medications at Discharge Home Medications vitamins A,C,B-okqz-yppnvj 4,296 mcg-226 mg-90 mg capsule (PreserVision AREDS) 1 cap PO BID eye health 03/12/20 mecobalamin (vitamin B12) 1,000 mcg chewable tablet 1,000 mcg PO DAILY supplement 03/15/23 clopidogrel 75 mg tablet 75 mg PO DAILY blood thinner #90 tabs 05/06/23 pravastatin 20 mg tablet 20 mg PO DAILY cholesterol #90 tabs 05/06/23 metoprolol succinate 50 mg tablet,extended release 24 hr 50 mg PO .COMPLEX heart #90 tabs 12/07/23 furosemide 80 mg tablet 80 mg PO DAILY #30 tabs 12/24/23 polysaccharide iron complex 150 mg iron capsule (Ferrex) See Rx Instructions .Route .COMPLEX #30 caps 12/24/23 potassium chloride 10 mEq tablet,extended release(part/cryst) 10 meq PO DAILY #30 tabs 12/24/23 ascorbic acid (vitamin C) 500 mg chewable tablet (Acerola C) 500 mg PO QODAY 01/23/24 pantoprazole 40 mg tablet,delayed release 40 mg PO BID #60 tabs 01/25/24 sucralfate 1 gram tablet 1 g PO 1HR_ACHS #120 tabs 01/25/24 Hospital Course Operations None Procedures EGD Summary of Care Provided Minutes Spent on Discharge: 36 Hospital Course: Patient presents with acute blood loss anemia of hemoglobin down to 5.6. Patient was transfused 2 units. Patient had GI bleed due to bleeding gastral ulcer. This was addressed on EGD on the . Patient will continue with the pantoprazole as well as Carafate. Patient is on clopidogrel, which was not the cause of her GI bleed but did help in regards to propagating it. She is on clopidogrel for atrial fibrillation. Patient had been on anticoagulation with apixaban but that was held for the past due to GI bleed. Patient will hold off on her clopidogrel for 96 hours before resuming. Weight / BMI Weight Weight: 56.4 kg Body Mass Index (BMI) 25.1 ABG / Lab / Microbiology Data 01/25/24 13:08 01/25/24 06:00 Laboratory: Laboratory Results - last 24 hr 01/25/24 06:00: WBC 5.1, RBC 2.55 L, Hgb 7.8 L, Hct 25.6 L, MCV 100.4 H, MCH 30.6, MCHC 30.5 L, RDW Std Deviation 76.9 H, RDW Coeff of Michael 21.6 H, Plt Count , MPV 10.2, Immature Gran % (Auto) 0.400, Neut % (Auto) 66.6, Lymph % (Auto) 17.3 L, [place] % (Auto) 9.1, Eos % (Auto) 6.2 H, Baso % (Auto) 0.4, Absolute Neuts (auto) 3.4, Absolute Lymphs (auto) 0.89, Nucleated RBC % 0, Platelet Estimate ADEQUATE, Polychromasia RARE, Anisocytosis 2+, Sodium 142, Potassium 3.9, C hloride 108 H, Carbon Dioxide 28.0, Anion Gap 6, BUN 47 H, Creatinine 2.33 H, Estim Creat Clear Calc 13.14, Est GFR (MDRD) Af Amer 25 L, Est GFR (MDRD) Non-Af 21 L, BUN/Creatinine Ratio 20.2 H, Glucose 89, Calcium 7.8 L 01/25/24 13:08: Hgb 8.4 L, Hct 27.7 L Microbiology: Microbiology 01/23/24 12:57 Stool Stool Occult Blood (MIRZA) - Final Occult Blood Positive D/C Instructions Discharge Diet: Low fat / Low cholesterol Meaningful Use Info Meaningful Use Meaningful Use Diagnoses (Choose all that apply): None applicable Ischemic Stroke Statin Dosing Therapy Reference: STATIN DOSE THERAPY REFERENCE: * Patients > 75 years receive moderate or high dose statin therapy. * Patients 75 years or YOUNGER should receive HIGH intensity statin dose unless contraindicated. You will be required to document reason for non-treatment if statin daily dose does not meet guidelines. HIGH DOSE STATIN THERAPY DAILY Atorvastatin > than or = to 40 mg Rosuvastatin > than or = to 20 mg Amlodipine + Atorvastatin > than or = to 2.5/40 mg Ezetimibe + Simvastatin 10/80 mg Simvastatin 80mg Discharge Plan Admission Admit Date/Time: 01/23/24 16:16 Primary Reason for Your Visit: GI bleed Attending Provider: Robert Escobar Primary Care Provider: John Rachel Consulting Providers: Juma Hastings; Adrianna Blanchard Instructions Additional Instructions / Restrictions: You had a GI bleed due to bleeding ulcer. This was complicated by the fact they also do take Plavix.: Advised holding off on your Plavix for the next 4 days. You also be on medications to help with your ulcer including Protonix and Carafate. If you do have episodes of blood in your stool, vomiting blood or dark tarry stool, notify your physician or return to the emergency room immediately. Discharge Orders/Prescriptions Prescriptions: New sucralfate 1 gram Tablet 1 g PO 1HR_ACHS Qty: 120 0RF pantoprazole 40 mg Tablet,Delayed Release (Dr/Ec) 40 mg PO BID Qty: 60 0RF Continued PreserVision AREDS [id number]-[id number] capsule 1 cap PO BID mecobalamin (vitamin B12) 1,000 mcg tablet,chewable 1,000 mcg PO DAILY metoprolol succinate 50 mg tablet extended release 24 hr 50 mg PO .COMPLEX Qty: 90 3RF Rx Instructions: 50 mg orally at bedtime; polysaccharide iron complex [Ferrex 150] 150 mg iron Capsule See Rx Instructions .ROUTE .COMPLEX Qty: 30 0RF Rx Instructions: 150 mg orally every other day with a meal and a Vitamin C furosemide 80 mg Tablet 80 mg PO DAILY Qty: 30 0RF potassium chloride 10 mEq Tablet,Er Particles/Crystals 10 meq PO DAILY Qty: 30 0RF ascorbic acid (vitamin C) [Acerola C] 500 mg tablet,chewable 500 mg PO QODAY pravastatin 20 mg tablet 20 mg PO DAILY Qty: 90 3RF Held clopidogrel 75 mg tablet 75 mg PO DAILY Qty: 90 3RF Hold Instructions: Resume on 01/29/24. Referrals / Follow Up: [facility] [Provider Group] - Within 3 Months John Rachel MD [Primary Care Provider] - Within 2 Weeks Disposition Disposition (needs filled in before D/C Order can be placed): Home, Self Care Charges/Coding Visit Charges Inpatient E&M: 30568 Disch Hosp >30min
--- NOTE | 2024-01-25 14:54 | CASEMGMT ---
Patient has order for discharge. RN CM called and updated [facility] regarding discharge. RN CM in to discuss needs at discharge. RN CM updated patient that [facility] will be calling with resumption of therapy. Patient denied further needs or help at discharge. Patient had no further questions or concerns.
[2024-01-26 17:07] LABS: Albumin 3.2 g/dL (2.9-4.4); Alpha-1-Globulins 0.3 g/dL (0.0-0.4); Alpha-2-Globulins 0.6 g/dL (0.4-1.0); Deamidated Gliadin IgA 12 units (0-19); Deamidated Gliadin IgG 2 units (0-19); Endomysial Antibody IgA Negative (Negative); Gamma Globulin 1.6 g/dL (0.4-1.8); Gastrin, Serum 218 pg/mL (0-115); Immunoglobulin A 408 mg/dL (64-422); Immunoglobulin G 1483 mg/dL (586-1602); Immunoglobulin M 111 mg/dL (26-217); PROEL- TOTAL PROTEIN 6.7 g/dL (6.0-8.5); t-Transglutaminase IgA <2 U/mL (0-3)
== END 2024-01-25 15:40 | disposition home health service (06) | DRG 378 ==
LOC: ED 15:24 → PCU 17:41
PROVIDERS: Anesthesiology; Family Medicine; Internal Medicine; Internal Medicine Gastroenterology; Admitting Provider Internal Medicine; Emergency Provider Emergency Medicine; PCP Family Medicine
PROC: 0DJ08ZZ Inspection of Upper Intestinal Tract, Via Natural or Artificial Opening Endoscopic (ICD-10-PCS; CPT 43235; principal; 2024-01-24 15:25)
DX: K25.4 Chronic or unspecified gastric ulcer with hemorrhage (principal); D62 Acute posthemorrhagic anemia; I42.8 Other cardiomyopathies; I13.0 Hypertensive heart and chronic kidney disease with heart failure and stage 1 through stage 4 chronic kidney disease, or unspecified chronic kidney disease; I48.20 Chronic atrial fibrillation, unspecified; I50.22 Chronic systolic (congestive) heart failure; N18.4 Chronic kidney disease, stage 4 (severe); D63.1 Anemia in chronic kidney disease; I08.1 Rheumatic disorders of both mitral and tricuspid valves; E78.5 Hyperlipidemia, unspecified; K26.4 Chronic or unspecified duodenal ulcer with hemorrhage; Z79.02 Long term (current) use of antithrombotics/antiplatelets; Z82.3 Family history of stroke; Z95.0 Presence of cardiac pacemaker; Z66 Do not resuscitate; Z86.73 Personal history of transient ischemic attack (TIA), and cerebral infarction without residual deficits
CPT/HCPCS: 36415; 80048; 80061; 80076; 82274; 82607; 82668; 82728; 82746; 82784; 82941; 83516; 83540; 83550; 83615; 84165; 84484; 85014; 85018; 85025; 85045; 85610; 85730; 86255; 86334; 86850; 86900; 86901; 86920; 86922; 88305; 88342; 93005; 99283; J7120; P9016; A4216; J2405; J3490

== ENCOUNTER → 2024-01-23 | Outpatient (CLI) | payer MEDICARE, SELFPAY ==
[2024-01-23 09:28] LABS: Hematocrit 18.9 % (37-47); Hemoglobin 5.5 g/dL (12.0-15.0); POSITIVE COUNT YES
[2024-01-23 10:00] LABS: AST(SGOT) 16 U/L (15-37); Alanine Aminotransfer ALT/SGPT 9 U/L (13-56); Albumin, Serum 2.8 g/dL (3.2-5.0); Alkaline Phosphatase 75 U/L (45-117); Cholesterol 81 mg/dL (200); High Density Lipoprotein 42 mg/dL; Protein, Total 6.8 g/dL (6.4-8.2); Triglycerides 48 mg/dL; Very Low Density Lipoprotein 10 mg/dL (5-40)
[2024-01-24 13:37] LABS: Pathologist Review Reviewed
== END | disposition home or self-care (01) ==
LOC: LAB 08:59
PROVIDERS: PCP Family Medicine; Visit Provider Physician Assistant Medical
DX: E78.00 Pure hypercholesterolemia, unspecified (principal); D50.0 Iron deficiency anemia secondary to blood loss (chronic)
CPT/HCPCS: 36415; 80061; 80076; 85014; 85018

== ENCOUNTER → 2024-02-17 | Outpatient (CLI) | payer MEDICARE, SELFPAY ==
[2024-02-17 12:04] LABS: Absolute Lymphocyte Count 0.88 X10^3/uL (0.83-4.51); Absolute Neutrophil Count 4.1 X10^3/uL (2.0-7.7); Basophil# 0.04 X10^3/uL; Basophil% 0.7 % (0-1); Eosinophil# 0.24 X10^3/uL; Eosinophils% 4.1 % (0-5); Hematocrit 22.4 % (37-47); Hemoglobin 6.5 g/dL (12.0-15.0); Lymphocyte # 0.88 X10^3/ul (0.83-4.51); Lymphocyte % 15.2 % (19-41); Mean Corpuscular Hgb 28.9 pg (27.0-32.0); Mean Corpuscular Volume 99.6 fL (81-99); Mean Platelet Vol. 9.1 fl (6.2-12.0); Monocyte# 0.45 X10^3/uL; Monocyte% 7.8 % (0-10); NRBC Flagged by Analyzer 0 % (0-5); Neutrophil # 4.09 X10^3/uL (2.7-7.7); Neutrophil % 70.6 % (47-70); Platelet Count 274 K/mm3 (150-450); RBC Distribution Width CV 15.9 % (11.6-14.6); RBC Distribution Width SD 57.4 fl (35.1-43.9); Red Blood Count 2.25 M/mm3 (4.2-5.4); White Blood Count 5.8 K/mm3 (4.4-11.0)
[2024-02-17 12:45] LABS: Iron 31 ug/dL (50-170); Iron Binding Capacity,Total 318 ug/dL (250-450); PERCENT IRON SATURATION 9.7 % (15.0-55.0)
== END | disposition home or self-care (01) ==
LOC: LAB 11:49
PROVIDERS: PCP Family Medicine; Referring Provider Family Medicine; Visit Provider Family Medicine
DX: D50.9 Iron deficiency anemia, unspecified (principal)
CPT/HCPCS: 36415; 83540; 83550; 85025

== ENCOUNTER 2024-02-20 11:09 | Inpatient (IN) | payer MEDICARE, SELFPAY ==
[2024-02-20] VITALS (14 sets, daily range): BP systolic 132–166; BP diastolic 61–82; PULSE 80–88; RESP 16–33; TEMP 35.5–36.9; O2SAT 95–100; BMI 27.6; BMI 27.5
[2024-02-20 12:35] LABS: Absolute Lymphocyte Count 0.74 X10^3/uL (0.83-4.51); Absolute Neutrophil Count 3.6 X10^3/uL (2.0-7.7); Basophil# 0.04 X10^3/uL; Basophil% 0.8 % (0-1); Eosinophil# 0.14 X10^3/uL; Eosinophils% 2.7 % (0-5); Hematocrit 23.2 % (37-47); Hemoglobin 6.9 g/dL (12.0-15.0); Lymphocyte # 0.74 X10^3/ul (0.83-4.51); Lymphocyte % 14.5 % (19-41); Mean Corp Hgb Conc 29.7 g/dL (32-36); Mean Corpuscular Hgb 29.1 pg (27.0-32.0); Mean Corpuscular Volume 97.9 fL (81-99); Mean Platelet Vol. 9.2 fl (6.2-12.0); Monocyte# 0.56 X10^3/uL; NRBC Flagged by Analyzer 0 % (0-5); Neutrophil # 3.61 X10^3/uL (2.7-7.7); Neutrophil % 70.6 % (47-70); Platelet Count 220 K/mm3 (150-450); RBC Distribution Width CV 15.7 % (11.6-14.6); RBC Distribution Width SD 55.1 fl (35.1-43.9); Red Blood Count 2.37 M/mm3 (4.2-5.4); White Blood Count 5.1 K/mm3 (4.4-11.0)
[2024-02-20 13:01] LABS: ALB/GLOB Ratio 0.6 RATIO (0.9-2.4); AST(SGOT) 16 U/L (15-37); Alanine Aminotransfer ALT/SGPT 12 U/L (13-56); Albumin, Serum 2.7 g/dL (3.2-5.0); Alkaline Phosphatase 88 U/L (45-117); Anion Gap 8 (5-15); BUN 43 mg/dL (7-18); Calcium,Total 8.3 mg/dL (8.5-10.1); Chloride 105 mmol/L (98-107); Creatinine, Serum 2.86 mg/dL (0.55-1.02); EST Glomerular Filtration Rate 17 mL/min (>60); Est Glom Filt Rate - Afr Amer 20 mL/min (>60); Globulin 4.6 g/dL (2.2-4.2); Glucose 99 mg/dL (74-106); Protein, Total 7.3 g/dL (6.4-8.2); Sodium Level 137 mmol/L (136-145)
--- NOTE | 2024-02-20 13:40 | EX.ED.DYSGE1 ---
HPI History of Present Illness Chief Complaint: Abn Labs Narrative Narrative: 88-year-old female presenting with anemia. Patient states she recently was hospitalized for a GI bleed and saw Dr. Espinoza who diagnosed her with bleeding ulcers. Patient is still on Plavix. She notes black stools but states she is on iron supplements. She states he does feel a little bit weaker than usual. She is a little bit lightheaded when she walks and ambulates. She feels a mild shortness of breath when she walks. She has not noticed any bloody stools. [facility] Medical History Chronic renal failure Mitral regurgitation Tricuspid regurgitation Acute on chronic renal insufficiency Pleural effusion on right Anemia Atrial fibrillation with rapid ventricular response HFrEF (heart failure with reduced ejection fraction) CKD (chronic kidney disease), stage IV Anemia of chronic renal failure, stage 4 (severe) Pulmonary hypertension Cardiomyopathy 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 Presence of cardiac pacemaker Non-smoker Hypertension Atrial fibrillation TIA (transient ischemic attack) Shortness of breath Bilateral edema of lower extremity Chronic kidney disease SMITH (dyspnea on exertion) Swelling of right lower extremity Dyslipidemia Longstanding persistent atrial fibrillation Chronic systolic (congestive) heart failure Essential hypertension Premature ventricular contraction History of GI bleed TIA (transient ischemic attack) Nonrheumatic mitral valve regurgitation Hypertension Hyperlipidemia Other specified transient cerebral ischemias Nonrheumatic tricuspid (valve) insufficiency Home Medications ?Medication ?Instructions ?Recorded ?Last Taken ?Type vitamins A,C,F-wenv-hxkaxi 4,296 1 cap PO BID eye health 03/12/20 01/22/24 History mcg-226 mg-90 mg capsule (PreserVision AREDS) mecobalamin (vitamin B12) 1,000 1,000 mcg PO DAILY supplement 03/15/23 01/22/24 History mcg chewable tablet clopidogrel 75 mg tablet 75 mg PO DAILY blood thinner #90 05/06/23 01/22/24 Rx tabs metoprolol succinate 50 mg 50 mg PO .COMPLEX heart #90 tabs 12/07/23 01/22/24 Rx tablet,extended release 24 hr furosemide 80 mg tablet 80 mg PO DAILY #30 tabs 12/24/23 01/22/24 Rx polysaccharide iron complex 150 mg See Rx Instructions .Route 12/24/23 01/22/24 Rx iron capsule (Ferrex) .COMPLEX #30 caps potassium chloride 10 mEq 10 meq PO DAILY #30 tabs 12/24/23 01/22/24 Rx tablet,extended release(part/cryst) ascorbic acid (vitamin C) 500 mg 500 mg PO QODAY 01/23/24 01/22/24 History chewable tablet (Acerola C) pantoprazole 40 mg tablet,delayed 40 mg PO BID #60 tabs 01/25/24 Unknown Rx release sucralfate 1 gram tablet 1 g PO 1HR_ACHS #120 tabs 01/25/24 Unknown Rx pravastatin 20 mg tablet 20 mg PO DAILY #100 TABLETS 01/30/24 Unknown Rx Allergy/AdvReac Type Severity Reaction Status Date / Time amiodarone AdvReac Severe Severs Verified 02/20/24 11:10 muscle weakness, hair loss amlodipine AdvReac Severe Swelling Verified 02/20/24 11:10 flecainide AdvReac Severe Near Verified 02/20/24 11:10 Syncope, Severe Nausea losartan AdvReac myalgia Verified 02/20/24 11:10 Family History Father COPD (chronic obstructive pulmonary disease) CHF (congestive heart failure) Mother Hypertension CVA (cerebral vascular accident) Brother Hypertension Surgical History Hx of atrioventricular node ablation History of total hysterectomy History of cholecystectomy Social History household members: spouse Smoking Status: Never smoker alcohol intake: never substance use type: does not use caffeine: Yes Type: coffee Number of servings: 1 ROS ROS ED ROS Narrative Generalized weakness Constitutional Constitutional ED: Denies chills, fever(s) or sweats Eyes Eyes: Denies blurry vision or change in vision ENT ENT ED: Denies ear pain or sore throat Cardiovascular Cardiovascular: Denies chest pain, palpitations or racing heartbeat Respiratory/Chest Respiratory/Chest: Reports dyspnea; Denies cough or sputum Gastrointestinal Gastrointestinal: Denies abdominal pain, constipation, diarrhea, nausea or vomiting Genitourinary Genitourinary ED: Denies dysuria, hematuria or urinary frequency Musculoskeletal Musculoskeletal: Denies arthralgias, myalgias or neck pain Integumentary Denies abscess, Abrasions or rash Neurologic Neurologic: Denies headache(s), paresthesias or weakness Psychiatric Psychiatric: Denies anxiety, depression, suicidal ideation or suicidal thoughts Endocrine Endocrinology: Denies polydipsia or polyuria EXAM Physical Exam Const Vital Signs: 02/20/24 11:10 02/20/24 11:18 02/20/24 11:26 Temperature 97.7 F L Temperature Source Temporal Pulse Rate 88 80 Respiratory Rate 22 H 18 Respiratory Pattern Normal Blood Pressure 153/66 H 166/67 H Blood Pressure Mean 95 100 Pulse Ox 100 99 Oxygen Delivery Method Room Air Nasal Cannula Oxygen Flow Rate (L/min) 2 02/20/24 13:29 Temperature Temperature Source Pulse Rate 81 Respiratory Rate 20 H Respiratory Pattern Blood Pressure 150/61 H Blood Pressure Mean 90 Pulse Ox 100 Oxygen Delivery Method Room Air Oxygen Flow Rate (L/min) Positive well nourished General Appearance ED: NAD; Negative for pallor HEENT Reports moist mucous membranes Eyes PERRL and EOMs intact bilaterally Chest Wall inspection of chest normal Resp normal respiratory effort and clear to auscultation bilaterally Auscultation: Negative for rales, rhonchi or wheezes Cardio regular rate and regular rhythm GI normal to inspection, nondistended, normoactive bowel sounds Extremity normal to inspection Neuro oriented x3 and CN's II-XII intact bilaterally Sensorium / Orientation: alert Motor Exam: general weakness Psych mental status grossly normal Skin no rashes or lesions noted General Skin Exam: Negative for jaundice or pallor MDM MDM MDM Narrative Medical decision making narrative: Patient presenting with low hemoglobin. She is symptomatic. Patient admits to black stools and states this is chronic and she is on iron supplements. Differential includes gastric ulcer, duodenal ulcer, acute blood loss anemia. CBC to assess white blood cell count, hemoglobin, platelets. CMP to assess liver function, renal function, electrolytes, glucose. Patient typed and screened and crossmatched for 2 units of blood. CBC today shows white blood cell count of 5.1. Hemoglobin 6.9. Platelets are normal at 220. Creatinine is elevated at 2.86. This was 2.33 a month ago. Patient was given 500 cc of IV fluids. Case was discussed with Dr. Espinoza who recommends holding plavix and NPO after midnight. Patient is given 80 of protonix. Discussed with hospitalist for admission who continue protonix drip. Impression: 1. Acute Blood Loss Anemia 2. Upper GI bleed Lab Data Attestation: I reviewed the patient's lab results. Labs: Laboratory Results - last 24 hr 02/20/24 02/20/24 12:23 12:55 WBC 5.1 RBC 2.37 L Hgb 6.9 L Hct 23.2 L MCV 97.9 MCH 29.1 MCHC 29.7 L RDW Std Deviation 55.1 H RDW Coeff of Michael 15.7 H Plt Count 220 MPV 9.2 Immature Gran % (Auto) 0.400 Neut % (Auto) 70.6 H Lymph % (Auto) 14.5 L [place] % (Auto) 11.0 H Eos % (Auto) 2.7 Baso % (Auto) 0.8 Absolute Neuts (auto) 3.6 Absolute Lymphs (auto) 0.74 L Nucleated RBC % 0 Sodium 137 Potassium 4.0 Chloride 105 Carbon Dioxide 24.0 Anion Gap 8 BUN 43 H Creatinine 2.86 H Estim Creat Clear Calc 11.20 Est GFR (MDRD) Af Amer 20 L Est GFR (MDRD) Non-Af 17 L BUN/Creatinine Ratio 15.0 Glucose 99 Calcium 8.3 L Total Bilirubin 0.30 AST 16 ALT 12 L Alkaline Phosphatase 88 Total Protein 7.3 Albumin 2.7 L Globulin 4.6 H Albumin/Globulin Ratio 0.6 L Blood Type A POSITIVE Antibody Screen NEGATIVE Crossmatch See Detail Discharge Plan Triage Chief Complaint: Abn Labs ED Provider: Charles Villaseñor Dx/Rx/DC Orders Prescriptions: No Action PreserVision AREDS 14320-226-200 [id number]-vg-[id number] capsule 1 cap PO BID mecobalamin (vitamin B12) 1,000 mcg tablet,chewable 1,000 mcg PO DAILY metoprolol succinate 50 mg tablet extended release 24 hr 50 mg PO .COMPLEX Qty: 90 3RF Rx Instructions: 50 mg orally at bedtime; polysaccharide iron complex [Ferrex 150] 150 mg iron Capsule See Rx Instructions .ROUTE .COMPLEX Qty: 30 0RF Rx Instructions: 150 mg orally every other day with a meal and a Vitamin C furosemide 80 mg Tablet 80 mg PO DAILY Qty: 30 0RF potassium chloride 10 mEq Tablet,Er Particles/Crystals 10 meq PO DAILY Qty: 30 0RF ascorbic acid (vitamin C) [Acerola C] 500 mg tablet,chewable 500 mg PO QODAY sucralfate 1 gram Tablet 1 g PO 1HR_ACHS Qty: 120 0RF pantoprazole 40 mg Tablet,Delayed Release (Dr/Ec) 40 mg PO BID Qty: 60 0RF clopidogrel 75 mg tablet 75 mg PO DAILY Qty: 90 3RF pravastatin 20 mg tablet 20 mg PO DAILY Qty: 100 3RF Primary Care Provider: John Rachel Referrals: John Rachel MD [Primary Care Provider] - Print Language: Latvian
[2024-02-20] MEDS: 0.9% Normal Saline (500mL Bag) 500 ML 999 ML IV (13:58)
--- NOTE | 2024-02-20 14:17 | HP.PCM.HOS_ITS ---
HPI - General General Date of Admission: 02/20/24 Date of Service: 02/20/24 Chief Complaint: Dark black stools, dyspnea, worsening, increased weakness. HPI Narrative The patient is an 88 y/o F w/ PMHx: CKD stage IV, Chronic anemia/Fe Deficiency anemia, HTN, HLD, Hx TIA, PAF, Hx Complete Heart Block s/p pacemaker status, Valvular Heart Disease, Nonischemic cardiomyopathy/HFrEF, Chronic BL LE Edema/lymphedema, recent discharge 01/25/24 with history of acute blood loss anemia secondary to acute GI bleed on chronic anemia with EGD 01/24/24 with normal esophagus, oozing gastric ulcer with pigmented material treated with a heater probe, nonbleeding duodenal ulcer with no stigmata of bleeding treated with a heater probe discharged on oral Protonix and temporarily hold on Plavix however this was eventually resumed outpatient requiring 2 unit PRBC administration during admission who presents to the [facility] ED on 02/22/24 with history of ongoing dark black stools with recent Plavix restarted status post recent GI bleed with inpatient evaluation and treatment although she does report she is on iron supplementations but she is felt more weak and fatigued with dyspnea worse with exertion with some mild lightheadedness when she exerts herself more aggressively but no dizziness or syncopal events given the symptoms prompted call to her physician who requested that she present to the ED for evaluation to be cautious. Workup in the ED included T97.7, heart rate 88, BP 153/66, respiratory rate 22, 100% on room air, CBC with WC 5.1, hemoglobin 6.9 initially, most recently prior to this 02/17/2024 noted hemoglobin 6.5 and on discharge 01/25/2024 hemoglobin 8.4, platelet 220 without marked shift with lymphopenia, CMP with BUN/creatinine 43/2.86, GFR 17, hepatic profile not marked appearing, type and cross initiated w/ PRBC ordered per ED physician. ED discussed case with associate software development engineer Dr. Espinoza who noted intention for a.m. endoscopy. [facility] Medical History Kidney disease Atrial fibrillation Pacemaker TIA (transient ischemic attack) Chronic renal failure Anemia of chronic renal failure, stage 4 (severe) Pulmonary hypertension HFrEF (heart failure with reduced ejection fraction) Cardiomyopathy 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 Presence of cardiac pacemaker CKD (chronic kidney disease), stage IV Mitral regurgitation Tricuspid regurgitation Non-smoker Hypertension Atrial fibrillation TIA (transient ischemic attack) Acute on chronic renal insufficiency Pleural effusion on right Anemia Atrial fibrillation with rapid ventricular response Shortness of breath Bilateral edema of lower extremity Chronic kidney disease SMITH (dyspnea on exertion) Swelling of right lower extremity Dyslipidemia Longstanding persistent atrial fibrillation Chronic systolic (congestive) heart failure Essential hypertension Premature ventricular contraction History of GI bleed TIA (transient ischemic attack) Nonrheumatic mitral valve regurgitation Hypertension Hyperlipidemia Other specified transient cerebral ischemias Nonrheumatic tricuspid (valve) insufficiency Home Medications ?Medication ?Instructions ?Recorded ?Last Taken ?Type vitamins A,C,Y-lksx-hqsjuq 4,296 1 cap PO BID eye health 03/12/20 01/22/24 History mcg-226 mg-90 mg capsule (PreserVision AREDS) mecobalamin (vitamin B12) 1,000 1,000 mcg PO DAILY supplement 03/15/23 01/22/24 History mcg chewable tablet clopidogrel 75 mg tablet 75 mg PO DAILY blood thinner #90 05/06/23 01/22/24 Rx tabs metoprolol succinate 50 mg 50 mg PO .COMPLEX heart #90 tabs 12/07/23 01/22/24 Rx tablet,extended release 24 hr furosemide 80 mg tablet 80 mg PO DAILY diuretic #30 tabs 12/24/23 01/22/24 Rx polysaccharide iron complex 150 mg See Rx Instructions .Route 12/24/23 01/22/24 Rx iron capsule (Ferrex) .COMPLEX iron supplement #30 caps potassium chloride 10 mEq 10 meq PO DAILY supplement #30 tabs 12/24/23 01/22/24 Rx tablet,extended release(part/cryst) ascorbic acid (vitamin C) 500 mg 500 mg PO DAILY supplement 01/23/24 01/22/24 History chewable tablet (Acerola C) pantoprazole 40 mg tablet,delayed 40 mg PO BID decrease stomach acid 01/25/24 Unknown Rx release #60 tabs sucralfate 1 gram tablet 1 g PO 1HR_ACHS ulcer #120 tabs 01/25/24 Unknown Rx pravastatin 20 mg tablet 20 mg PO DAILY cholestrol #100 01/30/24 Unknown Rx TABLETS Allergy/AdvReac Type Severity Reaction Status Date / Time amiodarone AdvReac Severe Severs Verified 02/20/24 11:10 muscle weakness, hair loss amlodipine AdvReac Severe Swelling Verified 02/20/24 11:10 flecainide AdvReac Severe Near Verified 02/20/24 11:10 Syncope, Severe Nausea losartan AdvReac myalgia Verified 02/20/24 11:10 Family History Father COPD (chronic obstructive pulmonary disease) CHF (congestive heart failure) Mother Hypertension CVA (cerebral vascular accident) Brother Hypertension Surgical History Hx of atrioventricular node ablation History of total hysterectomy History of cholecystectomy Social History household members: spouse Smoking Status: Never smoker alcohol intake: never substance use type: does not use caffeine: Yes Type: coffee Number of servings: 1 ROS ROS Narrative Admission Review of Systems: CONSTITUTIONAL: No weight loss, fever, chills, + weakness or fatigue. HEENT: + Mild lightheadedness, dizziness. Eyes: No visual loss, blurred vision, double vision or yellow sclerae. Ears, Nose, Throat: No hearing loss, sneezing, congestion, runny nose or sore throat. SKIN: No rash or itching, lesions, wounds. CARDIOVASCULAR: + Mild lightheadedness, dizziness. No chest pain, chest pressure or chest discomfort, palpitations, edema, orthopnea, syncopal events. RESPIRATORY: + Dyspnea worse with exertion. No marked cough or sputum, wheezing, hemoptysis. GASTROINTESTINAL: + Black melanotic stools. No anorexia, nausea, vomiting or diarrhea, abdominal pain, BRBPR. GENITOURINARY: No dysuria, frequency, urgency or retention. NEUROLOGICAL: + Mild lightheadedness/dizziness. No headache, syncope, paralysis, ataxia, numbness or tingling in the extremities, focal weakness, change in bowel or bladder control, seizure. MUSCULOSKELETAL: + muscle, back pain, joint pain or stiffness. HEMATOLOGIC: + Chronic anemia, easy bleeding/bruising. LYMPHATICS: No enlarged nodes. No history of splenectomy. PSYCHIATRIC: No history of depression or anxiety. ENDOCRINOLOGIC: No reports of sweating, cold or heat intolerance. No polyuria or polydipsia. ALLERGIES: No history of asthma, hives, eczema or rhinitis. Vital Signs Vital Signs Vital Signs: 02/20/24 11:10 02/20/24 11:18 02/20/24 11:26 Temperature 97.7 F L Temperature Source Temporal Pulse Rate 88 80 Respiratory Rate 22 H 18 Respiratory Pattern Normal Blood Pressure 153/66 H 166/67 H Blood Pressure Mean 95 100 Pulse Ox 100 99 Oxygen Delivery Method Room Air Nasal Cannula Oxygen Flow Rate (L/min) 2 02/20/24 13:29 Temperature Temperature Source Pulse Rate 81 Respiratory Rate 20 H Respiratory Pattern Blood Pressure 150/61 H Blood Pressure Mean 90 Pulse Ox 100 Oxygen Delivery Method Room Air Oxygen Flow Rate (L/min) Weight Weight: 137 lb Body Mass Index (BMI) 27.6 Physical Exam Narrative Physical Examination: General: Awake, alert, oriented x 3 and cooperative, seated upright in the ED, fatigued appearing, no acute distress. Skin: Pale color, normal turgor, no icterus, no cyanosis, occasional staged ecchymoses, abrasion. HEENT: AT/NC, EOMI, PERRLA, MMM, no carotid bruits or JVD noted. Lungs: Mildly diminished, greater bases, appropriate effort, no rales, ronchi or wheezing. Heart: Regular rate and rhythm; no gallop, rub audible. Abdomen: Soft, NTTP, ND, hyperactive BS, no appreciated HSM. Extremities: No cyanosis, no clubbing, bilateral lower extremity pedal to distal knee chronic pitting edema. Neurological: Patient awake, alert, oriented as noted, cognitive function intact; pupils equally reactive to light and accommodation, cranial nerves grossly normal, moving all 4 extremities, no focal deficits, strength moderately to severely globally Ana secondary to acute presentation complaints. Psychiatric: Affect appears fatigued otherwise normal, no acute evidence of depressive or anxiety feelings. Results Lab / Micro Data 02/20/24 18:06 02/20/24 12:23 Labs: Laboratory Results - last 24 hr 02/20/24 12:23: WBC 5.1, RBC 2.37 L, Hgb 6.9 L, Hct 23.2 L, MCV 97.9, MCH 29.1, MCHC 29.7 L, RDW Std Deviation 55.1 H, RDW Coeff of Michael 15.7 H, Plt Count 220, MPV 9.2, Immature Gran % (Auto) 0.400, Neut % (Auto) 70.6 H, Lymph % (Auto) 14.5 L, [place] % (Auto) 11.0 H, Eos % (Auto) 2.7, Baso % (Auto) 0.8, Absolute Neuts (auto) 3.6, Absolute Lymphs (auto) 0.74 L, Nucleated RBC % 0, Sodium 137, Potassium 4.0, Chloride 105, Carbon Dioxide 24.0, Anion Gap 8, BUN 43 H, C reatinine 2.86 H, Estim Creat Clear Calc 11.20, Est GFR (MDRD) Af Amer 20 L, Est GFR (MDRD) Non-Af 17 L, BUN/Creatinine Ratio 15.0, Glucose 99, Calcium 8.3 L, Total Bilirubin 0.30, AST 16, ALT 12 L, Alkaline Phosphatase 88, Total Protein 7.3, Albumin 2.7 L, Globulin 4.6 H, Albumin/Globulin Ratio 0.6 L 02/20/24 12:55: Blood Type A POSITIVE, Antibody Screen NEGATIVE, Crossmatch See Detail Assessment & Plan Assessment/Plan (1) ABLA (acute blood loss anemia): (2) Acute GI bleeding: PLAN: Plan The patient is an 88 y/o F w/ PMHx: CKD stage IV, Chronic anemia/Fe Deficiency anemia, HTN, HLD, Hx TIA, PAF, Hx Complete Heart Block s/p pacemaker status, Valvular Heart Disease, Nonischemic cardiomyopathy/HFrEF, Chronic BL LE Edema/lymphedema, recent discharge 01/25/24 with history of acute blood loss anemia secondary to acute GI bleed on chronic anemia who now represents to the [facility] ED on 02/22/24 with history of ongoing dark black stools with recent Plavix restarted status post recent GI bleed with inpatient evaluation and treatment although she does report she is on iron supplementations but she is felt more weak and fatigued with dyspnea worse with exertion with some mild lightheadedness when she exerts herself more aggressively but no dizziness or syncopal events given the symptoms prompted call to her physician who requested that she present to the ED for evaluation to be cautious. #1. Acute GI Bleed w/ resultant Acute Blood Loss Anemia on Chronic anemia/Fe deficiency anemia: Will admit to [facility] given stable VS, maintain on IVFs judiciously given history and only until PRBC initiated w/ 2 u ordered per ED, hold plavix, obtain serial H+Hs, maintain on IV PPI continuous drip with bolus administered in the ED, continue carafate, allow clears until midnight then NPO status, continue consultation with Dr. Espinoza Gastroenterology. Will continue oral Fe supplementation. PT/OT consultation, CM consultation for discharge planning. #2. Acute Renal Insufficiency on Chronic Kidney Disease Stage IV per GFR trending in chart record: Suspect likely secondary to perfusion with acute blood loss anemia recurrence as noted above, admission BUN/Cr 43/2.86, baseline renal function more recently noted 2.0-2.4, most recently 01/25/2024 creatinine 2.33, repeat BMP in AM. #3. Nonischemic cardiomyopathy/HFrEF: Most recent echocardiogram noted 11/16/2023 with severe global LV systolic dysfunction, EF 30%, mild global RV systolic dysfunction, severely enlarged LA, massively dilated RA, moderately severe MV insufficiency, tricuspid valve leaflets fail to coapt, wide open torrential tricuspid regurgitation. Will judiciously hydrate only as necessary especially given PRBC planned, will have Lasix in between these units as necessary, holding Plavix given presentation, continue statin hypertensive regimen as BP allows. #4. History of TIA: Holding Plavix given presentation, continue statin, hypertensive regimen as BP allows. #5. PAF: We will continue patient home metoprolol regimen, not chronically anticoagulated, regardless being held at this point given presentation. #6. History complete heart block: Status post maker status, encourage outpatient cardiology follow-up as previously arranged #7. Hypertension: We will continue patient home Lasix as well as metoprolol regimen with hold parameters as needed given presentation, will also have IV Lasix dose x 1 if necessary between PRBC units, as needed IV hydralazine additionally. #8. Hyperlipidemia: We will continue patient on statin therapy. #9. Chronic lower extremity edema/lymphedema: Will place neck Simone wraps with elevation. #10. DVT prophylaxis: SCDs. #11. CODE status: Patient VENU is her and living will is in place she believes. Discussed CODE status at length including difference between FULL code, DNR-CCA and DNR-CC status. Following discussions about the differences in these status, requested Full Code status however, during recent admission of note patient was DNR-CCA, no intubation which patient was aware of and noted this had been because her Hgb was lower upon that presentation. Advanced Care Planning Face to Face Time: 16 minutes. Charges/Coding Visit Charges Inpatient E&M: 40992 Init Hosp L3 Procedures Hospitalists Procedures: 99499 Advncd Care Plan 30 Min
--- NOTE | 2024-02-20 14:42 | NURSING ---
MED SURG WHITE GI BLEED, ANEMIA
[2024-02-20 15:39] LABS: Magnesium 2.5 mg/dL (1.6-2.6)
--- NOTE | 2024-02-20 15:43 | CASEMGMT ---
Social Work- Pt has directives on chart naming Kevin, spouse, as primary agent and Pop, nephew, as secondary agent. YOSELIN Morley
[2024-02-20] MEDS: Sucralfate 1 GM Tablet PO ×2 (17:00→23:10)
[2024-02-20] MEDS: 0.9% Normal Saline (1000mL) 1,000 ML 50 ML IV (17:01)
[2024-02-20] MEDS: Pantoprazole Sodium 80 MG in 0.9% Normal Saline (50mL Bag) 15 ML 420 MG IV BOLUS (17:01)
[2024-02-20] MEDS: Pantoprazole Sodium 80 MG in 0.9% Normal Saline (100mL Bag) 80 ML 10 MG CONT INF (17:29)
[2024-02-20 18:14] LABS: Hematocrit 26.3 % (37-47); Hemoglobin 8.1 g/dL (12.0-15.0)
[2024-02-20] MEDS: Metoprolol(XL)Succ 50 MG Tablet PO (23:10)
[2024-02-21] VITALS (13 sets, daily range): BP systolic 99–157; BP diastolic 51–86; PULSE 80–81; RESP 14–22; TEMP 36.2–36.8; O2SAT 93–100; BMI 27.5
[2024-02-21] MEDS: Pantoprazole Sodium 80 MG in 0.9% Normal Saline (100mL Bag) 80 ML 10 MG CONT INF ×3 (01:52→21:30)
[2024-02-21 02:13] LABS: Hematocrit 28.9 % (37-47); Hemoglobin 8.9 g/dL (12.0-15.0)
[2024-02-21 05:58] LABS: Absolute Lymphocyte Count 0.83 X10^3/uL (0.83-4.51); Absolute Neutrophil Count 3.4 X10^3/uL (2.0-7.7); Basophil# 0.04 X10^3/uL; Basophil% 0.8 % (0-1); Eosinophil# 0.12 X10^3/uL; Eosinophils% 2.5 % (0-5); Hematocrit 25.4 % (37-47); Hemoglobin 7.7 g/dL (12.0-15.0); Lymphocyte # 0.83 X10^3/ul (0.83-4.51); Mean Corp Hgb Conc 30.3 g/dL (32-36); Mean Corpuscular Hgb 28.9 pg (27.0-32.0); Mean Corpuscular Volume 95.5 fL (81-99); Mean Platelet Vol. 9.2 fl (6.2-12.0); Monocyte% 10.2 % (0-10); NRBC Flagged by Analyzer 0 % (0-5); Neutrophil # 3.38 X10^3/uL (2.7-7.7); Neutrophil % 69.1 % (47-70); Platelet Count 196 K/mm3 (150-450); RBC Distribution Width CV 16.1 % (11.6-14.6); RBC Distribution Width SD 56.4 fl (35.1-43.9); Red Blood Count 2.66 M/mm3 (4.2-5.4); White Blood Count 4.9 K/mm3 (4.4-11.0)
[2024-02-21 06:13] LABS: International Normalized Ratio 1.3; Prothrombin Time (Protime)PT. 15.9 SECONDS (11.7-14.9)
[2024-02-21 06:14] LABS: Partial Thromboplast Time 35.6 Seconds (24.1-36.2)
[2024-02-21 07:03] LABS: ALB/GLOB Ratio 0.7 RATIO (0.9-2.4); AST(SGOT) 13 U/L (15-37); Alanine Aminotransfer ALT/SGPT < 6 U/L (13-56); Albumin, Serum 2.3 g/dL (3.2-5.0); Alkaline Phosphatase 68 U/L (45-117); Anion Gap 10 (5-15); BUN 37 mg/dL (7-18); BUN/Creat Ratio 17.4 RATIO (10-20); Chloride 111 mmol/L (98-107); Creatinine, Serum 2.13 mg/dL (0.55-1.02); EST Glomerular Filtration Rate 23 mL/min (>60); Est Glom Filt Rate - Afr Amer 28 mL/min (>60); Globulin 3.4 g/dL (2.2-4.2); Glucose 79 mg/dL (74-106); Potassium 3.3 mmol/L (3.5-5.1); Protein, Total 5.7 g/dL (6.4-8.2); Sodium Level 143 mmol/L (136-145)
[2024-02-21 10:07] LABS: Hematocrit 29.1 % (37-47); Hemoglobin 8.8 g/dL (12.0-15.0)
--- NOTE | 2024-02-21 11:39 | CON.PCM.GI_ITS ---
HPI Consult Data Date of Consult: 02/21/24 HPI Narrative Reason for Consultation: GI bleed HPI Narrative: RAJEEV ECHEVARRIA, is a 88-year-old female presenting with GI bleed and discovered to have an iron deficiency anemia. Patient states she recently was hospitalized for a GI bleed secondary to bleeding ulcers. Patient is still on Plavix. She notes black stools but states she is on iron supplements. She states he does feel a little bit weaker than usual. She is a little bit lightheaded when she walks and ambulates. She feels a mild shortness of breath when she walks. She has not noticed any bloody stools. EGD 01/24/24 with normal esophagus, oozing gastric ulcer with pigmented material treated with a heater probe, nonbleeding duodenal ulcer with no stigmata of bleeding treated with a heater probe discharged on oral Protonix and temporarily hold on Plavix however this was eventually resumed outpatient requiring 2 unit PRBC administration during admission. He presents to the [facility] ED on 02/22/24 with history of ongoing dark black stools with recent Plavix restarted status post recent GI bleed with inpatient evaluation and treatment although she does report she is on iron supplementations but she is felt more weak and fatigued with dyspnea worse with exertion with some mild lightheadedness when she exerts herself more aggressively but no dizziness or syncopal events given the symptoms prompted call to her physician who requested that she present to the ED for evaluation to be cautious. Workup in the ED included T97.7, heart rate 88, BP 153/66, respiratory rate 22, 100% on room air, CBC with WC 5.1, hemoglobin 6.9 initially, most recently prior to this 02/17/2024 noted hemoglobin 6.5 and on discharge 01/25/2024 hemoglobin 8.4, platelet 220 without marked shift with lymphopenia, CMP with BUN/creatinine 43/2.86, GFR 17, hepatic profile not marked appearing, type and cross initiated w/ PRBC ordered per ED physician. [facility] Medical History Kidney disease Atrial fibrillation Pacemaker TIA (transient ischemic attack) Chronic renal failure Anemia of chronic renal failure, stage 4 (severe) Pulmonary hypertension HFrEF (heart failure with reduced ejection fraction) Cardiomyopathy 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 Presence of cardiac pacemaker CKD (chronic kidney disease), stage IV Mitral regurgitation Tricuspid regurgitation Non-smoker Hypertension Atrial fibrillation TIA (transient ischemic attack) Acute on chronic renal insufficiency Pleural effusion on right Anemia Atrial fibrillation with rapid ventricular response Shortness of breath Bilateral edema of lower extremity Chronic kidney disease SMITH (dyspnea on exertion) Swelling of right lower extremity Dyslipidemia Longstanding persistent atrial fibrillation Chronic systolic (congestive) heart failure Essential hypertension Premature ventricular contraction History of GI bleed TIA (transient ischemic attack) Nonrheumatic mitral valve regurgitation Hypertension Hyperlipidemia Other specified transient cerebral ischemias Nonrheumatic tricuspid (valve) insufficiency Home Medications ?Medication ?Instructions ?Recorded ?Last Taken ?Type vitamins A,C,H-vigc-ibcxdm 4,296 1 cap PO BID eye health 03/12/20 01/22/24 History mcg-226 mg-90 mg capsule (PreserVision AREDS) mecobalamin (vitamin B12) 1,000 1,000 mcg PO DAILY supplement 03/15/23 01/22/24 History mcg chewable tablet clopidogrel 75 mg tablet 75 mg PO DAILY blood thinner #90 05/06/23 01/22/24 Rx tabs metoprolol succinate 50 mg 50 mg PO .COMPLEX heart #90 tabs 12/07/23 01/22/24 Rx tablet,extended release 24 hr furosemide 80 mg tablet 80 mg PO DAILY diuretic #30 tabs 12/24/23 01/22/24 Rx polysaccharide iron complex 150 mg See Rx Instructions .Route 12/24/23 01/22/24 Rx iron capsule (Ferrex) .COMPLEX iron supplement #30 caps potassium chloride 10 mEq 10 meq PO DAILY supplement #30 tabs 12/24/23 01/22/24 Rx tablet,extended release(part/cryst) ascorbic acid (vitamin C) 500 mg 500 mg PO DAILY supplement 01/23/24 01/22/24 History chewable tablet (Acerola C) pantoprazole 40 mg tablet,delayed 40 mg PO BID decrease stomach acid 01/25/24 Unknown Rx release #60 tabs sucralfate 1 gram tablet 1 g PO 1HR_ACHS ulcer #120 tabs 01/25/24 Unknown Rx pravastatin 20 mg tablet 20 mg PO DAILY cholestrol #100 01/30/24 Unknown Rx TABLETS Allergy/AdvReac Type Severity Reaction Status Date / Time amiodarone AdvReac Severe Severs Verified 02/20/24 11:10 muscle weakness, hair loss amlodipine AdvReac Severe Swelling Verified 02/20/24 11:10 flecainide AdvReac Severe Near Verified 02/20/24 11:10 Syncope, Severe Nausea losartan AdvReac myalgia Verified 02/20/24 11:10 Family History Father COPD (chronic obstructive pulmonary disease) CHF (congestive heart failure) Mother Hypertension CVA (cerebral vascular accident) Brother Hypertension Surgical History Hx of atrioventricular node ablation History of total hysterectomy History of cholecystectomy Social History household members: spouse Smoking Status: Never smoker alcohol intake: never substance use type: does not use caffeine: Yes Type: coffee Number of servings: 1 ROS ROS Narrative Admission Review of Systems: CONSTITUTIONAL: No weight loss, fever, chills, + weakness or fatigue. HEENT: + Mild lightheadedness, dizziness. Eyes: No visual loss, blurred vision, double vision or yellow sclerae. Ears, Nose, Throat: No hearing loss, sneezing, congestion, runny nose or sore throat. SKIN: No rash or itching, lesions, wounds. CARDIOVASCULAR: + Mild lightheadedness, dizziness. No chest pain, chest pressure or chest discomfort, palpitations, edema, orthopnea, syncopal events. RESPIRATORY: + Dyspnea worse with exertion. No marked cough or sputum, wheezing, hemoptysis. GASTROINTESTINAL: + Black melanotic stools. No anorexia, nausea, vomiting or diarrhea, abdominal pain, BRBPR. GENITOURINARY: No dysuria, frequency, urgency or retention. NEUROLOGICAL: + Mild lightheadedness/dizziness. No headache, syncope, paralysis, ataxia, numbness or tingling in the extremities, focal weakness, change in bowel or bladder control, seizure. MUSCULOSKELETAL: + muscle, back pain, joint pain or stiffness. HEMATOLOGIC: + Chronic anemia, easy bleeding/bruising. LYMPHATICS: No enlarged nodes. No history of splenectomy. PSYCHIATRIC: No history of depression or anxiety. ENDOCRINOLOGIC: No reports of sweating, cold or heat intolerance. No polyuria or polydipsia. ALLERGIES: No history of asthma, hives, eczema or rhinitis. Physical Exam Narrative Physical Examination: General: Awake, alert, oriented x 3 and cooperative, seated upright in the ED, fatigued appearing, no acute distress. Skin: Pale color, normal turgor, no icterus, no cyanosis, occasional staged ecchymoses, abrasion. HEENT: AT/NC, EOMI, PERRLA, MMM, no carotid bruits or JVD noted. Lungs: Mildly diminished, greater bases, appropriate effort, no rales, ronchi or wheezing. Heart: Regular rate and rhythm; no gallop, rub audible. Abdomen: Soft, NTTP, ND, hyperactive BS, no appreciated HSM. Extremities: No cyanosis, no clubbing, bilateral lower extremity pedal to distal knee chronic pitting edema. Neurological: Patient awake, alert, oriented as noted, cognitive function intact; pupils equally reactive to light and accommodation, cranial nerves grossly normal, moving all 4 extremities, no focal deficits, strength moderately to severely globally Ana secondary to acute presentation complaints. Psychiatric: Affect appears fatigued otherwise normal, no acute evidence of depressive or anxiety feelings. Lab / Micro Data 02/21/24 09:56 02/21/24 05:14 Labs: Laboratory Results - last 24 hr 02/20/24 12:23: WBC 5.1, RBC 2.37 L, Hgb 6.9 L, Hct 23.2 L, MCV 97.9, MCH 29.1, MCHC 29.7 L, RDW Std Deviation 55.1 H, RDW Coeff of Michael 15.7 H, Plt Count 220, MPV 9.2, Immature Gran % (Auto) 0.400, Neut % (Auto) 70.6 H, Lymph % (Auto) 14.5 L, [place] % (Auto) 11.0 H, Eos % (Auto) 2.7, Baso % (Auto) 0.8, Absolute Neuts (auto) 3.6, Absolute Lymphs (auto) 0.74 L, Nucleated RBC % 0, Sodium 137, Potassium 4.0, Chloride 105, Carbon Dioxide 24.0, Anion Gap 8, BUN 43 H, C reatinine 2.86 H, Estim Creat Clear Calc 11.20, Est GFR (MDRD) Af Amer 20 L, Est GFR (MDRD) Non-Af 17 L, BUN/Creatinine Ratio 15.0, Glucose 99, Calcium 8.3 L, Magnesium 2.5, Total Bilirubin 0.30, AST 16, ALT 12 L, Alkaline Phosphatase 88, Total Protein 7.3, Albumin 2.7 L, Globulin 4.6 H, Albumin/Globulin Ratio 0.6 L 02/20/24 12:55: Blood Type A POSITIVE, Antibody Screen NEGATIVE, Crossmatch See Detail 02/20/24 18:06: Hgb 8.1 L, Hct 26.3 L 02/21/24 02:05: Hgb 8.9 L, Hct 28.9 L 02/21/24 05:14: WBC 4.9, RBC 2.66 L, Hgb 7.7 L, Hct 25.4 L, MCV 95.5, MCH 28.9, MCHC 30.3 L, RDW Std Deviation 56.4 H, RDW Coeff of Michael 16.1 H, Plt Count 196, MPV 9.2, Immature Gran % (Auto) 0.400, Neut % (Auto) 69.1, Lymph % (Auto) 17.0 L , [place] % (Auto) 10.2 H, Eos % (Auto) 2.5, Baso % (Auto) 0.8, Absolute Neuts (auto) 3.4, Absolute Lymphs (auto) 0.83, Nucleated RBC % 0, PT 15.9 H, INR 1.3, APTT 35.6, Sodium 143, Potassium 3.3 L, Chloride 111 H, Carbon Dioxide 22.0, Anion Gap 10, BUN 37 H, Creatinine 2.13 H, Estim Creat Clear Calc 15.00, Est GFR (MDRD) Af Amer 28 L, Est GFR (MDRD) Non-Af 23 L, BUN/Creatinine Ratio 17.4, Glucose 79, Calcium 7.0 L, Total Bilirubin 0.90, AST 13 L, ALT < 6 L, Alkaline Phosphatase 68, Total Protein 5.7 L, Albumin 2.3 L, Globulin 3.4, A lbumin/Globulin Ratio 0.7 L 02/21/24 09:56: Hgb 8.8 L, Hct 29.1 L Assessment & Plan Assessment/Plan (1) ABLA (acute blood loss anemia): (2) Acute GI bleeding: PLAN: Plan 88 y/o F w/ , recent discharge 01/25/24 with history of acute blood loss anemia secondary to acute GI bleed on chronic anemia who now represents to the [facility] ED on 02/22/24 with history of ongoing dark black stools with recent Plavix restarted status post recent GI bleed with i lowe GI bleeding. n Acute GI Bleed w/ resultant Acute Blood Loss Anemia on Chronic anemia/Fe deficiency anemia: Will admit to MS given stable VS, maintain on IVFs judiciously given history and only until PRBC initiated w/ 2 u ordered per ED, hold plavix, obtain serial H+Hs, maintain on IV PPI continuous drip with bolus administered in the ED, continue carafate, allow clears until midnight then NPO status,
--- NOTE | 2024-02-21 13:35 | NURSING ---
1315-OFF UNIT VIA BED FOR SCHEDULED PROCEDURE
[2024-02-21] MEDS: 0.9% Normal Saline (1000mL) 1,000 ML 15 ML IV (13:50)
--- NOTE | 2024-02-21 13:59 | PCM.PRE.AN2 ---
ASA Classification* ASA Classification ASA Classification: 4 (acute GI bleed, SOB requiring O2) Assessment & Plan Anesthesia* Anesthesia Assessment Anesthesia Assessment: Discussed sedation and/or anesthesia options, risks, benefits, and alternatives with patient/parents/legal guardian/POA. Questions invited. The patient/parents/legal guardian/POA seems to understand and agrees to proceed with anesthesia plan. Reviewed the physical assessment, medical history, allergy history and patient home medications list prior to surgery/procedure/anesthetic and documented any changes. Performed airway and anesthesia risk assessments. Anesthesia Type Anesthesia Type: MAC Anesthesia Focused Assessment* Temperature: 97.9 F Pulse Rate: 81 Blood Pressure: 149/71 Respiratory Rate: 14 Pulse Ox: 100 Airway Assessment Mouth opens: >3 cm Mallampati Score: II Focused Labs Anesthesia Preop lab: CBC WBC 4.9 K/mm3 (4.4-11.0) 02/21/24 05:14 RBC 2.66 M/mm3 (4.2-5.4) L 02/21/24 05:14 Hgb 8.8 g/dL (12.0-15.0) L 02/21/24 09:56 Hct 29.1 % (37-47) L 02/21/24 09:56 Plt Count 196 K/mm3 (150-450) 02/21/24 05:14 CHEMISTRY Potassium 3.3 mmol/L (3.5-5.1) L 02/21/24 05:14 Sodium 143 mmol/L (136-145) 02/21/24 05:14 Magnesium 2.5 mg/dL (1.6-2.6) 02/20/24 12:23 Phosphorus 3.4 mg/dL (2.5-4.9) 01/03/24 13:30 BUN 37 mg/dL (7-18) H 02/21/24 05:14 Creatinine 2.13 mg/dL (0.55-1.02) H 02/21/24 05:14 Glucose 79 mg/dL (74-106) 02/21/24 05:14 TSH 2.79 uIU/mL (0.358-3.74) 11/16/23 05:53 COAG PT 15.9 SECONDS (11.7-14.9) H 02/21/24 05:14 Pre-Assessment Diagnosis/Proposed Procedure Planned Operative Procedure(s): EGD for upper gi bleed Anesthesia History Anesthesia History - chemical laboratory technician: Anesthesia History - chemical laboratory technician Hx Hospitalization Any Problems With Anesthesia No 02/20/24 18:45 Cholinesterase deficiency You/Your Family Experience No 02/20/24 18:45 fever (hyperthermia) with Relationship Recent Exposure to Contagious No 02/20/24 18:45 Disease Does patient have nerve No 02/20/24 18:45 stimulator Patient instructed to have device shut off --Does patient have Pacemaker or ICD? When Was Last Pacemaker Check 01/09/2024 02/20/24 18:45 QUESTION #4 FULL TEXT: You/Your Family Experience fever (hyperthermia) with Anesthesia Last Oral Intake Last Oral intake: Last Oral Intake NPO since Meds taken in AM with sips of water? Meds patient instructed to take am of surgery PONV PONV - chemical laboratory technician: PONV - chemical laboratory technician Female HX of Motion Sickness HX of N/V After Surgery Non-Smoker Duration of Surgery greater than 60 minutes Number of Risk Factors PONV Score Height & Weight Height & Weight: Anesthesia: Height & Weight Height 4 ft 11 in 02/20/24 15:19 Weight: 61.9 kg 02/21/24 05:14 Body Mass Index (BMI) 27.5 02/21/24 05:14 Respiratory Assessment Respiratory Assessment - chemical laboratory technician: Respiratory Tract Infection Hx - chemical laboratory technician Hx Respiratory Tract Infection No 02/20/24 18:45 STOP Sleep Apnea STOP Sleep Apnea - chemical laboratory technician: STOP Sleep Apnea - chemical laboratory technician Hx Hypertension Yes 02/20/24 15:19 Hx Sleep Apnea No 02/20/24 15:19 CPAP BIPAP Do you snore loudly (louder No 02/20/24 15:19 than talking or can be heard Do you often feel tired/ Yes 02/20/24 15:19 fatigued/ sleepy during daytime? Has anyone observed you stop No 02/20/24 15:19 breathing during sleep? STOP Results Positive 02/20/24 15:19 QUESTION #5 FULL TEXT : Do you snore loudly (louder than talking or can be heard through closed doors)? Tobacco Use History Tobacco Use History - chemical laboratory technician: Tobacco Use History - chemical laboratory technician Tobacco Use Smoking Status Never smoker 02/20/24 15:19 Hx Tobacco Use No 02/20/24 15:19 Years Smoking Packs Smoked per Day Smoking Cessation Date was within the last 15 years Hx Smoking Cessation Date Hx Smoking Cessation Counseling Hematologic Medial History Hematologic Hx - chemical laboratory technician: Hematologic Medical Hx - event promotions coordinator Hx of Blood Transfusion Yes 02/20/24 15:19 Hx of Transfusion in last 3 Yes 02/20/24 15:19 Months Date of Last Transfusion (if 02/20/24 02/20/24 15:19 within last 3 months) Ever experience any problems No 02/20/24 15:19 with transfusion(s)? Specify any problems Hx of Preganancy in last 3 N/A 02/20/24 15:19 Months Nurse Filling Out Transfusion FSTEINER 02/20/24 15:19 & Questions: Date: 02/20/24 02/20/24 15:19 Time: 15:02/20/24 15:19 Patient unable to answer at this time (ie. confused, unrespo /Reproduction History /Reproductive History - chemical laboratory technician: /Reproductive Hx- chemical laboratory technician Hx Now No 02/20/24 18:45 Gestational Age (in weeks): EDC: Hx Hx Para Hx Section SAB No 02/20/24 18:45 Active Medications Active Medications: Current Medications Generic Name Dose Route Start Last Admin Trade Name Freq PRN Reason Stop Dose Admin Acetaminophen 650 mg 02/20/24 15:09 Acetaminophen 325 Mg Tablet PO Q4H PRN PRN Fever, pain 1-10/10 Al Hydrox/Mg Hydrox/Simethicone 30 ml 02/20/24 15:09 Mag /Aluminum/Simeth Wch Udc 30 Ml Oral.Susp PO Q6H PRN PRN Gastric Burning Albuterol Sulfate 2.5 mg 02/20/24 15:09 Albuterol 2.5 Mg/3 Ml Vial.Neb. INHALATION Q2H PRN PRN Dyspnea, wheezing Ascorbic Acid 500 mg 02/22/24 08:00 Ascorbic Acid 500 Mg Tablet PO DAILYCM RAZ Furosemide 80 mg 02/21/24 10:00 Furosemide 80 Mg Tablet PO DAILY RAZ Protocol Furosemide 60 mg 02/20/24 15:09 Furosemide 40 Mg/4 Ml Vial IV PRN PRN Volume overload b/w PRBC admin Protocol Guaifenesin 20 ml 02/20/24 15:09 Guaifenesin 10 Ml Udc (200mg/10ml) PO Q4H PRN PRN COUGH Hydralazine HCl 10 mg 02/20/24 15:09 Hydralazine 20 Mg/Ml Vial IV Q4H PRN PRN SBP > 160 Protocol Pantoprazole Sodium 80 mg/ 100 mls @ 10 mls/hr 02/20/24 15:09 02/21/24 11:08 Sodium Chloride CONT INF 10 mls/hr Q10H RAZ Administration Sodium Chloride 500 mls @ 15 mls/hr 02/20/24 15:24 IV PRN PRN Blood Transfusion Sodium Chloride 250 mls @ 15 mls/hr 02/20/24 15:24 IV .[id number] PRN Additional IVPB Infusion Sodium Chloride 250 mls @ 15 mls/hr 02/20/24 15:24 IV .[id number] PRN Saline Flush Sodium Chloride 1,000 mls @ 15 mls/hr 02/21/24 13:50 02/21/24 13:50 IV 15 mls/hr .Q48H RAZ Administration Melatonin 3 mg 02/20/24 15:09 Melatonin 3 Mg Tablet PO QHS PRN PRN INSOMNIA Metoprolol Succinate 50 mg 02/20/24 22:00 02/20/24 23:10 Metoprolol(Xl)Succ 50 Mg Tablet PO 50 mg QHS RAZ Administration Protocol Ondansetron HCl 4 mg 02/20/24 15:09 Ondansetron 4 Mg/2 Ml Vial IV Q8H PRN PRN NAUSEA/VOMITING Polysaccharide Iron Complex 150 mg 02/21/24 08:00 Iron Polysaccharide Complex 150 Mg Capsule PO DAILYCM [facility] Potassium Chloride 10 meq 02/21/24 10:00 Potassium Chloride Oral Tablet 10 Meq PO DAILY ARZ Pravastatin Sodium 20 mg 02/21/24 22:00 Pravastatin 20 Mg Tablet PO DAILY@2200 RAZ Prochlorperazine Edisylate 5 mg 02/20/24 15:09 Prochlorperazine 10 Mg/2 Ml Vial IV Q4H PRN PRN Breakthrough nausea/vomiting Sodium Chloride 10 - 40 ml 02/20/24 15:24 0.9% Saline Lock 10 Ml Syringe IV UD PRN SALINE FLUSH Sucralfate 1 gm 02/20/24 16:00 02/21/24 10:09 Sucralfate 1 Gm Tablet PO Not Given [facility] Medical History Kidney disease Atrial fibrillation Pacemaker TIA (transient ischemic attack) Chronic renal failure Anemia of chronic renal failure, stage 4 (severe) Pulmonary hypertension HFrEF (heart failure with reduced ejection fraction) Cardiomyopathy 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 Presence of cardiac pacemaker CKD (chronic kidney disease), stage IV Mitral regurgitation Tricuspid regurgitation Non-smoker Hypertension Atrial fibrillation TIA (transient ischemic attack) Acute on chronic renal insufficiency Pleural effusion on right Anemia Atrial fibrillation with rapid ventricular response Shortness of breath Bilateral edema of lower extremity Chronic kidney disease SMITH (dyspnea on exertion) Swelling of right lower extremity Dyslipidemia Longstanding persistent atrial fibrillation Chronic systolic (congestive) heart failure Essential hypertension Premature ventricular contraction History of GI bleed TIA (transient ischemic attack) Nonrheumatic mitral valve regurgitation Hypertension Hyperlipidemia Other specified transient cerebral ischemias Nonrheumatic tricuspid (valve) insufficiency Home Medications ?Medication ?Instructions ?Recorded ?Last Taken ?Type vitamins A,C,L-xrwk-awgapc 4,296 1 cap PO BID eye health 03/12/20 01/22/24 History mcg-226 mg-90 mg capsule (PreserVision AREDS) mecobalamin (vitamin B12) 1,000 1,000 mcg PO DAILY supplement 03/15/23 01/22/24 History mcg chewable tablet clopidogrel 75 mg tablet 75 mg PO DAILY blood thinner #90 05/06/23 01/22/24 Rx tabs metoprolol succinate 50 mg 50 mg PO .COMPLEX heart #90 tabs 12/07/23 01/22/24 Rx tablet,extended release 24 hr furosemide 80 mg tablet 80 mg PO DAILY diuretic #30 tabs 12/24/23 01/22/24 Rx polysaccharide iron complex 150 mg See Rx Instructions .Route 12/24/23 01/22/24 Rx iron capsule (Ferrex) .COMPLEX iron supplement #30 caps potassium chloride 10 mEq 10 meq PO DAILY supplement #30 tabs 12/24/23 01/22/24 Rx tablet,extended release(part/cryst) ascorbic acid (vitamin C) 500 mg 500 mg PO DAILY supplement 01/23/24 01/22/24 History chewable tablet (Acerola C) pantoprazole 40 mg tablet,delayed 40 mg PO BID decrease stomach acid 01/25/24 Unknown Rx release #60 tabs sucralfate 1 gram tablet 1 g PO 1HR_ACHS ulcer #120 tabs 01/25/24 Unknown Rx pravastatin 20 mg tablet 20 mg PO DAILY cholestrol #100 01/30/24 Unknown Rx TABLETS Allergy/AdvReac Type Severity Reaction Status Date / Time amiodarone AdvReac Severe Severs Verified 02/20/24 11:10 muscle weakness, hair loss amlodipine AdvReac Severe Swelling Verified 02/20/24 11:10 flecainide AdvReac Severe Near Verified 02/20/24 11:10 Syncope, Severe Nausea losartan AdvReac myalgia Verified 02/20/24 11:10 Family History Father COPD (chronic obstructive pulmonary disease) CHF (congestive heart failure) Mother Hypertension CVA (cerebral vascular accident) Brother Hypertension Surgical History Hx of atrioventricular node ablation History of total hysterectomy History of cholecystectomy Social History household members: spouse Smoking Status: Never smoker alcohol intake: never substance use type: does not use caffeine: Yes Type: coffee Number of servings: 1 Review of Systems (Anesthesia) ROS Narrative System reviewed and no additional complaints, except as documented.
--- NOTE | 2024-02-21 15:44 | CASEMGMT ---
DAVID ATKINSON Readmission Note Previous Admission: 01/23/24-01/25/24 Diagnosis: Anemia DC Disposition: Home with [facility] PT resuming Current Admission: Admitted 02/20/24 Current Diagnosis: GI Bleed Pt presented on index admission with Hgb 5.6. Pt had EGD with bleeding gastric ulcer found. Pt received 2 units of PRBC?s and was dc?d home with [facility] resuming. Pt now returns with abnormal labs. Hgb 6.9. Pt currently off the floor getting an EGD. DAVID ATKINSON to follow up tomorrow with pt on dc plan. DC Plan: TBD
--- NOTE | 2024-02-21 15:45 | PCM.POST.ANE ---
Anesthesia: Postop Eval I Current Vital Signs Temperature: 97.2 F Pulse Rate: 80 Blood Pressure: 99/52 Respiratory Rate: 22 Pulse Ox: 95 Oxygen Delivery Method: Nasal Cannula Oxygen Flow Rate (L/min): 2 Assessment Airway patent: Yes Spontaneous unlabored respirations: Yes Mental status: Awake and Calm nausea: No Vomiting: No Anesthesia Complication: No Fluid Hydration Crystalloid volume administer (ml): 400 Total IV fluid infused: 400 Progress Note Anesthesia document: Postop Eval 1 completed: Yes
--- NOTE | 2024-02-21 15:50 | PCM.PN.HOSP ---
Reason for Visit Reason for Visit: Diagnoses Acute posthemorrhagic anemia (02/20/24) Gastrointestinal hemorrhage, unspecified (02/20/24) Objective Data Objective Data Vital Signs: Vital Signs Temp Pulse Resp BP Pulse Ox O2 Del Method O2 Flow Rate 97.2 F L 80 22 H 99/52 L 95 Nasal Cannula 2 02/21/24 15:46 02/21/24 15:46 02/21/24 15:46 02/21/24 15:46 02/21/24 15:46 02/21/24 15:46 02/21/24 15:46 Oxygen Flow Rate (L/min) 2 Oxygen Delivery Method Nasal Cannula Weight: 136 lb 7.458 oz Body Mass Index (BMI) 27.5 Intake & Output: Intake and Output for Last 24 Hours 02/19/24 02/20/24 02/21/24 23:59 23:59 23:59 Intake Total 536 / 886 1735.00 / 1735.00 Balance 536 / 886 1735.00 / 1735.00 Lab / Micro Data 02/21/24 09:56 02/21/24 05:14 Labs: Laboratory Results - last 24 hr 02/20/24 12:55: Blood Type A POSITIVE, Antibody Screen NEGATIVE, Crossmatch See Detail 02/20/24 18:06: Hgb 8.1 L, Hct 26.3 L 02/21/24 02:05: Hgb 8.9 L, Hct 28.9 L 02/21/24 05:14: WBC 4.9, RBC 2.66 L, Hgb 7.7 L, Hct 25.4 L, MCV 95.5, MCH 28.9, MCHC 30.3 L, RDW Std Deviation 56.4 H, RDW Coeff of Michael 16.1 H, Plt Count 196, MPV 9.2, Immature Gran % (Auto) 0.400, Neut % (Auto) 69.1, Lymph % (Auto) 17.0 L, [place] % (Auto) 10.2 H, Eos % (Auto) 2.5, Baso % (Auto) 0.8, Absolute Neuts (auto) 3.4, Absolute Lymphs (auto) 0.83, Nucleated RBC % 0, PT 15.9 H, INR 1.3, APTT 35.6, Sodium 143, Potassium 3.3 L, Chloride 111 H, Carbon Dioxide 22.0, Anion Gap 10, BUN 37 H, Creatinine 2.13 H, Estim Creat Clear Calc 15.00, Est GFR (MDRD) Af Amer 28 L, Est GFR (MDRD) Non-Af 23 L, BUN/Creatinine Ratio 17.4, Glucose 79, Calcium 7.0 L, Total Bilirubin 0.90, AST 13 L, ALT < 6 L, Alkaline Phosphatase 68, Total Protein 5.7 L, Albumin 2.3 L, Globulin 3.4, Albumin/Globulin Ratio 0.7 L 02/21/24 09:56: Hgb 8.8 L, Hct 29.1 L Micro: Microbiology 02/21/24 11:22 Stool Stool Occult Blood (MIRZA) - Final Occult Blood Positive Physical Exam Narrative Seen and examined. Patient was admitted mainly for dyspnea on exertion, decreased energy and fatigue due to severe anemia. She denied lightheadedness or dizziness or passing out. She said she has macular degeneration and not able to see clearly but denies any red blood or melena Physical exam General: Alert, Oriented x3, Cooperative. Fatigue HEENT: Atraumatic, PERRLA, EOMI, Normocephalic Oral: No Gingival or Mucosal Lesions/ Ulcerations Neck: Supple, No JVD, Negative Carotid Bruits Chest wall/Lungs: Air entry diminished in bilateral lung bases. No crepitation/rhonchi Cardiovascular: Regular rate, Regular Rhythm, Normal S1, Normal S2, No M/G/R Abdomen: Bowel Sounds Present, Soft, Non Tender, Non-Distended : No dysuria. No renal angle tenderness. No suprapubic tenderness. Extremities: No edema, Capillary Refill Less than 3 Seconds Skin: No rashes, No breakdown Musculoskeletal: No Tenderness to Palpation of Joints or Extremities Neurological: Cranial nerves II-XII grossly intact, DTR 2+/4. No acute focal neurological deficit. Psych/Mental Status: Flat affect. Assessment & Plan Assessment/Plan (1) ABLA (acute blood loss anemia): (2) Acute GI bleeding: PLAN: Plan The patient is an 88 y/o F was admitted for generalized weakness, dyspnea on exertion. Patient not on oxygen at home. Fatigue but denies lightheadedness or dizziness. She denies black stool but she states she is on iron pill and has macular degeneration. #1. Acute GI Bleed with resultant Acute Blood Loss Anemia on Chronic anemia/Fe deficiency anemia: Patient admitted on MedSurg floor. Plan for EGD. IV PPI drip. Hold Plavix. Last H&H 8.9/28.9%. Stool for occult blood positive. #2. Chronic Kidney Disease Stage IV: Admission BUN/Cr 43/2.86, baseline renal function more recently noted 2.0-2.4, most recently 01/25/2024 creatinine 2.33, repeat BMP shows creatinine 2.13 #3. Nonischemic cardiomyopathy/HFrEF: Most recent echocardiogram noted 11/16/2023 with severe global LV systolic dysfunction, EF 30%, mild global RV systolic dysfunction, severely enlarged LA, massively dilated RA, moderately severe MV insufficiency, tricuspid valve leaflets fail to coapt, wide open torrential tricuspid regurgitation. Hemodynamically on baseline. Discontinue IV fluid. #4. History of TIA: Holding Plavix given presentation, continue statin, hypertensive regimen as BP allows. #5. PAF: continue patient home metoprolol regimen, not chronically anticoagulated #6. History complete heart block: Status post maker status, encourage outpatient cardiology follow-up as previously arranged #7. Hypertension: We will continue patient home Lasix as well as metoprolol regimen with hold parameters as needed given presentation, will also have IV Lasix dose x 1 if necessary between PRBC units, as needed IV hydralazine additionally. #8. Hyperlipidemia: We will continue patient on statin therapy. #9. Chronic lower extremity edema/lymphedema: Will place neck Simone wraps with elevation. #10. DVT prophylaxis: SCDs. #11. CODE status: Patient VENU is her and living will is in place she believes. Discussed CODE status at length including difference between FULL code, DNR-CCA and DNR-CC status. Following discussions about the differences in these status, requested Full Code status however, during recent admission of note patient was DNR-CCA, no intubation which patient was aware of and noted this had been because her Hgb was lower upon that presentation. Microbiology Past 72 Hours 02/21/24 11:22 Stool Stool Occult Blood (MIRZA) - Final Occult Blood Positive Laboratory Results 02/20/24 12:55: Blood Type A POSITIVE, Antibody Screen NEGATIVE, Crossmatch See Detail 02/20/24 18:06: Hgb 8.1 L, Hct 26.3 L 02/21/24 02:05: Hgb 8.9 L, Hct 28.9 L 02/21/24 05:14: WBC 4.9, RBC 2.66 L, Hgb 7.7 L, Hct 25.4 L, MCV 95.5, MCH 28.9, MCHC 30.3 L, RDW Std Deviation 56.4 H, RDW Coeff of Michael 16.1 H, Plt Count 196, MPV 9.2, Immature Gran % (Auto) 0.400, Neut % (Auto) 69.1, Lymph % (Auto) 17.0 L, [place] % (Auto) 10.2 H, Eos % (Auto) 2.5, Baso % (Auto) 0.8, Absolute Neuts (auto) 3.4, Absolute Lymphs (auto) 0.83, Nucleated RBC % 0, PT 15.9 H, INR 1.3, APTT 35.6, Sodium 143, Potassium 3.3 L, Chloride 111 H, Carbon Dioxide 22.0, Anion Gap 10, BUN 37 H, Creatinine 2.13 H, Estim Creat Clear Calc 15.00, Est GFR (MDRD) Af Amer 28 L, Est GFR (MDRD) Non-Af 23 L, BUN/Creatinine Ratio 17.4, Glucose 79, Calcium 7.0 L, Total Bilirubin 0.90, AST 13 L, ALT < 6 L, Alkaline Phosphatase 68, Total Protein 5.7 L, Albumin 2.3 L, Globulin 3.4, Albumin/Globulin Ratio 0.7 L 02/21/24 09:56: Hgb 8.8 L, Hct 29.1 L Charges/Coding Visit Charges Inpatient E&M: 14673 Subs Hosp L2
--- NOTE | 2024-02-21 16:02 | OP.EGD_ITS ---
Patient Name: Carole Kinney Procedure Date: 02/21/2024 3:10 PM Date of : 1935 Age: 88 Procedure: Upper GI endoscopy Indications: Melena Providers: Alejandro Espinoza DO Medicines: Monitored Anesthesia Care Patient Profile: This is an 88 year old female. Refer to note in patient chart for documentation of history and physical. Patient has symptoms. Complications: No immediate complications. Procedure: Pre-Anesthesia Assessment: - Prior to the procedure, a History and Physical was performed, and patient medications and allergies were reviewed. The patient is competent. The risks and benefits of the procedure and the sedation options and risks were discussed with the patient. All questions were answered and informed consent was obtained. Patient identification and proposed procedure were verified by the physician in the pre-procedure area. Mental Status Examination: alert and oriented. Airway Examination: normal oropharyngeal airway and neck mobility. Respiratory Examination: clear to auscultation. CV Examination: normal. Prophylactic Antibiotics: The patient does not require prophylactic antibiotics. Prior Anticoagulants: The patient has taken no anticoagulant or antiplatelet agents except for NSAID medication. ASA Grade Assessment: II - A patient with mild systemic disease. After reviewing the risks and benefits, the patient was deemed in satisfactory condition to undergo the procedure. The anesthesia plan was to use monitored anesthesia care (MAC). Immediately prior to administration of medications, the patient was re-assessed for adequacy to receive sedatives. The heart rate, respiratory rate, oxygen saturations, blood pressure, adequacy of pulmonary ventilation, and response to care were monitored throughout the procedure. The physical status of the patient was re-assessed after the procedure. After obtaining informed consent, the endoscope was passed under direct vision. Throughout the procedure, the patient's blood pressure, pulse, and oxygen saturations were monitored continuously. The gastroscope was introduced through the mouth, and advanced to the second part of duodenum. The upper GI endoscopy was accomplished without difficulty. The patient tolerated the procedure well. Scope In: 3:29:36 PM Scope Out: 3:34:51 PM Total Procedure Duration Time 0 hours 5 minutes 15 seconds Findings: The examined esophagus was normal. Two 5 mm angiodysplastic lesions with bleeding were found in the cardia. Coagulation for hemostasis using heater probe was successful. Estimated blood loss was minimal. No gross lesions were noted in the second portion of the duodenum. Impression: - Normal esophagus. 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 Treated with a heater probe. - No gross lesions in the second portion of the duodenum. - No specimens collected. Recommendation: - Discharge patient to home. - Resume previous diet. - Continue present medications. Procedure Code(s): --- Professional --- 64189, Esophagogastroduodenoscopy, flexible, transoral; with control of bleeding, any method CPT copyright 2021 [employer]. All rights reserved. The codes documented in this report are preliminary and upon rn patient care review may be revised to meet current compliance requirements. Alejandro Espinoza DO 02/21/2024 4:01:55 PM This report has been signed electronically. Number of Addenda: 0 Note Initiated On: 02/21/2024 3:10 PM
--- NOTE | 2024-02-21 16:02 | OP.CCLET_ITS ---
02/21/2024 John Rachel Re : Upper GI endoscopy procedure for Carole Kinney Nathan Rachel This procedure was performed on Wednesday, February 21, 2024. My impressions and recommendations are as follows: Impressions : - Normal esophagus. 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 Treated with a heater probe. - No gross lesions in the second portion of the duodenum. - No specimens collected. Recommendations : - Discharge patient to home. - Resume previous diet. - Continue present medications. My findings are described in the full procedure note, which is enclosed. If I can be of further assistance, please feel free to contact me at . Sincerely, Alejandro Espinoza, 02/21/2024 4:01:55 PM This report has been signed electronically.
[2024-02-21] MEDS: Furosemide 80 MG Tablet PO (16:27)
[2024-02-21] MEDS: Iron Polysaccharide Complex 150 MG CAPSULE PO (16:27)
[2024-02-21] MEDS: Potassium Chloride Oral Tablet 10 MEQ PO (16:28)
[2024-02-21] MEDS: Sucralfate 1 GM Tablet PO (21:30)
[2024-02-21] MEDS: Metoprolol(XL)Succ 50 MG Tablet PO (21:30)
[2024-02-21] MEDS: Pravastatin 20 MG Tablet PO (21:30)
[2024-02-22 01:08] VITALS: BMI 27.5
[2024-02-22 04:00] VITALS: BP 131/58; PULSE 82; RESP 18; TEMP 36.6; O2SAT 95
[2024-02-22 06:25] VITALS: O2SAT 93; O2SAT 98
[2024-02-22] MEDS: Pantoprazole Sodium 80 MG in 0.9% Normal Saline (100mL Bag) 80 ML 10 MG CONT INF (06:30)
[2024-02-22] MEDS: Sucralfate 1 GM Tablet PO ×2 (06:34→11:13)
--- NOTE | 2024-02-22 07:16 | POSTOPAN2_ITS ---
Anesthesia Postop Eval I Sum Postop Eval Completion status Anesthesia document: Postop Eval 1 completed: Yes Anesthesia Postop Eval I Summary Anesthesia Postop Eval I Summary: Anesthesia Postop Eval I: Assessment Summary Airway patent Yes 02/21/24 15:46 CUSTOMER SUPPORT COORDINATOR.[email or web address] Spontaneous unlabored Yes 02/21/24 15:46 CUSTOMER SUPPORT COORDINATOR.FRANCESCO respirations Mental status Awake,Calm 02/21/24 15:46 CUSTOMER SUPPORT COORDINATOR.KAHLILOBColeen nausea No 02/21/24 15:46 CUSTOMER SUPPORT COORDINATOR.KAHLILOBColeen Vomiting No 02/21/24 15:46 CUSTOMER SUPPORT COORDINATOR.KAHLILOBColeen Anesthesia Postop Eval I: Fluid Summary Crystalloid volume administer 400 02/21/24 15:46 CUSTOMER SUPPORT COORDINATOR.KAHLILOBY (ml) Colloids volume administered ( ml) Blood Product volume administered (ml) Total IV fluid infused 400 02/21/24 15:46 CUSTOMER SUPPORT COORDINATOR.FRANCESCO Anesthesia Postop Eval I: Summary Notes Anesthesia Complication No 02/21/24 15:46 CUSTOMER SUPPORT COORDINATOR.[email or web address] Anesthesia Complication Comment: Post-operative progress note Anesthesia: Postop Eval II Evaluation Mental status: Awake and Calm Pain Level: 0 nausea: No Vomiting: No Complications Anesthesia Complication: No
--- NOTE | 2024-02-22 07:16 | PCM.POSTANE2 ---
Anesthesia Postop Eval I Sum Postop Eval Completion status Anesthesia document: Postop Eval 1 completed: Yes Anesthesia Postop Eval I Summary Anesthesia Postop Eval I Summary: Anesthesia Postop Eval I: Assessment Summary Airway patent Yes 02/21/24 15:46 COUNTY ADVISER.SKOBY Spontaneous unlabored Yes 02/21/24 15:46 COUNTY ADVISER.FRANCESCO respirations Mental status Awake,Calm 02/21/24 15:46 COUNTY ADVISER.KAHLILOBColeen nausea No 02/21/24 15:46 COUNTY ADVISER.KAHLILOBColeen Vomiting No 02/21/24 15:46 COUNTY ADVISER.KAHLILOBColeen Anesthesia Postop Eval I: Fluid Summary Crystalloid volume administer 400 02/21/24 15:46 COUNTY ADVISER.KAHLILOBY (ml) Colloids volume administered ( ml) Blood Product volume administered (ml) Total IV fluid infused 400 02/21/24 15:46 COUNTY ADVISER.FRANCESCO Anesthesia Postop Eval I: Summary Notes Anesthesia Complication No 02/21/24 15:46 COUNTY ADVISER.FRANCESCO Anesthesia Complication Comment: Post-operative progress note Anesthesia: Postop Eval II Evaluation Mental status: Awake and Calm Pain Level: 0 nausea: No Vomiting: No Complications Anesthesia Complication: No
[2024-02-22 08:15] VITALS: BP 130/70; PULSE 81; RESP 16; TEMP 36.4; O2SAT 94
[2024-02-22] MEDS: Potassium Chloride Oral Tablet 10 MEQ PO (08:52)
[2024-02-22] MEDS: Ascorbic Acid 500 MG Tablet PO (08:52)
[2024-02-22] MEDS: Furosemide 80 MG Tablet PO (08:53)
[2024-02-22] MEDS: Iron Polysaccharide Complex 150 MG CAPSULE PO (09:04)
--- NOTE | 2024-02-22 10:57 | CASEMGMT ---
Addendum entered by Kay Nguyen 02/22/24 15:34: Received tc from Melvi at [facility], pt accepted and they will start care on Tuesday. DAVID ATKINSON into pt room, pt is aware of this. She is aware of services ordered. She denies further needs and is ready for dc. Addendum entered by Kay Nguyen 02/22/24 14:28: Received notification from therapy that pt requests HHC after therapy eval. DC property assistant will create list for pt and obtain choices and make referral. Original Note: DAVID ATKINSON into pt room, pt sitting up in chair in no distress. Pt states she followed the dr instructions upon dc last time and took her medications as ordered. Pt states she did follow up with as scheduled. Pt denies any need for HHC at this time, she states she has had in the past and doesn't feel she needs it now. Pt states she feels strong enough to return home. Denies any needs. Plan for dc today.
[2024-02-22 11:26] VITALS: O2SAT 96
[2024-02-22 11:28] VITALS: BP 141/67; PULSE 81; RESP 18; TEMP 36.6; O2SAT 95
--- NOTE | 2024-02-22 11:57 | CASEMGMT ---
Discharge Planning A list of?HH providers including quality and resource use data and consistent with the patient's preferred geographic region, medical needs, and insurance network was created in [facility] Guide.? This list was provided to the RN [place]. Abigail Gracia, Discharge Planning Asst.
--- NOTE | 2024-02-22 12:02 | DCINST_ITS ---
Discharge Instructions Diet Discharge Diet: Soft diet, Low fat / Low cholesterol and 2000 mg Sodium Diet Activity Discharge Activity: Return to Normal Activity Weight Bearing Status: Weight bearing as tolerated Dressing / Incision Call your doctor if you observe: Fever of 101 or Higher, Coldness, Increased Pain, Numbness or Tingling, Change in Color, Inability to urinate, Inability to have a bowel movement, Shortness of breath, Dizziness, Fainting spells, Swelling in the ankles, Chest pain, Prolonged hiccupping, Increased palpitations (irregular heartbeat) and Calf discomfort Follow Up Care When: IN 2 WEEKS Test Results: Test results from this visit will be discussed in further detail at your follow- up appointment, if applicable. Discharge Plan Admission Admit Date/Time: 02/20/24 14:29 Primary Reason for Your Visit: Acute blood loss anemia., GI bleed Attending Provider: Tyrone Mendez Primary Care Provider: John Rachel Consulting Providers: Shabnam Clayton Discharge Orders/Prescriptions Prescriptions: Continued PreserVision AREDS 14,320-226-200 vadz-sx-zwgl capsule 1 cap PO BID mecobalamin (vitamin B12) 1,000 mcg tablet,chewable 1,000 mcg PO DAILY metoprolol succinate 50 mg tablet extended release 24 hr 50 mg PO .COMPLEX Qty: 90 3RF Rx Instructions: 50 mg orally at bedtime; polysaccharide iron complex [Ferrex 150] 150 mg iron Capsule See Rx Instructions .ROUTE .COMPLEX Qty: 30 0RF Rx Instructions: 150 mg orally every other day with a meal and a Vitamin C furosemide 80 mg Tablet 80 mg PO DAILY Qty: 30 0RF potassium chloride 10 mEq Tablet,Er Particles/Crystals 10 meq PO DAILY Qty: 30 0RF ascorbic acid (vitamin C) [Acerola C] 500 mg tablet,chewable 500 mg PO DAILY sucralfate 1 gram Tablet 1 g PO 1HR_ACHS Qty: 120 0RF pantoprazole 40 mg Tablet,Delayed Release (Dr/Ec) 40 mg PO BID 30 Days Qty: 60 0RF pravastatin 20 mg tablet 20 mg PO DAILY Qty: 100 3RF Held clopidogrel 75 mg tablet 75 mg PO DAILY Qty: 90 3RF Hold Instructions: Hold for 1 week. Follow with PCP probably will need changes to baby aspirin and DC Plavix. Referrals / Follow Up: Friend,Alejandro, DO [Med Staff - Active Staff] - Within 2 Weeks (Follow-up in 2 weeks for capsule endoscopy) John Rachel MD [Primary Care Provider] - Disposition Disposition (needs filled in before D/C Order can be placed): Home, Self Care
--- NOTE | 2024-02-22 12:07 | DS.PCM_ITS ---
Providers Date of Admission: 02/20/24 Date of Discharge: 02/22/24 Primary Care Physician: Dr. John Rachel MD Consultations 02/20/24 15:09 Consult: Gastroenterology Routine Consulting Provider: [facility] Reason for Consult: ABLA, GI bleed, recurrent EMERGENT Consult: No MD Notified: Yes Date Notified: 02/20/24 Time Notified: 14:31 Method of Notification: ED Physician Initiated Reason For Visit: GI BLEED Diagnosis Discharge Diagnosis (1) ABLA (acute blood loss anemia): Status: Acute Code(s): D62 - Acute posthemorrhagic anemia (2) Acute GI bleeding: Status: Resolved Code(s): K92.2 - Gastrointestinal hemorrhage, unspecified Plan The patient is an 88 y/o F was admitted for generalized weakness, dyspnea on exertion. Patient not on oxygen at home. Fatigue but denies lightheadedness or dizziness. She denies black stool but she states she is on iron pill and has macular degeneration. #1. Acute GI Bleed with resultant Acute Blood Loss Anemia on Chronic anemia/Fe deficiency anemia: Patient admitted on [facility] floor. Plan for EGD. IV PPI drip. Hold Plavix. Last H&H 8.9/28.9%. Stool for occult blood positive. EGD 02/21/2024: Impressions : - Normal esophagus. 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 Treated with a heater probe. - No gross lesions in the second portion of the duodenum. 02/21: No acute external bleeding. Continue PPI 40 mg twice daily and complete 1 month of Carafate, prescription given last month. Follow-up in GI office in 2 weeks for capsule endoscopy. Hemoglobin improved from 7.7-8.8. Patient had 2 units of PRBC transfusion. IV iron ordered. Continue oral ferrous sulfate every other day. #2. Chronic Kidney Disease Stage IV: Admission BUN/Cr 43/2.86, baseline renal function more recently noted 2.0-2.4, most recently 01/25/2024 creatinine 2.33, repeat BMP shows creatinine 2.13 02/21: Kidney function noticed no change. #3. Nonischemic cardiomyopathy/HFrEF: Most recent echocardiogram noted 11/16/2023 with severe global LV systolic dysfunction, EF 30%, mild global RV systolic dysfunction, severely enlarged LA, massively dilated RA, moderately severe MV insufficiency, tricuspid valve leaflets fail to coapt, wide open torrential tricuspid regurgitation. Hemodynamically on baseline. Discontinue IV fluid. #4. History of TIA: Holding Plavix given presentation, continue statin, hypertensive regimen as BP allows. 02/21: Patient was advised to hold Plavix for 1 week. Follow with PCP in the meantime and possible change Plavix to baby aspirin. #5. PAF: continue patient home metoprolol regimen, not chronically anticoagulated #6. History complete heart block: Status post maker status, encourage outpatient cardiology follow-up as previously arranged #7. Hypertension: continue patient home Lasix as well as metoprolol regimen with hold parameters as needed given presentation, will also have IV Lasix dose x 1 if necessary between PRBC units, as needed IV hydralazine additionally. #8. Hyperlipidemia: We will continue patient on statin therapy. #9. Chronic lower extremity edema/lymphedema: Will place neck Simone wraps with elevation. #10. DVT prophylaxis: SCDs. #11. CODE status: Patient VENU is her and living will is in place she believes. Discussed CODE status at length including difference between FULL code, DNR-CCA and DNR-CC status. Following discussions about the differences in these status, requested Full Code status however, during recent admission of note patient was DNR-CCA, no intubation which patient was aware of and noted this had been because her Hgb was lower upon that presentation. Microbiology Past 72 Hours 02/21/24 11:22 Stool Stool Occult Blood (MIRZA) - Final Occult Blood Positive Laboratory Results 02/20/24 12:55: Blood Type A POSITIVE, Antibody Screen NEGATIVE, Crossmatch See Detail 02/20/24 18:06: Hgb 8.1 L, Hct 26.3 L 02/21/24 02:05: Hgb 8.9 L, Hct 28.9 L 02/21/24 05:14: WBC 4.9, RBC 2.66 L, Hgb 7.7 L, Hct 25.4 L, MCV 95.5, MCH 28.9, MCHC 30.3 L, RDW Std Deviation 56.4 H, RDW Coeff of Michael 16.1 H, Plt Count 196, MPV 9.2, Immature Gran % (Auto) 0.400, Neut % (Auto) 69.1, Lymph % (Auto) 17.0 L , [place] % (Auto) 10.2 H, Eos % (Auto) 2.5, Baso % (Auto) 0.8, Absolute Neuts (auto) 3.4, Absolute Lymphs (auto) 0.83, Nucleated RBC % 0, PT 15.9 H, INR 1.3, APTT 35.6, Sodium 143, Potassium 3.3 L, Chloride 111 H, Carbon Dioxide 22.0, Anion Gap 10, BUN 37 H, Creatinine 2.13 H, Estim Creat Clear Calc 15.00, Est GFR (MDRD) Af Amer 28 L, Est GFR (MDRD) Non-Af 23 L, BUN/Creatinine Ratio 17.4, Glucose 79, Calcium 7.0 L, Total Bilirubin 0.90, AST 13 L, ALT < 6 L, Alkaline Phosphatase 68, Total Protein 5.7 L, Albumin 2.3 L, Globulin 3.4, A lbumin/Globulin Ratio 0.7 L 02/21/24 09:56: Hgb 8.8 L, Hct 29.1 L Medications at Discharge Home Medications vitamins A,C,X-acwi-oeyigx 4,296 mcg-226 mg-90 mg capsule (PreserVision AREDS) 1 cap PO BID eye health 03/12/20 mecobalamin (vitamin B12) 1,000 mcg chewable tablet 1,000 mcg PO DAILY supplement 03/15/23 clopidogrel 75 mg tablet 75 mg PO DAILY blood thinner #90 tabs 05/06/23 metoprolol succinate 50 mg tablet,extended release 24 hr 50 mg PO .COMPLEX heart #90 tabs 12/07/23 furosemide 80 mg tablet 80 mg PO DAILY diuretic #30 tabs 12/24/23 polysaccharide iron complex 150 mg iron capsule (Ferrex) See Rx Instructions .Route .COMPLEX iron supplement #30 caps 12/24/23 potassium chloride 10 mEq tablet,extended release(part/cryst) 10 meq PO DAILY supplement #30 tabs 12/24/23 ascorbic acid (vitamin C) 500 mg chewable tablet (Acerola C) 500 mg PO DAILY supplement 01/23/24 sucralfate 1 gram tablet 1 g PO 1HR_ACHS ulcer #120 tabs 01/25/24 pravastatin 20 mg tablet 20 mg PO DAILY cholestrol #100 TABLETS 01/30/24 pantoprazole 40 mg tablet,delayed release 40 mg PO BID decrease stomach acid 30 days #60 tabs 02/22/24 Physical Exam Narrative Seen and examined. Patient is stable mild fatigue but dyspnea on exertion better. Had PRBC transfusion before. IV iron ordered. Hemoglobin improved. No external bleeding Physical exam General: Alert, Oriented x3, Cooperative. Fatigue HEENT: Atraumatic, PERRLA, EOMI, Normocephalic Oral: No Gingival or Mucosal Lesions/ Ulcerations Neck: Supple, No JVD, Negative Carotid Bruits Chest wall/Lungs: Air entry diminished in bilateral lung bases. No crepitation/rhonchi Cardiovascular: Regular rate, Regular Rhythm, Normal S1, Normal S2, No M/G/R Abdomen: Bowel Sounds Present, Soft, Non Tender, Non-Distended : No dysuria. No renal angle tenderness. No suprapubic tenderness. Extremities: No edema, Capillary Refill Less than 3 Seconds Skin: No rashes, No breakdown Musculoskeletal: No Tenderness to Palpation of Joints or Extremities Neurological: Cranial nerves II-XII grossly intact, DTR 2+/4. No acute focal neurological deficit. Psych/Mental Status: Flat affect. Weight / BMI Weight Weight: 136 lb 7.458 oz Body Mass Index (BMI) 27.5 ABG / Lab / Microbiology Data 02/21/24 09:56 02/21/24 05:14 Microbiology: Microbiology 02/21/24 11:22 Stool Stool Occult Blood (MIRZA) - Final Occult Blood Positive D/C Instructions Discharge Diet: Soft diet, Low fat / Low cholesterol and 2000 mg Sodium Diet Weight Bearing Status: Weight bearing as tolerated Call your doctor if you observe: Fever of 101 or Higher, Coldness, Increased Pain, Numbness or Tingling, Change in Color, Inability to urinate, Inability to have a bowel movement, Shortness of breath, Dizziness, Fainting spells, Swelling in the ankles, Chest pain, Prolonged hiccupping, Increased palpitations (irregular heartbeat) and Calf discomfort When: IN 2 WEEKS Meaningful Use Info Meaningful Use Meaningful Use Diagnoses (Choose all that apply): None applicable Ischemic Stroke Statin Dosing Therapy Reference: STATIN DOSE THERAPY REFERENCE: * Patients > 75 years receive moderate or high dose statin therapy. * Patients 75 years or YOUNGER should receive HIGH intensity statin dose unless contraindicated. You will be required to document reason for non-treatment if statin daily dose does not meet guidelines. HIGH DOSE STATIN THERAPY DAILY Atorvastatin > than or = to 40 mg Rosuvastatin > than or = to 20 mg Amlodipine + Atorvastatin > than or = to 2.5/40 mg Ezetimibe + Simvastatin 10/80 mg Simvastatin 80mg Discharge Plan Admission Admit Date/Time: 02/20/24 14:29 Primary Reason for Your Visit: Acute blood loss anemia., GI bleed Attending Provider: Tyrone Mendez Primary Care Provider: John Rachel Consulting Providers: Shabnam Clayton Discharge Orders/Prescriptions Prescriptions: Continued PreserVision AREDS 14,320-226-200 mpco-lt-eriz capsule 1 cap PO BID mecobalamin (vitamin B12) 1,000 mcg tablet,chewable 1,000 mcg PO DAILY metoprolol succinate 50 mg tablet extended release 24 hr 50 mg PO .COMPLEX Qty: 90 3RF Rx Instructions: 50 mg orally at bedtime; polysaccharide iron complex [Ferrex 150] 150 mg iron Capsule See Rx Instructions .ROUTE .COMPLEX Qty: 30 0RF Rx Instructions: 150 mg orally every other day with a meal and a Vitamin C furosemide 80 mg Tablet 80 mg PO DAILY Qty: 30 0RF potassium chloride 10 mEq Tablet,Er Particles/Crystals 10 meq PO DAILY Qty: 30 0RF ascorbic acid (vitamin C) [Acerola C] 500 mg tablet,chewable 500 mg PO DAILY sucralfate 1 gram Tablet 1 g PO 1HR_ACHS Qty: 120 0RF pantoprazole 40 mg Tablet,Delayed Release (Dr/Ec) 40 mg PO BID 30 Days Qty: 60 0RF pravastatin 20 mg tablet 20 mg PO DAILY Qty: 100 3RF Held clopidogrel 75 mg tablet 75 mg PO DAILY Qty: 90 3RF Hold Instructions: Hold for 1 week. Follow with PCP probably will need changes to baby aspirin and DC Plavix. Referrals / Follow Up: Alejandro Espinoza DO [Med Staff - Active Staff] - Within 2 Weeks (Follow-up in 2 weeks for capsule endoscopy) John Rachel MD [Primary Care Provider] - Disposition Disposition (needs filled in before D/C Order can be placed): Home, Self Care Charges/Coding Visit Charges Inpatient E&M: 44921 Disch Hosp >30min
[2024-02-22] MEDS: Sodium Ferric Gluconat/Sucrose 250 MG in 0.9% Normal Saline (250mL Bag) 250 ML 135 MG IV (13:16)
--- NOTE | 2024-02-22 14:20 | PHA.DC.MR.R ---
Pharmacy [place] Med Reconciliation Pharmacy Service has performed discharge medication reconciliation for this patient. The patient's discharge medication list was reviewed for discrepancies and discrepancies were resolved. Medications at Discharge Home Medications vitamins A,C,Y-wpcp-zpppgb 4,296 mcg-226 mg-90 mg capsule (PreserVision AREDS) 1 cap PO BID eye health 03/12/20 mecobalamin (vitamin B12) 1,000 mcg chewable tablet 1,000 mcg PO DAILY supplement 03/15/23 clopidogrel 75 mg tablet 75 mg PO DAILY blood thinner #90 tabs 05/06/23 metoprolol succinate 50 mg tablet,extended release 24 hr 50 mg PO .COMPLEX heart #90 tabs 12/07/23 furosemide 80 mg tablet 80 mg PO DAILY diuretic #30 tabs 12/24/23 polysaccharide iron complex 150 mg iron capsule (Ferrex) See Rx Instructions .Route .COMPLEX iron supplement #30 caps 12/24/23 potassium chloride 10 mEq tablet,extended release(part/cryst) 10 meq PO DAILY supplement #30 tabs 12/24/23 ascorbic acid (vitamin C) 500 mg chewable tablet (Acerola C) 500 mg PO DAILY supplement 01/23/24 sucralfate 1 gram tablet 1 g PO 1HR_ACHS ulcer #120 tabs 01/25/24 pravastatin 20 mg tablet 20 mg PO DAILY cholestrol #100 TABLETS 01/30/24 pantoprazole 40 mg tablet,delayed release 40 mg PO BID decrease stomach acid 30 days #60 tabs 02/22/24
--- NOTE | 2024-02-22 14:43 | CASEMGMT ---
Discharge Planning Patient would like referral made to [facility]. Referral made to [facility]. Awaiting response. Abigail Gracia DC Planning Asst.
--- NOTE | 2024-02-22 16:53 | PN.GI_ITS ---
Subjective Subjective Patient underwent an upper endoscopy yesterday. She has not seen any signs or symptoms of GI bleeding today. She is tolerating a diet. Objective Data Objective Data Vital Signs: Vital Signs Temp Pulse Resp BP Pulse Ox O2 Del Method O2 Flow Rate 97.8 F 81 18 141/67 H 95 Room Air 2 02/22/24 11:28 02/22/24 11:28 02/22/24 11:28 02/22/24 11:28 02/22/24 11:28 02/22/24 13:41 02/22/24 08:11 Oxygen Flow Rate (L/min) 2 Oxygen Delivery Method Room Air Weight: 136 lb 7.458 oz Body Mass Index (BMI) 27.5 Intake & Output: Intake and Output for Last 24 Hours 02/20/24 02/21/24 02/22/24 23:59 23:59 23:59 Intake Total 536 / 886 1976.50 / 2116.50 1270.17 / 1270.17 Balance 536 / 886 1270.17 / 1270.17 Lab / Micro Data 02/21/24 09:56 02/21/24 05:14 Micro: Microbiology 02/21/24 11:22 Stool Stool Occult Blood (MIRZA) - Final Occult Blood Positive Physical Exam Narrative S Physical exam General: Alert, Oriented x3, Cooperative. Fatigue HEENT: Atraumatic, PERRLA, EOMI, Normocephalic Oral: No Gingival or Mucosal Lesions/ Ulcerations Neck: Supple, No JVD, Negative Carotid Bruits Chest wall/Lungs: Air entry diminished in bilateral lung bases. No crepitation/rhonchi Cardiovascular: Regular rate, Regular Rhythm, Normal S1, Normal S2, No M/G/R Abdomen: Bowel Sounds Present, Soft, Non Tender, Non-Distended : No dysuria. No renal angle tenderness. No suprapubic tenderness. Extremities: No edema, Capillary Refill Less than 3 Seconds Skin: No rashes, No breakdown Musculoskeletal: No Tenderness to Palpation of Joints or Extremities Neurological: Cranial nerves II-XII grossly intact, DTR 2+/4. No acute focal neurological deficit. Psych/Mental Status: Flat affect. Assessment & Plan Assessment/Plan (1) ABLA (acute blood loss anemia): (2) Acute GI bleeding: PLAN: Plan The patient is an 88 y/o F was admitted for generalized weakness, dyspnea on exertion. Patient not on oxygen at home. Fatigue but denies lightheadedness or dizziness. She denies black stool but she states she is on iron pill and has macular degeneration. Acute GI Bleed with resultant Acute Blood Loss Anemia on Chronic anemia/Fe deficiency anemia: Patient admitted on [facility] floor. Plan for EGD. IV PPI drip. Hold Plavix. Last H&H 8.9/28.9%. Stool for occult blood positive. Findings: The examined esophagus was normal. Two 5 mm angiodysplastic lesions with bleeding were found in the cardia. Coagulation for hemostasis using heater probe was successful. Estimated blood loss was minimal. No gross lesions were noted in the second portion of the duodenum. Impression: - Normal esophagus. 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 Treated with a heater probe. - No gross lesions in the second portion of the duodenum. - No specimens collected. Recommendation: - Discharge patient to home. - Resume previous diet. - Continue present medications. She has a scheduled appointment for a capsule endoscopy next week. She should keep this appointment. Charges/Coding Visit Charges Inpatient E&M: 19365 [facility] Hosp L3
== END 2024-02-22 16:15 | disposition home or self-care (01) | DRG 378 ==
LOC: ED 14:18 → MS3 14:46
PROVIDERS: Anesthesiology; Internal Medicine Gastroenterology; Admitting Provider Family Medicine; Emergency Provider Student in an Organized Health Care Education/Training Program; PCP Family Medicine; Visit Provider Internal Medicine
PROC: 0DJ08ZZ Inspection of Upper Intestinal Tract, Via Natural or Artificial Opening Endoscopic (ICD-10-PCS; CPT 43235; principal; 2024-02-21 14:25)
DX: K31.811 Angiodysplasia of stomach and duodenum with bleeding (principal); N18.4 Chronic kidney disease, stage 4 (severe); I42.8 Other cardiomyopathies; I13.0 Hypertensive heart and chronic kidney disease with heart failure and stage 1 through stage 4 chronic kidney disease, or unspecified chronic kidney disease; D62 Acute posthemorrhagic anemia; I50.22 Chronic systolic (congestive) heart failure; D63.1 Anemia in chronic kidney disease; I48.0 Paroxysmal atrial fibrillation; I89.0 Lymphedema, not elsewhere classified; H35.30 Unspecified macular degeneration; E78.5 Hyperlipidemia, unspecified; Z79.02 Long term (current) use of antithrombotics/antiplatelets; Z79.899 Other long term (current) drug therapy; Z86.73 Personal history of transient ischemic attack (TIA), and cerebral infarction without residual deficits
CPT/HCPCS: 36415; 80053; 82274; 83540; 83550; 83735; 85014; 85018; 85025; 85610; 85730; 86850; 86900; 86901; 86920; 86922; 93005; 94668; 97162; 97166; 99284; J7030; J7040; J7050; P9016; A4216; J2916; J3490

== ENCOUNTER → 2024-03-19 | Outpatient (CLI) | payer MEDICARE, SELFPAY ==
[2024-03-19 13:46] LABS: Anion Gap 6 (5-15); BUN 32 mg/dL (7-18); BUN/Creat Ratio 10.6 RATIO (10-20); Chloride 110 mmol/L (98-107); Creatinine, Serum 3.03 mg/dL (0.55-1.02); EST Glomerular Filtration Rate 16 mL/min (>60); Est Glom Filt Rate - Afr Amer 19 mL/min (>60); Glucose 93 mg/dL (74-106); Potassium 4.7 mmol/L (3.5-5.1); Sodium Level 144 mmol/L (136-145)
== END | disposition home or self-care (01) ==
PROVIDERS: PCP Family Medicine; Referring Provider Physician Assistant Medical; Visit Provider Physician Assistant Medical
DX: N28.9 Disorder of kidney and ureter, unspecified (principal); Z51.81 Encounter for therapeutic drug level monitoring; Z79.899 Other long term (current) drug therapy
CPT/HCPCS: 36415; 80048

== ENCOUNTER → 2024-03-28 | Outpatient (CLI) | payer MEDICARE, SELFPAY ==
[2024-03-28 10:52] LABS: Absolute Lymphocyte Count 0.74 X10^3/uL (0.83-4.51); Absolute Neutrophil Count 2.9 X10^3/uL (2.0-7.7); Basophil# 0.04 X10^3/uL; Basophil% 0.9 % (0-1); Eosinophil# 0.16 X10^3/uL; Eosinophils% 3.7 % (0-5); Hematocrit 32.1 % (37-47); Hemoglobin 9.5 g/dL (12.0-15.0); Lymphocyte # 0.74 X10^3/ul (0.83-4.51); Lymphocyte % 17.3 % (19-41); Mean Corp Hgb Conc 29.6 g/dL (32-36); Mean Corpuscular Hgb 28.1 pg (27.0-32.0); Mean Platelet Vol. 9.8 fl (6.2-12.0); Monocyte# 0.37 X10^3/uL; Monocyte% 8.7 % (0-10); NRBC Flagged by Analyzer 0 % (0-5); Neutrophil # 2.94 X10^3/uL (2.7-7.7); Neutrophil % 68.9 % (47-70); Platelet Count 181 K/mm3 (150-450); RBC Distribution Width CV 15.4 % (11.6-14.6); RBC Distribution Width SD 53.5 fl (35.1-43.9); Red Blood Count 3.38 M/mm3 (4.2-5.4); White Blood Count 4.3 K/mm3 (4.4-11.0)
[2024-03-28 11:13] LABS: BNP,B-Type NATRIURETIC PEPTIDE 316.4 pg/mL (0-100)
[2024-03-28 11:14] LABS: ALB/GLOB Ratio 0.7 RATIO (0.9-2.4); AST(SGOT) 14 U/L (15-37); Alanine Aminotransfer ALT/SGPT 12 U/L (13-56); Alkaline Phosphatase 97 U/L (45-117); Anion Gap 6 (5-15); BUN 34 mg/dL (7-18); BUN/Creat Ratio 10.6 RATIO (10-20); Calcium,Total 8.7 mg/dL (8.5-10.1); Chloride 110 mmol/L (98-107); EST Glomerular Filtration Rate 15 mL/min (>60); Est Glom Filt Rate - Afr Amer 18 mL/min (>60); Globulin 4.4 g/dL (2.2-4.2); Glucose 100 mg/dL (74-106); Potassium 4.1 mmol/L (3.5-5.1); Protein, Total 7.4 g/dL (6.4-8.2); Sodium Level 143 mmol/L (136-145)
== END | disposition home or self-care (01) ==
LOC: LAB 10:04
PROVIDERS: PCP Family Medicine; Referring Provider Physician Assistant Medical; Visit Provider Physician Assistant Medical
DX: R06.02 Shortness of breath (principal); R22.43 Localized swelling, mass and lump, lower limb, bilateral; K92.2 Gastrointestinal hemorrhage, unspecified; D64.9 Anemia, unspecified; N28.9 Disorder of kidney and ureter, unspecified; E83.39 Other disorders of phosphorus metabolism; Z51.81 Encounter for therapeutic drug level monitoring; Z79.899 Other long term (current) drug therapy
CPT/HCPCS: 36415; 80053; 83880; 85025

== ENCOUNTER 2024-04-06 14:17 | Outpatient (CLI) | payer MEDICARE, SELFPAY ==
[2024-04-06 14:34] VITALS: BP 126/81; PULSE 67; RESP 14; TEMP 36.4; O2SAT 98; BMI 29.0
[2024-04-06] MEDS: Furosemide 40 MG/4 ML Vial IV (14:50)
[2024-04-06 15:16] LABS: Anion Gap 7 (5-15); BUN 42 mg/dL (7-18); Chloride 106 mmol/L (98-107); Creatinine, Serum 3.23 mg/dL (0.55-1.02); EST Glomerular Filtration Rate 14 mL/min (>60); Est Glom Filt Rate - Afr Amer 17 mL/min (>60); Estimated Creatinine Clearance 10.15 ml/min; Glucose 100 mg/dL (74-106); Potassium 3.8 mmol/L (3.5-5.1); Sodium Level 141 mmol/L (136-145)
== END 2024-04-06 23:59 | disposition home or self-care (01) ==
LOC: MEDOUTP 14:17
PROVIDERS: PCP Family Medicine; Referring Provider Physician Assistant Medical; Visit Provider Physician Assistant Medical
DX: I50.21 Acute systolic (congestive) heart failure (principal)
CPT/HCPCS: 96374; 80048; A4216; J1940

== ENCOUNTER 2024-04-09 11:47 | Outpatient (CLI) | payer MEDICARE, SELFPAY ==
[2024-04-09] MEDS: 0.9% NaCl Peripheral Flush Adult/Peds IV ×2 (12:23→12:39)
[2024-04-09 12:26] VITALS: BP 150/75; PULSE 85; RESP 16; TEMP 36.6; O2SAT 100; BMI 28.8
[2024-04-09] MEDS: Furosemide 40 MG/4 ML Vial IV (12:39)
[2024-04-09 13:08] LABS: Anion Gap 9 (5-15); BUN 38 mg/dL (7-18); BUN/Creat Ratio 11.4 RATIO (10-20); Calcium,Total 8.7 mg/dL (8.5-10.1); Chloride 104 mmol/L (98-107); Creatinine, Serum 3.32 mg/dL (0.55-1.02); EST Glomerular Filtration Rate 14 mL/min (>60); Est Glom Filt Rate - Afr Amer 17 mL/min (>60); Estimated Creatinine Clearance 9.85 ml/min; Glucose 91 mg/dL (74-106); Potassium 3.5 mmol/L (3.5-5.1); Sodium Level 141 mmol/L (136-145)
== END 2024-04-09 23:59 | disposition home or self-care (01) ==
LOC: MEDOUTP 11:47
PROVIDERS: PCP Family Medicine; Referring Provider Physician Assistant Medical; Visit Provider Physician Assistant Medical
DX: I50.21 Acute systolic (congestive) heart failure (principal)
CPT/HCPCS: 96374; 80048; A4216; J1940

== ENCOUNTER 2024-04-10 09:52 | Outpatient (CLI) | payer MEDICARE, SELFPAY ==
[2024-04-10 10:11] VITALS: BP 140/59; PULSE 92; RESP 16; TEMP 36.1; O2SAT 98; BMI 28.5
[2024-04-10] MEDS: 0.9% NaCl Peripheral Flush Adult/Peds IV (10:14)
[2024-04-10] MEDS: Furosemide 40 MG/4 ML Vial IV (10:15)
== END 2024-04-10 23:59 | disposition home or self-care (01) ==
LOC: MEDOUTP 09:52
PROVIDERS: PCP Family Medicine; Referring Provider Physician Assistant Medical; Visit Provider Physician Assistant Medical
DX: I50.21 Acute systolic (congestive) heart failure (principal)
CPT/HCPCS: 96374; A4216; J1940

== ENCOUNTER 2024-04-11 09:42 | Outpatient (CLI) | payer MEDICARE, SELFPAY ==
[2024-04-11 09:48] VITALS: BP 143/57; PULSE 84; RESP 16; TEMP 36.3; O2SAT 97; BMI 28.0
[2024-04-11] MEDS: 0.9% NaCl Peripheral Flush Adult/Peds IV (10:02)
[2024-04-11] MEDS: Furosemide 40 MG/4 ML Vial IV (10:02)
== END 2024-04-11 23:59 | disposition home or self-care (01) ==
LOC: MEDOUTP 09:42
PROVIDERS: PCP Family Medicine; Referring Provider Physician Assistant Medical; Visit Provider Physician Assistant Medical
DX: I50.21 Acute systolic (congestive) heart failure (principal)
CPT/HCPCS: 96374; A4216; J1940

== ENCOUNTER 2024-04-12 09:47 | Outpatient (CLI) | payer MEDICARE, SELFPAY ==
[2024-04-12 10:05] VITALS: BP 142/57; PULSE 90; RESP 16; TEMP 36.3; O2SAT 94; BMI 28.5
[2024-04-12] MEDS: 0.9% NaCl Peripheral Flush Adult/Peds IV ×2 (10:06→10:14)
[2024-04-12] MEDS: Furosemide 40 MG/4 ML Vial IV (10:06)
[2024-04-12 10:39] LABS: Anion Gap 8 (5-15); BUN 39 mg/dL (7-18); BUN/Creat Ratio 11.9 RATIO (10-20); Calcium,Total 8.6 mg/dL (8.5-10.1); Chloride 103 mmol/L (98-107); Creatinine, Serum 3.29 mg/dL (0.55-1.02); EST Glomerular Filtration Rate 14 mL/min (>60); Est Glom Filt Rate - Afr Amer 17 mL/min (>60); Estimated Creatinine Clearance 9.87 ml/min; Glucose 112 mg/dL (74-106); Potassium 3.7 mmol/L (3.5-5.1); Sodium Level 139 mmol/L (136-145)
== END 2024-04-12 23:59 | disposition home or self-care (01) ==
LOC: MEDOUTP 09:47
PROVIDERS: PCP Family Medicine; Referring Provider Physician Assistant Medical; Visit Provider Physician Assistant Medical
DX: I50.21 Acute systolic (congestive) heart failure (principal)
CPT/HCPCS: 96374; 80048; A4216; J1940

== ENCOUNTER → 2024-04-13 | Outpatient (CLI) | payer MEDICARE, SELFPAY ==
--- NOTE | 2024-04-13 11:15 | RAD_ITS ---
STUDY: X-RAY CHEST REASON FOR EXAM: Female, 88 years old. Shortness of breath. TECHNIQUE: Frontal and lateral views of the chest. COMPARISON: December 11, 2023 FINDINGS: NG and endotracheal tubes present on the prior study have been removed. Cardiomegaly with single lead cardiac pacer, aortic tortuosity, prominent central pulmonary arteries and interval development of mild diffuse interstitial pattern with a basilar predilection and bilateral hips, right greater than left. Findings are compatible with moderate interstitial edema/congestive failure with effusions. Follow-up chest imaging to resolution recommended. No abnormality of the visualized soft tissue structures of the upper abdomen. RAD/Chest PA and Lateral IMPRESSION: Interval development of findings compatible with interstitial edema/congestive failure with effusions. Follow-up chest imaging to resolution recommended. Electronically Signed: Lavon Connelly MD at 11:56 EDT ,
== END | disposition home or self-care (01) ==
PROVIDERS: PCP Family Medicine; Referring Provider Physician Assistant Medical; Visit Provider Physician Assistant Medical
DX: R06.02 Shortness of breath (principal)
CPT/HCPCS: 71046

== ENCOUNTER 2024-04-16 11:41 | Outpatient (CLI) | payer MEDICARE, SELFPAY ==
[2024-04-16] VITALS (8 sets, daily range): BP systolic 104–150; BP diastolic 59–79; PULSE 79–83; RESP 30–34; TEMP 36.3; O2SAT 97–100
[2024-04-16] MEDS: Lidocaine 2% (20 ml mdv) 20 ML Vial INFILT (12:13)
--- NOTE | 2024-04-16 12:26 | RAD_ITS ---
STUDY: X-RAY CHEST REASON FOR EXAM: Female, 88 years old. POST THORA TECHNIQUE: AP inspiration and expiration view. COMPARISON: Comparison is made with prior study dated April 13, 2024. FINDINGS: There is a 10% right pneumothorax. Persistent pleural parenchymal changes at the lung bases. RAD/Chest Insp/Exp 2 View IMPRESSION: 10% right pneumothorax following immediate post right thoracentesis. Electronically Signed: Vihsal Andre MD at 13:28 EDT ,
--- NOTE | 2024-04-16 12:40 | NURSING ---
PER DR. PEREZ/CHANCE ROCA PATIENT WITH PNEUMOTHORAX. INSTRUCTED TO MONITOR PATIENT FOR 1 HOUR AND REPEAT CHEST XRAY. WILL CONTINUE TO MONITOR.
--- NOTE | 2024-04-16 13:35 | RAD_ITS ---
STUDY: X-RAY CHEST REASON FOR EXAM: Female, 88 years old. Evaluate pneumo 1hr post thora TECHNIQUE: AP and expiration views. COMPARISON: Comparison is made with prior study done earlier today. FINDINGS: Stable 10% right pneumothorax. RAD/Chest Insp/Exp 2 View IMPRESSION: Stable 10% right pneumothorax following a right thoracentesis. Electronically Signed: Vishal Andre MD at 14:29 EDT ,
--- NOTE | 2024-04-16 13:57 | PRO.PCM_ITS ---
Procedure Report Date of Procedure: 04/16/24 Assessment & Plan Assessment/Plan (1) Pleural effusion: PLAN: PROCEDURE: Ultrasound Guided Thoracentesis ORDERING PROVIDER: Martha Stallings PA-C INDICATION: Female, 88 years old. Right pleural effusion. PROVIDER: LORE Qiu PROCEDURE: The risks, benefits, and alternatives to the procedure were explained to the patient. The specific risks of bleeding, infection, and pneumothorax requiring chest tube insertion were discussed and accepted. Written informed consent was obtained. The patient was placed in the sitting, upright position. Ultrasonographic evaluation of the bilateral lower pleural spaces was carried out. An adequate pocket was identified in the right lower pleural space. The overlying skin was prepped with chlorhexidine and draped in sterile fashion. 2 % lidocaine was administered subcutaneously for local anesthesia. Under ultrasound guidance, a 5-Romanian thoracentesis needle/catheter system was advanced into the right posterior lower pleural fluid collection. 1010 ml of clear yellow colored fluid was drained. The patient had significant coughing throughout the procedure and despite pausing the suction and withdrawing the catheter slightly, coughing continued. Some fluid remained on ultrasound. The catheter was removed, and a sterile dressing was applied. The patient tolerated the procedure well. A chest x-ray was ordered. IMPRESSION: Successful ultrasound guided thoracentesis of right pleural effusion. Procedures Radiology Radiology US Procedures: [id number] Thoracentesis
== END 2024-04-16 23:59 | disposition home or self-care (01) ==
LOC: US 11:41
PROVIDERS: PCP Family Medicine; Referring Provider Physician Assistant Medical; Visit Provider Physician Assistant Medical
DX: I50.33 Acute on chronic diastolic (congestive) heart failure (principal); J90 Pleural effusion, not elsewhere classified
CPT/HCPCS: 32555; 71046

== ENCOUNTER 2024-04-27 14:59 | Inpatient (IN) | payer MEDICARE, SELFPAY ==
[2024-04-27] VITALS (12 sets, daily range): BP systolic 140–175; BP diastolic 60–83; PULSE 80–98; RESP 16–93; TEMP 36.1–36.6; O2SAT 27–100; BMI 27.9
--- NOTE | 2024-04-27 00:15 | RAD_ITS ---
EXAM: XR CHEST, 1 VIEW CLINICAL INDICATION: chest tube placement TECHNIQUE: Frontal view of the chest. COMPARISON: Single view chest 04/27/2024 FINDINGS: LUNGS AND PLEURAL SPACES: Stable right hydropneumothorax. Bibasilar airspace disease. Moderate left pleural effusion. HEART: Moderate enlargement of the cardiac silhouette. MEDIASTINUM: Central airways and mediastinal contour are unremarkable. BONES/JOINTS: Unremarkable. No acute fracture. SOFT TISSUES: Unremarkable. TUBES, LINES AND DEVICES: Small right chest tube in place. Left chest pacer. RAD/Chest 1 View (Portable) IMPRESSION: 1. Stable right hydropneumothorax. Small right chest tube in place. 2. Bibasilar airspace disease. Findings may indicate pneumonia. Electronically Signed: Danny Garcia MD at 1:34 EDT ,
--- NOTE | 2024-04-27 15:30 | EDS_ITS ---
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 Presence of cardiac pacemaker CKD (chronic kidney disease), stage IV Non-smoker Hypertension Atrial fibrillation TIA (transient ischemic attack) Acute on chronic renal insufficiency Pleural effusion on right Atrial fibrillation with rapid ventricular response Bilateral edema of lower extremity Chronic kidney disease SMITH (dyspnea on exertion) Swelling of right lower extremity Dyslipidemia Longstanding persistent atrial fibrillation Chronic systolic (congestive) heart failure Essential hypertension Premature ventricular contraction History of GI bleed TIA (transient ischemic attack) Nonrheumatic mitral valve regurgitation Hypertension Hyperlipidemia Other specified transient cerebral ischemias Nonrheumatic tricuspid (valve) insufficiency Home Medications ?Medication ?Instructions ?Recorded ?Last Taken ?Type vitamins A,C,Z-ekgt-dvumeb 4,296 1 cap PO BID eye health 03/12/20 01/22/24 History mcg-226 mg-90 mg capsule (PreserVision AREDS) mecobalamin (vitamin B12) 1,000 1,000 mcg PO DAILY supplement 03/15/23 01/22/24 History mcg chewable tablet polysaccharide iron complex 150 mg See Rx Instructions .Route 12/24/23 01/22/24 Rx iron capsule (Ferrex) .COMPLEX iron supplement #30 caps potassium chloride 10 mEq 10 meq PO DAILY supplement #30 tabs 12/24/23 01/22/24 Rx tablet,extended release(part/cryst) ascorbic acid (vitamin C) 500 mg 500 mg PO DAILY supplement 01/23/24 01/22/24 History chewable tablet (Acerola C) pravastatin 20 mg tablet 20 mg PO DAILY cholestrol #100 01/30/24 Unknown Rx TABLETS pantoprazole 40 mg tablet,delayed 40 mg PO BID decrease stomach acid 02/22/24 Unknown Rx release 30 days #60 tabs dapagliflozin propanediol 10 mg 10 mg PO QAM kidneys #30 tabs 04/27/24 Unknown Rx tablet (Farxiga) metolazone 2.5 mg tablet 2.5 mg PO .COMPLEX leg swelling 04/27/24 Unknown Rx #10 tabs metoprolol succinate 50 mg 50 mg PO .COMPLEX heart #90 tabs 04/27/24 Unknown Rx tablet,extended release 24 hr torsemide 20 mg tablet 40 mg (2 x 20 mg) PO BID water 04/27/24 Unknown Rx pill, swelling #120 tabs Allergy/AdvReac Type Severity Reaction Status Date / Time amiodarone AdvReac Severe Severs Verified 04/27/24 15:00 muscle weakness, hair loss amlodipine AdvReac Severe Swelling Verified 04/27/24 15:00 flecainide AdvReac Severe Near Verified 04/27/24 15:00 Syncope, Severe Nausea losartan AdvReac myalgia Verified 04/27/24 15:00 Family History Father COPD (chronic obstructive pulmonary disease) CHF (congestive heart failure) Mother Hypertension CVA (cerebral vascular accident) Brother Hypertension Surgical History Hx of atrioventricular node ablation History of total hysterectomy History of cholecystectomy Social History household members: spouse Smoking Status: Never smoker alcohol intake: never substance use type: does not use caffeine: Yes Type: coffee Number of servings: 1 EXAM Physical Exam Const Vital Signs: 04/27/24 14:59 04/27/24 15:18 04/27/24 15:59 Temperature 97 F L Temperature Source Temporal Pulse Rate 86 80 Respiratory Rate 26 H 35 H Respiratory Effort Short of Breath Labored Respiratory Depth Shallow Respiratory Pattern Tachypnea Blood Pressure 175/83 H 159/78 H Blood Pressure Mean 113 105 Pulse Ox 94 100 Oxygen Delivery Method Room Air Room Air Non-Rebreather Oxygen Flow Rate (L/min) 12 04/27/24 16:52 04/27/24 17:00 04/27/24 18:00 Temperature Temperature Source Pulse Rate 80 80 80 Respiratory Rate 35 H 33 H 26 H Respiratory Effort Respiratory Depth Respiratory Pattern Blood Pressure 157/72 H 155/71 H 157/66 H Blood Pressure Mean 100 99 96 Pulse Ox 97 99 100 Oxygen Delivery Method Non-Rebreather Room Air Non-Rebreather Oxygen Flow Rate (L/min) 12 04/27/24 19:00 04/27/24 19:55 04/27/24 20:00 Temperature 98 F Temperature Source Pulse Rate 80 93 83 Respiratory Rate 20 H 22 H 27 H Respiratory Effort Respiratory Depth Respiratory Pattern Blood Pressure 160/65 H 140/63 H 144/62 H Blood Pressure Mean 96 88 89 Pulse Ox 100 99 100 Oxygen Delivery Method Room Air Nasal Cannula Oxygen Flow Rate (L/min) 2 04/27/24 20:52 Temperature Temperature Source Pulse Rate 80 Respiratory Rate 16 Respiratory Effort Respiratory Depth Respiratory Pattern Blood Pressure 148/60 H Blood Pressure Mean 89 Pulse Ox 100 Oxygen Delivery Method Nasal Cannula Oxygen Flow Rate (L/min) 2 [facility] [place] Narr[place] Medical decision making narrative: HISTORY OF PRESENT ILLNESS: 88-year-old female here with concern for stable pneumothorax. The patient states she has been had progressive shortness of breath since she was diagnosed with a pneumothorax approximately 11 days ago. She does note lower extremity edema as well. Denies any syncope. Denies any chest pain. Denies any bleeding diathesis. Denies any cough fever chills. REVIEW OF SYSTEMS: Pertinent positives: Shortness of breath, leg swelling Pertinent negatives: Chest pain, syncope PHYSICAL EXAM: Nursing triage notes reviewed, Vital signs reviewed Constitutional: please see mdm HENT: MMM Eyes: Pupils equal round and reactive to light, Extraocular muscles intact Neck: No stridor, no JVD, full neck ROM Lungs: Clear to auscultation, No wheezing or rales. No increased work of breathing, no conversational dyspnea, no accessory muscle use, no nasal flaring. No respiratory distress noted Heart: Regular rate and rhythm, No murmurs, No rubs and No gallops, 2+ distal pulses (radial, femoral, posterior tibial) in all extremities Abdomen: Soft, there is no tenderness, rigidity, rebound or guarding, no obvious peritoneal signs, no palpable pulsatile abdominal masses, no auscultated abdominal bruit : No CVAT Extremities: No edema Neuro: No focal neurological deficits, cranial nerves II through XII intact, 5/5 strength in all extremities. Intact sensation to light touch in all extremities, 2+ reflexes bilateral patella tendons. Normal gait. No ataxia. Skin: No rash or lesions noted MEDICAL DECISION MAKING: Chief Complaint: Pneumothorax External records reviewed: Reviewed prior echocardiogram from October 2023 shows ejection fraction 52% Factors affecting care: CHF, pacemaker placement, GI bleed, Consults: Internal medicine, General Surgery (Dr. Orr) [facility] Narrative: The patient was initially tachypneic otherwise hemodynamically stable afebrile and nontoxic-appearing. ALL IMAGES (IF OBTAINED) HAVE BEEN PERSONALLY REVIEWED AND INTERPRETED BY MYSELF. Chest x-ray was reviewed personally by myself from today. Chest x-ray showed right-sided pleural effusion as well as a small pneumothorax. Repeat chest x-ray shows complete resolution of right-sided pleural effusion but persistence of right-sided pneumothorax, this may be owing to chest tube placement 3rd CXR after repeat CT shows ongoing PTX but adequate CT positioning BNP elevated consistent with volume overload High-sensitivity troponin is negative, no evidence of myocardial ischemia x 2 BMP with worsening renal function, no evidence of metabolic acidosis or anion gap or significant electrolyte abnormalities CBC with no leukocytosis, noted mild anemia, no thrombocytopenia After the patient's chest tube put out 1.5 cc of straw-colored fluid I went to reassess the patient and noticed the chest tube was malpositioned. I repeated an x-ray at this time which showed the chest tube had been pulled out. This time the chest tube was removed. I then needed to place a chest tube for a second time this time I chose to go to a different anatomic position in the anterior chest in order to better position the pigtail catheter to relieve the patient's pneumothorax. Procedure: chest tube placement Consent: Written consent is in the chart Indications: Pneumothorax/pleural effusion Time out: A time out was performed The right chest wall was washed with Betadine/chlorhexadine and allowed to dry. The patient was sterilely prepped. Chest landmarks and appropriate laterality was confirmed (enter x-ray line, inframammary fold) and identified. Using the standard technique a right sided 8 Bengali chest tube was placed and sutured into place. A noel of air was heard when I entered the pleural space. Petroleum gauze placed and then chest tube secured. My independent interpretation of the post chest tube placement x-ray demonstrates suboptimal placement of the chest tube. There is improvement of pleural effusion. Procedure: chest tube placement Consent: Written consent Indications: Pneumothorax Time out: A time out was performed The right chest wall was washed with Betadine/chlorhexadine and allowed to dry. The patient was sterilely prepped. Chest landmarks and appropriate laterality was confirmed and identified. Midclavicular line second intercostal space. Using the standard technique a anterior 8 Bengali chest tube was placed and sutured into place. A noel of air was heard when I entered the pleural space. Petroleum gauze placed and then chest tube secured. My independent interpretation of the post chest tube placement x-ray demonstrates adequate placement of the chest tube in right chest. PTX still present without resolution by my read. The patient and/or family, caregivers express understanding. The patient and/or family, caregivers agrees with the plan. Shared decision making: I will have a discussion with the patient and or visitors regarding risk/benefits of further testing or admission. They will be made aware of of the risk/benefits inherent in this decision they will be given the opportunity to voice understanding. Total critical care time today provided was at least 0 minutes. This excludes separately billable procedures. Critical care time (if documented) is secondary to the patient having high probability of clinically significant/life threatening deterioration in the patient's condition which required my urgent intervention. Impression: 1. Pneumothorax 2. Pleural effusion Dispo: Admit to floor discussed with Dr. Rosario This note was generated with v2tel dictation software. It may contain incorrect words, spelling, and punctuation that were not noted in review of the chart prior to signing. Lab Data Labs: Laboratory Results - last 24 hr 04/27/24 04/27/24 15:16 17:36 WBC 5.5 RBC 3.61 L Hgb 9.7 L Hct 32.5 L MCV 90.0 MCH 26.9 L MCHC 29.8 L RDW Std Deviation 51.1 H RDW Coeff of Michael 15.7 H Plt Count 201 MPV 9.7 Immature Gran % (Auto) 0.400 Neut % (Auto) 70.9 H Lymph % (Auto) 16.1 L [place] % (Auto) 8.8 Eos % (Auto) 3.1 Baso % (Auto) 0.7 Absolute Neuts (auto) 3.9 Absolute Lymphs (auto) 0.88 Nucleated RBC % 0 Sodium 142 Potassium 4.2 Chloride 106 Carbon Dioxide 26.0 Anion Gap 10 BUN 51 H Creatinine 3.64 H Est GFR (MDRD) Af Amer 15 L Est GFR (MDRD) Non-Af 13 L BUN/Creatinine Ratio 14.0 Glucose 101 Calcium 9.1 Troponin I High Sens 21 22 B-Natriuretic Peptide 306.2 H Radiography Diagnostic Testing: Clinical Impression(s) from Imaging Studies Chest X-Ray 04/27/24 19:12 IMPRESSION: A right chest tube is noted with tip just deep to the chest wall level. Clinical correlation is needed. Bilateral pleural effusions, reduced on the right since the previous study.. There is a right hydropneumothorax. Cardiomegaly. Electronically Signed: Eduin Cleary DO at 19:36 EDT , ADDENDUM: 04/27/241958 IMPRESSION: A right chest tube is noted with tip just deep to the chest wall level. Clinical correlation is needed. Bilateral pleural effusions, reduced on the right since the previous study.. There is a right hydropneumothorax. Cardiomegaly. N.B. : The above Results were Read Back by Eduin Cleary DO to David Shepard DO, and understanding confirmed on 04/27/2024 19:52:03 (ET). Electronically Signed: Ediun Cleary DO at 19:36 EDT , Discharge Plan Triage Chief Complaint: Shortness of Breath ED Provider: David Shepard Dx/Rx/DC Orders Primary Care Provider: John Rachel
--- NOTE | 2024-04-27 15:49 | EKG12_ITS ---
Test Reason : SOB Blood Pressure : / mmHG Vent. Rate : 080 BPM Atrial Rate : 080 BPM P-R Int : 200 ms QRS Dur : 142 ms QT Int : 430 ms P-R-T Axes : 029 076 -74 degrees QTc Int : 495 ms Atrial-sensed ventricular-paced rhythm Abnormal ECG Confirmed by MURTAZA LARA, CHRIS ([id number]), editor school photograph ANGELICA ROLAND ([id number]) on 05/01/2024 1:47:08 PM Referred By: Confirmed By:CHRIS HAUSER MD
[2024-04-27 15:59] LABS: Absolute Lymphocyte Count 0.88 X10^3/uL (0.83-4.51); Absolute Neutrophil Count 3.9 X10^3/uL (2.0-7.7); Basophil# 0.04 X10^3/uL; Basophil% 0.7 % (0-1); Eosinophil# 0.17 X10^3/uL; Eosinophils% 3.1 % (0-5); Hematocrit 32.5 % (37-47); Hemoglobin 9.7 g/dL (12.0-15.0); Lymphocyte # 0.88 X10^3/ul (0.83-4.51); Lymphocyte % 16.1 % (19-41); Mean Corp Hgb Conc 29.8 g/dL (32-36); Mean Corpuscular Hgb 26.9 pg (27.0-32.0); Mean Platelet Vol. 9.7 fl (6.2-12.0); Monocyte# 0.48 X10^3/uL; Monocyte% 8.8 % (0-10); NRBC Flagged by Analyzer 0 % (0-5); Neutrophil # 3.88 X10^3/uL (2.7-7.7); Neutrophil % 70.9 % (47-70); Platelet Count 201 K/mm3 (150-450); RBC Distribution Width CV 15.7 % (11.6-14.6); RBC Distribution Width SD 51.1 fl (35.1-43.9); Red Blood Count 3.61 M/mm3 (4.2-5.4); White Blood Count 5.5 K/mm3 (4.4-11.0)
[2024-04-27 16:00] LABS: POSITIVE COUNT NO; POSITIVE DIFFERENTIAL NO; POSITIVE MORPHOLOGY NO
[2024-04-27 16:20] LABS: BNP,B-Type NATRIURETIC PEPTIDE 306.2 pg/mL (0-100)
[2024-04-27 16:25] LABS: Anion Gap 10 (5-15); BUN 51 mg/dL (7-18); Calcium,Total 9.1 mg/dL (8.5-10.1); Chloride 106 mmol/L (98-107); Creatinine, Serum 3.64 mg/dL (0.55-1.02); EST Glomerular Filtration Rate 13 mL/min (>60); Est Glom Filt Rate - Afr Amer 15 mL/min (>60); Glucose 101 mg/dL (74-106); Potassium 4.2 mmol/L (3.5-5.1); Sodium Level 142 mmol/L (136-145); Troponin-I HS (w/2H Reflex) 21 pg/mL (3.0-54.0)
[2024-04-27 17:55] LABS: Reflex Troponin-HS? (from REC) Y
[2024-04-27 18:21] LABS: Troponin-I HS 22 pg/mL (3.0-54.0)
[2024-04-27] MEDS: Morphine 4 MG/ML Syringe IV (19:11)
--- NOTE | 2024-04-27 19:12 | RAD_ITS ---
INDICATION: s/p chest tube EXAMINATION/TECHNIQUE: X-RAY - XR Chest 1 View COMPARISON: April 27, 2024 FINDINGS: LINES/DEVICES: Stable left-sided pacemaker. A right chest tube is noted with tip just deep to the chest wall level. Clinical correlation is needed. LUNGS: Bilateral pleural effusions, reduced on the right since the previous study.. There is a right hydropneumothorax. MEDIASTINUM AND CARDIOVASCULAR STRUCTURES: Cardiac silhouette is enlarged. Central airways and mediastinal contour are unremarkable. BONES AND SOFT TISSUES: Degenerative vertebral changes. RAD/Chest 1 View (Portable) IMPRESSION: A right chest tube is noted with tip just deep to the chest wall level. Clinical correlation is needed. Bilateral pleural effusions, reduced on the right since the previous study.. There is a right hydropneumothorax. Cardiomegaly. N.B. : The above Results were Read Back by Eduin Cleary DO to David Shepard DO, and understanding confirmed on 04/27/2024 19:52:03 (ET). Electronically Signed: Eduin Cleary DO at 19:36 EDT ,
--- NOTE | 2024-04-27 19:42 | HP.PCM.HOS_ITS ---
[facility] - General General Date of Admission: 04/27/24 Date of Service: 04/27/24 Chief Complaint: Shortness of breath HPI Narrative RAJEEV ECHEVARRIA, is a 88-year-old female history of CKD stage IV, heart failure with reduced ejection fraction, mitral and tricuspid valve regurg, complete AV block status post pacer, hypertension, GERD, GI bleed secondary to gastric ulcers who presented to [facility] 04/27/2024 with some progressive shortness of breath since. Has also had some increased lower extremity edema as well. patient had a thoracentesis 04/16 on an outpatient basis for a right pleural effusion and had a small 10% pneumothorax which did not require hospitalization and conservative management was recommended. However she was seen at her cardiology office today and she has had progressive worsening shortness of breath and plan was for repeat thoracentesis however x-ray obtained and showed the residual small pneumothorax so she was advised to come to the emergency department for chest tube and drainage. In the ED pt afebrile with BP 175/83, RR 26 and 94% on RA. BNP 306. Creatinine 3.64 which has been uptrending over time and is up from baseline. She had chest tube placed on right side and 1500 cc were drained of fluid and patient remained stable. Hospitalist contacted for admission as patient has right chest tube placed. patient evaluated at bedside, she reports she has had significant shortness of breath since October when she had a pacemaker surgery, has not necessarily changed significantly over the past day or 2 but just progressively worsens. Seen in the cardiology office today and they made further adjustments to her diuretics. Has had some lower extremity swelling which has been increasing over time as well. Has a little bit of a cough with mucus but no purulence, no fevers or chills. No other infectious signs or symptoms. No chest pain. No abdominal pain, no changes in bowel or bladder. No other new or acute complaints. [facility] Medical History Acute on chronic renal insufficiency Anemia Anemia of chronic renal failure, stage 4 (severe) Atrial fibrillation Atrial fibrillation Atrial fibrillation with rapid ventricular response Bilateral edema of lower extremity Cardiomyopathy Chronic kidney disease Chronic renal failure Chronic systolic (congestive) heart failure CKD (chronic kidney disease), stage IV SMITH (dyspnea on exertion) Dyslipidemia Essential hypertension HFrEF (heart failure with reduced ejection fraction) History of GI bleed Hyperlipidemia Hypertension Hypertension Kidney disease Longstanding persistent atrial fibrillation Mitral regurgitation Non-smoker Nonrheumatic mitral valve regurgitation Nonrheumatic tricuspid (valve) insufficiency Other specified transient cerebral ischemias Pacemaker Pleural effusion on right Premature ventricular contraction Presence of cardiac pacemaker 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 Pulmonary hypertension Shortness of breath Swelling of right lower extremity TIA (transient ischemic attack) TIA (transient ischemic attack) TIA (transient ischemic attack) Tricuspid regurgitation Home Medications ?Medication ?Instructions ?Recorded ?Last Taken ?Type vitamins A,C,K-ahmd-ycedog 4,296 1 cap PO BID eye health 03/12/20 01/22/24 History mcg-226 mg-90 mg capsule (PreserVision AREDS) mecobalamin (vitamin B12) 1,000 1,000 mcg PO DAILY supplement 03/15/23 01/22/24 History mcg chewable tablet polysaccharide iron complex 150 mg See Rx Instructions .Route 12/24/23 01/22/24 Rx iron capsule (Ferrex) .COMPLEX iron supplement #30 caps potassium chloride 10 mEq 10 meq PO DAILY supplement #30 tabs 12/24/23 01/22/24 Rx tablet,extended release(part/cryst) ascorbic acid (vitamin C) 500 mg 500 mg PO DAILY supplement 01/23/24 01/22/24 History chewable tablet (Acerola C) pravastatin 20 mg tablet 20 mg PO DAILY cholestrol #100 01/30/24 Unknown Rx TABLETS pantoprazole 40 mg tablet,delayed 40 mg PO BID decrease stomach acid 02/22/24 Unknown Rx release 30 days #60 tabs dapagliflozin propanediol 10 mg 10 mg PO QAM kidneys #30 tabs 04/27/24 Unknown Rx tablet (Farxiga) metolazone 2.5 mg tablet 2.5 mg PO .COMPLEX leg swelling 04/27/24 Unknown Rx #10 tabs metoprolol succinate 50 mg 50 mg PO .COMPLEX heart #90 tabs 04/27/24 Unknown Rx tablet,extended release 24 hr torsemide 20 mg tablet 40 mg (2 x 20 mg) PO BID water 04/27/24 Unknown Rx pill, swelling #120 tabs Allergy/AdvReac Type Severity Reaction Status Date / Time amiodarone AdvReac Severe Severs Verified 04/27/24 15:00 muscle weakness, hair loss amlodipine AdvReac Severe Swelling Verified 04/27/24 15:00 flecainide AdvReac Severe Near Verified 04/27/24 15:00 Syncope, Severe Nausea losartan AdvReac myalgia Verified 04/27/24 15:00 Family History Father COPD (chronic obstructive pulmonary disease) CHF (congestive heart failure) Mother Hypertension CVA (cerebral vascular accident) Brother Hypertension Surgical History History of cholecystectomy History of total hysterectomy Hx of atrioventricular node ablation Social History household members: spouse Smoking Status: Never smoker alcohol intake: never substance use type: does not use caffeine: Yes Type: coffee Number of servings: 1 ROS ROS Narrative General: Denies fever/chills HENT: Denies headache, denies stuffy nose, denies sore throat EYES: Denies changes in vision Resp: has some cough with mucus production, progressively increasing shortness of breath over the past couple of months Cardiac: Denies chest pain GI: Denies abdominal pain, denies changes in bowel, denies nausea/vomiting : Denies changes in urination Extremity: some increasing lower extremity edema MSK: some general weakness Neuro: Denies any numbness/tingling Heme: Denies any bleeding or bruising Skin: Denies rashes Psychiatric: No complaints voiced Vital Signs Vital Signs Vital Signs: 04/27/24 14:59 04/27/24 15:18 04/27/24 15:59 Temperature 97 F L Temperature Source Temporal Pulse Rate 86 80 Respiratory Rate 26 H 35 H Respiratory Effort Short of Breath Labored Respiratory Depth Shallow Respiratory Pattern Tachypnea Blood Pressure 175/83 H 159/78 H Blood Pressure Mean 113 105 Pulse Ox 94 100 Oxygen Delivery Method Room Air Room Air Non-Rebreather Oxygen Flow Rate (L/min) 12 04/27/24 16:52 04/27/24 17:00 04/27/24 18:00 Temperature Temperature Source Pulse Rate 80 80 80 Respiratory Rate 35 H 33 H 26 H Respiratory Effort Respiratory Depth Respiratory Pattern Blood Pressure 157/72 H 155/71 H 157/66 H Blood Pressure Mean 100 99 96 Pulse Ox 97 99 100 Oxygen Delivery Method Non-Rebreather Room Air Non-Rebreather Oxygen Flow Rate (L/min) 12 04/27/24 19:00 Temperature Temperature Source Pulse Rate 80 Respiratory Rate 20 H Respiratory Effort Respiratory Depth Respiratory Pattern Blood Pressure 160/65 H Blood Pressure Mean 96 Pulse Ox 100 Oxygen Delivery Method Room Air Oxygen Flow Rate (L/min) Physical Exam Narrative general: Alert, oriented, no apparent distress HEENT: Atraumatic, normocephalic Eyes: Anicteric, normal conjunctiva, extraocular movements grossly intact Neck: Supple Respiratory: diminished bilaterally right greater than less, slightly tachypneic but no overt respiratory distress Cardiovascular: Regular rate GI: Soft, nontender, nondistended Extremities: 1-2+ bilateral lower extremity edema Musculoskeletal: Moving all extremities Neuro: No overt focal neurological deficits Skin: No rashes appreciated Psych: Cooperative Results Lab / Micro Data 04/27/24 15:16 04/27/24 15:16 Labs: Laboratory Results - last 24 hr 04/27/24 15:16: WBC 5.5, RBC 3.61 L, Hgb 9.7 L, Hct 32.5 L, MCV 90.0, MCH 26.9 L , MCHC 29.8 L, RDW Std Deviation 51.1 H, RDW Coeff of Michael 15.7 H, Plt Count 201, MPV 9.7, Immature Gran % (Auto) 0.400, Neut % (Auto) 70.9 H, Lymph % (Auto) 16.1 L, [place] % (Auto) 8.8, Eos % (Auto) 3.1, Baso % (Auto) 0.7, Absolute Neuts (auto) 3.9, Absolute Lymphs (auto) 0.88, Nucleated RBC % 0, Sodium 142, Potassium 4.2, Chloride 106, Carbon Dioxide 26.0, Anion Gap 10, BUN 51 H, Creatinine 3.64 H, E st GFR (MDRD) Af Amer 15 L, Est GFR (MDRD) Non-Af 13 L, BUN/Creatinine Ratio 14.0, Glucose 101, Calcium 9.1, Troponin I High Sens 21, B-Natriuretic Peptide 306.2 H 04/27/24 17:36: Troponin I High Sens 22 Imaging Radiology Impression Chest X-Ray 04/27/24 19:12 IMPRESSION: A right chest tube is noted with tip just deep to the chest wall level. Clinical correlation is needed. Bilateral pleural effusions, reduced on the right since the previous study.. There is a right hydropneumothorax. Cardiomegaly. Electronically Signed: Eduin Cleary DO at 19:36 EDT Reading Location ID and State: [facility] / [place] Tel [phone], Service support , Assessment & Plan Assessment/Plan (1) Acute on chronic diastolic CHF (congestive heart failure): (2) Pleural effusion: PLAN: Plan #Increase shortness of breath and tachypnea secondary to right pleural effusion/Small pneumothorax - patient with thoracentesis 11 days ago with small right pneumothorax and has recurrent accumulation of fluid on the right - patient advised to go to the ED and chest tube had been requested due to concerns for repeat thoracentesis while she had the persistent small right pneumothorax so this was placed in the ED - patient had 1500 cc out when it was placed to suction - consult surgery for chest tube management, discussed with surgeon on-call - suspect pleural effusions on imaging due to heart failure - patient on 40 mg twice daily of torsemide, will place on 40 IV twice daily of Lasix at this time - she had not yet started outpatient SGLT2 inhibitor metolazone, hold these at this time, begin at discretion of cardiology or pending patient progress and IV Lasix # acute on chronic heart failure With reduced ejection fraction/severe mitral valve and tricuspid valve regurg/AV block w/ PPM - patient seen in cardiology office today and diagnosed with acute on chronic heart failure but had initially declined to go to the ED for inpatient management as she had failed outpatient management of diuretics - patient now being hospitalized, will change to IV diuretics - last echocardiogram 11/16/2023 with wide-open tricuspid regurg and moderately severe mitral valve insufficiency with EF of 30% - patient had refused CT surgery intervention for her valve pathology and opted for medical management - we will consult cardiology due to her complexity and difficulty in management with her severe MR and TR and decreased heart function, as per note today - Daily weights, I's and O's - fluid restriction # progressively worsening kidney function now CKD stage IV - patient's creatinine was 2.132.137/23 and has progressively up trended and now is 3.64 and 2 weeks ago was 3.29 - patient following with nephrology on outpatient basis, given the severity of his CKD and need for diuretics will consult nephrology -Avoid nephrotoxic agents -Daily BMPs #GERD and history of GI bleeds - no sign of active bleeding hemoglobin at baseline - patient off any kind of anticoagulation and reports she has been told that she should not take aspirin either -Continue PPI add onto previous labs if possible #Hx TIA - off of any anticoagulation or antiplatelet reports she was told to take it moving forward #DVT ppx: SCDs Verito Rosario MD CODE status: Discussed CODE status at length including difference between FULL code, DNR-CCA, and DNR-CC status. Following discussions about the differences in these status, requested DNR/DNI. Time spent in the patient's overall evaluation,decision-making process, review of diagnostic data, adjustment of management, discussion with other providers, nursing nursing and ancillary staff involved in patient's care documentation, 82 Minutes Charges/Coding Visit Charges Inpatient E&M: 17686 Init Hosp L3
--- NOTE | 2024-04-27 20:42 | RAD_ITS ---
INDICATION: CHEST TUBE PLACEMENT EXAMINATION/TECHNIQUE: X-RAY - XR Chest 1 View COMPARISON: April 27, 2024 at 19:04 hours FINDINGS: LINES/DEVICES: Stable left-sided pacemaker. Right hydropneumothorax. Right basilar infiltrate/atelectasis. MEDIASTINUM AND CARDIOVASCULAR STRUCTURES: Cardiac silhouette is enlarged. Central airways and mediastinal contour are unremarkable. BONES AND SOFT TISSUES: Unremarkable. RAD/Chest 1 View (Portable) IMPRESSION: Stable left-sided pacemaker. Right hydropneumothorax. Right basilar infiltrate/atelectasis. Cardiomegaly. Right chest tube has been displaced with tip in the chest wall. Electronically Signed: Eduin Cleary DO at 20:56 EDT ,
[2024-04-28] VITALS (10 sets, daily range): BP systolic 129–170; BP diastolic 62–80; PULSE 80–86; RESP 15–21; TEMP 35.8–36.6; O2SAT 86–100; BMI 27.1
[2024-04-28] MEDS: Acetaminophen 325 MG Tablet 650 MG PO ×2 (01:36→09:24)
[2024-04-28] MEDS: Metoprolol(XL)Succ 50 MG Tablet PO ×2 (01:44→21:36)
[2024-04-28] MEDS: Furosemide 40 MG/4 ML Vial IV ×3 (01:45→16:25)
[2024-04-28] MEDS: 0.9% Saline Lock 10 ML Syringe IV ×3 (01:45→16:25)
[2024-04-28] MEDS: oxyCODONE 5 MG Tablet 2.5 MG PO ×2 (02:01→09:24)
[2024-04-28 07:31] LABS: Absolute Lymphocyte Count 0.75 X10^3/uL (0.83-4.51); Absolute Neutrophil Count 2.7 X10^3/uL (2.0-7.7); Basophil# 0.03 X10^3/uL; Basophil% 0.7 % (0-1); Eosinophil# 0.11 X10^3/uL; Eosinophils% 2.7 % (0-5); Hematocrit 27.8 % (37-47); Hemoglobin 8.3 g/dL (12.0-15.0); Lymphocyte # 0.75 X10^3/ul (0.83-4.51); Lymphocyte % 18.7 % (19-41); Mean Corp Hgb Conc 29.9 g/dL (32-36); Mean Corpuscular Hgb 27.4 pg (27.0-32.0); Mean Corpuscular Volume 91.7 fL (81-99); Mean Platelet Vol. 9.1 fl (6.2-12.0); Monocyte# 0.38 X10^3/uL; Monocyte% 9.5 % (0-10); NRBC Flagged by Analyzer 0 % (0-5); Neutrophil # 2.73 X10^3/uL (2.7-7.7); Neutrophil % 68.2 % (47-70); Platelet Count 152 K/mm3 (150-450); RBC Distribution Width CV 15.7 % (11.6-14.6); RBC Distribution Width SD 52.4 fl (35.1-43.9); Red Blood Count 3.03 M/mm3 (4.2-5.4)
[2024-04-28 07:51] LABS: ALB/GLOB Ratio 0.6 RATIO (0.9-2.4); AST(SGOT) 14 U/L (15-37); Alanine Aminotransfer ALT/SGPT 9 U/L (13-56); Albumin, Serum 2.6 g/dL (3.2-5.0); Alkaline Phosphatase 89 U/L (45-117); Anion Gap 7 (5-15); BUN 52 mg/dL (7-18); BUN/Creat Ratio 14.3 RATIO (10-20); Calcium,Total 8.4 mg/dL (8.5-10.1); Chloride 106 mmol/L (98-107); Cholesterol 81 mg/dL (200); Creatinine, Serum 3.63 mg/dL (0.55-1.02); EST Glomerular Filtration Rate 13 mL/min (>60); Est Glom Filt Rate - Afr Amer 15 mL/min (>60); Estimated Creatinine Clearance 8.73 ml/min; Globulin 4.1 g/dL (2.2-4.2); Glucose 90 mg/dL (74-106); High Density Lipoprotein 40 mg/dL; Magnesium 1.9 mg/dL (1.6-2.6); Potassium 3.5 mmol/L (3.5-5.1); Protein, Total 6.7 g/dL (6.4-8.2); Sodium Level 143 mmol/L (136-145); Triglycerides 53 mg/dL; Very Low Density Lipoprotein 11 mg/dL (5-40)
--- NOTE | 2024-04-28 08:13 | RAD_ITS ---
STUDY: X-RAY CHEST REASON FOR EXAM: Female, 88 years old. Chest tube replaced TECHNIQUE: Frontal view of the chest COMPARISON: 04/28/2024 at 12:11 AM FINDINGS: There is a right sided chest tube in place. There is a stable right hydropneumothorax. There is a stable left pleural effusion. There are stable patchy airspace opacities in the lung bases, right greater than left. The heart is stable in size. Again noted is a pacemaker. The visualized osseous structures are within normal limits. RAD/Chest 1 View (Portable) IMPRESSION: Stable exam. Electronically Signed: Twin Venegas MD at 10:00 EDT ,
[2024-04-28] MEDS: Potassium Chloride Oral Tablet 10 MEQ PO (09:18)
[2024-04-28] MEDS: Pantoprazole Sodium 40 MG Tablet PO ×2 (09:18→21:36)
--- NOTE | 2024-04-28 09:28 | PN.HOSP_ITS ---
Reason for Visit Reason for Visit: Diagnoses Acute on chronic diastolic (congestive) heart failure (04/27/24) Pleural effusion, not elsewhere classified (04/27/24) Subjective Subjective Breathing well Objective Data Objective Data Vital Signs: Vital Signs Temp Pulse Resp BP Pulse Ox O2 Del Method O2 Flow Rate 35.8 C L 83 16 142/62 H 100 Room Air 2 04/28/24 08:00 04/28/24 08:00 04/28/24 08:00 04/28/24 08:00 04/28/24 08:00 04/28/24 08:00 04/28/24 02:31 Oxygen Flow Rate (L/min) 2 Oxygen Delivery Method Room Air Weight: 60.8 kg Body Mass Index (BMI) 27.1 Intake & Output: Intake and Output for Last 24 Hours 04/26/24 04/27/24 04/28/24 23:59 23:59 23:59 Intake Total 250 / 250 Balance 250 / 250 Lab / Micro Data 04/28/24 07:00 04/28/24 07:00 Labs: Laboratory Results - last 24 hr 04/27/24 15:16: WBC 5.5, RBC 3.61 L, Hgb 9.7 L, Hct 32.5 L, MCV 90.0, MCH 26.9 L , MCHC 29.8 L, RDW Std Deviation 51.1 H, RDW Coeff of Michael 15.7 H, Plt Count 201, MPV 9.7, Immature Gran % (Auto) 0.400, Neut % (Auto) 70.9 H, Lymph % (Auto) 16.1 L, Stokes % (Auto) 8.8, Eos % (Auto) 3.1, Baso % (Auto) 0.7, Absolute Neuts (auto) 3.9, Absolute Lymphs (auto) 0.88, Nucleated RBC % 0, Sodium 142, Potassium 4.2, Chloride 106, Carbon Dioxide 26.0, Anion Gap 10, BUN 51 H, Creatinine 3.64 H, E st GFR (MDRD) Af Amer 15 L, Est GFR (MDRD) Non-Af 13 L, BUN/Creatinine Ratio 14.0, Glucose 101, Calcium 9.1, Troponin I High Sens 21, B-Natriuretic Peptide 306.2 H 04/27/24 17:36: Troponin I High Sens 22 04/28/24 07:00: WBC 4.0 L, RBC 3.03 L, Hgb 8.3 L, Hct 27.8 L, MCV 91.7, MCH 27.4, MCHC 29.9 L, RDW Std Deviation 52.4 H, RDW Coeff of Michael 15.7 H, Plt Count 152, MPV 9.1, Immature Gran % (Auto) 0.200, Neut % (Auto) 68.2, Lymph % (Auto) 18.7 L, Stokes % (Auto) 9.5, Eos % (Auto) 2.7, Baso % (Auto) 0.7, Absolute Neuts (auto) 2.7, Absolute Lymphs (auto) 0.75 L, Nucleated RBC % 0, Sodium 143, Potassium 3.5, Chloride 106, Carbon Dioxide 30.0, Anion Gap 7, BUN 52 H, C reatinine 3.63 H, Estim Creat Clear Calc 8.73, Est GFR (MDRD) Af Amer 15 L, Est GFR (MDRD) Non-Af 13 L, BUN/Creatinine Ratio 14.3, Glucose 90, Calcium 8.4 L, Magnesium 1.9, Total Bilirubin 0.60, AST 14 L, ALT 9 L, Alkaline Phosphatase 89, Total Protein 6.7, Albumin 2.6 L, Globulin 4.1, Albumin/Globulin Ratio 0.6 L, Triglycerides 53, Cholesterol 81, LDL Cholesterol 30, VLDL Cholesterol 11, HDL Cholesterol 40 Radiography Diagnostic Testing: Radiology Impression Chest X-Ray 04/27/24 00:15 IMPRESSION: 1. Stable right hydropneumothorax. Small right chest tube in place. 2. Bibasilar airspace disease. Findings may indicate pneumonia. Electronically Signed: Danny Garcia MD at 1:34 EDT , Chest X-Ray 04/27/24 19:12 IMPRESSION: A right chest tube is noted with tip just deep to the chest wall level. Clinical correlation is needed. Bilateral pleural effusions, reduced on the right since the previous study.. There is a right hydropneumothorax. Cardiomegaly. Electronically Signed: Eduin Cleary DO at 19:36 EDT , ADDENDUM: 04/27/241958 IMPRESSION: A right chest tube is noted with tip just deep to the chest wall level. Clinical correlation is needed. Bilateral pleural effusions, reduced on the right since the previous study.. There is a right hydropneumothorax. Cardiomegaly. N.B. : The above Results were Read Back by Eduin Cleary DO to David Shepard DO, and understanding confirmed on 04/27/2024 19:52:03 (ET). Electronically Signed: Eduin Cleary DO at 19:36 EDT , Physical Exam Const alert and no apparent distress HEENT head/scalp atraumatic and moist oral mucous membranes Resp Resp Narrative: Coarse breath sounds. Cardio regular rate, regular rhythm, S1 normal heart sound and S2 normal heart sound GI normal to inspection, nondistended, normoactive bowel sounds, soft to palpation, non-tender and non-distended Extremity normal to inspection Assessment & Plan Assessment/Plan (1) Acute on chronic diastolic CHF (congestive heart failure): (2) Pleural effusion: PLAN: Plan Pneumothorax * iatrogenic, subsequent visit. * CT placed on the . General surgery on consult for mgmt. * General surgery on consultation Acute HFrEF * with pleural effuisions. * CT placed * on IV furosemide * no ACEi/ARB given intolerance to losartan. On metoprolol succinate. * cardiology consult Acute on CKD IV * nephrology on consult * not worse today. * continue to monitor Anemia * Hg dropped from 9.7 to 8.3 * TSH, folate within normal limits. B12 pending. Iron low. Will start ferrous sulfate Chronic conditions: * GERD and history of GI bleeds- no sign of active bleeding hemoglobin at baseline- patient off any kind of anticoagulation and reports she has been told that she should not take aspirin either-Continue PPI add onto previous labs if possible * Hx TIA- off of any anticoagulation or antiplatelet reports she was told to take it moving forward VTE prophylaxis: SCDs Code status: DNRCCA, no intubation. Charges/Coding Visit Charges Inpatient E&M: 15222 Subs Hosp L2
--- NOTE | 2024-04-28 09:44 | CASEMGMT ---
DAVID ATKINSON Assessment: Face to Face with pt for initial transition planning/care coordination assessment. DAVID ATKINSON introduced self and role at [facility], pt voices understanding and consents to assessment. Pt is A&O x4 and answers all questions appropriately at this time. Pt sitting up in bed in no distress. Pt resting in chair at bedside. Pt agreeable to answering questions with present. Care providers, pharmacy, and demographics verified/updated. Strata: 3 Admitting Dx: Shortness of breath, R Pleural effusion, R pneumonia. PCP: [facility] Specialists: Friend, Gastrologist; Nikko, Machine Feed Operator, Home Care Manager - pt doesn't recall doctor's name. Preferred Pharmacy: [facility] Insurance: AARP MCR ADV Prescription Benefit: yes LNOK: , Kevin (has dementia). Nephew, Pop. Living Arrangements: Pt lives with in a 1 story home with 1 step to enter. ADLs: Pt states her and her take care of each other and together they are I with ADLs and IADLs. has dementia. Transportation: Pt drives self and denies concerns with transportation. DME: Walker, Cane, shower bench HHC/SNF: Pt previously in TCU and used [facility]. Was just DC a week ago from [facility]. Pt states no concerns with going home at time of dc. Pt states no further concerns/needs. CM to follow. Advised pt to ask CM if any further question/concerns/needs arise, voices understanding. Pt Goal: Home, pt declined wanting HHC. Discussed with pt therapy is ordered and will follow therapy recommendations. Pt states if recommended she would want [facility] again, denies wanting a list of local HHC agencies. Plan: Home, Follow therapy. Follow for O2 needs. Follow plan of care. Gustabo HERNANDEZ CM
[2024-04-28 10:18] LABS: Ferritin 111 ng/mL (8-252); Iron 36 ug/dL (50-170); Iron Binding Capacity,Total 283 ug/dL (250-450); PERCENT IRON SATURATION 12.7 % (15.0-55.0)
--- NOTE | 2024-04-28 15:00 | NURSING ---
assisted Dr. Orr with chest tube removal, patient tolerated well.
--- NOTE | 2024-04-28 15:25 | CON.PCM.RE_ITS ---
Assessment & Plan Assessment/Plan (1) Kidney disease: PLAN: Acute renal failure CKD stage IIIb Baseline creatinine is around 2.0. She sustained NAHUM in the setting of cardiorenal syndrome during recent admission. Peak creatinine was about 5. Recovered renal function. Lowest creatinine in January was around 2.4. Currently creatinine mid threes. Clinically volume overloaded. Pleural effusion, status post tap. She has declined dialysis in the past which I agree with given her advanced age. Will trend creatinine for now, once creatinine starts improving, we will try to increase diuretics as tolerated. Anemia. Iron deficiency. She has received IV iron in the past. Iron saturations still low it appears. May need another dose of IV iron. HPI Consult Data Date of Consult: 04/28/24 HPI Narrative Reason for Consultation: Acute renal failure HPI Narrative: RAJEEV ECHEVARRIA, is a 88 F who presents to the hospital with shortness of breath. Nephrology on consultation in view of acute renal failure. She is known to me from recent hospital visits. Has known history of CKD stage IIIb, baseline creatinine around 2.0 or so. She was recently admitted with complete heart block, was transferred to [facility]. Sustained NAHUM with creatinine as high as 5. Did not need dialysis. Subsequently recovered kidney function, last visit was in January. At that time her creatinine was 2.4. Baseline weight is around 128 pounds. Developed progressively worsening shortness of breath. Chest x-ray showed pleural effusion, status post tap, developed small pneumothorax, surgery on consult, chest tube placed. Currently has moderate lower extremity edema. No urinary complaints. [facility] Medical History Mitral regurgitation Tricuspid regurgitation Shortness of breath Anemia Kidney disease Atrial fibrillation Pacemaker TIA (transient ischemic attack) Chronic renal failure Anemia of chronic renal failure, stage 4 (severe) Pulmonary hypertension HFrEF (heart failure with reduced ejection fraction) Cardiomyopathy 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 Presence of cardiac pacemaker CKD (chronic kidney disease), stage IV Non-smoker Hypertension Atrial fibrillation TIA (transient ischemic attack) Acute on chronic renal insufficiency Pleural effusion on right Atrial fibrillation with rapid ventricular response Bilateral edema of lower extremity Chronic kidney disease SMITH (dyspnea on exertion) Swelling of right lower extremity Dyslipidemia Longstanding persistent atrial fibrillation Chronic systolic (congestive) heart failure Essential hypertension Premature ventricular contraction History of GI bleed TIA (transient ischemic attack) Nonrheumatic mitral valve regurgitation Hypertension Hyperlipidemia Other specified transient cerebral ischemias Nonrheumatic tricuspid (valve) insufficiency Home Medications ?Medication ?Instructions ?Recorded ?Last Taken ?Type vitamins A,C,F-mmcc-lsdoth 4,296 1 cap PO BID eye health 03/12/20 01/22/24 History mcg-226 mg-90 mg capsule (PreserVision AREDS) mecobalamin (vitamin B12) 1,000 1,000 mcg PO DAILY supplement 03/15/23 01/22/24 History mcg chewable tablet polysaccharide iron complex 150 mg See Rx Instructions .Route 12/24/23 01/22/24 Rx iron capsule (Ferrex) .COMPLEX iron supplement #30 caps potassium chloride 10 mEq 10 meq PO DAILY supplement #30 tabs 12/24/23 01/22/24 Rx tablet,extended release(part/cryst) ascorbic acid (vitamin C) 500 mg 500 mg PO DAILY supplement 01/23/24 01/22/24 History chewable tablet (Acerola C) pravastatin 20 mg tablet 20 mg PO DAILY cholestrol #100 01/30/24 Unknown Rx TABLETS pantoprazole 40 mg tablet,delayed 40 mg PO BID decrease stomach acid 02/22/24 Unknown Rx release 30 days #60 tabs dapagliflozin propanediol 10 mg 10 mg PO QAM kidneys #30 tabs 04/27/24 Unknown Rx tablet (Farxiga) metolazone 2.5 mg tablet 2.5 mg PO .COMPLEX leg swelling 04/27/24 Unknown Rx #10 tabs metoprolol succinate 50 mg 50 mg PO .COMPLEX heart #90 tabs 04/27/24 Unknown Rx tablet,extended release 24 hr torsemide 20 mg tablet 40 mg (2 x 20 mg) PO BID water 04/27/24 Unknown Rx pill, swelling #120 tabs Allergy/AdvReac Type Severity Reaction Status Date / Time amiodarone AdvReac Severe Severs Verified 04/27/24 15:00 muscle weakness, hair loss amlodipine AdvReac Severe Swelling Verified 04/27/24 15:00 flecainide AdvReac Severe Near Verified 04/27/24 15:00 Syncope, Severe Nausea losartan AdvReac myalgia Verified 04/27/24 15:00 Family History Father COPD (chronic obstructive pulmonary disease) CHF (congestive heart failure) Mother Hypertension CVA (cerebral vascular accident) Brother Hypertension Surgical History Hx of atrioventricular node ablation History of total hysterectomy History of cholecystectomy Social History household members: spouse Smoking Status: Never smoker alcohol intake: never substance use type: does not use caffeine: Yes Type: coffee Number of servings: 1 ROS ROS Narrative Negative except above Physical Exam Narrative Alert awake oriented x 3 no obvious distress no pallor no icterus no JVD s1s2 no murmurs lungs clear abdomen soft no organomegaly no edema no cyanosis Lab / Micro Data 04/28/24 07:00 04/28/24 07:00 Labs: Laboratory Results - last 24 hr 04/27/24 15:16: WBC 5.5, RBC 3.61 L, Hgb 9.7 L, Hct 32.5 L, MCV 90.0, MCH 26.9 L , MCHC 29.8 L, RDW Std Deviation 51.1 H, RDW Coeff of Michael 15.7 H, Plt Count 201, MPV 9.7, Immature Gran % (Auto) 0.400, Neut % (Auto) 70.9 H, Lymph % (Auto) 16.1 L, [place] % (Auto) 8.8, Eos % (Auto) 3.1, Baso % (Auto) 0.7, Absolute Neuts (auto) 3.9, Absolute Lymphs (auto) 0.88, Nucleated RBC % 0, Sodium 142, Potassium 4.2, Chloride 106, Carbon Dioxide 26.0, Anion Gap 10, BUN 51 H, Creatinine 3.64 H, E st GFR (MDRD) Af Amer 15 L, Est GFR (MDRD) Non-Af 13 L, BUN/Creatinine Ratio 14.0, Glucose 101, Calcium 9.1, Troponin I High Sens 21, B-Natriuretic Peptide 306.2 H 04/27/24 17:36: Troponin I High Sens 22 04/28/24 07:00: WBC 4.0 L, RBC 3.03 L, Hgb 8.3 L, Hct 27.8 L, MCV 91.7, MCH 27.4, MCHC 29.9 L, RDW Std Deviation 52.4 H, RDW Coeff of Michael 15.7 H, Plt Count 152, MPV 9.1, Immature Gran % (Auto) 0.200, Neut % (Auto) 68.2, Lymph % (Auto) 18.7 L, [place] % (Auto) 9.5, Eos % (Auto) 2.7, Baso % (Auto) 0.7, Absolute Neuts (auto) 2.7, Absolute Lymphs (auto) 0.75 L, Nucleated RBC % 0, Sodium 143, Potassium 3.5, Chloride 106, Carbon Dioxide 30.0, Anion Gap 7, BUN 52 H, C reatinine 3.63 H, Estim Creat Clear Calc 8.73, Est GFR (MDRD) Af Amer 15 L, Est GFR (MDRD) Non-Af 13 L, BUN/Creatinine Ratio 14.3, Glucose 90, Calcium 8.4 L, Magnesium 1.9, Iron 36 L, TIBC 283, Iron Saturation 12.7 L, Ferritin 111, Total Bilirubin 0.60, AST 14 L, ALT 9 L, Alkaline Phosphatase 89, Total Protein 6.7, A lbumin 2.6 L, Globulin 4.1, Albumin/Globulin Ratio 0.6 L, Triglycerides 53, Cholesterol 81, LDL Cholesterol 30, VLDL Cholesterol 11, HDL Cholesterol 40, Folate 7.10, TSH 3.710 Imaging Radiology Impression Chest X-Ray 04/27/24 00:15 IMPRESSION: 1. Stable right hydropneumothorax. Small right chest tube in place. 2. Bibasilar airspace disease. Findings may indicate pneumonia. Electronically Signed: Danny Garcia MD at 1:34 EDT , Chest X-Ray 04/27/24 19:12 IMPRESSION: A right chest tube is noted with tip just deep to the chest wall level. Clinical correlation is needed. Bilateral pleural effusions, reduced on the right since the previous study.. There is a right hydropneumothorax. Cardiomegaly. Electronically Signed: Eduin Cleary DO at 19:36 EDT , ADDENDUM: 04/27/241958 IMPRESSION: A right chest tube is noted with tip just deep to the chest wall level. Clinical correlation is needed. Bilateral pleural effusions, reduced on the right since the previous study.. There is a right hydropneumothorax. Cardiomegaly. N.B. : The above Results were Read Back by Eduin Cleary DO to David Shepard DO, and understanding confirmed on 04/27/2024 19:52:03 (ET). Electronically Signed: Eduin Cleary DO at 19:36 EDT , Chest X-Ray 04/28/24 08:13 IMPRESSION: Stable exam. Electronically Signed: Twin Venegas MD at 10:00 EDT ,
--- NOTE | 2024-04-28 16:05 | EX.PCM.CON.S ---
Assessment & Plan Assessment/Plan (1) Recurrent pleural effusion: PLAN: Patient is an 88-year-old female with history of severe cardiac dysfunction related to valvular insufficiency of both her tricuspid and mitral valves. This has apparently led to right heart congestion and now recurrent transudative pleural effusions. She is requiring increasingly frequent thoracenteses. Yesterday, cardiology attempted to arrange for a thoracentesis on short notice but due to a pneumothorax she was directed to the emergency department instead. It was the view of emergency medicine that patient is mainly symptomatic from her pleural effusion and so a chest tube was placed to drain the bulk of that effusion volume. Indeed, patient states that she is symptomatically improved after that initial tap. The chest tube originally placed was dislodged so it was replaced with a second more apically?placed tube but the second tube has done little to resolve patient's pneumothorax or provide drainage to her basally located hydrothorax. With nursing present I held an extensive conversation with Mrs. Kinney related to both her current diagnoses and the pathophysiology at play as well as the treatment options available to her given these diagnoses. I frankly shared that I would have pursued a slightly different interventional course from the get go if my objective had been to resolve her hydropneumothorax, but the different course of action was taken with favorable results concerning her symptoms. I thus offered that I could simply remove the chest tube that it and placed yesterday as there is no air leak and follow-up for stability. Alternatively I offered to remove the current chest tube and replaced this with a larger bore chest tube aimed at the apical pneumothorax in hopes of fully evacuating both the fluid and air in the pleural space. I confessed that no guarantee of success could be made as I have some suspicion that patient's pneumothorax actually represents partially trapped lung on the account of her chronic pleural effusion and the ability to reexpand that lung may not be realized. Lastly, I suggested that longer-term Mrs. Kinney may want to consider a palliative measure with placement of a Pleurx catheter. With this latter consideration I shared that she would have, ostensibly, equal probability of developing pleural effusion in each hemithorax and therefore a theoretically placed right-sided Pleurx catheter would do her little service if she went on to develop a left pleural effusion. Patient took some time to consider this information but ultimately elected to pursue discontinuation of the current small bore chest tube and follow-up chest x-ray for stability. This was undertaken at bedside in an uneventful fashion and an occlusive dressing was placed. Patient's respiratory effort remained unchanged. Plan will be to follow-up chest x-ray at 2100. From a surgical standpoint patient would technically be clinically stable for discharge, however, given her age and social circumstances she requested consideration of an additional overnight observation and plan for discharge to home in a.m. Nitin Orr MD General Surgery Endocrine Surgery Pager: [facility] [address] [place] [address], [facility] [address], [address] [place] [address] Office: [phone] (2) Pneumothorax on right: HPI Consult Data Date of Consult: 04/28/24 HPI Narrative Reason for Consultation: Chest tube management HPI Narrative: RAJEEV KINNEY, is a 88 F who presents to [facility] after meeting with her cardiology group as an outpatient with complaints of shortness of breath?particularly with exertion. She shares that she connects to her change in health status to the time directly following her pacemaker insertion the end of October 2023. She notes numerous admissions thereafter for findings of acute blood loss anemia and endoscopic findings by gastroenterology of bleeding gastric ulcers. Somewhere in this timeframe she states she started developing pleural effusions. She estimates she has now required thoracentesis up to every 2 weeks. She confirms her decision that she has elected not go forward with any valve replacement operations to treat her severe mitral and tricuspid regurgitation. Patient reports and was confirmed by EHR that after her evaluation with cardiology she was directed to radiology for thoracentesis, however, when a chest x-ray showed a persistent pneumothorax she was directed to the ER for chest tube placement and management of the pneumothorax. However, on arrival to the emergency department it was the opinion emergency medicine that her shortness of breath was most likely attributable to her hydrothorax as a pneumothorax had been demonstrated at her last chest x-ray 12 days prior and this appeared stable. With this assessment and a small bore chest tube was inserted inferiorly towards the base of the thoracic cavity and 1.5 L of serous fluid were drawn off. It was at this point I was contacted by the hospitalist service for consideration of management of the chest tube once patient reached inpatient status. After reviewing patient's chest x-ray it appeared that her chest tube was barely within her pleural cavity and I recommended reevaluation by emergency medicine. During the reevaluation they attempted to prove the security of the chest tube but instead displaced it from the chest cavity and this occasioned a replacement more superiorly in the pleural cavity. Patient states that she does feel better since placement of this chest tube radiology has read patient's chest x-ray as stable with persistence of both a hydro and pneumothorax component. [facility] Medical History (Updated 04/28/24 @ 16:[address] Nitin Orr MD) Mitral regurgitation Tricuspid regurgitation Shortness of breath Anemia Kidney disease Atrial fibrillation Pacemaker TIA (transient ischemic attack) Chronic renal failure Anemia of chronic renal failure, stage 4 (severe) Pulmonary hypertension HFrEF (heart failure with reduced ejection fraction) Cardiomyopathy 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 Presence of cardiac pacemaker CKD (chronic kidney disease), stage IV Non-smoker Hypertension Atrial fibrillation TIA (transient ischemic attack) Acute on chronic renal insufficiency Pleural effusion on right Atrial fibrillation with rapid ventricular response Bilateral edema of lower extremity Chronic kidney disease SMITH (dyspnea on exertion) Swelling of right lower extremity Dyslipidemia Longstanding persistent atrial fibrillation Chronic systolic (congestive) heart failure Essential hypertension Premature ventricular contraction History of GI bleed TIA (transient ischemic attack) Nonrheumatic mitral valve regurgitation Hypertension Hyperlipidemia Other specified transient cerebral ischemias Nonrheumatic tricuspid (valve) insufficiency Home Medications ?Medication ?Instructions ?Recorded ?Last Taken ?Type vitamins A,C,N-kyfv-uyeeou 4,296 1 cap PO BID eye health 03/12/20 01/22/24 History mcg-226 mg-90 mg capsule (PreserVision AREDS) mecobalamin (vitamin B12) 1,000 1,000 mcg PO DAILY supplement 03/15/23 01/22/24 History mcg chewable tablet polysaccharide iron complex 150 mg See Rx Instructions .Route 12/24/23 01/22/24 Rx iron capsule (Ferrex) .COMPLEX iron supplement #30 caps potassium chloride 10 mEq 10 meq PO DAILY supplement #30 tabs 12/24/23 01/22/24 Rx tablet,extended release(part/cryst) ascorbic acid (vitamin C) 500 mg 500 mg PO DAILY supplement 01/23/24 01/22/24 History chewable tablet (Acerola C) pravastatin 20 mg tablet 20 mg PO DAILY cholestrol #100 01/30/24 Unknown Rx TABLETS pantoprazole 40 mg tablet,delayed 40 mg PO BID decrease stomach acid 02/22/24 Unknown Rx release 30 days #60 tabs dapagliflozin propanediol 10 mg 10 mg PO QAM kidneys #30 tabs 04/27/24 Unknown Rx tablet (Farxiga) metolazone 2.5 mg tablet 2.5 mg PO .COMPLEX leg swelling 04/27/24 Unknown Rx #10 tabs metoprolol succinate 50 mg 50 mg PO .COMPLEX heart #90 tabs 04/27/24 Unknown Rx tablet,extended release 24 hr torsemide 20 mg tablet 40 mg (2 x 20 mg) PO BID water 04/27/24 Unknown Rx pill, swelling #120 tabs Allergy/AdvReac Type Severity Reaction Status Date / Time amiodarone AdvReac Severe Severs Verified 04/27/24 15:00 muscle weakness, hair loss amlodipine AdvReac Severe Swelling Verified 04/27/24 15:00 flecainide AdvReac Severe Near Verified 04/27/24 15:00 Syncope, Severe Nausea losartan AdvReac myalgia Verified 04/27/24 15:00 Family History Father COPD (chronic obstructive pulmonary disease) CHF (congestive heart failure) Mother Hypertension CVA (cerebral vascular accident) Brother Hypertension Surgical History Hx of atrioventricular node ablation History of total hysterectomy History of cholecystectomy Social History household members: spouse Smoking Status: Never smoker alcohol intake: never substance use type: does not use caffeine: Yes Type: coffee Number of servings: 1 Physical Exam Const alert, oriented x3 and no apparent distress Chest Chest: chest tube right (Small bore chest tube in place in the superior anterior chest wall along the anterior axillary line with a scant amount of serosanguineous drainage. No airleak with provocative maneuvers.) Resp normal respiratory effort Effort and Inspection: able to speak in complete sentences Lab / Micro Data 04/28/24 07:00 04/28/24 07:00 Labs: Laboratory Results - last 24 hr 04/27/24 15:16: Sodium 142, Potassium 4.2, Chloride 106, Carbon Dioxide 26.0, Anion Gap 10, BUN 51 H, Creatinine 3.64 H, Est GFR (MDRD) Af Amer 15 L, Est GFR (MDRD) Non-Af 13 L, BUN/Creatinine Ratio 14.0, Glucose 101, Calcium 9.1, Troponin I High Sens 21, B-Natriuretic Peptide 306.2 H 04/27/24 17:36: Troponin I High Sens 22 04/28/24 07:00: WBC 4.0 L, RBC 3.03 L, Hgb 8.3 L, Hct 27.8 L, MCV 91.7, MCH 27.4, MCHC 29.9 L, RDW Std Deviation 52.4 H, RDW Coeff of Michael 15.7 H, Plt Count 152, MPV 9.1, Immature Gran % (Auto) 0.200, Neut % (Auto) 68.2, Lymph % (Auto) 18.7 L, Edgar % (Auto) 9.5, Eos % (Auto) 2.7, Baso % (Auto) 0.7, Absolute Neuts (auto) 2.7, Absolute Lymphs (auto) 0.75 L, Nucleated RBC % 0, Sodium 143, Potassium 3.5, Chloride 106, Carbon Dioxide 30.0, Anion Gap 7, BUN 52 H, Creatinine 3.63 H, Estim Creat Clear Calc 8.73, Est GFR (MDRD) Af Amer 15 L, Est GFR (MDRD) Non-Af 13 L, BUN/Creatinine Ratio 14.3, Glucose 90, Calcium 8.4 L, Magnesium 1.9, Iron 36 L, TIBC 283, Iron Saturation 12.7 L, Ferritin 111, Total Bilirubin 0.60, AST 14 L, ALT 9 L, Alkaline Phosphatase 89, Total Protein 6.7, Albumin 2.6 L, Globulin 4.1, Albumin/Globulin Ratio 0.6 L, Triglycerides 53, Cholesterol 81, LDL Cholesterol 30, VLDL Cholesterol 11, HDL Cholesterol 40, Folate 7.10, TSH 3.710 Imaging Radiology Impression Chest X-Ray 04/27/24 00:15 IMPRESSION: 1. Stable right hydropneumothorax. Small right chest tube in place. 2. Bibasilar airspace disease. Findings may indicate pneumonia. Electronically Signed: Danny Garcia MD at 1:34 EDT , Chest X-Ray 04/27/24 19:12 IMPRESSION: A right chest tube is noted with tip just deep to the chest wall level. Clinical correlation is needed. Bilateral pleural effusions, reduced on the right since the previous study.. There is a right hydropneumothorax. Cardiomegaly. Electronically Signed: Eduin Cleary DO at 19:36 EDT , ADDENDUM: 04/27/241958 IMPRESSION: A right chest tube is noted with tip just deep to the chest wall level. Clinical correlation is needed. Bilateral pleural effusions, reduced on the right since the previous study.. There is a right hydropneumothorax. Cardiomegaly. N.B. : The above Results were Read Back by Eduin Cleary DO to David Shepard DO, and understanding confirmed on 04/27/2024 19:52:03 (ET). Electronically Signed: Eudin Cleary DO at 19:36 EDT , Chest X-Ray 04/28/24 08:13 IMPRESSION: Stable exam. Electronically Signed: Twin Venegas MD at 10:00 EDT , Charges/Coding Visit Charges Inpatient E&M: 29683 Init Hosp L2
[2024-04-28] MEDS: Ferrous Sulfate 325 MG Tablet PO (16:25)
--- NOTE | 2024-04-28 20:58 | RAD_ITS ---
STUDY: X-RAY CHEST REASON FOR EXAM: Female, 88 years old patient presents for follow-up status post removal of right-sided chest tube. TECHNIQUE: Single AP portable view of the chest. COMPARISON: Chest radiograph dated April 28 2024 times stamped 8:43 AM. FINDINGS: Patient has left-sided intercardiac pacemaker. Cardiac monitoring leads are present. The lungs are underexpanded. There is some improvement in aeration of the right lung base with residual heterogeneous airspace disease. There is dense left lower lobe airspace consolidation and atelectasis. There is a right-sided pneumothorax measuring 2.4 cm in the apex. This appears similar to the previous study. There are bilateral small pleural effusions. There is also heterogeneous right upper lobe airspace disease which appears similar to previous study. Bronchovascular markings are prominent in both lungs. There is mild cardiac enlargement. Normal mediastinum and jerod. There is prominence of the pulmonary hilar arteries with peripheral pulmonary vascular congestion. There is atherosclerotic calcification of the aortic arch with tortuosity. There is demineralization of the osseous structures. There are degenerative changes of the spine. There is a moderate amount of right-sided soft tissue emphysema which appears to have increased since the previous radiograph. There is no demonstrated abnormality of the visualized soft tissue structures of the upper abdomen. RAD/Chest 1 View (Portable) IMPRESSION: 1. Unchanged appearance of the right apical pneumothorax status post removal of right-sided thoracostomy tube. 2. Increasing right-sided soft tissue emphysema. 3. Mild improvement in aeration of the right lung base. 4. Unchanged appearance right upper lobe and left lower lobe airspace disease. 5. Persistent bilateral pleural effusions. Electronically Signed: Geneva Peck MD at 2:16 EDT ,
[2024-04-29 05:42] LABS: Absolute Lymphocyte Count 0.84 X10^3/uL (0.83-4.51); Absolute Neutrophil Count 2.7 X10^3/uL (2.0-7.7); Basophil# 0.02 X10^3/uL; Basophil% 0.5 % (0-1); Eosinophil# 0.13 X10^3/uL; Eosinophils% 3.2 % (0-5); Hemoglobin 8.4 g/dL (12.0-15.0); Lymphocyte # 0.84 X10^3/ul (0.83-4.51); Lymphocyte % 20.8 % (19-41); Mean Corpuscular Hgb 27.1 pg (27.0-32.0); Mean Corpuscular Volume 90.3 fL (81-99); Mean Platelet Vol. 9.6 fl (6.2-12.0); Monocyte# 0.37 X10^3/uL; Monocyte% 9.2 % (0-10); NRBC Flagged by Analyzer 0 % (0-5); Neutrophil # 2.66 X10^3/uL (2.7-7.7); Neutrophil % 66.1 % (47-70); Platelet Count 162 K/mm3 (150-450); RBC Distribution Width CV 15.7 % (11.6-14.6); RBC Distribution Width SD 51.5 fl (35.1-43.9)
[2024-04-29 06:22] LABS: Anion Gap 8 (5-15); BUN 50 mg/dL (7-18); BUN/Creat Ratio 13.5 RATIO (10-20); Calcium,Total 8.7 mg/dL (8.5-10.1); Chloride 104 mmol/L (98-107); Creatinine, Serum 3.71 mg/dL (0.55-1.02); EST Glomerular Filtration Rate 12 mL/min (>60); Est Glom Filt Rate - Afr Amer 15 mL/min (>60); Estimated Creatinine Clearance 8.54 ml/min; Glucose 96 mg/dL (74-106); Potassium 3.5 mmol/L (3.5-5.1); Sodium Level 142 mmol/L (136-145)
[2024-04-29 07:00] VITALS: PULSE 80
[2024-04-29 08:30] VITALS: BP 132/68; PULSE 80; RESP 16; TEMP 36.6; O2SAT 96
--- NOTE | 2024-04-29 08:31 | RAD_ITS ---
INDICATION: f/u PTX and subQ emph EXAMINATION/TECHNIQUE: X-RAY - XR Chest 1 View COMPARISON: Prior study dated: 04/28/2024 FINDINGS: LINES/DEVICES: Single chamber left-sided cardiac pacer device in stable position. LUNGS: Small right apical pneumothorax unchanged since prior exam. Bilateral lower lungs infiltrate/atelectasis essentially unchanged. Left pleural effusion. MEDIASTINUM AND CARDIOVASCULAR STRUCTURES: Stable cardiomediastinal silhouette. BONES AND SOFT TISSUES: [Subcutaneous emphysema essentially unchanged. Unchanged osseous structures. RAD/Chest 1 View (Portable) IMPRESSION: No significant change. Electronically Signed: Sergio Enamorado MD at 10:33 EDT ,
--- NOTE | 2024-04-29 08:31 | PN.SURG_ITS ---
Subjective Subjective Patient seen and examined during AM rounds. She has found sitting out of bed in the chair. She appears per care this morning and does confirm she was able to work with therapy without experiencing limiting shortness of breath. She wishes to know if that is possible she will be discharged today. Objective Data Objective Data Vital Signs: Vital Signs Temp Pulse Resp BP Pulse Ox O2 Del Method O2 Flow Rate 98 F 85 15 129/71 H 94 Room Air 2 04/28/24 21:33 04/28/24 21:36 04/28/24 21:33 04/28/24 21:33 04/28/24 21:33 04/29/24 07:27 04/28/24 02:31 Oxygen Flow Rate (L/min) 2 Oxygen Delivery Method Room Air Weight: 134 lb 0.657 oz Body Mass Index (BMI) 27.1 Intake & Output: Intake and Output for Last 24 Hours 04/27/24 04/28/24 04/29/24 23:59 23:59 23:59 Intake Total 570 / 570 160 / 160 Balance 570 / 570 160 / 160 Lab / Micro Data 04/29/24 05:12 04/29/24 05:12 Labs: Laboratory Results - last 24 hr 04/28/24 07:00: Iron 36 L, TIBC 283, Iron Saturation 12.7 L, Ferritin 111, Folate 7.10, TSH 3.710 04/29/24 05:12: WBC 4.0 L, RBC 3.10 L, Hgb 8.4 L, Hct 28.0 L, MCV 90.3, MCH 27.1, MCHC 30.0 L, RDW Std Deviation 51.5 H, RDW Coeff of Michael 15.7 H, Plt Count 162, MPV 9.6, Immature Gran % (Auto) 0.200, Neut % (Auto) 66.1, Lymph % (Auto) 20.8, [place] % (Auto) 9.2, Eos % (Auto) 3.2, Baso % (Auto) 0.5, Absolute Neuts (auto) 2.7, Absolute Lymphs (auto) 0.84, Nucleated RBC % 0, Sodium 142, Potassium 3.5, Chloride 104, Carbon Dioxide 30.0, Anion Gap 8, BUN 50 H, C reatinine 3.71 H, Estim Creat Clear Calc 8.54, Est GFR (MDRD) Af Amer 15 L, Est GFR (MDRD) Non-Af 12 L, BUN/Creatinine Ratio 13.5, Glucose 96, Calcium 8.7 Radiography Diagnostic Testing: Radiology Impression Chest X-Ray 04/28/24 08:13 IMPRESSION: Stable exam. Electronically Signed: Twin Venegas MD at 10:00 EDT , Chest X-Ray 04/28/24 20:58 IMPRESSION: 1. Unchanged appearance of the right apical pneumothorax status post removal of right-sided thoracostomy tube. 2. Increasing right-sided soft tissue emphysema. 3. Mild improvement in aeration of the right lung base. 4. Unchanged appearance right upper lobe and left lower lobe airspace disease. 5. Persistent bilateral pleural effusions. Electronically Signed: Geneva Peck MD at 2:16 EDT , Physical Exam Const oriented x3 and no apparent distress Neck Neck Narrative: Evidence of mild crepitus extending along right lateral neck. Chest Chest Narrative: Dressing over prior thoracostomy site is clean dry and intact Resp normal respiratory effort Resp Narrative: Vital capacity measured at 600 mL with incentive spirometer. 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 This has apparently led to right heart congestion and now recurrent transudative pleural effusions. She is requiring increasingly frequent thoracenteses. Patient now status post small bore thoracostomy tube placed by emergency medicine on 04/27/2024 and removed by me at bedside on 04/28/2024. Respiratory status stable following chest tube removal. 6-hour film post pull showed stability of patient's pneumothorax but questionable extension of an area of subcutaneous emphysema. Given the late hour, patient was maintained in observation status until this morning. I repeated her chest x-ray to reexamine the area of subcutaneous emphysema and there appears to be no increase in the volume of this extrathoracic air but there is evidence of its dissipation/diffusion. Significance of this finding was related to Mrs. Bradley. I also worked with her on use of incentive spirometry to try to maximize her lung expansion. While her volumes remain suboptimal already she was showing signs of improvement. Therefore, with this picture of clinical stability/improvement agree with plans for discharge to home today. Recommend outpatient follow-up with cardiology and PCP (plus minus pulmonary medicine). Nitin Orr MD General Surgery Endocrine Surgery Pager: [facility] [address] [place] [address], [facility], [address] [place] [address] Office: [phone] Charges/Coding Visit Charges Inpatient E&M: 65002 Subs Hosp L2
--- NOTE | 2024-04-29 09:07 | PN.HOSP_ITS ---
Reason for Visit Reason for Visit: Diagnoses Acute on chronic diastolic (congestive) heart failure (04/27/24) Pleural effusion, not elsewhere classified (04/27/24) Pneumothorax, unspecified (04/27/24) Disorder of kidney and ureter, unspecified (04/27/24) Subjective Subjective Feeling well. Decreased LE edema. Chest tube removed. Objective Data Objective Data Vital Signs: Vital Signs Temp Pulse Resp BP Pulse Ox O2 Del Method O2 Flow Rate 36.6 C 80 16 132/68 H 96 Nasal Cannula 2 04/29/24 08:30 04/29/24 08:30 04/29/24 08:30 04/29/24 08:30 04/29/24 08:30 04/29/24 08:30 04/28/24 02:31 Oxygen Flow Rate (L/min) 2 Oxygen Delivery Method Nasal Cannula Weight: 60.8 kg Body Mass Index (BMI) 27.1 Intake & Output: Intake and Output for Last 24 Hours 04/27/24 04/28/24 04/29/24 23:59 23:59 23:59 Intake Total 570 / 570 160 / 160 Balance 570 / 570 160 / 160 Lab / Micro Data 04/29/24 05:12 04/29/24 05:12 Labs: Laboratory Results - last 24 hr 04/28/24 07:00: Iron 36 L, TIBC 283, Iron Saturation 12.7 L, Ferritin 111, Folate 7.10, TSH 3.710 04/29/24 05:12: WBC 4.0 L, RBC 3.10 L, Hgb 8.4 L, Hct 28.0 L, MCV 90.3, MCH 27.1, MCHC 30.0 L, RDW Std Deviation 51.5 H, RDW Coeff of Michael 15.7 H, Plt Count 162, MPV 9.6, Immature Gran % (Auto) 0.200, Neut % (Auto) 66.1, Lymph % (Auto) 20.8, [place] % (Auto) 9.2, Eos % (Auto) 3.2, Baso % (Auto) 0.5, Absolute Neuts (auto) 2.7, Absolute Lymphs (auto) 0.84, Nucleated RBC % 0, Sodium 142, Potassium 3.5, Chloride 104, Carbon Dioxide 30.0, Anion Gap 8, BUN 50 H, C reatinine 3.71 H, Estim Creat Clear Calc 8.54, Est GFR (MDRD) Af Amer 15 L, Est GFR (MDRD) Non-Af 12 L, BUN/Creatinine Ratio 13.5, Glucose 96, Calcium 8.7 Radiography Diagnostic Testing: Radiology Impression Chest X-Ray 04/28/24 08:13 IMPRESSION: Stable exam. Electronically Signed: Twin Venegas MD at 10:00 EDT , Chest X-Ray 04/28/24 20:58 IMPRESSION: 1. Unchanged appearance of the right apical pneumothorax status post removal of right-sided thoracostomy tube. 2. Increasing right-sided soft tissue emphysema. 3. Mild improvement in aeration of the right lung base. 4. Unchanged appearance right upper lobe and left lower lobe airspace disease. 5. Persistent bilateral pleural effusions. Electronically Signed: Geneva Peck MD at 2:16 EDT , Physical Exam Const alert and no apparent distress Constitutional Narrative: up in chair. no respiratory distress. no conversational dyspnea. Resp normal respiratory effort and no retractions Extremity General Extremity: edema bilateral lower extremity Details: moderate (wrinkling of the skin) Neuro Sensorium / Orientation: awake and alert Assessment & Plan Assessment/Plan (1) Acute on chronic diastolic CHF (congestive heart failure): (2) Pleural effusion: PLAN: Plan Pneumothorax * iatrogenic, subsequent visit. * CT placed on the . Discontinued on the . * Still with PTX, but appears unchanged. Acute HFrEF * with pleural effusions. * CT placed * resume on torsemide 40 BID, Farxiga, metolazone. * no ACEi/ARB given intolerance to losartan and CKD. On metoprolol succinate. * follow up with cardiology. 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 Anemia * Hg dropped from 9.7 to 8.4 * TSH, folate within normal limits. B12 pending. Iron low. Will start ferrous sulfate Chronic conditions: * GERD and history of GI bleeds- no sign of active bleeding hemoglobin at baseline- patient off any kind of anticoagulation and reports she has been told that she should not take aspirin either-Continue PPI add onto previous labs if possible * Hx TIA- off of any anticoagulation or antiplatelet reports she was told to take it moving forward VTE prophylaxis: SCDs Code status: DNRCCA, no intubation.
[2024-04-29] MEDS: Potassium Chloride Oral Tablet 10 MEQ PO (09:20)
[2024-04-29] MEDS: Pantoprazole Sodium 40 MG Tablet PO (09:20)
[2024-04-29] MEDS: Furosemide 40 MG/4 ML Vial IV (09:20)
--- NOTE | 2024-04-29 11:24 | DS.PCM_ITS ---
Providers Date of Admission: 04/27/24 Primary Care Physician: Dr. John Rachel MD Consultations 04/28/24 00:46 Consult: Cardiology Routine Consulting Provider: Oriana Arechiga Reason for Consult: HFrEF w/ severe mitral and tricuspid regurg, seen in office 04/27 EMERGENT Consult: No Notified: Yes Date Notified: 04/28/24 Time Notified: 06:50 Method of Notification: Text Consult: General Surgery Routine Consulting Provider: Nitin Orr Reason for Consult: chest tube management EMERGENT Consult: No Notified: Yes Date Notified: 04/27/24 Time Notified: 21:13 Method of Notification: Verbal Consult: Nephrology Routine Consulting Provider: Alfredo Rivera Reason for Consult: Worsening renal failure, needs IV diuresis EMERGENT Consult: No Notified: Yes Date Notified: 04/28/24 Time Notified: 06:40 Method of Notification: Answering Service Reason For Visit: SHORTNESS OF BREATH, R PLEURAL EFFUSION, R PNEUMO Diagnosis Discharge Diagnosis (1) Acute on chronic diastolic CHF (congestive heart failure): Status: Chronic Code(s): I50.33 - Acute on chronic diastolic (congestive) heart failure (2) Pleural effusion: Status: Acute Code(s): J90 - Pleural effusion, not elsewhere classified (3) Recurrent pleural effusion: Status: Acute Code(s): J90 - Pleural effusion, not elsewhere classified (4) Pneumothorax on right: Status: Acute Code(s): J93.9 - Pneumothorax, unspecified Plan Pneumothorax * iatrogenic, subsequent visit. * CT placed on the . Discontinued on the . * Still with PTX, but appears unchanged. Acute HFrEF * with pleural effusions. * CT placed * resume on torsemide 40 BID, Farxiga, metolazone. * no ACEi/ARB given intolerance to losartan and CKD. On metoprolol succinate. * follow up with cardiology. 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 Anemia * Hg dropped from 9.7 to 8.4 * TSH, folate within normal limits. B12 pending. Iron low. Will start ferrous sulfate Chronic conditions: * GERD and history of GI bleeds- no sign of active bleeding hemoglobin at baseline- patient off any kind of anticoagulation and reports she has been told that she should not take aspirin either-Continue PPI add onto previous labs if possible * Hx TIA- off of any anticoagulation or antiplatelet reports she was told to take it moving forward VTE prophylaxis: SCDs Code status: DNRCCA, no intubation. Medications at Discharge Home Medications vitamins A,C,I-jkjg-qjlcyg 4,296 mcg-226 mg-90 mg capsule (PreserVision AREDS) 1 cap PO BID eye health 03/12/20 mecobalamin (vitamin B12) 1,000 mcg chewable tablet 1,000 mcg PO DAILY supplement 03/15/23 polysaccharide iron complex 150 mg iron capsule (Ferrex) See Rx Instructions .Route .COMPLEX iron supplement #30 caps 12/24/23 potassium chloride 10 mEq tablet,extended release(part/cryst) 10 meq PO DAILY supplement #30 tabs 12/24/23 ascorbic acid (vitamin C) 500 mg chewable tablet (Acerola C) 500 mg PO DAILY supplement 01/23/24 pravastatin 20 mg tablet 20 mg PO DAILY cholestrol #100 TABLETS 01/30/24 pantoprazole 40 mg tablet,delayed release 40 mg PO BID decrease stomach acid 30 days #60 tabs 02/22/24 dapagliflozin propanediol 10 mg tablet (Farxiga) 10 mg PO QAM kidneys #30 tabs 04/27/24 metolazone 2.5 mg tablet 2.5 mg PO .COMPLEX leg swelling #10 tabs 04/27/24 metoprolol succinate 50 mg tablet,extended release 24 hr 50 mg PO .COMPLEX heart #90 tabs 04/27/24 torsemide 20 mg tablet 40 mg (2 x 20 mg) PO BID water pill, swelling #120 tabs 04/27/24 ferrous sulfate 325 mg (65 mg iron) tablet (FeroSul) 325 mg PO Q48 #30 tabs 04/29/24 Hospital Course Operations - (chest tube. ) Summary of Care Provided Minutes Spent on Discharge: 40 Hospital Course: Patient presents with shortness of breath. Patient was noted to have pleural effusions as well as a pneumothorax. The pneumothorax is actually limited prior to arrival as patient had previously had a thoracentesis.. Be unchanged on her x-rays. Nonetheless, patient underwent a chest tube placement in the emergency room. Patient had no air leak here in the hospital seen by general surgery who managed the chest tube. Chest tube was removed today patient has been doing well. Patient has heart failure with a reduced ejection fraction and was started on IV furosemide. Patient has some objective improvements of her lower extremity edema with wrinkling of her skin. Patient is on room air and not in any respiratory distress. Patient will be discharged home. Patient was already taking torsemide and was to start Farxiga as well as metolazone. Patient advised to continue with those as well as follow-up with cardiology and nephrology as outpatient. Patient also advised to have lab work to make sure that her kidney function is remaining stable. Weight / BMI Weight Weight: 60.8 kg Body Mass Index (BMI) 27.1 ABG / Lab / Microbiology Data 04/29/24 05:12 04/29/24 05:12 Laboratory: Laboratory Results - last 24 hr 04/29/24 05:12: WBC 4.0 L, RBC 3.10 L, Hgb 8.4 L, Hct 28.0 L, MCV 90.3, MCH 27.1, MCHC 30.0 L, RDW Std Deviation 51.5 H, RDW Coeff of Michael 15.7 H, Plt Count 162, MPV 9.6, Immature Gran % (Auto) 0.200, Neut % (Auto) 66.1, Lymph % (Auto) 20.8, [place] % (Auto) 9.2, Eos % (Auto) 3.2, Baso % (Auto) 0.5, Absolute Neuts (auto) 2.7, Absolute Lymphs (auto) 0.84, Nucleated RBC % 0, Sodium 142, Potassium 3.5, Chloride 104, Carbon Dioxide 30.0, Anion Gap 8, BUN 50 H, C reatinine 3.71 H, Estim Creat Clear Calc 8.54, Est GFR (MDRD) Af Amer 15 L, Est GFR (MDRD) Non-Af 12 L, BUN/Creatinine Ratio 13.5, Glucose 96, Calcium 8.7 Radiography Diagnostic Testing: Radiology Impression Chest X-Ray 04/28/24 20:58 IMPRESSION: 1. Unchanged appearance of the right apical pneumothorax status post removal of right-sided thoracostomy tube. 2. Increasing right-sided soft tissue emphysema. 3. Mild improvement in aeration of the right lung base. 4. Unchanged appearance right upper lobe and left lower lobe airspace disease. 5. Persistent bilateral pleural effusions. Electronically Signed: Geneva Peck MD at 2:16 EDT , Chest X-Ray 04/29/24 08:31 IMPRESSION: No significant change. Electronically Signed: Sergio Enamorado MD at 10:33 EDT , D/C Instructions Discharge Diet: - (1.5 L daily.) Meaningful Use Info Meaningful Use Meaningful Use Diagnoses (Choose all that apply): CHF CHF LYRIC/ARB ordered at discharge?: No Reason LYRIC/ARB not ordered?: Worsening renal disease Documented LVEF (%): 30 Ischemic Stroke Statin Dosing Therapy Reference: STATIN DOSE THERAPY REFERENCE: * Patients > 75 years receive moderate or high dose statin therapy. * Patients 75 years or YOUNGER should receive HIGH intensity statin dose unless contraindicated. You will be required to document reason for non-treatment if statin daily dose does not meet guidelines. HIGH DOSE STATIN THERAPY DAILY Atorvastatin > than or = to 40 mg Rosuvastatin > than or = to 20 mg Amlodipine + Atorvastatin > than or = to 2.5/40 mg Ezetimibe + Simvastatin 10/80 mg Simvastatin 80mg Discharge Plan Admission Admit Date/Time: 04/27/24 21:06 Primary Reason for Your Visit: Pneumothorax and heart failure Attending Provider: Robert Escobar Primary Care Provider: John Rachel Consulting Providers: Nitin Orr; Alfredo Rivera; Verito Rosario; Oriana Arechiga Instructions Additional Instructions / Restrictions: You had a chest tube placed due to pneumothorax (air outside the lung) that was due to prior thoracentesis. He did well with a chest tube here and the pneumothorax is still present but not any worse. You do have increasing shortness of breath at home, it is possible that this could be getting larger or you may have worsening heart failure. In either case, notify your physician or return to the emergency room. Check your weight daily as you were doing previously. Discharge Orders/Prescriptions Prescriptions: New ferrous sulfate [FeroSul] 325 mg (65 mg iron) Tablet 325 mg PO Q48 Qty: 30 0RF Continued PreserVision AREDS [id number] capsule 1 cap PO BID mecobalamin (vitamin B12) 1,000 mcg tablet,chewable 1,000 mcg PO DAILY metoprolol succinate 50 mg tablet extended release 24 hr 50 mg PO .COMPLEX Qty: 90 3RF Rx Instructions: 50 mg orally at bedtime; torsemide 20 mg tablet 40 mg PO BID Qty: 120 3RF dapagliflozin propanediol [Farxiga] 10 mg tablet 10 mg PO QAM Qty: 30 3RF Patient Comments: has not started taking yet metolazone 2.5 mg tablet 2.5 mg PO .COMPLEX Qty: 10 0RF Patient Comments: have not started taking yet Rx Instructions: 2.5 mg orally; take once a week polysaccharide iron complex [Ferrex 150] 150 mg iron Capsule See Rx Instructions .ROUTE .COMPLEX Qty: 30 0RF Rx Instructions: 150 mg orally every other day with a meal and a Vitamin C potassium chloride 10 mEq Tablet,Er Particles/Crystals 10 meq PO DAILY Qty: 30 0RF ascorbic acid (vitamin C) [Acerola C] 500 mg tablet,chewable 500 mg PO DAILY pantoprazole 40 mg Tablet,Delayed Release (Dr/Ec) 40 mg PO BID 30 Days Qty: 60 0RF pravastatin 20 mg tablet 20 mg PO DAILY Qty: 100 3RF Referrals / Follow Up: [facility] [Provider Group] - Within 2 Weeks Alfredo Rivera MD [Med Staff - Consulting] - Within 1 Month John Rachel MD [Primary Care Provider] - Within 2 Weeks Disposition Disposition (needs filled in before D/C Order can be placed): Home, Self Care Charges/Coding Visit Charges Inpatient E&M: 70662 Disch Hosp >30min
[2024-04-29 12:39] VITALS: BP 148/66; PULSE 82; RESP 16; TEMP 36.8; O2SAT 96
[2024-04-30 08:25] LABS: Vitamin B12 1059 pg/mL (211-911)
== END 2024-04-29 12:47 | disposition home or self-care (01) | DRG 199 ==
LOC: ED 15:56 → PCU 19:58
PROVIDERS: Admitting Provider Internal Medicine; Emergency Provider Emergency Medicine; PCP Family Medicine
DX: J93.9 Pneumothorax, unspecified (principal); I50.33 Acute on chronic diastolic (congestive) heart failure; J94.8 Other specified pleural conditions; I48.11 Longstanding persistent atrial fibrillation; I42.9 Cardiomyopathy, unspecified; N17.9 Acute kidney failure, unspecified; N18.4 Chronic kidney disease, stage 4 (severe); I13.0 Hypertensive heart and chronic kidney disease with heart failure and stage 1 through stage 4 chronic kidney disease, or unspecified chronic kidney disease; D63.1 Anemia in chronic kidney disease; I27.20 Pulmonary hypertension, unspecified; I08.1 Rheumatic disorders of both mitral and tricuspid valves; E78.5 Hyperlipidemia, unspecified; K21.9 Gastro-esophageal reflux disease without esophagitis; D50.9 Iron deficiency anemia, unspecified; Z66 Do not resuscitate; Z79.899 Other long term (current) drug therapy; Z86.73 Personal history of transient ischemic attack (TIA), and cerebral infarction without residual deficits; Z90.710 Acquired absence of both cervix and uterus; Z95.0 Presence of cardiac pacemaker
CPT/HCPCS: 32551; 36415; 71045; 71046; 80048; 80053; 80061; 82607; 82728; 82746; 83540; 83550; 83735; 83880; 84443; 84484; 85025; 93005; 94668; 97162; 97165; 99252; 99285; A4216; G0463; J1940

== ENCOUNTER → 2024-04-27 | Outpatient (CLI) | payer MEDICARE, SELFPAY ==
--- NOTE | 2024-04-27 12:15 | RAD_ITS ---
INDICATION: vieira EXAMINATION/TECHNIQUE: X-RAY - XR Chest 2 Views COMPARISON: April 16, 2044 FINDINGS: LINES/DEVICES: Stable left-sided pacemaker. LUNGS: There is a moderate right effusion and a mild left pleural effusion. Right basilar consolidation/atelectasis. There is a right pneumothorax. MEDIASTINUM AND CARDIOVASCULAR STRUCTURES: Cardiac silhouette not enlarged. Central airways and mediastinal contour are unremarkable. BONES AND SOFT TISSUES: Unremarkable. RAD/Chest PA and Lateral IMPRESSION: Right hydropneumothorax. Small left pleural effusion. N.B. : The above Results were Read Back by Eduin Cleary DO to David Shepard MD, and understanding confirmed on 04/27/2024 21:23:11 (ET). Electronically Signed: Eduin Cleary DO at 20:46 EDT ,
== END | disposition home or self-care (01) ==
PROVIDERS: PCP Family Medicine; Referring Provider Physician Assistant Medical; Visit Provider Physician Assistant Medical
DX: R06.09 Other forms of dyspnea (principal); J90 Pleural effusion, not elsewhere classified
CPT/HCPCS: 71046

== ENCOUNTER → 2024-04-30 | Outpatient (CLI) | payer MEDICARE, SELFPAY ==
[2024-04-30 14:25] LABS: Hematocrit 30.8 % (37-47); Hemoglobin 9.2 g/dL (12.0-15.0)
[2024-04-30 14:38] LABS: Anion Gap 9 (5-15); BUN 49 mg/dL (7-18); BUN/Creat Ratio 12.8 RATIO (10-20); Calcium,Total 8.7 mg/dL (8.5-10.1); Chloride 103 mmol/L (98-107); Creatinine, Serum 3.83 mg/dL (0.55-1.02); EST Glomerular Filtration Rate 12 mL/min (>60); Est Glom Filt Rate - Afr Amer 14 mL/min (>60); Glucose 104 mg/dL (74-106); Potassium 3.7 mmol/L (3.5-5.1); Sodium Level 140 mmol/L (136-145)
== END | disposition home or self-care (01) ==
LOC: LAB 13:53
PROVIDERS: PCP Family Medicine; Referring Provider Physician Assistant Medical; Visit Provider Physician Assistant Medical
DX: D64.9 Anemia, unspecified (principal); I50.33 Acute on chronic diastolic (congestive) heart failure
CPT/HCPCS: 36415; 80048; 85014; 85018

== ENCOUNTER → 2024-05-07 | Outpatient (CLI) | payer MEDICARE, SELFPAY ==
[2024-05-07 15:15] LABS: Anion Gap 10 (5-15); BUN 46 mg/dL (7-18); Calcium,Total 8.9 mg/dL (8.5-10.1); Chloride 97 mmol/L (98-107); Creatinine, Serum 3.84 mg/dL (0.55-1.02); EST Glomerular Filtration Rate 12 mL/min (>60); Est Glom Filt Rate - Afr Amer 14 mL/min (>60); Glucose 89 mg/dL (74-106); Potassium 3.1 mmol/L (3.5-5.1); Sodium Level 139 mmol/L (136-145)
== END | disposition home or self-care (01) ==
LOC: LAB 14:00
PROVIDERS: PCP Family Medicine; Referring Provider Physician Assistant Medical; Visit Provider Physician Assistant Medical
DX: J90 Pleural effusion, not elsewhere classified (principal)
CPT/HCPCS: 36415; 80048

== ENCOUNTER → 2024-05-14 | Outpatient (CLI) | payer MEDICARE, SELFPAY ==
[2024-05-14 13:27] LABS: Anion Gap 9 (5-15); BUN 50 mg/dL (7-18); BUN/Creat Ratio 12.6 RATIO (10-20); Chloride 96 mmol/L (98-107); Creatinine, Serum 3.98 mg/dL (0.55-1.02); EST Glomerular Filtration Rate 11 mL/min (>60); Est Glom Filt Rate - Afr Amer 14 mL/min (>60); Glucose 97 mg/dL (74-106); Potassium 3.7 mmol/L (3.5-5.1); Sodium Level 138 mmol/L (136-145)
== END | disposition home or self-care (01) ==
PROVIDERS: PCP Family Medicine; Referring Provider Nurse Practitioner Gerontology; Visit Provider Nurse Practitioner Gerontology
DX: E87.6 Hypokalemia (principal); N28.9 Disorder of kidney and ureter, unspecified
CPT/HCPCS: 36415; 80048

== ENCOUNTER → 2024-06-18 | Outpatient (CLI) | payer MEDICARE, SELFPAY ==
[2024-06-18 15:06] LABS: Anion Gap 7 (5-15); BUN 79 mg/dL (7-18); Calcium,Total 8.3 mg/dL (8.5-10.1); Chloride 99 mmol/L (98-107); Creatinine, Serum 4.64 mg/dL (0.55-1.02); EST Glomerular Filtration Rate 9 mL/min (>60); Est Glom Filt Rate - Afr Amer 11 mL/min (>60); Glucose 106 mg/dL (74-106); Potassium 3.9 mmol/L (3.5-5.1); Sodium Level 137 mmol/L (136-145)
== END | disposition home or self-care (01) ==
LOC: LAB 13:58
PROVIDERS: PCP Family Medicine; Referring Provider Physician Assistant Medical; Visit Provider Physician Assistant Medical
DX: J90 Pleural effusion, not elsewhere classified (principal); R22.43 Localized swelling, mass and lump, lower limb, bilateral
CPT/HCPCS: 36415; 80048

== ENCOUNTER → 2024-07-09 | Outpatient (CLI) | payer MEDICARE, SELFPAY ==
[2024-07-09 12:13] LABS: Hematocrit 20.4 % (37-47); Hemoglobin 6.3 g/dL (12.0-15.0)
[2024-07-09 12:55] LABS: Anion Gap 12 (5-15); BUN 63 mg/dL (7-18); BUN/Creat Ratio 14.8 RATIO (10-20); Calcium,Total 8.3 mg/dL (8.5-10.1); Chloride 99 mmol/L (98-107); Creatinine, Serum 4.27 mg/dL (0.55-1.02); EST Glomerular Filtration Rate 10 mL/min (>60); Est Glom Filt Rate - Afr Amer 13 mL/min (>60); Glucose 110 mg/dL (74-106); Sodium Level 140 mmol/L (136-145)
== END | disposition home or self-care (01) ==
PROVIDERS: PCP Family Medicine; Referring Provider Physician Assistant Medical; Visit Provider Physician Assistant Medical
DX: R22.43 Localized swelling, mass and lump, lower limb, bilateral (principal); D64.9 Anemia, unspecified
CPT/HCPCS: 36415; 80048; 85014; 85018; 86850; 86900; 86901; 86920; 86922

== ENCOUNTER 2024-07-10 10:00 | Outpatient (CLI) | payer MEDICARE, SELFPAY ==
[2024-07-10] VITALS (7 sets, daily range): BP systolic 125–153; BP diastolic 44–57; PULSE 80–85; RESP 16; TEMP 35.7–36.6; O2SAT 94–100; BMI 25.4
[2024-07-10] MEDS: Furosemide 40 MG/4 ML Vial IV (12:43)
== END 2024-07-10 23:59 | disposition home or self-care (01) ==
LOC: MEDOUTP 10:00
PROVIDERS: PCP Family Medicine; Referring Provider Physician Assistant Medical; Visit Provider Physician Assistant Medical
DX: D64.9 Anemia, unspecified (principal)
CPT/HCPCS: 36415; 36430; 86850; 86900; 86901; 86920; 86922; P9016; A4216; J1940

== ENCOUNTER → 2024-07-30 | Outpatient (CLI) | payer MEDICARE, SELFPAY ==
[2024-07-30 12:38] LABS: Hemoglobin 7.9 g/dL (12.0-15.0)
[2024-07-30 13:28] LABS: Anion Gap 11 (5-15); BUN 61 mg/dL (7-18); BUN/Creat Ratio 16.7 RATIO (10-20); Calcium,Total 8.6 mg/dL (8.5-10.1); Chloride 101 mmol/L (98-107); Creatinine, Serum 3.66 mg/dL (0.55-1.02); EST Glomerular Filtration Rate 12 mL/min (>60); Est Glom Filt Rate - Afr Amer 15 mL/min (>60); Glucose 97 mg/dL (74-106); Potassium 3.3 mmol/L (3.5-5.1); Sodium Level 141 mmol/L (136-145)
== END | disposition home or self-care (01) ==
PROVIDERS: PCP Family Medicine; Referring Provider Physician Assistant Medical; Visit Provider Physician Assistant Medical
DX: D64.9 Anemia, unspecified (principal); I50.33 Acute on chronic diastolic (congestive) heart failure
CPT/HCPCS: 36415; 80048; 85014; 85018; 86850; 86900; 86901; 86920; 86922

== ENCOUNTER 2024-07-31 11:10 | Outpatient (CLI) | payer MEDICARE, SELFPAY ==
[2024-07-31 11:32] VITALS: BP 133/58; PULSE 90; RESP 18; TEMP 35.8; O2SAT 98
[2024-07-31 12:14] VITALS: BP 136/59; PULSE 82; RESP 14; TEMP 35.7; O2SAT 98
[2024-07-31 13:11] VITALS: BP 125/57; PULSE 82; RESP 16; TEMP 36.1; O2SAT 96
[2024-07-31] MEDS: Furosemide 40 MG/4 ML Vial IV (13:58)
== END 2024-07-31 23:59 | disposition home or self-care (01) ==
LOC: MEDOUTP 11:10
PROVIDERS: PCP Family Medicine; Referring Provider Physician Assistant Medical; Visit Provider Physician Assistant Medical
DX: D64.9 Anemia, unspecified (principal)
CPT/HCPCS: 36430; 86850; 86900; 86901; 86920; 86922; P9016; A4216; J1940

== ENCOUNTER → 2024-08-27 | Outpatient (CLI) | payer MEDICARE, SELFPAY ==
[2024-08-27 12:48] LABS: Hematocrit 21.1 % (37-47); Hemoglobin 6.7 g/dL (12.0-15.0)
[2024-08-27 14:04] LABS: Anion Gap 12 (5-15); BUN 101 mg/dL (7-18); BUN/Creat Ratio 22.5 RATIO (10-20); Calcium,Total 8.3 mg/dL (8.5-10.1); Chloride 97 mmol/L (98-107); Creatinine, Serum 4.49 mg/dL (0.55-1.02); EST Glomerular Filtration Rate 10 mL/min (>60); Est Glom Filt Rate - Afr Amer 12 mL/min (>60); Glucose 105 mg/dL (74-106); Potassium 3.1 mmol/L (3.5-5.1); Sodium Level 138 mmol/L (136-145)
== END | disposition home or self-care (01) ==
PROVIDERS: Physician Assistant Medical; PCP Family Medicine; Referring Provider Internal Medicine Nephrology; Visit Provider Internal Medicine Nephrology
DX: N17.9 Acute kidney failure, unspecified (principal); D64.9 Anemia, unspecified; Z51.81 Encounter for therapeutic drug level monitoring; Z79.899 Other long term (current) drug therapy
CPT/HCPCS: 36415; 80048; 85014; 85018; 86850; 86900; 86901

== ENCOUNTER 2024-08-28 09:38 | Outpatient (CLI) | payer MEDICARE, SELFPAY ==
[2024-08-28] VITALS (7 sets, daily range): BP systolic 102–131; BP diastolic 36–51; PULSE 80–87; RESP 16; TEMP 36.1–36.4; O2SAT 99–100; BMI 23.2
[2024-08-28] MEDS: Furosemide 20 MG/2 ML VIAL IV (12:23)
== END 2024-08-28 23:59 | disposition home or self-care (01) ==
LOC: MEDOUTP 09:40
PROVIDERS: PCP Family Medicine; Referring Provider Physician Assistant Medical; Visit Provider Physician Assistant Medical
DX: D64.9 Anemia, unspecified (principal)
CPT/HCPCS: 96365; 36415; 36430; 86850; 86900; 86901; P9016; A4216; J1940

== ENCOUNTER → 2024-09-05 | Outpatient (CLI) | payer MEDICARE, SELFPAY ==
[2024-09-05 14:43] LABS: Hematocrit 25.9 % (37-47); Hemoglobin 7.8 g/dL (12.0-15.0)
[2024-09-05 15:22] LABS: Anion Gap 5 (5-15); BUN 65 mg/dL (7-18); Calcium,Total 8.6 mg/dL (8.5-10.1); Chloride 112 mmol/L (98-107); Creatinine, Serum 3.62 mg/dL (0.55-1.02); EST Glomerular Filtration Rate 13 mL/min (>60); Est Glom Filt Rate - Afr Amer 15 mL/min (>60); Glucose 93 mg/dL (74-106); Potassium 5.4 mmol/L (3.5-5.1); Sodium Level 142 mmol/L (136-145)
== END | disposition home or self-care (01) ==
PROVIDERS: PCP Family Medicine; Referring Provider Physician Assistant Medical; Visit Provider Physician Assistant Medical
DX: N28.9 Disorder of kidney and ureter, unspecified (principal); D64.9 Anemia, unspecified
CPT/HCPCS: 36415; 80048; 85014; 85018

== ENCOUNTER → 2024-09-28 | Outpatient (CLI) | payer MEDICARE, SELFPAY ==
[2024-09-28 14:17] LABS: Absolute Lymphocyte Count 0.58 X10^3/uL (0.83-4.51); Absolute Neutrophil Count 5.2 X10^3/uL (2.0-7.7); Basophil# 0.03 X10^3/uL; Basophil% 0.5 % (0-1); Eosinophil# 0.28 X10^3/uL; Eosinophils% 4.2 % (0-5); Hematocrit 23.9 % (37-47); Hemoglobin 7.2 g/dL (12.0-15.0); Lymphocyte # 0.58 X10^3/ul (0.83-4.51); Lymphocyte % 8.7 % (19-41); Mean Corp Hgb Conc 30.1 g/dL (32-36); Mean Corpuscular Hgb 28.7 pg (27.0-32.0); Mean Corpuscular Volume 95.2 fL (81-99); Monocyte# 0.51 X10^3/uL; Monocyte% 7.7 % (0-10); NRBC Flagged by Analyzer 0 % (0-5); Neutrophil % 78.3 % (47-70); POSITIVE DIFFERENTIAL YES; Platelet Count 217 K/mm3 (150-450); RBC Distribution Width CV 16.2 % (11.6-14.6); Red Blood Count 2.51 M/mm3 (4.2-5.4); White Blood Count 6.6 K/mm3 (4.4-11.0)
[2024-09-28 15:45] LABS: Anion Gap 16 (5-15); BUN 41 mg/dL (4-19); BUN/Creat Ratio 11.1 RATIO (10-20); Calcium 8.5 mg/dL (7.6-11.0); Carbon Dioxide 22.2 mmol/L (22.0-29.0); Chloride 103 mmol/L (96-108); Creatinine, Serum 3.68 mg/dL (0.70-1.20); EST Glomerular Filtration Rate 11 (>60); Glucose 95 mg/dL (70-99); Sodium Level 141 mmol/L (133-145)
== END | disposition home or self-care (01) ==
LOC: LAB 13:29
PROVIDERS: PCP Family Medicine; Referring Provider Physician Assistant Medical; Visit Provider Physician Assistant Medical
DX: N18.4 Chronic kidney disease, stage 4 (severe) (principal); D63.1 Anemia in chronic kidney disease
CPT/HCPCS: 36415; 80048; 85025

== ENCOUNTER → 2024-10-15 | Outpatient (CLI) | payer MEDICARE, SELFPAY ==
[2024-10-15 14:55] LABS: Anion Gap 18 (5-15); BUN 58 mg/dL (4-19); BUN/Creat Ratio 14.9 RATIO (10-20); Calcium,Total 8.6 mg/dL (7.6-11.0); Chloride 91 mmol/L (98-108); Creatinine, Serum 3.89 mg/dL (0.70-1.20); EST Glomerular Filtration Rate 11 (>60); Glucose 143 mg/dL (70-99); Potassium 2.7 mmol/L (3.3-5.1); Sodium Level 139 mmol/L (133-145)
== END | disposition home or self-care (01) ==
LOC: LAB 11:38
PROVIDERS: PCP Family Medicine; Referring Provider Physician Assistant Medical; Visit Provider Physician Assistant Medical
DX: Z51.81 Encounter for therapeutic drug level monitoring (principal); Z79.899 Other long term (current) drug therapy
CPT/HCPCS: 36415; 80048

== ENCOUNTER → 2024-10-16 | Outpatient (CLI) | payer MEDICARE, SELFPAY ==
[2024-10-16 16:57] LABS: Anion Gap 15 (5-15); BUN 59 mg/dL (4-19); BUN/Creat Ratio 14.8 RATIO (10-20); Calcium,Total 8.7 mg/dL (7.6-11.0); Carbon Dioxide 32.2 mmol/L (21.0-32.0); Chloride 91 mmol/L (98-108); EST Glomerular Filtration Rate 10 (>60); Glucose 91 mg/dL (70-99); Potassium 2.9 mmol/L (3.3-5.1); Sodium Level 138 mmol/L (133-145)
== END | disposition home or self-care (01) ==
PROVIDERS: PCP Family Medicine; Referring Provider Nurse Practitioner Family; Visit Provider Nurse Practitioner Family
DX: E87.6 Hypokalemia (principal)
CPT/HCPCS: 36415; 80048

== ENCOUNTER → 2024-10-31 | Outpatient (CLI) | payer MEDICARE, SELFPAY ==
[2024-10-31 15:05] LABS: Anion Gap 12 (5-15); BUN 55 mg/dL (4-19); BUN/Creat Ratio 16.4 RATIO (10-20); Calcium,Total 8.8 mg/dL (7.6-11.0); Carbon Dioxide 26.6 mmol/L (21.0-32.0); Chloride 101 mmol/L (98-108); Creatinine, Serum 3.38 mg/dL (0.70-1.20); EST Glomerular Filtration Rate 12 (>60); Glucose 107 mg/dL (70-99); Sodium Level 140 mmol/L (133-145)
== END | disposition home or self-care (01) ==
LOC: LAB 13:54
PROVIDERS: PCP Family Medicine; Referring Provider Physician Assistant Medical; Visit Provider Physician Assistant Medical
DX: N28.9 Disorder of kidney and ureter, unspecified (principal)
CPT/HCPCS: 36415; 80048

== ENCOUNTER → 2025-01-29 | Outpatient (CLI) | payer MEDICARE, SELFPAY ==
[2025-01-29 13:00] LABS: Hematocrit 30.4 % (37-47); Hemoglobin 9.3 g/dL (12.0-15.0); Immature Granulocytes Count 0.020 X10^3/uL (0.0-0.0); Mean Corp Hgb Conc 30.6 g/dL (32-36); Mean Corpuscular Volume 88.6 fL (81-99); Mean Platelet Vol. 9.0 fl (6.2-12.0); NRBC Flagged by Analyzer 0 % (0-5); Platelet Count 259 K/mm3 (150-450); RBC Distribution Width CV 16.2 % (11.6-14.6); RBC Distribution Width SD 52.9 fl (35.1-43.9); Red Blood Count 3.43 M/mm3 (4.2-5.4); White Blood Count 5.6 K/mm3 (4.4-11.0)
[2025-01-29 13:44] LABS: Ferritin 84 ng/mL (22-378); Iron 50 ug/dL (50-170); Iron Binding Capacity,Total 266 ug/dL (250-450); Iron Binding Capacity,Unsat 216 ug/dL (228-428)
[2025-01-30 16:43] LABS: Anion Gap 16 (5-15); BUN 59 mg/dL (4-19); BUN/Creat Ratio 16.6 RATIO (10-20); Calcium,Total 8.8 mg/dL (7.6-11.0); Carbon Dioxide 31.1 mmol/L (21.0-32.0); Chloride 93 mmol/L (98-108); Glucose 106 mg/dL (70-99); Potassium 3.9 mmol/L (3.3-5.1)
== END | disposition home or self-care (01) ==
LOC: LAB 11:33
PROVIDERS: Physician Assistant Medical; PCP Family Medicine; Referring Provider Internal Medicine Hematology & Oncology; Visit Provider Internal Medicine Hematology & Oncology
DX: N18.4 Chronic kidney disease, stage 4 (severe) (principal); D50.0 Iron deficiency anemia secondary to blood loss (chronic); D63.1 Anemia in chronic kidney disease
CPT/HCPCS: 36415; 80048; 82728; 83540; 83550; 85025